=== PATIENT | female | born 1940 | race Caucasian/White ===

== ENCOUNTER → 2016-03-01 | Outpatient (CLI) | payer MEDICARE, BC ==
[2016-03-01 11:31] LABS: CH 29.7; CHCM 32.6; HCT 39.2 % (34.0-46.0); HDW 2.53; HGB 12.6 gm/dL (11.4-16.0); MCH 29.5 pg (25.0-35.0); MCHC 32.2 g/dL (31.0-37.0); MCV 91.7 fL (80.0-100.0); Mean Platelet Volume 9.7; RBC 4.27 m/uL (3.80-5.40); RDW 13.4 % (11.5-15.5); WBC 7.5 k/uL (3.8-10.6)
[2016-03-01 11:53] LABS: ALT 22 U/L (9-52); AST 16 U/L (14-36); Alkaline Phosphatase 85 U/L (38-126); Anion Gap 15 mmol/L; Blood Urea Nitrogen 16 mg/dL (7-17); Calcium 9.3 mg/dL (8.4-10.2); Carbon Dioxide 24 mmol/L (22-30); Chloride 105 mmol/L (98-107); Glucose 92 mg/dL (74-99); Non-African American GFR(MDRD) >60 (>60 ml/min/1.73 sqM); Potassium 4.3 mmol/L (3.5-5.1); Sodium 144 mmol/L (137-145); Total Protein 7.1 g/dL (6.3-8.2)
== END | disposition home or self-care (01) ==
LOC: LABWHC1 10:59
PROVIDERS: ATTEND Psychiatry & Neurology Neurology
DX: M79.606 Pain in leg, unspecified (principal); T42.6X5A Adverse effect of other antiepileptic and sedative-hypnotic drugs, initial encounter
CPT/HCPCS: 36415; 80053; 82784; 82785; 85027

== ENCOUNTER → 2016-09-30 | Outpatient (CLI) | payer MEDICARE, BC ==
--- NOTE | 2016-09-30 11:11 | US ---
EXAMINATION TYPE: US venous doppler duplex LE DATE OF EXAM: 09/30/2016 10:55 AM COMPARISON: NONE CLINICAL HISTORY: Bilateral leg pain and swelling M79.606,R60.0. No h/o dvt SIDE PERFORMED: Bilateral TECHNIQUE: The lower extremity deep venous system is examined utilizing real time linear array sonog neelam with graded compression, doppler sonography and color-flow sonography. VESSELS IMAGED: External Iliac Vein (EIV) Common Femoral Vein Deep Femoral Vein Greater Saphenous Vein * Femoral Vein Popliteal Vein Small Saphenous Vein * Proximal Calf Veins (* superficial vessels) Right Leg: Appears negative for DVT Left Leg: Appears negative for DVT Grayscale, color doppler, spectral doppler imaging performed of the deep veins of the lower extremiti es. There is normal flow, compressibility, vascular waveforms bilaterally. IMPRESSION: No evidence of deep venous thrombosis within either extremity.
== END | disposition home or self-care (01) ==
LOC: RADUSWWP 10:27
PROVIDERS: ATTEND Psychiatry & Neurology Neurology
DX: R60.0 Localized edema (principal); M79.89 Other specified soft tissue disorders; M79.606 Pain in leg, unspecified
CPT/HCPCS: 93970

== ENCOUNTER → 2016-11-16 | Outpatient (CLI) | payer MEDICARE, BC ==
[2016-11-16 09:20] LABS: ALT 21 U/L (9-52); AST 15 U/L (14-36); Alkaline Phosphatase 76 U/L (38-126); Anion Gap 11 mmol/L; Blood Urea Nitrogen 9 mg/dL (7-17); Calcium 9.6 mg/dL (8.4-10.2); Carbon Dioxide 24 mmol/L (22-30); Chloride 107 mmol/L (98-107); Creatine Kinase 43 U/L (30-135); Glucose 95 mg/dL (74-99); Non-African American GFR(MDRD) 58 (>60 ml/min/1.73 sqM); Potassium 4.1 mmol/L (3.5-5.1); Sodium 142 mmol/L (137-145); Total Bilirubin 0.9 mg/dL (0.2-1.3); Total Protein 6.8 g/dL (6.3-8.2)
[2016-11-16 09:22] LABS: Basophils % (A) 1 %; CH 30.3; CHCM 33.4; Eosinophils # (A) 0.1 k/uL (0-0.7); Eosinophils % (A) 1 %; HCT 39.9 % (34.0-46.0); HDW 2.55; Luc # (Auto) 0.11; Luc % (Auto) 2; Lymphocytes # (A) 0.6 k/uL (1.0-4.8); Lymphocytes % (A) 12 %; MCH 29.8 pg (25.0-35.0); MCHC 32.7 g/dL (31.0-37.0); MCV 91.3 fL (80.0-100.0); Mean Platelet Volume 10.1; Monocytes # (A) 0.5 k/uL (0-1.0); Monocytes % (A) 11 %; Neutrophils # (A) 3.5 k/uL (1.3-7.7); Neutrophils % (A) 73 %; RBC 4.38 m/uL (3.80-5.40); RDW 14.6 % (11.5-15.5); WBC 4.8 k/uL (3.8-10.6); WBC (Perox) 5.11
--- NOTE | 2016-11-16 09:30 | CT ---
EXAMINATION TYPE: CT lumbar spine wo con DATE OF EXAM: 11/16/2016 COMPARISON: NONE HISTORY: lower leg pain bilateral CT DLP: 474.40 mGycm CONTRAST: Unenhanced CT of the lumbar spine was performed. Bone and soft tissue window settings are submitted as well as coronal and sagittal reconstructions. L1-L2: Moderate disc space narrowing. Moderate circumferential disc bulge with effacement of the vent ral thecal sac. No evidence for central stenosis or mikki disc herniation. Foramina are patent bilate rally. L2-L3: Severe degenerative disc disease with vacuum disc. Grade 1 anterolisthesis L2 on L3 of 3 mm. H ypertrophic change of the facet joints and hypertrophy of the ligamentum flavum resulting in moderate central stenosis. Mild superior endplate loss of height of L3 likely chronic in nature. L3-L4: Severe degenerative disc disease with vacuum disc. Moderately severe circumferential disc bulg e with effacement of the ventral thecal sac. Hypertrophy of the ligamentum flavum and facet joint art hropathy contribute to [id number] central stenosis. Mild bilateral foraminal encroachment. L4-L5: Severe degenerative disc disease with vacuum disc. Moderately severe circumferential disc bulg e with effacement of the ventral thecal sac. Hypertrophy of the ligamentum flavum and facet joint art hropathy contribute to moderate to severe central stenosis. Mild bilateral foraminal encroachment. L5-S1: Moderate disc space narrowing. Moderate circumferential disc bulge with effacement of the vent ral thecal sac. No evidence for central stenosis or mikki disc herniation. Foramina are patent bilate rally. No paraspinal masses are identified. Lumbar segments are free if fracture. Pulmonary fibrotic change s at the lung bases. IMPRESSION: 1. Multilevel degenerative disc disease. 2. Multilevel central stenosis as outlined above.
[2016-11-16 11:55] LABS: Erythrocyte Sedimentation Rate 3 mm/hr (0-20)
== END | disposition home or self-care (01) ==
LOC: RADCTMAIN 08:23
PROVIDERS: ATTEND Psychiatry & Neurology Neurology
DX: M48.06 Spinal stenosis, lumbar region (principal); M51.36 Other intervertebral disc degeneration, lumbar region
CPT/HCPCS: 36415; 72131; 80053; 82550; 85025; 85652

== ENCOUNTER → 2017-05-11 | Outpatient (CLI) | payer MEDICARE, BC ==
--- NOTE | 2017-05-11 12:56 | P.HPIM ---
History of Present Illness H&P Date: 05/11/17 Chief Complaint: low back and leg pain This is a 76-year-old patient referred by Dr. Varela for chronic pain in low back with radiation to legs with numbness/tingling/burning/[id number]. Patient has been taking medications from primary care physician including tramadol medications with some relief. Patient denies adverse drug effects from medications. Patient also denies new-onset weakness, bowel/bladder incontinence, or any other signs or symptoms of cauda equina syndrome. There are no signs of acute intoxication, and no indications of medication diversion or overuse. Patient notes that pain worsens significantly with standing and walking and improves with rest and medication. Patient has used several types of medications for pain, including NSAIDS, OPIOIDS, TRAMADOL, BENZOS. Patient HAS NOT had surgery. Patient HAS NOT had injections previously. Patient HAS had physical therapy recently without relief. In addition to above, 13-point review of systems is also negative for chest pain , shortness of breath, changes in vision, changes in hearing, new onset weakness , abdominal pain, diarrhea, extreme fatigue, malaise, fever, skin changes, homicidal or suicidal ideation, or bowel or bladder incontinence. PMHx: Parkinsons PSHx: denies Social Hx: neg x 3 FamHx: noncontributory Allergies: NKDA Full list of medications reviewed in EMR (Sinemet, meclizine, Ativan, [place]). Vital Signs: Reviewed in EMR Gen: WDWN, AAOx3, NAD HEENT: NCAT, EOMI, hearing grossly normal Pulm: resp unlabored Abd: soft, NT, ND Neck: supple, trachea midline ROM in flexion lumbar spine: reduced ROM in extension lumbar spine: reduced Lumbar paravertebral tenderness: + Facet loading: + L > R SI joint tenderness: + L > R Bronson's test: neg Straight leg raise: neg Lower extremity: decreased sensation to pinprick Neuro: CN II-XII grossly intact Medications and Allergies Home Medications Medication Instructions Recorded Confirmed Type Carbidopa-Levodopa 25-100 mg 2 each PO QID 05/11/17 05/11/17 History [Sinemet 25-100] LORazepam [Ativan] 0.5 mg PO BID PRN 05/11/17 05/11/17 History Meclizine [Antivert] 12.5 mg PO TID 05/11/17 05/11/17 History traMADol-ACETAMINOP 37.5-325MG 1 - 2 each PO Q8HR 05/11/17 05/11/17 History [Ultracet] Results Comments: MRI lumbar spine dated 11/16/2016 demonstrates severe degenerative disc disease L2-L3, L3-L4, and L4-L5. There are moderately severe disc bulges at L3 L4, L4- L5, and L5-S1 WITH effacement of the ventral thecal sac. There is hypertrophy of ligamentum flavum at L2-L3, L3-L4, and L4-L5 with associated facet joint arthropathy at all levels contributing to central canal stenosis of varying degrees. This spinal canal stenosis is worse at the L4-L5 level. Assessment and Plan (1) Lumbar spinal stenosis Current Visit: Yes Status: Chronic Code(s): M48.061 - SPINAL STENOSIS, LUMBAR REGION WITHOUT NEUROGENIC ELDER SNOMED Code(s): 32326272 (2) Lumbar spondylosis Current Visit: Yes Status: Chronic Code(s): M47.816 - SPONDYLOSIS W/O MYELOPATHY OR RADICULOPATHY, LUMBAR REGION SNOMED Code(s): 393029091 (3) Parkinson disease Current Visit: Yes Status: Chronic Code(s): G20 - PARKINSON'S DISEASE SNOMED Code(s): 85977495 Plan: 1. Explanation: Opioid and psychological risk scores were reviewed. Diagnoses , prognoses, and multiple treatment options including but not limited to physical therapy, interventional therapies, adjuvant medical therapies, narcotic medication therapies, and surgery were discussed with the patient and all questions were answered to the patient's satisfaction. 2. Opioid agreement: no opioids prescribed today 3. Counseling: The patient was counseled extensively on BODY MASS INDEX, EXERCISE. Specifically, the patient was instructed regarding the importance of weight control, and exercise in the context of both chronic pain and overall health. 4. Procedures: LESI series (L4-L5) if possible 5. Consultations: none 6. Investigations: none 7. Medications: none prescribed 8. Disposition: f/u for procedure as scheduled Time with Patient: Greater than 30
== END | disposition home or self-care (01) ==
LOC: PNWHC3 11:23
PROVIDERS: ATTEND Anesthesiology
DX: Z53.9 Procedure and treatment not carried out, unspecified reason (principal)

== ENCOUNTER 2017-07-13 10:41 | Emergency (ER) | payer MEDICARE, BC ==
--- NOTE | 2017-07-13 12:25 | ED ---
Extremity Problem HPI - General Chief complaint: Extremity Problem,Nontraumatic Stated complaint: Leg and arm pain Time Seen by Provider: 07/13/17 11:23 Source: patient, RN notes reviewed, old records reviewed Mode of arrival: wheelchair Limitations: physical limitation - History of Present Illness Initial comments: This patient is a 77-year-old female presents emergency Department chief complaint of bilateral arm and leg pain. She reports that she's been having intermittent swelling. Redness. Patient states that the redness and swelling seems to come and go. She states she had no fever or chills. Unable to eat and drink. No chest pain shortness of breath or any other symptoms. Patient reports she has a history of Parkinson's disease. She states that sometimes she ambulates and she has freezing moments. She states this happened once in a while. - Related Data Home Medications Medication Instructions Recorded Confirmed Carbidopa-Levodopa 25-100 mg 2 tab PO QID 05/11/17 07/13/17 [Sinemet 25-100] LORazepam [Ativan] 0.5 mg PO BID PRN 05/11/17 07/13/17 Meclizine [Antivert] 12.5 mg PO TID 05/11/17 07/13/17 traMADol-ACETAMINOP 37.5-325MG 1 - 2 tab PO Q8HR PRN 05/11/17 07/13/17 [Ultracet] Allergies Allergy/AdvReac Type Severity Reaction Status Date / Time No Known Allergies Allergy Verified 07/13/17 11:55 Review of Systems ROS Statement: Those systems with pertinent positive or pertinent negative responses have been documented in the HPI. ROS Other: All systems not noted in ROS Statement are negative. Past Medical History Additional Past Medical History / Comment(s): parkinsons disease, chronic back pain History of Any Multi-Drug Resistant Organisms: None Reported Past Surgical History: Hysterectomy Past Psychological History: No Psychological Hx Reported Smoking Status: Current every day smoker Past Alcohol Use History: None Reported Past Drug Use History: None Reported General Exam - General Exam Comments Initial Comments: 77-year-old female. Alert. No acute distress. Limitations: physical limitation General appearance: alert, in no apparent distress Head exam: Present: atraumatic, normocephalic, normal inspection Eye exam: Present: normal appearance, PERRL, EOMI. Absent: scleral icterus, conjunctival injection, periorbital swelling ENT exam: Present: normal exam, mucous membranes moist Neck exam: Present: normal inspection. Absent: tenderness, meningismus, lymphadenopathy Respiratory exam: Present: normal lung sounds bilaterally. Absent: respiratory distress, wheezes, rales, rhonchi, stridor Cardiovascular Exam: Present: regular rate, normal rhythm, normal heart sounds. Absent: systolic murmur, diastolic murmur, rubs, gallop, clicks GI/Abdominal exam: Present: soft, normal bowel sounds. Absent: distended, tenderness, guarding, rebound, rigid Extremities exam: Present: normal inspection, full ROM, normal capillary refill , other (Patient has no evidence of any peripheral edema. She has normal pulses throughout all extremities. No redness noted.). Absent: tenderness, pedal edema, joint swelling, calf tenderness Back exam: Present: normal inspection Neurological exam: Present: alert, oriented X3, CN II-XII intact Psychiatric exam: Present: normal affect, normal mood Skin exam: Present: warm, dry, intact, normal color. Absent: rash Course Vital Signs 07/13/17 10:46 Temperature 97.5 F L Pulse Rate 101 H Respiratory 20 Rate Blood Pressure 171/86 O2 Sat by Pulse 96 Oximetry Medical Decision Making - Medical Decision Making Is a 77-year-old male female presents with family with history of redness and swelling to her extremities. At this time there is no redness or swelling noted. She has normal pulses. She is no difficulty with ambulation range of motion. Patient informed of my physical exam findings and I'm not concerned for any redness. She cannot tell me when the redness seems to come and go. She denies any fevers or chills. No chest pain or abdominal pain. I discussed that this with the family. They would like us to compare form an ultrasound to ensure additional blood clot. Ultrasound of lower extremities was completed and there is no evidence of blood clot. Patient's family also relates that she has a slipped disc in her back. She reports no falls. Patient informed that she seems to have neuropathy leg pain. She should follow-up with her PCP or neurologist. Discussed this time and no concerns for any infection or vascular issues with her legs. There is no redness or swelling. Patient will follow- up. She'll be given a Flexeril and one Ativan. This is her home meds. - Radiology Data Radiology results: report reviewed Ultrasound is negative for DVT in bilateral lower extremities. Disposition Clinical Impression: Leg pain, bilateral Disposition: HOME SELF-CARE Condition: Good Instructions: Lumbar Radiculopathy (ED), Leg Pain (ED) Additional Instructions: If the redness reoccurs or persists patient should return to the emergency department. Up with your primary care provider Recommended taking the muscular relaxer or pain medication as prescribed by neurology. Is patient prescribed a controlled substance at d/c from ED?: No If prescribed controlled substance>3 days was MAPS reviewed?: No When asked, does pt state using other controlled substances?: No Referrals: Kwasi De Leon MD [Primary Care Provider] - 1-2 days Time of Disposition: 13:00
--- NOTE | 2017-07-13 12:54 | US ---
EXAMINATION TYPE: US venous doppler duplex LE BI DATE OF EXAM: 07/13/2017 12:41 PM COMPARISON: Bilateral lower extremity venous ultrasound September 30, 2016. CLINICAL HISTORY: Pain. h/o of disc problems in back, Parkinson's SIDE PERFORMED: Bilateral TECHNIQUE: The lower extremity deep venous system is examined utilizing real time linear array sonog neelam with graded compression, doppler sonography and color-flow sonography. VESSELS IMAGED: External Iliac Vein (EIV) Common Femoral Vein Deep Femoral Vein Greater Saphenous Vein * Femoral Vein Popliteal Vein Small Saphenous Vein * Proximal Calf Veins (* superficial vessels) Right Leg: Negative for DVT Left Leg: Negative for DVT Grayscale, color doppler, spectral doppler imaging performed of the deep veins of the bilateral lower extremities. There is normal flow, compressibility, vascular waveforms. IMPRESSION: No ultrasound evidence for acute DVT in either lower extremity. No significant change fro m prior.
[2017-07-13] MEDS ORDERED: CYCLOBENZAPRINE 10MG STARTER 3 TAB BTL PO STA (13:11)
[2017-07-13] MEDS ORDERED: LORazepam 1 MG TAB PO STA (13:12)
[2017-07-13 13:37] VITALS: BP 171/81; PULSE 98; RESP 18; TEMP 97.2
== END 2017-07-13 13:45 | disposition home or self-care (01) ==
LOC: EC 10:41
DX: M79.604 Pain in right leg (principal); M79.605 Pain in left leg; G20 Parkinson's disease; F17.200 Nicotine dependence, unspecified, uncomplicated; Z79.899 Other long term (current) drug therapy
CPT/HCPCS: 93005; 93970; 99284

== ENCOUNTER 2018-04-02 18:45 | Inpatient (IN) | payer MEDICARE, BC ==
[2018-04-02] MEDS ORDERED: SODIUM CHLORIDE 0.9% 1,000 ML IV STA ×2 (19:19)
[2018-04-02] MEDS ORDERED: MORPHINE SULFATE 4 MG/ML SYRINGE IV STA (19:19)
--- NOTE | 2018-04-02 19:20 | ED ---
Extremity Problem HPI - General Chief complaint: Extremity Problem,Nontraumatic Stated complaint: Leg Pain Time Seen by Provider: 04/02/18 18:53 Source: patient, EMS, RN notes reviewed, old records reviewed Mode of arrival: EMS Limitations: physical limitation - History of Present Illness Initial comments: This is a 77-year-old female to the ER for evaluation. She is presenting today for evaluation regards to weakness. History of underlying Parkinson's. Denies fever unable to give get up off the bed for the last 2 days, severely weak and found in her own feces and urine. Patient brought in the ER by family MD Complaint: extremity pain, joint pain -: days(s) (3) Location: bilateral lower extremity -: Yes fever Radiation: none Severity scale (1-10): 3 Quality: aching Consistency: constant Improves with: nothing Worsens with: weight bearing, walking Associated Symptoms: denies other symptoms - Related Data Home Medications Medication Instructions Recorded Confirmed Carbidopa-Levodopa 25-100 mg 1 tab PO Q4H 05/11/17 04/02/18 [Sinemet 25-100] LORazepam [Ativan] 0.5 mg PO BID 05/11/17 04/02/18 traMADol-ACETAMINOP 37.5-325MG 1 - 2 tab PO BID PRN 05/11/17 04/02/18 [Ultracet] Allergies Allergy/AdvReac Type Severity Reaction Status Date / Time No Known Allergies Allergy Verified 04/02/18 19:30 Review of Systems ROS Statement: Those systems with pertinent positive or pertinent negative responses have been documented in the HPI. ROS Other: All systems not noted in ROS Statement are negative. Past Medical History Past Medical History: Coronary Artery Disease (CAD) Additional Past Medical History / Comment(s): parkinsons disease, chronic back pain, spinal stenosis History of Any Multi-Drug Resistant Organisms: None Reported Past Surgical History: Hysterectomy Past Psychological History: No Psychological Hx Reported Smoking Status: Former smoker Past Alcohol Use History: None Reported Past Drug Use History: None Reported - Past Family History Father Family Medical History: Coronary Artery Disease (CAD), Myocardial Infarction ([place] ) Additional Family Medical History / Comment(s): Father was an alcoholic. He at the age of 69yrs. Mother Family Medical History: Coronary Artery Disease (CAD), Myocardial Infarction ([place] ) Additional Family Medical History / Comment(s): Mother lived to be 89yrs old. General Exam Limitations: physical limitation General appearance: alert, in no apparent distress Head exam: Present: atraumatic, normocephalic, normal inspection Eye exam: Present: normal appearance, PERRL, EOMI. Absent: scleral icterus, conjunctival injection, periorbital swelling ENT exam: Present: normal exam, mucous membranes moist Neck exam: Present: normal inspection. Absent: tenderness, meningismus, lymphadenopathy Respiratory exam: Present: normal lung sounds bilaterally. Absent: respiratory distress, wheezes, rales, rhonchi, stridor Cardiovascular Exam: Present: normal rhythm, tachycardia, normal heart sounds. Absent: systolic murmur, diastolic murmur, rubs, gallop, clicks GI/Abdominal exam: Present: soft, normal bowel sounds. Absent: distended, tenderness, guarding, rebound, rigid Extremities exam: Present: normal inspection, full ROM, normal capillary refill. Absent: tenderness, pedal edema, joint swelling, calf tenderness Back exam: Present: normal inspection Neurological exam: Present: alert, oriented X3, CN II-XII intact Psychiatric exam: Present: normal affect, normal mood Skin exam: Present: warm, dry, intact, normal color. Absent: rash Course Vital Signs 04/02/18 04/02/18 04/02/18 18:46 18:51 19:00 Temperature 98.1 F Pulse Rate 108 H Respiratory 16 Rate Blood Pressure 153/86 153/86 153/86 O2 Sat by Pulse 97 97 97 Oximetry 04/02/18 04/02/18 04/02/18 19:30 20:00 20:30 Temperature Pulse Rate Respiratory Rate Blood Pressure 140/65 140/70 140/86 O2 Sat by Pulse 98 97 Oximetry 04/02/18 04/02/18 04/02/18 20:48 21:00 21:30 Temperature Pulse Rate 111 H Respiratory 18 Rate Blood Pressure 132/74 132/74 126/67 O2 Sat by Pulse 97 97 Oximetry 04/02/18 04/03/18 04/03/18 22:00 00:49 01:18 Temperature 99.0 F Pulse Rate 98 100 Respiratory 16 18 18 Rate Blood Pressure 126/67 122/69 126/70 O2 Sat by Pulse 97 95 Oximetry 04/03/18 04/03/18 04/03/18 03:00 03:55 04:00 Temperature Pulse Rate 101 H Respiratory 16 Rate Blood Pressure 139/74 154/89 154/89 O2 Sat by Pulse 98 94 L Oximetry 04/03/18 04/03/18 05:00 06:00 Temperature Pulse Rate Respiratory Rate Blood Pressure 154/89 154/89 O2 Sat by Pulse Oximetry Medical Decision Making - Medical Decision Making Shweta female the ER for evaluation of weakness, positive for significant urinary tract infection, will admit for IV antibiotics - Lab Data Result diagrams: 04/02/18 20:53 04/02/18 20:53 Lab Results 04/02/18 04/02/18 04/02/18 Range/Units 20:53 20:53 20:53 WBC 14.1 H (3.8-10.6) k/uL RBC 4.90 (3.80-5.40) m/uL Hgb 14.0 (11.4-16.0) gm/dL Hct 44.9 (34.0-46.0) % MCV 91.7 (80.0-100.0) fL MCH 28.6 (25.0-35.0) pg MCHC 31.2 (31.0-37.0) g/dL RDW 13.9 (11.5-15.5) % Plt Count 235 (150-450) k/uL Neutrophils % 86 % Lymphocytes % 5 % Monocytes % 7 % Eosinophils % 0 % Basophils % 0 % Neutrophils # 12.1 H (1.3-7.7) k/uL Lymphocytes # 0.7 L (1.0-4.8) k/uL Monocytes # 1.1 H (0-1.0) k/uL Eosinophils # 0.1 (0-0.7) k/uL Basophils # 0.1 (0-0.2) k/uL PT 10.8 (9.0-12.0) sec INR 1.0 (<1.2) APTT 25.2 (22.0-30.0) sec Sodium 142 (137-145) mmol/L Potassium 4.1 (3.5-5.1) mmol/L Chloride 108 H (98-107) mmol/L Carbon Dioxide 22 (22-30) mmol/L Anion Gap 12 mmol/L BUN 24 H (7-17) mg/dL Creatinine 0.77 (0.52-1.04) mg/dL Est GFR (CKD-EPI)AfAm 85 (>60 ml/min/1.73 sqM) Est GFR (CKD-EPI)NonAf 74 (>60 ml/min/1.73 sqM) Glucose 110 H (74-99) mg/dL Plasma Lactic Acid Feliz (0.7-2.0) mmol/L Calcium 9.9 (8.4-10.2) mg/dL Phosphorus 3.5 (2.5-4.5) mg/dL Magnesium 2.2 (1.6-2.3) mg/dL Total Bilirubin 1.6 H (0.2-1.3) mg/dL AST 58 H (14-36) U/L ALT 25 (9-52) U/L Alkaline Phosphatase 80 (38-126) U/L Total Creatine Kinase (30-135) U/L CK-MB (CK-2) (0.0-2.4) ng/mL CK-MB (CK-2) Rel Index Troponin I (0.000-0.034) ng/mL Total Protein 6.9 (6.3-8.2) g/dL Albumin 4.2 (3.5-5.0) g/dL Urine Color Urine Appearance (Clear) Urine pH (5.0-8.0) Ur Specific [place] (1.001-1.035) Urine Protein (Negative) Urine Glucose (UA) (Negative) Urine Ketones (Negative) Urine Blood (Negative) Urine Nitrite (Negative) Urine Bilirubin (Negative) Urine Urobilinogen (<2.0) mg/dL Ur Leukocyte Esterase (Negative) Urine RBC (0-5) /hpf Urine WBC (0-5) /hpf Urine Bacteria (None) /hpf 04/02/18 04/02/18 04/02/18 Range/Units 20:53 20:53 22:03 WBC (3.8-10.6) k/uL RBC (3.80-5.40) m/uL Hgb (11.4-16.0) gm/dL Hct (34.0-46.0) % MCV (80.0-100.0) fL MCH (25.0-35.0) pg MCHC (31.0-37.0) g/dL RDW (11.5-15.5) % Plt Count (150-450) k/uL Neutrophils % % Lymphocytes % % Monocytes % % Eosinophils % % Basophils % % Neutrophils # (1.3-7.7) k/uL Lymphocytes # (1.0-4.8) k/uL Monocytes # (0-1.0) k/uL Eosinophils # (0-0.7) k/uL Basophils # (0-0.2) k/uL PT (9.0-12.0) sec INR (<1.2) APTT (22.0-30.0) sec Sodium (137-145) mmol/L Potassium (3.5-5.1) mmol/L Chloride (98-107) mmol/L Carbon Dioxide (22-30) mmol/L Anion Gap mmol/L BUN (7-17) mg/dL Creatinine (0.52-1.04) mg/dL Est GFR (CKD-EPI)AfAm (>60 ml/min/1.73 sqM) Est GFR (CKD-EPI)NonAf (>60 ml/min/1.73 sqM) Glucose (74-99) mg/dL Plasma Lactic Acid Feliz 1.6 (0.7-2.0) mmol/L Calcium (8.4-10.2) mg/dL Phosphorus (2.5-4.5) mg/dL Magnesium (1.6-2.3) mg/dL Total Bilirubin (0.2-1.3) mg/dL AST (14-36) U/L ALT (9-52) U/L Alkaline Phosphatase (38-126) U/L Total Creatine Kinase 1112 H* (30-135) U/L CK-MB (CK-2) 5.2 H (0.0-2.4) ng/mL CK-MB (CK-2) Rel Index 0.5 Troponin I 0.040 H* (0.000-0.034) ng/mL Total Protein (6.3-8.2) g/dL Albumin (3.5-5.0) g/dL Urine Color Yellow Urine Appearance Clear (Clear) Urine pH 5.5 (5.0-8.0) Ur Specific [place] 1.023 (1.001-1.035) Urine Protein 1+ H (Negative) Urine Glucose (UA) Negative (Negative) Urine Ketones 3+ H (Negative) Urine Blood Small H (Negative) Urine Nitrite Positive H (Negative) Urine Bilirubin Negative (Negative) Urine Urobilinogen 2.0 (<2.0) mg/dL Ur Leukocyte Esterase Moderate H (Negative) Urine RBC 2 (0-5) /hpf Urine WBC 20 H (0-5) /hpf Urine Bacteria Many H (None) /hpf Disposition Clinical Impression: Parkinson disease, UTI (urinary tract infection) Disposition: ADMITTED IP TO THIS HOSP Condition: Fair Is patient prescribed a controlled substance at d/c from ED?: No
[2018-04-02 21:06] LABS: Basophils # (A) 0.1 k/uL (0-0.2); Basophils % (A) 0 %; Eosinophils # (A) 0.1 k/uL (0-0.7); Eosinophils % (A) 0 %; HCT 44.9 % (34.0-46.0); Lymphocytes # (A) 0.7 k/uL (1.0-4.8); Lymphocytes % (A) 5 %; MCH 28.6 pg (25.0-35.0); MCHC 31.2 g/dL (31.0-37.0); MCV 91.7 fL (80.0-100.0); Mean Platelet Volume 8.4; Monocytes # (A) 1.1 k/uL (0-1.0); Monocytes % (A) 7 %; Neutrophils # (A) 12.1 k/uL (1.3-7.7); Neutrophils % (A) 86 %; Platelet Count 235 k/uL (150-450); RDW 13.9 % (11.5-15.5); WBC 14.1 k/uL (3.8-10.6)
[2018-04-02 21:15] LABS: Partial Thromboplastin Time 25.2 sec (22.0-30.0); Prothrombin Time 10.8 sec (9.0-12.0)
[2018-04-02 21:25] LABS: Albumin 4.2 g/dL (3.5-5.0); Calcium 9.9 mg/dL (8.4-10.2); Magnesium 2.2 mg/dL (1.6-2.3); Phosphorus 3.5 mg/dL (2.5-4.5); Potassium 4.1 mmol/L (3.5-5.1); Total Bilirubin 1.6 mg/dL (0.2-1.3); Total Protein 6.9 g/dL (6.3-8.2)
--- NOTE | 2018-04-02 21:39 | XR ---
EXAMINATION TYPE: XR chest 2V DATE OF EXAM: 04/02/2018 COMPARISON: Prior chest x-ray November 28, 2011 HISTORY: Weakness with bilateral leg pain. TECHNIQUE: Frontal and lateral views of the chest are obtained. FINDINGS: There is new elevated right hemidiaphragm. There is chronic parenchymal change bilaterally without suspicious focal air space opacity, pleural effusion, or pneumothorax seen. The cardiac silh ouette size is within normal limits. The osseous structures are demineralized. IMPRESSION: Chronic parenchymal change without suspicious acute pulmonary process. 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 Consider nonemergent fluoroscopic sniff t est follow up.
[2018-04-02 21:45] LABS: Creatine Kinase MB 5.2 ng/mL (0.0-2.4)
[2018-04-02 21:51] LABS: Troponin I 0.04 ng/mL (0.000-0.034)
[2018-04-02 22:17] LABS: Appearance,Urine Clear (Clear); Bacteria,Urine Many /hpf; Bilirubin,Urine Negative (Negative); Blood,Urine Small (Negative); Color,Urine Yellow; Glucose,Urine (UA) Negative (Negative); Ketones,Urine 3+ (Negative); Leukocyte Esterase,Urine Moderate (Negative); Nitrite,Urine Positive (Negative); PH, Urine 5.5 (5.0-8.0); Protein,Urine 1+ (Negative); RBC,Urine 2 /hpf (0-5); Specific Gravity,Urine 1.023 (1.001-1.035); WBC,Urine 20 /hpf (0-5)
[2018-04-02] MEDS ORDERED: cefTRIAXone 2,000 MG in SODIUM CHLORIDE 0.9% 100 ML IVPB STA (22:23)
[2018-04-02] MEDS ORDERED: HYDROmorphone 1 MG/ML 1 ML SYRINGE IVP STA (22:55)
[2018-04-03] MEDS: traMADol-ACETAMINOP 37.5-325MG 1 EACH TAB PO PRN (11:32)
[2018-04-03] MEDS: LORazepam 0.5 MG TAB PO SCH ×2 (11:32→20:07)
[2018-04-03] MEDS: ENOXAPARIN 40 MG/0.4 ML SYRINGE SQ SCH (11:32)
[2018-04-03] MEDS: CARBIDOPA-LEVODOPA 25-100 MG 1 EACH TAB PO SCH ×4 (14:00→23:18)
[2018-04-04] MEDS: CARBIDOPA-LEVODOPA 25-100 MG 1 EACH TAB PO SCH ×5 (04:58→21:06)
--- NOTE | 2018-04-04 08:14 | P.HPIM ---
History of Present Illness H&P Date: 04/03/18 Chief Complaint: UTI with bilateral lower extremity weakness. This is 77-year-old female one of my patient with a previous medical history significant for advanced Parkinson disease, osteophytes, significant spondylosis of the lumbar spine with spinal stenosis, has been under the care of Dr. Varela for her Parkinson as well as bilateral lower extremity neuropathy, patient was getting weaker and weaker over the last few weeks and she ended up coming to the ER at [facility] with her daughter and son-in-law yesterday because of symptoms of increased burning sensation with generalized weakness specially not able template using her walker and cane she was found to have urinary tract infection she was started on IV antibiotics was admitted to the hospital for evaluation as well as physical therapy evaluation due to significant weakness of both lower extremities. Review of Systems Constitutional: Reports weakness, Reports weight loss, Denies anorexia, Denies chronic headaches, Denies fatigue, Denies lethargy Eyes: denies blurred vision Ears: deny: decreased hearing Ears, nose, mouth and throat: Denies dysphagia, Denies neck lump, Denies sore throat Cardiovascular: Denies chest pain, Denies decreased exercise tolerance, Denies dyspnea on exertion, Denies leg edema, Denies rapid heart beat, Denies shortness of breath, Denies syncope Respiratory: Denies congestion, Denies cough with sputum, Denies home oxygen, Denies respiratory infections, Denies sleep apnea, Denies snoring, Denies wheezing Gastrointestinal: Denies abdominal pain, Denies belching, Denies heartburn, Denies melena, Denies nausea, Denies vomiting Genitourinary: Reports dysuria, Reports nocturia, Reports urinary frequency Menstruation: Reports postmenopausal Musculoskeletal: Reports atrophy, Reports gait dysfunction, Reports low back pain, Reports muscle weakness Musculoskeletal: absent: ankle pain, ankle stiffness, ankle swelling, elbow pain , elbow stiffness, elbow swelling, foot pain, foot stiffness, foot swelling, hand pain, hand stiffness, hand swelling, hip pain, hip stiffness, hip swelling , knee pain, knee stiffness, knee swelling, shoulder pain, shoulder stiffness, shoulder swelling, wrist pain, wrist stiffness, wrist swelling Integumentary: Denies pruritus, Denies rash Neurological: Reports balance difficulties, Reports confusion, Reports gait dysfunction, Reports weakness, Denies memory loss Psychiatric: Denies anxiety, Denies depression Endocrine: Denies fatigue, Denies weight change Past Medical History Past Medical History: GERD/Reflux, Neurologic Disorder, Osteoarthritis (OA) Additional Past Medical History / Comment(s): parkinsons disease, chronic back pain, spinal stenosis, numbness and tingling hands and feet, sinus problems, UTIs, urine incontinence. History of Any Multi-Drug Resistant Organisms: None Reported Past Surgical History: Heart Catheterization, Hysterectomy Past Anesthesia/Blood Transfusion Reactions: No Reported Reaction Smoking Status: Former smoker (Patient smoked about a pack every day for many years and quit and now she is back into the habit on and off 3-4 cig every day.) - Past Family History Father Family Medical History: No Reported History (Father at age of 69 from alcoholism.) Additional Family Medical History / Comment(s): Father was an alcoholic. He at the age of 69yrs. Mother Family Medical History: Coronary Artery Disease (CAD), Diabetes Mellitus ( Mother at age of 89 from diabetes and CAD.), Myocardial Infarction (UT) Additional Family Medical History / Comment(s): Mother lived to be 89yrs old. Brother(s) Family Medical History: Coronary Artery Disease (CAD) (Patient had 3 brothers all of them from CAD one of them had his first UT at the age of 60.) Sister(s) Family Medical History: Cancer (Patient had 2 sisters one of them from breast cancer and the other one suddenly from unknown cause.) Daughter(s) Family Medical History: No Reported History (Patient has one daughter major medical problems.) Son(s) Family Medical History: No Reported History (Patient has one son no major medical problems.) Medications and Allergies Home Medications Medication Instructions Recorded Confirmed Type Carbidopa-Levodopa 25-100 mg 1 tab PO Q4H 05/11/17 04/02/18 History [Sinemet 25-100] LORazepam [Ativan] 0.5 mg PO BID 05/11/17 04/02/18 History traMADol-ACETAMINOP 37.5-325MG 1 - 2 tab PO BID PRN 05/11/17 04/02/18 History [Ultracet] Allergies Allergy/AdvReac Type Severity Reaction Status Date / Time No Known Allergies Allergy Verified 04/02/18 19:30 Physical Exam Vitals: Vital Signs Temp Pulse Resp BP Pulse Ox 02/05/19 06:00 154/89 04/03/18 05:00 154/89 04/03/18 04:00 154/89 94 L 04/03/18 03:55 101 H 16 154/89 98 04/03/18 03:00 139/74 04/03/18 01:18 99.0 F 100 18 126/70 95 04/03/18 00:49 98 18 122/69 97 04/02/18 22:00 16 126/67 04/02/18 21:30 126/67 04/02/18 21:00 132/74 97 04/02/18 20:48 111 H 18 132/74 97 04/02/18 20:30 140/86 97 04/02/18 20:00 140/70 98 04/02/18 19:30 140/65 04/02/18 19:00 153/86 97 04/02/18 18:51 153/86 97 04/02/18 18:46 98.1 F 108 H 16 153/86 97 Intake and Output 04/02/18 04/03/18 04/03/18 22:59 06:59 14:59 Other: Weight 68.039 kg - Constitutional General appearance: mild distress, thin - EENT Eyes: anicteric sclerae, EOMI, PERRLA, no ptosis, no scleral icterus, normal appearance ENT: hard of hearing, NA/AT, normal oropharynx, no thrush Ears: bilateral: normal - Neck Neck: no lymphadenopathy, normal ROM, no rigidity, no stridor, no thyromegaly Carotids: bilateral: upstroke normal Thyroid: bilateral: normal size - Respiratory Respiratory: bilateral: diminished, negative: dullness, rales, rhonchi, wheezing , prolonged expiration - Cardiovascular Rhythm: regular Heart sounds: normal: S1, S2 Abnormal Heart Sounds: systolic murmur, no S3 Gallop, no S4 Gallop - Gastrointestinal General gastrointestinal: normal bowel sounds, soft, no splenomegaly, no tenderness, no umbilical hernia, no ventral hernia - Integumentary Integumentary: normal, normal turgor - Neurologic Neurologic: CNII-XII intact - Musculoskeletal Musculoskeletal: generalized weakness, strength equal bilaterally - Psychiatric Psychiatric: A&O x's 3, appropriate affect, intact judgment & insight Results CBC & Chem 7: 04/02/18 20:53 04/02/18 20:53 Labs: Abnormal Lab Results - Last 24 Hours (Table) 04/02/18 04/02/18 04/02/18 Range/Units 20:53 20:53 20:53 WBC 14.1 H (3.8-10.6) k/uL Neutrophils # 12.1 H (1.3-7.7) k/uL Lymphocytes # 0.7 L (1.0-4.8) k/uL Monocytes # 1.1 H (0-1.0) k/uL Chloride 108 H (98-107) mmol/L BUN 24 H (7-17) mg/dL Glucose 110 H (74-99) mg/dL Total Bilirubin 1.6 H (0.2-1.3) mg/dL AST 58 H (14-36) U/L Total Creatine Kinase 1112 H* (30-135) U/L CK-MB (CK-2) 5.2 H (0.0-2.4) ng/mL Troponin I 0.040 H* (0.000-0.034) ng/mL Urine Protein (Negative) Urine Ketones (Negative) Urine Blood (Negative) Urine Nitrite (Negative) Ur Leukocyte Esterase (Negative) Urine WBC (0-5) /hpf Urine Bacteria (None) /hpf 04/02/18 Range/Units 22:03 WBC (3.8-10.6) k/uL Neutrophils # (1.3-7.7) k/uL Lymphocytes # (1.0-4.8) k/uL Monocytes # (0-1.0) k/uL Chloride (98-107) mmol/L BUN (7-17) mg/dL Glucose (74-99) mg/dL Total Bilirubin (0.2-1.3) mg/dL AST (14-36) U/L Total Creatine Kinase (30-135) U/L CK-MB (CK-2) (0.0-2.4) ng/mL Troponin I (0.000-0.034) ng/mL Urine Protein 1+ H (Negative) Urine Ketones 3+ H (Negative) Urine Blood Small H (Negative) Urine Nitrite Positive H (Negative) Ur Leukocyte Esterase Moderate H (Negative) Urine WBC 20 H (0-5) /hpf Urine Bacteria Many H (None) /hpf Microbiology - Last 24 Hours (Table) 04/02/18 22:03 Urine Culture - Preliminary Urine,Catheterized Thrombosis Risk Factor Assmnt - DVT/VTE Prophylaxis DVT/VTE Prophylaxis: Pharmacologic Prophylaxis ordered, Mechanical Prophylaxis ordered - Choose All That Apply Any of the Below Risk Factors Present?: Yes Other Risk Factors: Yes Each Risk Factor Represents 3 Points: Age 75 years or older Other congenital or acquired thrombophilia - If yes, enter type in comment: No Thrombosis Risk Factor Assessment Total Risk Factor Score: 3 Thrombosis Risk Factor Assessment Level: Moderate Risk Assessment and Plan Assessment: Assessment and plan: 1. Urinary tract infection with SIRS. Continue with Rocephin 1 g IV piggyback every 24 hours, urine culture, blood culture, monitor the patient very closely. 2. Bilateral lower extremity weakness due to advanced Parkinson disease. Continue patient on carbidopa levodopa 25/100 mg orally 4 times every day. Physical therapy evaluation. 3. Spondylosis of the lumbar spine and bilateral lower extremity neuropathy. Patient had felt the use of gabapentin and Lyrica both. 4. anxiety. Has been maintained on Ativan 0.5 mg orally twice every day. 5. Osteoarthritis. Stable at this time. 6. DVT prophylaxis. Lovenox 40 mg subcutaneously daily. 7. GI prophylaxis. Continue PPI. 8. Patient is full code. 9. Admit to inpatient. Estimate length of stay 2 midnights.
[2018-04-04] MEDS: ENOXAPARIN 40 MG/0.4 ML SYRINGE SQ SCH (08:42)
[2018-04-04] MEDS: LORazepam 0.5 MG TAB PO SCH ×2 (08:42→21:06)
[2018-04-04] MEDS: SODIUM CHLORIDE 0.9% 1,000 ML IV SCH (14:15)
--- NOTE | 2018-04-04 14:30 | P.PN ---
Subjective Progress Note Date: 04/04/18 This is 77-year-old female one of my patient with a previous medical history significant for advanced Parkinson disease, osteophytes, significant spondylosis of the lumbar spine with spinal stenosis, has been under the care of Dr. Varela for her Parkinson as well as bilateral lower extremity neuropathy, patient was getting weaker and weaker over the last few weeks and she ended up coming to the ER at [facility] with her daughter and son-in-law yesterday because of symptoms of increased burning sensation with generalized weakness specially not able template using her walker and cane she was found to have urinary tract infection she was started on IV antibiotics was admitted to the hospital for evaluation as well as physical therapy evaluation due to significant weakness of both lower extremities. 04/04: Patient states she is feeling a little bit better from yesterday but still is feeling tired and weak. She did walk with physical therapy and subacute rehab has been recommended. Patient is willing to go to subacute rehab for therapies. She has had a bowel movement. Noted CK was elevated plan to repeat tomorrow. Patient will be continued on IV fluids. She has been afebrile, blood pressure 100/66, pulse ox 94-96% on room air. Heart rate running in 70s to 90. Urine culture showing gram-negative bacilli. Patient is continued on Rocephin. Review of Systems Constitutional: Reports weakness, Reports weight loss, Denies anorexia, Denies chronic headaches, reports fatigue, Denies lethargy Eyes: denies blurred vision Ears: deny: decreased hearing Ears, nose, mouth and throat: Denies dysphagia, Denies neck lump, Denies sore throat Cardiovascular: Denies chest pain, Denies decreased exercise tolerance, Denies dyspnea on exertion, Denies leg edema, Denies rapid heart beat, Denies shortness of breath, Denies syncope Respiratory: Denies congestion, Denies cough with sputum, Denies home oxygen, Denies respiratory infections, Denies sleep apnea, Denies snoring, Denies wheezing Gastrointestinal: Denies abdominal pain, Denies belching, Denies heartburn, Denies melena, Denies nausea, Denies vomiting Genitourinary: Reports dysuria, Reports nocturia, Reports urinary frequency Menstruation: Reports postmenopausal Musculoskeletal: Reports atrophy, Reports gait dysfunction, Reports low back pain, Reports muscle weakness Musculoskeletal: absent: ankle pain, ankle stiffness, ankle swelling, elbow pain , elbow stiffness, elbow swelling, foot pain, foot stiffness, foot swelling, hand pain, hand stiffness, hand swelling, hip pain, hip stiffness, hip swelling , knee pain, knee stiffness, knee swelling, shoulder pain, shoulder stiffness, shoulder swelling, wrist pain, wrist stiffness, wrist swelling Integumentary: Denies pruritus, Denies rash Neurological: Reports balance difficulties, Reports confusion, Reports gait dysfunction, Reports weakness, Denies memory loss Psychiatric: Denies anxiety, Denies depression Endocrine: Denies fatigue, Denies weight change Objective - Vital Signs Vital signs: Vital Signs Temp 98.0 F 04/04/18 08:51 Pulse 90 04/04/18 08:51 Resp 16 04/04/18 08:51 BP 125/66 04/04/18 08:51 Pulse Ox 96 04/04/18 08:51 Intake & Output 04/03/18 04/04/18 04/04/18 18:59 06:59 18:59 Intake Total 460 536 200 Balance 460 536 200 Intake: Intake, IV Titration 100 Amount cefTRIAXone 1,000 mg In 100 Sodium Chloride 0.9% 50 ml @ 100 mls/hr IVPB Q24H [facility] Rx#:[id number] Oral 360 536 200 Other: Voiding Method Diaper Diaper Diaper # Voids 3 1 # Bowel Movements 1 - Exam General appearance: No distress, thin, resting in bed. Niece is at the bedside. - EENT Eyes: anicteric sclerae, EOMI, PERRLA, no ptosis, no scleral icterus, normal appearance ENT: hard of hearing, NA/AT, normal oropharynx, no thrush Ears: bilateral: normal - Neck Neck: no lymphadenopathy, normal ROM, no rigidity, no stridor, no thyromegaly Carotids: bilateral: upstroke normal Thyroid: bilateral: normal size - Respiratory Respiratory: bilateral: diminished, negative: dullness, rales, rhonchi, wheezing , prolonged expiration - Cardiovascular Rhythm: regular Heart sounds: normal: S1, S2 Abnormal Heart Sounds: systolic murmur, no S3 Gallop, no S4 Gallop - Gastrointestinal General gastrointestinal: normal bowel sounds, soft, no splenomegaly, no tenderness, no umbilical hernia, no ventral hernia - Integumentary Integumentary: normal, normal turgor - Neurologic Neurologic: CNII-XII intact - Musculoskeletal Musculoskeletal: generalized weakness, strength equal bilaterally - Psychiatric Psychiatric: A&O x's 3, appropriate affect, intact judgment & insight - Labs CBC & Chem 7: 04/02/18 20:53 04/02/18 20:53 Labs: Microbiology - Last 24 Hours (Table) 04/02/18 22:03 Urine Culture - Preliminary Urine,Catheterized Gram Neg Bacilli Assessment and Plan Plan: 1. Urinary tract infection with SIRS. Continue with Rocephin 1 g IV piggyback every 24 hours, urine culture, blood culture, monitor the patient very closely. 2. Rhabdomyolysis, present on admission. Continue IV fluids 0.9 normal saline and repeat CK in the morning. 3. Bilateral lower extremity weakness due to advanced Parkinson disease. Continue patient on carbidopa levodopa 25/100 mg orally 4 times every day. Physical therapy evaluation. 4. Spondylosis of the lumbar spine and bilateral lower extremity neuropathy. Patient had felt the use of gabapentin and Lyrica both. 5. Generalized anxiety disorder. Has been maintained on Ativan 0.5 mg orally twice every day. 5. Osteoarthritis. Stable at this time. 6. DVT prophylaxis. Lovenox 40 mg subcutaneously daily. 7. GI prophylaxis. Continue PPI. 8. Patient is full code. Discharge plan: Subacute rehab tomorrow. Impression and plan of care have been directed as dictated by the signing physician. Ruma Richardson nurse practitioner acting as scribe for signing physician.
[2018-04-04] MEDS: traMADol-ACETAMINOP 37.5-325MG 1 EACH TAB PO PRN (20:05)
--- NOTE | 2018-04-04 20:31 | XR ---
EXAMINATION TYPE: XR elbow complete LT DATE OF EXAM: 04/04/2018 COMPARISON: NONE HISTORY: Elbow pain TECHNIQUE: 3 views FINDINGS: I see no fracture nor dislocation. Joint spaces are normal. There is no sign of elbow joint effusion. IMPRESSION: Negative left elbow exam.
[2018-04-05] MEDS: CARBIDOPA-LEVODOPA 25-100 MG 1 EACH TAB PO SCH ×7 (00:34→23:35)
[2018-04-05] MEDS: SODIUM CHLORIDE 0.9% 1,000 ML IV SCH ×2 (01:35→15:58)
[2018-04-05] MEDS: ENOXAPARIN 40 MG/0.4 ML SYRINGE SQ SCH (08:04)
[2018-04-05] MEDS: LORazepam 0.5 MG TAB PO SCH ×2 (08:04→21:29)
[2018-04-05] MEDS: traMADol-ACETAMINOP 37.5-325MG 1 EACH TAB PO PRN (08:09)
--- NOTE | 2018-04-05 09:22 | P.DS ---
Providers Date of admission: 04/02/18 22:24 Expected date of discharge: 04/09/18 Attending physician: Kwasi De Leon Primary care physician: Siva De Leon [place] [facility] Course: This is 77-year-old female one of my patient with a previous medical history significant for advanced Parkinson disease, osteophytes, significant spondylosis of the lumbar spine with spinal stenosis, has been under the care of Dr. Varela for her Parkinson as well as bilateral lower extremity neuropathy, patient was getting weaker and weaker over the last few weeks and she ended up coming to the ER at [facility] with her daughter and son-in-law yesterday because of symptoms of increased burning sensation with generalized weakness specially not able template using her walker and cane she was found to have urinary tract infection she was started on IV antibiotics was admitted to the hospital for evaluation as well as physical therapy evaluation due to significant weakness of both lower extremities. 04/04: Patient states she is feeling a little bit better from yesterday but still is feeling tired and weak. She did walk with physical therapy and subacute rehab has been recommended. Patient is willing to go to subacute rehab for therapies. She has had a bowel movement. Noted CK was elevated plan to repeat tomorrow. Patient will be continued on IV fluids. She has been afebrile, blood pressure 100/66, pulse ox 94-96% on room air. Heart rate running in 70s to 90. Urine culture showing gram-negative bacilli. Patient is continued on Rocephin. 04/05: Left elbow x-ray was done for pain which was negative. Patient states that tramadol is not helping her pain. Tramadol will be changed to [facility] 5. Urine culture is E coli pansensitive. Patient is on ceftriaxone. Patient is eating very little. Ensure added. Family is planning for [facility] after discharge from [facility]. Anticipate discharge to [facility] tomorrow. 04/06: Patient is found sitting up in a recliner and daughters at the bedside. Patient continues to complain of generalized weakness. She complains of her legs feeling sore. She has done well working with physical therapy utilizing walker but has poor balance and decreased strength. Patient has a shuffling gait we'll plan to continue IV ceftriaxone. Patient will be monitored over the weekend and plan for discharge to [facility] on Monday. 04/07: Patient denies any new complaints today. She continues to have generalized weakness and generalized pain. We will add in gabapentin 100 mg twice daily to help with pain control. She remains afebrile, blood pressure 132 /70, pulse ox 94% on room air, pulse running between 80s and 90s. Potassium is 3.4 will be replaced, chloride 108, creatinine 0.57, blood sugar 128. Repeat CK is 379. Repeat troponin negative. 04/08: Patient continues to complain of pain especially down the left leg for which she is agreeable to try steroids tapering dose which will be started today. She has been afebrile, heart rate running in the 80s and 90s, blood pressure 134/78, pulse ox 94% on room air. IV fluids will be discontinued. Patient's daughters at the bedside and all questions have been answered. Patient will be transitioned to [facility] for the shelter. Anticipate discharge to [facility] on Monday. 04/09: Patient has had an uneventful evening. She has been afebrile, heart rate in the 70s to 90s, blood pressure 136/69. Patient will be discharged to [facility] today once arrangements are completed. Discharge diagnoses: 1. E. coli Urinary tract infection with SIRS. 2. Rhabdomyolysis, present on admission. 3. Bilateral lower extremity weakness due to advanced Parkinson disease. 4. Spondylosis of the lumbar spine with spinal stenosis and left sciatica and bilateral lower extremity neuropathy. 5. Generalized anxiety disorder. 6. Osteoarthritis. Stable at this time. Discharge plan: [facility] on Monday under the care of Dr. De Leon. Impression and plan of care have been directed as dictated by the signing physician. Ruma Richardson nurse practitioner acting as scribe for signing physician. Patient Condition at Discharge: Good Plan - Discharge Summary Discharge Rx Participant: No New Discharge Prescriptions: New Cephalexin [Keflex] 500 mg PO Q8HR #9 cap Gabapentin [Neurontin] 100 mg PO BID #6 cap HYDROcodone/APAP 5-325MG [[facility] 5-325] 1 each PO Q6HR PRN #12 tab PRN Reason: Pain predniSONE 0 mg PO DIRECTED #35 tab Continue Carbidopa-Levodopa 25-100 mg [Sinemet 25-100 mg] 1 tab PO Q4H LORazepam [Ativan] 0.5 mg PO BID #6 tablet Discontinued traMADol-ACETAMINOP 37.5-325MG [Ultracet] 1 - 2 tab PO BID PRN PRN Reason: Pain Discharge Medication List Carbidopa-Levodopa 25-100 mg [Sinemet 25-100 mg] 1 tab PO Q4H 05/11/17 [History] Cephalexin [Keflex] 500 mg PO Q8HR #9 cap 04/08/18 [Rx] Gabapentin [Neurontin] 100 mg PO BID #6 cap 04/08/18 [Rx] HYDROcodone/APAP 5-325MG [[facility] 5-325] 1 each PO Q6HR PRN #12 tab 04/08/18 [Rx] LORazepam [Ativan] 0.5 mg PO BID #6 tablet 04/08/18 [Rx] predniSONE 0 mg PO DIRECTED #35 tab 04/08/18 [Rx] Follow up Appointment(s)/Referral(s): Kwasi De Leon MD [Primary Care Provider] - 1 Week (at [facility] ) Discharge Disposition: TRANSFER TO SNF/ECF
--- NOTE | 2018-04-05 09:54 | P.PN ---
Subjective Progress Note Date: 04/05/18 This is 77-year-old female one of my patient with a previous medical history significant for advanced Parkinson disease, osteophytes, significant spondylosis of the lumbar spine with spinal stenosis, has been under the care of Dr. Varela for her Parkinson as well as bilateral lower extremity neuropathy, patient was getting weaker and weaker over the last few weeks and she ended up coming to the ER at [facility] with her daughter and son-in-law yesterday because of symptoms of increased burning sensation with generalized weakness specially not able template using her walker and cane she was found to have urinary tract infection she was started on IV antibiotics was admitted to the hospital for evaluation as well as physical therapy evaluation due to significant weakness of both lower extremities. 04/04: Patient states she is feeling a little bit better from yesterday but still is feeling tired and weak. She did walk with physical therapy and subacute rehab has been recommended. Patient is willing to go to subacute rehab for therapies. She has had a bowel movement. Noted CK was elevated plan to repeat tomorrow. Patient will be continued on IV fluids. She has been afebrile, blood pressure 100/66, pulse ox 94-96% on room air. Heart rate running in 70s to 90. Urine culture showing gram-negative bacilli. Patient is continued on Rocephin. 04/05: Left elbow x-ray was done for pain which was negative. Patient states that tramadol is not helping her pain. Tramadol will be changed to [place] 5. Urine culture is E coli pansensitive. Patient is on ceftriaxone. Patient is eating very little. Ensure added. Family is planning for [facility] [place] after discharge from [facility]. Anticipate discharge to [facility] tomorrow. Review of Systems Constitutional: Reports weakness, Reports weight loss, reports anorexia, Denies chronic headaches, reports fatigue, Denies lethargy Eyes: denies blurred vision Ears: deny: decreased hearing Ears, nose, mouth and throat: Denies dysphagia, Denies neck lump, Denies sore throat Cardiovascular: Denies chest pain, Denies decreased exercise tolerance, Denies dyspnea on exertion, Denies leg edema, Denies rapid heart beat, Denies shortness of breath, Denies syncope Respiratory: Denies congestion, Denies cough with sputum, Denies home oxygen, Denies respiratory infections, Denies sleep apnea, Denies snoring, Denies wheezing Gastrointestinal: Denies abdominal pain, Denies belching, Denies heartburn, Denies melena, Denies nausea, Denies vomiting Genitourinary: Reports dysuria, Reports nocturia, Reports urinary frequency Menstruation: Reports postmenopausal Musculoskeletal: Reports atrophy, Reports gait dysfunction, Reports low back pain, Reports muscle weakness Musculoskeletal: absent: ankle pain, ankle stiffness, ankle swelling, reports elbow pain, elbow stiffness, elbow swelling, foot pain, foot stiffness, foot swelling, hand pain, hand stiffness, hand swelling, hip pain, hip stiffness, hip swelling, knee pain, knee stiffness, knee swelling, shoulder pain, shoulder stiffness, shoulder swelling, wrist pain, wrist stiffness, wrist swelling Integumentary: Denies pruritus, Denies rash Neurological: Reports balance difficulties, denies confusion, Reports gait dysfunction, Reports weakness, Denies memory loss Psychiatric: Denies anxiety, Denies depression Endocrine: reports fatigue, Denies weight change Objective - Vital Signs Vital signs: Vital Signs Temp 97.8 F 04/05/18 08:12 Pulse 88 04/05/18 08:12 Resp 16 04/05/18 08:12 BP 118/70 04/05/18 08:12 Pulse Ox 96 04/05/18 08:12 Intake & Output 04/04/18 04/05/18 04/05/18 18:59 06:59 18:59 Intake Total 600 1140 Balance 600 1140 Intake: Intake, IV Titration 900 Amount Sodium Chloride 0.9% 1, 900 000 ml @ 75 mls/hr IV . [id number] [facility] Rx#:[id number] Oral 400 240 Other 200 Other: Voiding Method Diaper # Voids 3 2 - Exam General appearance: No distress, thin, resting in bed. Daughter is at the bedside. - EENT Eyes: anicteric sclerae, EOMI, PERRLA, no ptosis, no scleral icterus, normal appearance ENT: hard of hearing, NA/AT, normal oropharynx, no thrush Ears: bilateral: normal - Neck Neck: no lymphadenopathy, normal ROM, no rigidity, no stridor, no thyromegaly Carotids: bilateral: upstroke normal Thyroid: bilateral: normal size - Respiratory Respiratory: bilateral: diminished, negative: dullness, rales, rhonchi, wheezing , prolonged expiration - Cardiovascular Rhythm: regular Heart sounds: normal: S1, S2 Abnormal Heart Sounds: systolic murmur, no S3 Gallop, no S4 Gallop - Gastrointestinal General gastrointestinal: normal bowel sounds, soft, no splenomegaly, no tenderness, no umbilical hernia, no ventral hernia - Integumentary Integumentary: normal, normal turgor - Neurologic Neurologic: CNII-XII intact - Musculoskeletal Musculoskeletal: generalized weakness, strength equal bilaterally - Psychiatric Psychiatric: A&O x's 3, appropriate affect, intact judgment & insight - Labs CBC & Chem 7: 04/02/18 20:53 04/02/18 20:53 Labs: Microbiology - Last 24 Hours (Table) 04/02/18 22:03 Urine Culture - Final Urine,Catheterized Escherichia coli Assessment and Plan Plan: 1. E coli urinary tract infection with SIRS. Continue with Rocephin 1 g IV piggyback every 24 hours, urine culture, blood culture. 2. Rhabdomyolysis, present on admission. Continue IV fluids 0.9 normal saline and repeat CK in the morning. 3. Bilateral lower extremity weakness due to advanced Parkinson disease. Continue patient on carbidopa levodopa 25/100 mg orally 4 times every day. Physical therapy evaluation. 4. Spondylosis of the lumbar spine and bilateral lower extremity neuropathy. Patient had felt the use of gabapentin and Lyrica both. Tramadol changed to [place]. 5. Generalized anxiety disorder. Has been maintained on Ativan 0.5 mg orally twice every day. 5. Osteoarthritis. Stable at this time. 6. DVT prophylaxis. Lovenox 40 mg subcutaneously daily. 7. GI prophylaxis. Continue PPI. 8. Patient is full code. Discharge plan: [facility] tomorrow. Impression and plan of care have been directed as dictated by the signing physician. Ruma Richardson nurse practitioner acting as scribe for signing physician.
[2018-04-05 10:00] LABS: HCT 36.8 % (34.0-46.0); HGB 11.6 gm/dL (11.4-16.0); MCH 28.9 pg (25.0-35.0); MCHC 31.4 g/dL (31.0-37.0); MCV 92.1 fL (80.0-100.0); Mean Platelet Volume 9.5; Platelet Count 166 k/uL (150-450); WBC 7.2 k/uL (3.8-10.6)
[2018-04-05] MEDS: HYDROcodone/APAP 5-325MG 1 EACH TAB PO PRN ×2 (10:02→16:42)
[2018-04-05 10:18] LABS: ALT 16 U/L (9-52); AST 62 U/L (14-36); Alkaline Phosphatase 51 U/L (38-126); Anion Gap 4 mmol/L; Blood Urea Nitrogen 14 mg/dL (7-17); Calcium 8.6 mg/dL (8.4-10.2); Carbon Dioxide 25 mmol/L (22-30); Chloride 112 mmol/L (98-107); Creatine Kinase 849 U/L (30-135); Glucose 106 mg/dL (74-99); Potassium 3.3 mmol/L (3.5-5.1); Sodium 141 mmol/L (137-145); Total Bilirubin 0.8 mg/dL (0.2-1.3); Total Protein 5.5 g/dL (6.3-8.2)
[2018-04-05] MEDS ORDERED: cefTRIAXone 1 GM VIAL ONE (23:35)
[2018-04-06] MEDS: SODIUM CHLORIDE 0.9% 1,000 ML IV SCH ×3 (03:35→23:25)
[2018-04-06] MEDS: CARBIDOPA-LEVODOPA 25-100 MG 1 EACH TAB PO SCH ×6 (04:35→23:24)
[2018-04-06] MEDS: HYDROcodone/APAP 5-325MG 1 EACH TAB PO PRN ×3 (04:38→20:15)
[2018-04-06] MEDS: ENOXAPARIN 40 MG/0.4 ML SYRINGE SQ SCH (08:19)
[2018-04-06] MEDS: LORazepam 0.5 MG TAB PO SCH ×2 (08:19→21:59)
--- NOTE | 2018-04-06 11:47 | CDI ---
Documentation Clarification Form Date: 04/06/2018 11:17:05 AM From: Stacie Collier RN, CCDS Admit Date: 04/02/2018 10:24:00 PM Patient Name: Leighann Peacock Visit Number: [id number] Discharge Date: ATTENTION: The Clinical Documentation Specialists (CDI) and [facility] Coding Staff appreciate your assistance in clarifying documentation. Please respond to the clarification below the line at the bottom and electronically sign. The CDI & [facility] Coding staff will review the response and follow-up if needed. Please note: Queries are made part of the Legal Health Record. If you have any questions, please contact the author of this message via ITS. Dr. Kwasi De Leon H/P and progress notes has E.coli Urinary tract infection with SIRS. History/Risk Factors Coronary Artery Disease, Parkinsons disease, Clinical Indicators: Presenting for evaluation of weakness. She was in bed for 2 days found in her own feces and urine. WBC 14.1, UA Positive for significant urinary tract infection with final culture showing Escherichia coli Lactic acid: 1.6 Vitals signs on admission: 153/86 108 16 98.1 Treatment: Rocephin IV IV Bolus: IV Fluids Monitor CBC In your professional opinion, please clarify if these findings signify one of the following conditions, whether the condition is POA, and cause, if known: Condition Sepsis ruled out SIRS, Due to infectious process with out sepsis UTI with Sepsis Other, please specify Unable to determine SIRS Criteria (2 or more of the following may indicate SIRS): -Temperature < 96.8F (36C) or > 101.0F (38.3C) -Heart Rate > 90 bpm -Respiratory Rate > 20 breaths/min or PaCO2 < 32 mmHg -White Blood Cell Count > 12,000 or < 4,000 cells/mm3 or > 10% bands -Lactate >2.0 mmol/L (>4.0 is equivalent to septic shock) (Last Revision: May 2017) MARIETTAD
[2018-04-06 12:51] VITALS: BMI 24.2
--- NOTE | 2018-04-06 15:16 | P.PN ---
Subjective Progress Note Date: 04/06/18 This is 77-year-old female one of my patient with a previous medical history significant for advanced Parkinson disease, osteophytes, significant spondylosis of the lumbar spine with spinal stenosis, has been under the care of Dr. Varela for her Parkinson as well as bilateral lower extremity neuropathy, patient was getting weaker and weaker over the last few weeks and she ended up coming to the ER at [facility] with her daughter and son-in-law yesterday because of symptoms of increased burning sensation with generalized weakness specially not able template using her walker and cane she was found to have urinary tract infection she was started on IV antibiotics was admitted to the hospital for evaluation as well as physical therapy evaluation due to significant weakness of both lower extremities. 04/04: Patient states she is feeling a little bit better from yesterday but still is feeling tired and weak. She did walk with physical therapy and subacute rehab has been recommended. Patient is willing to go to subacute rehab for therapies. She has had a bowel movement. Noted CK was elevated plan to repeat tomorrow. Patient will be continued on IV fluids. She has been afebrile, blood pressure 100/66, pulse ox 94-96% on room air. Heart rate running in 70s to 90. Urine culture showing gram-negative bacilli. Patient is continued on Rocephin. 04/05: Left elbow x-ray was done for pain which was negative. Patient states that tramadol is not helping her pain. Tramadol will be changed to [place] 5. Urine culture is E coli pansensitive. Patient is on ceftriaxone. Patient is eating very little. Ensure added. Family is planning for [facility] [place] after discharge from [facility]. Anticipate discharge to [facility] tomorrow. 04/06: Patient is found sitting up in a recliner and daughters at the bedside. Patient continues to complain of generalized weakness. She complains of her legs feeling sore. She has done well working with physical therapy utilizing walker but has poor balance and decreased strength. Patient has a shuffling gait we'll plan to continue IV ceftriaxone. Patient will be monitored over the weekend and plan for discharge to [facility] on Monday. Review of Systems Constitutional: Reports weakness, Reports weight loss, reports anorexia, Denies chronic headaches, reports fatigue, Denies lethargy Eyes: denies blurred vision Ears: deny: decreased hearing Ears, nose, mouth and throat: Denies dysphagia, Denies neck lump, Denies sore throat Cardiovascular: Denies chest pain, Denies decreased exercise tolerance, Denies dyspnea on exertion, Denies leg edema, Denies rapid heart beat, Denies shortness of breath, Denies syncope Respiratory: Denies congestion, Denies cough with sputum, Denies home oxygen, Denies respiratory infections, Denies sleep apnea, Denies snoring, Denies wheezing Gastrointestinal: Denies abdominal pain, Denies belching, Denies heartburn, Denies melena, Denies nausea, Denies vomiting Genitourinary: Reports dysuria, Reports nocturia, Reports urinary frequency Menstruation: Reports postmenopausal Musculoskeletal: Reports atrophy, Reports gait dysfunction, Reports low back pain, Reports muscle weakness on the reports lower extremity weakness Musculoskeletal: absent: ankle pain, ankle stiffness, ankle swelling, reports elbow pain, elbow stiffness, elbow swelling, foot pain, foot stiffness, foot swelling, hand pain, hand stiffness, hand swelling, hip pain, hip stiffness, hip swelling, knee pain, knee stiffness, knee swelling, shoulder pain, shoulder stiffness, shoulder swelling, wrist pain, wrist stiffness, wrist swelling Integumentary: Denies pruritus, Denies rash Neurological: Reports balance difficulties, denies confusion, Reports gait dysfunction, Reports weakness, Denies memory loss Psychiatric: Denies anxiety, Denies depression Endocrine: reports fatigue, Denies weight change Objective - Vital Signs Vital signs: Vital Signs Temp 97.5 F L 04/06/18 14:48 Pulse 91 04/06/18 14:48 Resp 17 04/06/18 14:48 BP 95/60 04/06/18 14:48 Pulse Ox 95 04/06/18 14:48 Intake & Output 04/05/18 04/06/18 04/06/18 18:59 06:59 18:59 Intake Total 700 1200 Balance 700 1200 Weight 68.039 kg Intake: Intake, IV Titration 900 Amount Sodium Chloride 0.9% 1, 900 000 ml @ 75 mls/hr IV . [id number] [facility] Rx#:[id number] Oral 600 300 Other 100 Other: Voiding Method Diaper # Voids 4 2 2 - Exam General appearance: No distress, thin, resting in recliner. Daughter is at the bedside. - EENT Eyes: anicteric sclerae, EOMI, PERRLA, no ptosis, no scleral icterus, normal appearance ENT: hard of hearing, NA/AT, normal oropharynx, no thrush Ears: bilateral: normal - Neck Neck: no lymphadenopathy, normal ROM, no rigidity, no stridor, no thyromegaly Carotids: bilateral: upstroke normal Thyroid: bilateral: normal size - Respiratory Respiratory: bilateral: diminished, negative: dullness, rales, rhonchi, wheezing , prolonged expiration - Cardiovascular Rhythm: regular Heart sounds: normal: S1, S2 Abnormal Heart Sounds: systolic murmur, no S3 Gallop, no S4 Gallop - Gastrointestinal General gastrointestinal: normal bowel sounds, soft, no splenomegaly, no tenderness, no umbilical hernia, no ventral hernia - Integumentary Integumentary: normal, normal turgor - Neurologic Neurologic: CNII-XII intact - Musculoskeletal Musculoskeletal: generalized weakness, strength equal bilaterally - Psychiatric Psychiatric: A&O x's 3, appropriate affect, intact judgment & insight - Labs CBC & Chem 7: 04/05/18 09:23 04/05/18 09:23 Labs: Abnormal Lab Results - Last 24 Hours (Table) 04/06/18 Range/Units 11:10 Creatine Kinase 496 H (30-135) U/L Assessment and Plan Plan: 1. Sepsis secondary to E coli urinary tract infection presenting with leukocytosis, tachycardia and mild metabolic encephalopathy. Continue with Rocephin 1 g IV piggyback every 24 hours, urine culture, blood culture. 2. Rhabdomyolysis, present on admission. Continue IV fluids 0.9 normal saline and repeat CK in the morning. 3. Bilateral lower extremity weakness due to advanced Parkinson disease. Continue patient on carbidopa levodopa 25/100 mg orally 4 times every day. Physical therapy evaluation. 4. Spondylosis of the lumbar spine and bilateral lower extremity neuropathy. Patient had felt the use of gabapentin and Lyrica both. Tramadol changed to [place]. 5. Generalized anxiety disorder. Has been maintained on Ativan 0.5 mg orally twice every day. 5. Osteoarthritis. Stable at this time. 6. DVT prophylaxis. Lovenox 40 mg subcutaneously daily. 7. GI prophylaxis. Continue PPI. 8. Patient is full code. Discharge plan: on Monday Impression and plan of care have been directed as dictated by the signing physician. Ruma Richardson nurse practitioner acting as scribe for signing physician.
[2018-04-07] MEDS: CARBIDOPA-LEVODOPA 25-100 MG 1 EACH TAB PO SCH ×5 (03:25→21:42)
[2018-04-07] MEDS: LORazepam 0.5 MG TAB PO SCH ×2 (07:40→21:42)
[2018-04-07] MEDS: HYDROcodone/APAP 5-325MG 1 EACH TAB PO PRN ×2 (07:40→19:18)
[2018-04-07] MEDS: ENOXAPARIN 40 MG/0.4 ML SYRINGE SQ SCH (07:41)
[2018-04-07 09:10] LABS: HCT 38.6 % (34.0-46.0); HGB 12.7 gm/dL (11.4-16.0); MCH 30.1 pg (25.0-35.0); MCHC 32.8 g/dL (31.0-37.0); MCV 91.8 fL (80.0-100.0); Mean Platelet Volume 8.7; Platelet Count 193 k/uL (150-450); RBC 4.21 m/uL (3.80-5.40); RDW 13.7 % (11.5-15.5); WBC 4.1 k/uL (3.8-10.6)
[2018-04-07 09:31] LABS: ALT 21 U/L (9-52); AST 42 U/L (14-36); Albumin 3.1 g/dL (3.5-5.0); Alkaline Phosphatase 60 U/L (38-126); Anion Gap 9 mmol/L; Blood Urea Nitrogen 11 mg/dL (7-17); Calcium 8.8 mg/dL (8.4-10.2); Carbon Dioxide 25 mmol/L (22-30); Chloride 108 mmol/L (98-107); Creatine Kinase 379 U/L (30-135); Glucose 128 mg/dL (74-99); Potassium 3.4 mmol/L (3.5-5.1); Sodium 142 mmol/L (137-145); Total Bilirubin 0.6 mg/dL (0.2-1.3); Total Protein 5.7 g/dL (6.3-8.2)
[2018-04-07] MEDS ORDERED: POTASSIUM CHLORIDE ER 20 MEQ TAB.ER PO STA (09:41)
[2018-04-07] MEDS: GABAPENTIN 100 MG CAP PO SCH ×2 (10:03→21:42)
--- NOTE | 2018-04-07 13:56 | P.PN ---
Subjective Progress Note Date: 04/07/18 This is 77-year-old female one of my patient with a previous medical history significant for advanced Parkinson disease, osteophytes, significant spondylosis of the lumbar spine with spinal stenosis, has been under the care of Dr. Varela for her Parkinson as well as bilateral lower extremity neuropathy, patient was getting weaker and weaker over the last few weeks and she ended up coming to the ER at [facility] with her daughter and son-in-law yesterday because of symptoms of increased burning sensation with generalized weakness specially not able template using her walker and cane she was found to have urinary tract infection she was started on IV antibiotics was admitted to the hospital for evaluation as well as physical therapy evaluation due to significant weakness of both lower extremities. 04/04: Patient states she is feeling a little bit better from yesterday but still is feeling tired and weak. She did walk with physical therapy and subacute rehab has been recommended. Patient is willing to go to subacute rehab for therapies. She has had a bowel movement. Noted CK was elevated plan to repeat tomorrow. Patient will be continued on IV fluids. She has been afebrile, blood pressure 100/66, pulse ox 94-96% on room air. Heart rate running in 70s to 90. Urine culture showing gram-negative bacilli. Patient is continued on Rocephin. 04/05: Left elbow x-ray was done for pain which was negative. Patient states that tramadol is not helping her pain. Tramadol will be changed to [place] 5. Urine culture is E coli pansensitive. Patient is on ceftriaxone. Patient is eating very little. Ensure added. Family is planning for [facility] [place] after discharge from [facility]. Anticipate discharge to [facility] tomorrow. 04/06: Patient is found sitting up in a recliner and daughters at the bedside. Patient continues to complain of generalized weakness. She complains of her legs feeling sore. She has done well working with physical therapy utilizing walker but has poor balance and decreased strength. Patient has a shuffling gait we'll plan to continue IV ceftriaxone. Patient will be monitored over the weekend and plan for discharge to [facility] on Monday. 04/07: Patient denies any new complaints today. She continues to have generalized weakness and generalized pain. We will add in gabapentin 100 mg twice daily to help with pain control. She remains afebrile, blood pressure 132 /70, pulse ox 94% on room air, pulse running between 80s and 90s. Potassium is 3.4 will be replaced, chloride 108, creatinine 0.57, blood sugar 128. Repeat CK is 379. Repeat troponin negative. Review of Systems Constitutional: Reports weakness, Reports weight loss, reports anorexia, Denies chronic headaches, reports fatigue Eyes: denies blurred vision Ears: deny: decreased hearing Ears, nose, mouth and throat: Denies dysphagia, Denies neck lump, Denies sore throat Cardiovascular: Denies chest pain, Denies decreased exercise tolerance, Denies dyspnea on exertion, Denies leg edema, Denies rapid heart beat, Denies shortness of breath, Denies syncope Respiratory: Denies congestion, Denies cough with sputum, Denies home oxygen, Denies respiratory infections, Denies sleep apnea, Denies snoring, Denies wheezing Gastrointestinal: Denies abdominal pain, Denies belching, Denies heartburn, Denies melena, Denies nausea, Denies vomiting Genitourinary: Reports dysuria, Reports nocturia, Reports urinary frequency Menstruation: Reports postmenopausal Musculoskeletal: Reports atrophy, Reports gait dysfunction, Reports low back pain, Reports muscle weakness on the reports lower extremity weakness Musculoskeletal: absent: ankle pain, ankle stiffness, ankle swelling, reports elbow pain, elbow stiffness, elbow swelling, foot pain, foot stiffness, foot swelling, hand pain, hand stiffness, hand swelling, hip pain, hip stiffness, hip swelling, knee pain, knee stiffness, knee swelling, shoulder pain, shoulder stiffness, shoulder swelling, wrist pain, wrist stiffness, wrist swelling Integumentary: Denies pruritus, Denies rash Neurological: Reports balance difficulties, denies confusion, Reports gait dysfunction, Reports weakness, Denies memory loss Psychiatric: Denies anxiety, Denies depression Endocrine: reports fatigue, Denies weight change Objective - Vital Signs Vital signs: Vital Signs Temp 98.5 F 04/07/18 07:46 Pulse 85 04/07/18 07:46 Resp 16 04/07/18 07:46 BP 160/79 04/07/18 07:46 Pulse Ox 95 04/07/18 07:46 Intake & Output 04/06/18 04/07/18 04/07/18 18:59 06:59 18:59 Intake Total 1200 360 Output Total 300 350 Balance -300 850 360 Weight 68.039 kg Intake: Intake, IV Titration 1200 Amount Sodium Chloride 0.9% 1, 1200 000 ml @ 75 mls/hr IV . [id number] [facility] Rx#:[id number] Oral 360 Output: Urine 300 350 Other: Voiding Method Diaper Diaper # Voids 2 1 - Exam General appearance: No distress, thin, resting in bed at rest - EENT Eyes: anicteric sclerae, EOMI, PERRLA, no ptosis, no scleral icterus, normal appearance ENT: hard of hearing, NA/AT, normal oropharynx, no thrush Ears: bilateral: normal - Neck Neck: no lymphadenopathy, normal ROM, no rigidity, no stridor, no thyromegaly Carotids: bilateral: upstroke normal Thyroid: bilateral: normal size - Respiratory Respiratory: bilateral: diminished, negative: dullness, rales, rhonchi, wheezing , prolonged expiration - Cardiovascular Rhythm: regular Heart sounds: normal: S1, S2 Abnormal Heart Sounds: systolic murmur, no S3 Gallop, no S4 Gallop - Gastrointestinal General gastrointestinal: normal bowel sounds, soft, no splenomegaly, no tenderness, no umbilical hernia, no ventral hernia - Integumentary Integumentary: normal, normal turgor - Neurologic Neurologic: CNII-XII intact - Musculoskeletal Musculoskeletal: generalized weakness, strength equal bilaterally - Psychiatric Psychiatric: A&O x's 3, appropriate affect, intact judgment & insight - Labs CBC & Chem 7: 04/07/18 07:55 04/07/18 07:55 Labs: Abnormal Lab Results - Last 24 Hours (Table) 04/06/18 Range/Units 11:10 Creatine Kinase 496 H (30-135) U/L Assessment and Plan Plan: 1. Sepsis secondary to E coli urinary tract infection presenting with leukocytosis, tachycardia and mild metabolic encephalopathy. Continue with Rocephin 1 g IV piggyback every 24 hours, urine culture, blood culture. 2. Rhabdomyolysis, present on admission. Continue IV fluids 0.9 normal saline at 75 mL per hour. 3. Bilateral lower extremity weakness due to advanced Parkinson disease. Continue patient on carbidopa levodopa 25/100 mg orally 4 times every day. Physical therapy evaluation. 4. Spondylosis of the lumbar spine and bilateral lower extremity neuropathy. Patient had felt the use of gabapentin and Lyrica both. Tramadol changed to [place]. 5. Generalized anxiety disorder. Has been maintained on Ativan 0.5 mg orally twice every day. 5. Osteoarthritis. Stable at this time. 6. DVT prophylaxis. Lovenox 40 mg subcutaneously daily. 7. GI prophylaxis. Continue PPI. 8. Patient is full code. Discharge plan: on Monday Impression and plan of care have been directed as dictated by the signing physician. Ruma Richardson nurse practitioner acting as scribe for signing physician.
[2018-04-07] MEDS: SODIUM CHLORIDE 0.9% 1,000 ML IV SCH (15:29)
[2018-04-08] MEDS: CARBIDOPA-LEVODOPA 25-100 MG 1 EACH TAB PO SCH ×7 (00:45→23:54)
[2018-04-08] MEDS: SODIUM CHLORIDE 0.9% 1,000 ML IV SCH (04:55)
[2018-04-08] MEDS: HYDROcodone/APAP 5-325MG 1 EACH TAB PO PRN ×4 (04:57→23:56)
[2018-04-08] MEDS: LORazepam 0.5 MG TAB PO SCH ×2 (07:57→20:07)
[2018-04-08] MEDS: ENOXAPARIN 40 MG/0.4 ML SYRINGE SQ SCH (07:57)
[2018-04-08] MEDS: GABAPENTIN 100 MG CAP PO SCH ×2 (07:57→20:07)
[2018-04-08] MEDS: predniSONE 50 MG TAB PO SCH (11:14)
[2018-04-08] MEDS: FAMOTIDINE 20 MG TAB PO SCH (11:14)
--- NOTE | 2018-04-08 12:36 | P.PN ---
Subjective Progress Note Date: 04/08/18 This is 77-year-old female one of my patient with a previous medical history significant for advanced Parkinson disease, osteophytes, significant spondylosis of the lumbar spine with spinal stenosis, has been under the care of Dr. Varela for her Parkinson as well as bilateral lower extremity neuropathy, patient was getting weaker and weaker over the last few weeks and she ended up coming to the ER at [facility] with her daughter and son-in-law yesterday because of symptoms of increased burning sensation with generalized weakness specially not able template using her walker and cane she was found to have urinary tract infection she was started on IV antibiotics was admitted to the hospital for evaluation as well as physical therapy evaluation due to significant weakness of both lower extremities. 04/04: Patient states she is feeling a little bit better from yesterday but still is feeling tired and weak. She did walk with physical therapy and subacute rehab has been recommended. Patient is willing to go to subacute rehab for therapies. She has had a bowel movement. Noted CK was elevated plan to repeat tomorrow. Patient will be continued on IV fluids. She has been afebrile, blood pressure 100/66, pulse ox 94-96% on room air. Heart rate running in 70s to 90. Urine culture showing gram-negative bacilli. Patient is continued on Rocephin. 04/05: Left elbow x-ray was done for pain which was negative. Patient states that tramadol is not helping her pain. Tramadol will be changed to [place] 5. Urine culture is E coli pansensitive. Patient is on ceftriaxone. Patient is eating very little. Ensure added. Family is planning for [facility] [place] [facility] after discharge from [facility]. Anticipate discharge to [facility] tomorrow. 04/06: Patient is found sitting up in a recliner and daughters at the bedside. Patient continues to complain of generalized weakness. She complains of her legs feeling sore. She has done well working with physical therapy utilizing walker but has poor balance and decreased strength. Patient has a shuffling gait we'll plan to continue IV ceftriaxone. Patient will be monitored over the weekend and plan for discharge to [facility] on Monday. 04/07: Patient denies any new complaints today. She continues to have generalized weakness and generalized pain. We will add in gabapentin 100 mg twice daily to help with pain control. She remains afebrile, blood pressure 132 /70, pulse ox 94% on room air, pulse running between 80s and 90s. Potassium is 3.4 will be replaced, chloride 108, creatinine 0.57, blood sugar 128. Repeat CK is 379. Repeat troponin negative. 04/08: Patient continues to complain of pain especially down the left leg for which she is agreeable to try steroids tapering dose which will be started today. She has been afebrile, heart rate running in the 80s and 90s, blood pressure 134/78, pulse ox 94% on room air. IV fluids will be discontinued. Patient's daughters at the bedside and all questions have been answered. Patient will be transitioned to [facility] for the detention. Anticipate discharge to [place] on Monday. Review of Systems Constitutional: Reports weakness, Reports weight loss, reports anorexia, Denies chronic headaches, reports fatigue Eyes: denies blurred vision Ears: deny: decreased hearing Ears, nose, mouth and throat: Denies dysphagia, Denies neck lump, Denies sore throat Cardiovascular: Denies chest pain, Denies decreased exercise tolerance, Denies dyspnea on exertion, Denies leg edema, Denies rapid heart beat, Denies shortness of breath, Denies syncope Respiratory: Denies congestion, Denies cough with sputum, Denies home oxygen, Denies respiratory infections, Denies sleep apnea, Denies snoring, Denies wheezing Gastrointestinal: Denies abdominal pain, Denies belching, Denies heartburn, Denies melena, Denies nausea, Denies vomiting Genitourinary: Reports dysuria, Reports nocturia, Reports urinary frequency Menstruation: Reports postmenopausal Musculoskeletal: Reports atrophy, Reports gait dysfunction, Reports low back pain, Reports muscle weakness on the reports lower extremity weakness, reports shooting pain on the left leg Musculoskeletal: absent: ankle pain, ankle stiffness, ankle swelling, reports elbow pain, elbow stiffness, elbow swelling, foot pain, foot stiffness, foot swelling, hand pain, hand stiffness, hand swelling, hip pain, hip stiffness, hip swelling, knee pain, knee stiffness, knee swelling, shoulder pain, shoulder stiffness, shoulder swelling, wrist pain, wrist stiffness, wrist swelling Integumentary: Denies pruritus, Denies rash Neurological: Reports balance difficulties, denies confusion, Reports gait dysfunction, Reports weakness, Denies memory loss Psychiatric: Denies anxiety, Denies depression Endocrine: reports fatigue, Denies weight change Objective - Vital Signs Vital signs: Vital Signs Temp 97.8 F 04/08/18 07:00 Pulse 91 04/08/18 07:00 Resp 16 04/08/18 07:00 BP 134/78 04/08/18 07:00 Pulse Ox 94 L 04/08/18 07:00 Intake & Output 04/07/18 04/08/18 04/08/18 18:59 06:59 18:59 Intake Total 1320 1300 Output Total 500 Balance 820 1300 Intake: Intake, IV Titration 1200 Amount Sodium Chloride 0.9% 1, 1200 000 ml @ 75 mls/hr IV . [id number] KIRT Rx#:[id number] Oral 1320 100 Output: Urine 500 Other: Voiding Method Diaper # Voids 1 5 # Bowel Movements 2 - Exam General appearance: No distress, thin, resting in a recliner and appears to be comfortable. Daughter is at the bedside. - EENT Eyes: anicteric sclerae, EOMI, PERRLA, no ptosis, no scleral icterus, normal appearance ENT: hard of hearing, NA/AT, normal oropharynx, no thrush Ears: bilateral: normal - Neck Neck: no lymphadenopathy, normal ROM, no rigidity, no stridor, no thyromegaly Carotids: bilateral: upstroke normal Thyroid: bilateral: normal size - Respiratory Respiratory: bilateral: diminished, negative: dullness, rales, rhonchi, wheezing , prolonged expiration - Cardiovascular Rhythm: regular Heart sounds: normal: S1, S2 Abnormal Heart Sounds: systolic murmur, no S3 Gallop, no S4 Gallop - Gastrointestinal General gastrointestinal: normal bowel sounds, soft, no splenomegaly, no tenderness, no umbilical hernia, no ventral hernia - Integumentary Integumentary: normal, normal turgor - Neurologic Neurologic: CNII-XII intact - Musculoskeletal Musculoskeletal: generalized weakness, strength equal bilaterally - Psychiatric Psychiatric: A&O x's 3, appropriate affect, intact judgment & insight - Labs CBC & Chem 7: 04/07/18 07:55 04/07/18 07:55 Labs: Abnormal Lab Results - Last 24 Hours (Table) 04/07/18 Range/Units 07:55 Potassium 3.4 L (3.5-5.1) mmol/L Chloride 108 H (98-107) mmol/L Glucose 128 H (74-99) mg/dL AST 42 H (14-36) U/L Creatine Kinase 379 H (30-135) U/L Total Protein 5.7 L (6.3-8.2) g/dL Albumin 3.1 L (3.5-5.0) g/dL Assessment and Plan Plan: 1. Sepsis secondary to E coli urinary tract infection presenting with leukocytosis, tachycardia and mild metabolic encephalopathy. Continue with Rocephin 1 g IV piggyback every 24 hours, urine culture, blood culture. 2. Rhabdomyolysis, present on admission. Continue IV fluids will be discontinued 3. Bilateral lower extremity weakness due to advanced Parkinson disease. Continue patient on carbidopa levodopa 25/100 mg orally 4 times every day. Physical therapy evaluation. 4. Spondylosis of the lumbar spine and bilateral lower extremity neuropathy. Patient started on gabapentin and steroids. Tramadol changed to [place]. 5. Generalized anxiety disorder. Has been maintained on Ativan 0.5 mg orally twice every day. 5. Osteoarthritis. Stable at this time. 6. DVT prophylaxis. Lovenox 40 mg subcutaneously daily. 7. GI prophylaxis. Continue PPI. 8. Patient is full code. Discharge plan: on Monday Impression and plan of care have been directed as dictated by the signing physician. Ruma Richardson nurse practitioner acting as scribe for signing physician.
[2018-04-08] MEDS: CEPHALEXIN 500 MG CAP PO SCH (20:07)
[2018-04-09 00:02] VITALS: RESP 16
[2018-04-09] MEDS: CARBIDOPA-LEVODOPA 25-100 MG 1 EACH TAB PO SCH ×3 (05:18→12:30)
[2018-04-09] MEDS: HYDROcodone/APAP 5-325MG 1 EACH TAB PO PRN (05:20)
[2018-04-09] MEDS: FAMOTIDINE 20 MG TAB PO SCH (07:34)
[2018-04-09] MEDS: GABAPENTIN 100 MG CAP PO SCH (07:34)
[2018-04-09] MEDS: CEPHALEXIN 500 MG CAP PO SCH (07:34)
[2018-04-09] MEDS: predniSONE 50 MG TAB PO SCH (07:35)
[2018-04-09] MEDS: ENOXAPARIN 40 MG/0.4 ML SYRINGE SQ SCH (07:35)
[2018-04-09] MEDS: LORazepam 0.5 MG TAB PO SCH (07:35)
[2018-04-09 07:41] VITALS: BP 136/69; PULSE 76; TEMP 98.4
[2018-04-09] MEDS ORDERED: POTASSIUM CHLORIDE ER 10 MEQ TAB.ER.PRT PO SCH (09:45)
[2018-04-09] MEDS ORDERED: guaiFENesin 600 MG TABLET.ER PO SCH (09:45)
[2018-04-09] MEDS ORDERED: FUROSEMIDE 20 MG TAB PO SCH (09:45)
== END 2018-04-09 13:00 | DRG 871 ==
LOC: EC 18:45 → 4MS4W 22:24 → 4SSUR 04-03 14:24
PROVIDERS: ADMIT Internal Medicine; ATTEND Internal Medicine
DX: A41.51 Sepsis due to Escherichia coli [E. coli] (principal); G93.41 Metabolic encephalopathy; N39.0 Urinary tract infection, site not specified; M62.82 Rhabdomyolysis; G20 Parkinson's disease; M47.816 Spondylosis without myelopathy or radiculopathy, lumbar region; M48.061 Spinal stenosis, lumbar region without neurogenic claudication; M54.32 Sciatica, left side; G57.93 Unspecified mononeuropathy of bilateral lower limbs; M19.90 Unspecified osteoarthritis, unspecified site; G89.29 Other chronic pain; R32 Unspecified urinary incontinence; K21.9 Gastro-esophageal reflux disease without esophagitis; F41.1 Generalized anxiety disorder; H91.90 Unspecified hearing loss, unspecified ear; I25.10 Atherosclerotic heart disease of native coronary artery without angina pectoris; Z79.899 Other long term (current) drug therapy; Z87.891 Personal history of nicotine dependence; Z90.710 Acquired absence of both cervix and uterus; Z82.49 Family history of ischemic heart disease and other diseases of the circulatory system; Z81.1 Family history of alcohol abuse and dependence; Z80.3 Family history of malignant neoplasm of breast; Z83.3 Family history of diabetes mellitus
CPT/HCPCS: 36415; 71046; 80053; 81001; 82550; 82553; 83605; 83735; 84100; 84484; 85025; 85027; 85610; 85730; 87077; 87086; 87186; 93005; 94760; 96361; 96365; 96366; 96372; 96375; 99285

== ENCOUNTER 2018-05-28 08:37 | Inpatient (IN) | payer MEDICARE, BC ==
[2018-05-28] MEDS ORDERED: SODIUM CHLORIDE 0.9% 1,000 ML IV STA ×2 (09:10→10:13)
--- NOTE | 2018-05-28 09:12 | ED ---
General Adult HPI - General Chief complaint: Weakness Stated complaint: Weakness Time Seen by Provider: 05/28/18 08:52 Source: patient, EMS, RN notes reviewed Mode of arrival: EMS Limitations: no limitations - History of Present Illness Initial comments: Patient is a pleasant 77-year-old female presenting to the emergency Department with generalized weakness. Onset of symptoms was yesterday. Patient does have burning with urination. Patient fell out of bed last night. Patient was unable to get up and did lie on the floor throughout the night. Patient denies any significant injury. Patient denies any confusion. No head injury or loss of consciousness. Patient does have some chronic weakness associated with Parkinson's however feels this is somewhat worse than normal. No isolated area of weakness. - Related Data Home Medications Medication Instructions Recorded Confirmed Carbidopa-Levodopa 25-100 mg 1 tab PO Q4H 05/11/17 05/28/18 [Sinemet 25-100 mg] HYDROcodone/APAP 5-325MG [[place] 1 tab PO TID 05/28/18 05/28/18 5-325] LORazepam [Ativan] 0.5 mg PO DAILY 05/28/18 05/28/18 guaiFENesin [guaiFENesin Oral 100 mg PO Q4HR PRN 05/28/18 05/28/18 Solution] Previous Rx's Medication Instructions Recorded Gabapentin [Neurontin] 100 mg PO BID #6 cap 04/08/18 Famotidine [Pepcid] 20 mg PO DAILY tab 04/09/18 Potassium Chloride ER [K-Dur 10] 10 meq PO DAILY #2 tab.er.prt 04/09/18 Allergies Allergy/AdvReac Type Severity Reaction Status Date / Time No Known Allergies Allergy Verified 05/28/18 08:47 Review of Systems ROS Statement: Those systems with pertinent positive or pertinent negative responses have been documented in the HPI. ROS Other: All systems not noted in ROS Statement are negative. Constitutional: Denies: fever Eyes: Denies: eye pain ENT: Denies: ear pain Respiratory: Denies: cough Cardiovascular: Denies: chest pain Endocrine: Reports: fatigue Gastrointestinal: Denies: abdominal pain Genitourinary: Reports: dysuria Musculoskeletal: Denies: back pain Skin: Denies: rash Neurological: Reports: as per HPI Past Medical History Past Medical History: Neurologic Disorder, Osteoarthritis (OA) Additional Past Medical History / Comment(s): parkinsons disease, chronic back pain, spinal stenosis, numbness and tingling hands and feet, sinus problems, UTIs, urine incontinence. History of Any Multi-Drug Resistant Organisms: None Reported Past Surgical History: Heart Catheterization, Hysterectomy Past Anesthesia/Blood Transfusion Reactions: No Reported Reaction Past Psychological History: No Psychological Hx Reported Smoking Status: Former smoker - Past Family History Father Family Medical History: No Reported History (Father at age of 69 from alcoholism.) Additional Family Medical History / Comment(s): Father was an alcoholic. He at the age of 69yrs. Mother Family Medical History: Coronary Artery Disease (CAD), Diabetes Mellitus (Mother at age of 89 from diabetes and CAD.), Myocardial Infarction (GA) Additional Family Medical History / Comment(s): Mother lived to be 89yrs old. Brother(s) Family Medical History: Coronary Artery Disease (CAD) (Patient had 3 brothers all of them from CAD one of them had his first GA at the age of 60.) Sister(s) Family Medical History: Cancer (Patient had 2 sisters one of them from breast cancer and the other one suddenly from unknown cause.) Daughter(s) Family Medical History: No Reported History (Patient has one daughter major medical problems.) Son(s) Family Medical History: No Reported History (Patient has one son no major medical problems.) General Exam Limitations: no limitations General appearance: alert, in no apparent distress Head exam: Present: atraumatic Eye exam: Present: normal appearance, PERRL, EOMI. Absent: nystagmus ENT exam: Present: normal oropharynx Neck exam: Present: normal inspection Respiratory exam: Present: normal lung sounds bilaterally Cardiovascular Exam: Present: regular rate, normal rhythm GI/Abdominal exam: Present: soft. Absent: tenderness Extremities exam: Present: normal inspection. Absent: pedal edema, calf tenderness Neurological exam: Present: alert, oriented X3, CN II-XII intact. Absent: motor sensory deficit Psychiatric exam: Present: normal affect, normal mood Skin exam: Present: normal color Course Vital Signs 05/28/18 09:03 Temperature 97.9 F Pulse Rate 109 H Respiratory 20 Rate Blood Pressure 156/84 O2 Sat by Pulse 99 Oximetry EKG Findings - EKG Comments: EKG Findings:: Sinus tachycardia 107. HI 122. QRS 76. QT 336. QTc 448. Left axis. Normal QRS. No acute ST change. Medical Decision Making - Medical Decision Making Patient reevaluated and resting comfortably in bed. Patient is unable to get up and ambulate with assistance of nursing. Patient updated on results and plan. Case was discussed in detail with Dr. De Leon, who will admit his patient and did come down to evaluate. - Lab Data Result diagrams: 05/28/18 09:00 05/28/18 09:00 Lab Results 05/28/18 05/28/18 05/28/18 Range/Units 09:00 09:00 09:00 WBC 12.8 H (3.8-10.6) k/uL RBC 4.61 (3.80-5.40) m/uL Hgb 13.2 (11.4-16.0) gm/dL Hct 41.6 (34.0-46.0) % MCV 90.2 (80.0-100.0) fL MCH 28.6 (25.0-35.0) pg MCHC 31.6 (31.0-37.0) g/dL RDW 14.1 (11.5-15.5) % Plt Count 275 (150-450) k/uL Neutrophils % 85 % Lymphocytes % 6 % Monocytes % 6 % Eosinophils % 1 % Basophils % 0 % Neutrophils # 10.9 H (1.3-7.7) k/uL Lymphocytes # 0.8 L (1.0-4.8) k/uL Monocytes # 0.8 (0-1.0) k/uL Eosinophils # 0.1 (0-0.7) k/uL Basophils # 0.0 (0-0.2) k/uL PT (9.0-12.0) sec INR (<1.2) APTT (22.0-30.0) sec Sodium 143 (137-145) mmol/L Potassium 4.3 (3.5-5.1) mmol/L Chloride 107 (98-107) mmol/L Carbon Dioxide 21 L (22-30) mmol/L Anion Gap 15 mmol/L BUN 20 H (7-17) mg/dL Creatinine 0.63 (0.52-1.04) mg/dL Est GFR (CKD-EPI)AfAm >90 (>60 ml/min/1.73 sqM) Est GFR (CKD-EPI)NonAf 86 (>60 ml/min/1.73 sqM) Glucose 90 (74-99) mg/dL Plasma Lactic Acid Feliz 1.6 (0.7-2.0) mmol/L Calcium 9.8 (8.4-10.2) mg/dL Magnesium 2.1 (1.6-2.3) mg/dL Total Bilirubin 1.2 (0.2-1.3) mg/dL AST 38 H (14-36) U/L ALT 30 (9-52) U/L Alkaline Phosphatase 88 (38-126) U/L Creatine Kinase 611 H (30-135) U/L Troponin I (0.000-0.034) ng/mL Total Protein 7.1 (6.3-8.2) g/dL Albumin 4.2 (3.5-5.0) g/dL Urine Color Urine Appearance (Clear) Urine pH (5.0-8.0) Ur Specific Lane (1.001-1.035) Urine Protein (Negative) Urine Glucose (UA) (Negative) Urine Ketones (Negative) Urine Blood (Negative) Urine Nitrite (Negative) Urine Bilirubin (Negative) Urine Urobilinogen (<2.0) mg/dL Ur Leukocyte Esterase (Negative) 05/28/18 05/28/18 05/28/18 Range/Units 09:00 09:00 09:00 WBC (3.8-10.6) k/uL RBC (3.80-5.40) m/uL Hgb (11.4-16.0) gm/dL Hct (34.0-46.0) % MCV (80.0-100.0) fL MCH (25.0-35.0) pg MCHC (31.0-37.0) g/dL RDW (11.5-15.5) % Plt Count (150-450) k/uL Neutrophils % % Lymphocytes % % Monocytes % % Eosinophils % % Basophils % % Neutrophils # (1.3-7.7) k/uL Lymphocytes # (1.0-4.8) k/uL Monocytes # (0-1.0) k/uL Eosinophils # (0-0.7) k/uL Basophils # (0-0.2) k/uL PT 11.0 (9.0-12.0) sec INR 1.0 (<1.2) APTT 22.1 (22.0-30.0) sec Sodium (137-145) mmol/L Potassium (3.5-5.1) mmol/L Chloride (98-107) mmol/L Carbon Dioxide (22-30) mmol/L Anion Gap mmol/L BUN (7-17) mg/dL Creatinine (0.52-1.04) mg/dL Est GFR (CKD-EPI)AfAm (>60 ml/min/1.73 sqM) Est GFR (CKD-EPI)NonAf (>60 ml/min/1.73 sqM) Glucose (74-99) mg/dL Plasma Lactic Acid Feliz (0.7-2.0) mmol/L Calcium (8.4-10.2) mg/dL Magnesium (1.6-2.3) mg/dL Total Bilirubin (0.2-1.3) mg/dL AST (14-36) U/L ALT (9-52) U/L Alkaline Phosphatase (38-126) U/L Creatine Kinase (30-135) U/L Troponin I <0.012 (0.000-0.034) ng/mL Total Protein (6.3-8.2) g/dL Albumin (3.5-5.0) g/dL Urine Color Yellow Urine Appearance Clear (Clear) Urine pH 5.5 (5.0-8.0) Ur Specific Lane 1.030 (1.001-1.035) Urine Protein Trace H (Negative) Urine Glucose (UA) Negative (Negative) Urine Ketones 3+ H (Negative) Urine Blood Negative (Negative) Urine Nitrite Negative (Negative) Urine Bilirubin Negative (Negative) Urine Urobilinogen 2.0 (<2.0) mg/dL Ur Leukocyte Esterase Negative (Negative) - Radiology Data Radiology results: report reviewed (cT scan the brain reveals no acute intercranial process. Sinusitis.), image reviewed (X-ray shows no acute process) Disposition Clinical Impression: Fall, Rhabdomyolysis Disposition: ADMITTED IP TO THIS HOSP Is patient prescribed a controlled substance at d/c from ED?: No Referrals: Kwasi De Leon MD [Primary Care Provider] - 1-2 days Decision Time: 12:01
--- NOTE | 2018-05-28 09:43 | CT ---
EXAMINATION TYPE: CT brain wo con DATE OF EXAM: 05/28/2018 HISTORY: altered mental status CT DLP: 1060.4 mGycm. Automated Exposure Control for Dose Reduction was Utilized. TECHNIQUE: CT scan of the head is performed without contrast. COMPARISON: CT brain December 26, 2016. FINDINGS: There is no acute intracranial hemorrhage or midline shift identified. There is diffuse v entricular and sulcal prominence consistent with diffuse age-related cerebral atrophy. There is incr eased prominence of CSF over bilateral frontal lobes redemonstrated suggesting increased atrophy at t his level There is low-attenuation in the periventricular white matter consistent with chronic small vessel ischemic change. Air-fluid levels are seen in visualized portion of both maxillary sinuses. Re mainder paranasal sinuses are clear. There is scleral calcification left globe.. IMPRESSION: No acute intracranial hemorrhage or midline shift. There is mild to moderate diffuse ag e-related cerebral atrophy most prominent over bilateral frontal lobes and mild chronic small vessel ischemic change redemonstrated. No significant change from prior CT. New bilateral acute maxillary s inus disease is suspected, correlate clinically.
--- NOTE | 2018-05-28 09:45 | XR ---
EXAMINATION TYPE: XR chest 2V DATE OF EXAM: 05/28/2018 COMPARISON: Chest x-ray April 02, 2018 HISTORY: Weakness. TECHNIQUE: Frontal and lateral views of the chest are obtained. FINDINGS: There is elevated left hemidiaphragm with chronic parenchymal changes bilaterally. There is no suspicious focal air space opacity, pleural effusion, or pneumothorax seen. The cardiac silhouet te size is within normal limits with atherosclerotic change in aortic knob. The osseous structures are intact. IMPRESSION: Chronic changes without acute pulmonary process.
[2018-05-28 09:46] LABS: Basophils % (A) 0 %; Eosinophils # (A) 0.1 k/uL (0-0.7); Eosinophils % (A) 1 %; HCT 41.6 % (34.0-46.0); HGB 13.2 gm/dL (11.4-16.0); Lymphocytes # (A) 0.8 k/uL (1.0-4.8); Lymphocytes % (A) 6 %; MCH 28.6 pg (25.0-35.0); MCHC 31.6 g/dL (31.0-37.0); MCV 90.2 fL (80.0-100.0); Mean Platelet Volume 8.8; Monocytes # (A) 0.8 k/uL (0-1.0); Monocytes % (A) 6 %; Neutrophils # (A) 10.9 k/uL (1.3-7.7); Neutrophils % (A) 85 %; Platelet Count 275 k/uL (150-450); RBC 4.61 m/uL (3.80-5.40); RDW 14.1 % (11.5-15.5); WBC 12.8 k/uL (3.8-10.6)
[2018-05-28 09:47] LABS: Appearance,Urine Clear (Clear); Bilirubin,Urine Negative (Negative); Blood,Urine Negative (Negative); Color,Urine Yellow; Glucose,Urine (UA) Negative (Negative); Ketones,Urine 3+ (Negative); Leukocyte Esterase,Urine Negative (Negative); Nitrite,Urine Negative (Negative); PH, Urine 5.5 (5.0-8.0); Protein,Urine Trace (Negative)
[2018-05-28 09:56] LABS: ALT 30 U/L (9-52); AST 38 U/L (14-36); Albumin 4.2 g/dL (3.5-5.0); Alkaline Phosphatase 88 U/L (38-126); Anion Gap 15 mmol/L; Blood Urea Nitrogen 20 mg/dL (7-17); Calcium 9.8 mg/dL (8.4-10.2); Carbon Dioxide 21 mmol/L (22-30); Chloride 107 mmol/L (98-107); Creatine Kinase 611 U/L (30-135); Glucose 90 mg/dL (74-99); Magnesium 2.1 mg/dL (1.6-2.3); Potassium 4.3 mmol/L (3.5-5.1); Sodium 143 mmol/L (137-145); Total Bilirubin 1.2 mg/dL (0.2-1.3); Total Protein 7.1 g/dL (6.3-8.2)
[2018-05-28 10:02] LABS: Partial Thromboplastin Time 22.1 sec (22.0-30.0)
[2018-05-28] MEDS ORDERED: SODIUM CHLORIDE 0.9% 250 ML IV STA (10:14)
[2018-05-28] MEDS ORDERED: NALOXONE 0.4 MG/ML 1 ML VIAL IV PRN (12:01)
--- NOTE | 2018-05-28 12:28 | P.HPIM ---
History of Present Illness H&P Date: 05/28/18 Chief Complaint: Weakness/rhabdomyolysis This is 68-year-old female in my patient with a previous medical history significant for advanced Parkinson disease with significant spondylosis of the lumbar spine along with significant neuropathy both lower extremities, h istory of recurrent UTI, was recently admitted to the hospital for a fall and significant weakness in both lower x-rays ended up going to [facility] for physical therapy rehabilitation she was just discharged from over there and she currently resides at the [facility], her daughter has been checking on her and regular basis, she came to the office for a follow-up she has been doing fine patient decided to get off her wheelchair and lay on the floor because of her back pain and there was around Monday [id number] and she stayed there all Monday and Monday until her daughter came to check on her today she found her in the floor and the patient has not been getting her medication has not been eating or drinking anything [facility] the brain that showed moderate atrophy with small vessel disease without acute infarct chest x-ray no active disease, urinalysis was negative, she had a mild leukocytosis with the elevated CPK suggestive of early rhabdomyolysis, she was started on IV fluid resuscitation she was admitted to the hospital for evaluation physical therapy occupational therapy and social welfare clerk consultation for possible ECF placement. Review of Systems Constitutional: Reports chronic pain, Reports fatigue, Reports malaise, Reports weakness, Reports weight loss, Denies chronic headaches Eyes: denies blurred vision, denies bulging eye, denies decreased vision, denies diplopia Ears: deny: decreased hearing Ears, nose, mouth and throat: Denies dysphagia, Denies neck lump, Denies swelling in throat, Denies sore throat Cardiovascular: Reports lightheadedness, Denies chest pain, Denies decreased exercise tolerance, Denies dyspnea on exertion, Denies rapid heart beat, Denies shortness of breath, Denies syncope Respiratory: Denies congestion, Denies cough with sputum, Denies hemoptysis, Denies home oxygen, Denies sleep apnea, Denies snoring, Denies wheezing Gastrointestinal: Reports loss of appetite, Denies abdominal pain, Denies bloating, Denies change in bowel habits, Denies heartburn, Denies hematemesis, Denies melena, Denies nausea, Denies vomiting Genitourinary: Denies dysuria, Denies nocturia Menstruation: Reports postmenopausal Musculoskeletal: Reports atrophy, Reports frequent falls, Reports gait dysfunction, Reports low back pain Musculoskeletal: absent: ankle pain, ankle stiffness, ankle swelling, elbow pain, elbow stiffness, elbow swelling, foot pain, foot stiffness, foot swelling, hand pain, hand stiffness, hand swelling, hip pain, hip stiffness, hip swelling, knee pain, knee stiffness, knee swelling, shoulder pain, shoulder stiffness, shoulder swelling, wrist pain, wrist stiffness, wrist swelling Integumentary: Denies pruritus, Denies rash Neurological: Reports gait dysfunction, Reports paresthesias, Reports spasticity, Reports tremors, Reports weakness, Denies numbness Psychiatric: Reports anxiety, Denies depression, Denies paranoia, Denies sadness/tearfulness, Denies sleep disturbances, Denies suicidal ideation Endocrine: Denies fatigue, Denies weight change Past Medical History Past Medical History: Neurologic Disorder, Osteoarthritis (OA) Additional Past Medical History / Comment(s): parkinsons disease, chronic back pain, spinal stenosis, numbness and tingling hands and feet, sinus problems, U TIs, urine incontinence. History of Any Multi-Drug Resistant Organisms: None Reported Past Surgical History: Heart Catheterization, Hysterectomy Past Anesthesia/Blood Transfusion Reactions: No Reported Reaction Past Psychological History: No Psychological Hx Reported Smoking Status: Former smoker - Past Family History Father Family Medical History: No Reported History (Father at age of 69 from alcoholism.) Additional Family Medical History / Comment(s): Father was an alcoholic. He di ed at the age of 69yrs. Mother Family Medical History: Coronary Artery Disease (CAD), Diabetes Mellitus (Mother at age of 89 from diabetes and CAD.), Myocardial Infarction (OK) Additional Family Medical History / Comment(s): Mother lived to be 89yrs old. Brother(s) Family Medical History: Coronary Artery Disease (CAD) (Patient had 3 brothers all of them from CAD one of them had his first OK at the age of 60.) Sister(s) Family Medical History: Cancer (Patient had 2 sisters one of them from breast cancer and the other one suddenly from unknown cause.) Daughter(s) Family Medical History: No Reported History (Patient has one daughter major medical problems.) Son(s) Family Medical History: No Reported History (Patient has one son no major medical problems.) Medications and Allergies Home Medications Medication Instructions Recorded Confirmed Type RX: Carbidopa-Levodopa 25-100 mg 1 tab PO Q4H 05/11/17 05/28/18 History [Sinemet 25-100 mg] RX: Gabapentin [Neurontin] 100 mg PO BID #6 cap 04/08/18 05/28/18 Rx RX: Famotidine [Pepcid] 20 mg PO DAILY tab 04/09/18 05/28/18 Rx RX: Potassium Chloride ER [K-Dur 10 meq PO DAILY #2 tab.er.prt 04/09/18 05/28/18 Rx 10] HYDROcodone/APAP 5-325MG [[place] 1 tab PO TID 05/28/18 05/28/18 History 5-325] LORazepam [Ativan] 0.5 mg PO DAILY 05/28/18 05/28/18 History guaiFENesin [guaiFENesin Oral 100 mg PO Q4HR PRN 05/28/18 05/28/18 History Solution] Allergies Allergy/AdvReac Type Severity Reaction Status Date / Time No Known Allergies Allergy Verified 05/28/18 08:47 Physical Exam Vitals: Vital Signs Temp Pulse Resp BP Pulse Ox 05/28/18 09:03 97.9 F 109 H 20 156/84 99 Intake and Output 05/27/18 05/28/18 05/28/18 22:59 06:59 14:59 Other: Weight 68.946 kg - Constitutional General appearance: mild distress, thin - EENT Eyes: anicteric sclerae, EOMI, PERRLA, no ptosis, no scleral icterus, normal appearance ENT: hard of hearing, NA/AT, normal oropharynx, no thrush Ears: bilateral: normal - Neck Neck: no lymphadenopathy, normal ROM, no rigidity, no stridor, no thyromegaly Carotids: bilateral: upstroke normal Thyroid: bilateral: normal size - Respiratory Respiratory: bilateral: diminished, negative: dullness, rales, rhonchi, wheezing, prolonged expiration - Cardiovascular Rhythm: regular Heart sounds: normal: S1, S2 Abnormal Heart Sounds: systolic murmur, no S3 Gallop, no S4 Gallop - Gastrointestinal General gastrointestinal: soft, no splenomegaly, no tenderness, no umbilical hernia, no ventral hernia - Integumentary Integumentary: decreased turgor, normal - Neurologic Neurologic: CNII-XII intact, focal deficits - Musculoskeletal Musculoskeletal: no gait normal, generalized weakness - Psychiatric Psychiatric: A&O x's 3, appropriate affect, intact judgment & insight Results CBC & Chem 7: 05/28/18 09:00 05/28/18 09:00 Labs: Abnormal Lab Results - Last 24 Hours (Table) 05/28/18 05/28/18 05/28/18 Range/Units 09:00 09:00 09:00 WBC 12.8 H (3.8-10.6) k/uL Neutrophils # 10.9 H (1.3-7.7) k/uL Lymphocytes # 0.8 L (1.0-4.8) k/uL Carbon Dioxide 21 L (22-30) mmol/L BUN 20 H (7-17) mg/dL AST 38 H (14-36) U/L Creatine Kinase 611 H (30-135) U/L Urine Protein Trace H (Negative) Urine Ketones 3+ H (Negative) Thrombosis Risk Factor Assmnt - DVT/VTE Prophylaxis DVT/VTE Prophylaxis: Pharmacologic Prophylaxis ordered, Mechanical Prophylaxis ordered Assessment and Plan Assessment: Assessment and plan: 1. Severe weakness in both lower extremity secondary to advanced Parkinson disease. PT OT evaluation, restart the patient Parkinson medicine as the patient was without medicine for the last 24-48 hours, monitor the patient very closely. 2. Mild rhabdomyolysis. Continue IV fluid resuscitation the form of normal saline at 100 mL an hour repeat the patient's CPK and the next 24 hours. 3. Advanced Parkinson disease. Continue with Sinemet 25/100 mg one tablet orally 4 times every day. 4. Spondylosis of the lumbar spine. Continue patient on [place] twice every day. 5. GERD. Continue Pepcid 20 mg orally once every day. 6. Bilateral lower extremity neuropathy. Discontinue gabapentin. 7. Anxiety. Continue patient on lorazepam 0.5 mg orally at bedtime. 8. DVT prophylaxis. Continue patient on heparin 5000 units subcutaneously every 12 hours. 9. GI prophylaxis. Continue Pepcid. 10. Patient is full code. 11. Admitted to inpatient. Estimated length of stay 2 midnights.
[2018-05-28] MEDS: SODIUM CHLORIDE 0.9% 1,000 ML IV SCH ×2 (16:34→22:13)
[2018-05-28] MEDS: CARBIDOPA-LEVODOPA 25-100 MG 1 EACH TAB PO SCH ×3 (16:36→22:09)
[2018-05-28] MEDS: HYDROcodone/APAP 5-325MG 1 EACH TAB PO SCH (22:10)
[2018-05-29] MEDS: CARBIDOPA-LEVODOPA 25-100 MG 1 EACH TAB PO SCH ×6 (02:02→21:59)
[2018-05-29] MEDS: HYDROcodone/APAP 5-325MG 1 EACH TAB PO SCH ×2 (08:55→21:11)
[2018-05-29] MEDS: FAMOTIDINE 20 MG TAB PO SCH (08:55)
[2018-05-29] MEDS ORDERED: LORazepam 0.5 MG TAB PO SCH (09:00)
[2018-05-29 10:12] VITALS: BMI 24.5
--- NOTE | 2018-05-29 12:01 | P.CONS ---
History of Present Illness - Chief Complaint Medical debility - History of Present Illness I had the opportunity to see patient for inpatient rehab consultation with regard to medical debility. She was admitted to [facility] earlier today from [facility] with a lower extremity weakness, rhabdomyolysis and known Parkinson. PT and OT prescribed. Chest x-ray demonstrates chronic change. Head CT demonstrates mild to moderate diffuse age-related change and atrophy. Previous functional history as elicited patient and niece: 77-year-old right- handed white female who is and has been at the [facility] for the last 3 weeks. Patient retired. She reports he receives physical assistance for dressing but is able to bathe and toilet herself as well as gait with roller walker. Dr. De Leon is regular doctor. Denies tobacco or alcohol. Family history both parents with heart disease. Review of Systems Review of systems: ENT: Denies sneezes or discharge. Eyes: Denies discharge or photophobia. Cardiac: Denies chest pain or palpitation. Pulmonary: Denies cough or shortness of breath. Breast: Denies discharge or lumps. Gastrointestinal: Denies nausea, emesis, constipation, diarrhea. Genitourinary: Denies discharge or frequency. Musculoskeletal: Denies muscle or bone aches. Neurologic: Generalized weakness, especially legs. Endocrine: Denies shakes or sweats. Oncology: Denies cancers. Dermatologic: Denies rash, itching, pruritus. ALLERGY/immunology: Denies sneezes, rashes. Past Medical History Past Medical History: Neurologic Disorder, Osteoarthritis (OA) Additional Past Medical History / Comment(s): Parkinsons disease, chronic back pain, spinal stenosis, numbness and tingling hands and feet, sinus problems, UTIs, urine incontinence. History of Any Multi-Drug Resistant Organisms: None Reported Past Surgical History: Heart Catheterization, Hysterectomy Past Anesthesia/Blood Transfusion Reactions: No Reported Reaction Past Psychological History: No Psychological Hx Reported Additional Psychological History / Comment(s): Patient lives at [facility] independent living. She ambulates with a walker, and has had frequent falls. She does not drive, her daughter or son drive her to appts. Her daughter and son are helpful. Smoking Status: Former smoker Past Alcohol Use History: None Reported Additional Past Alcohol Use History / Comment(s): Pt started smoking in 1956 and quit for a short time by 1991 but states she resumed smoking and quit about 1 month ago. Past Drug Use History: None Reported - Past Family History Father Family Medical History: No Reported History Additional Family Medical History / Comment(s): Father was an alcoholic. He at the age of 69yrs. Mother Family Medical History: Coronary Artery Disease (CAD), Diabetes Mellitus, Myocardial Infarction (NH) Additional Family Medical History / Comment(s): Mother lived to be 89yrs old. Brother(s) Family Medical History: Coronary Artery Disease (CAD) Sister(s) Family Medical History: Cancer Daughter(s) Family Medical History: No Reported History Son(s) Family Medical History: No Reported History Medications and Allergies Home Medications Medication Instructions Recorded Confirmed Type Carbidopa-Levodopa 25-100 mg 1 tab PO Q4H 05/11/17 05/28/18 History [Sinemet 25-100 mg] Gabapentin [Neurontin] 100 mg PO BID #6 cap 04/08/18 05/28/18 Rx Famotidine [Pepcid] 20 mg PO DAILY tab 04/09/18 05/28/18 Rx Potassium Chloride ER [K-Dur 10] 10 meq PO DAILY #2 tab.er.prt 04/09/18 05/28/18 Rx HYDROcodone/APAP 5-325MG [[place] 1 tab PO TID 05/28/18 05/28/18 History 5-325] LORazepam [Ativan] 0.5 mg PO DAILY 05/28/18 05/28/18 History guaiFENesin [guaiFENesin Oral 100 mg PO Q4HR PRN 05/28/18 05/28/18 History Solution] Allergies Allergy/AdvReac Type Severity Reaction Status Date / Time No Known Allergies Allergy Verified 05/28/18 08:47 Physical Exam Vitals: Vital Signs Temp Pulse Pulse Resp BP BP Pulse Ox 05/29/18 05:36 98.9 F 71 16 116/70 99 05/28/18 22:32 97.6 F 90 16 131/78 96 05/28/18 17:06 98.3 F 104 H 20 144/80 94 L 05/28/18 12:18 98.0 F 102 H 18 149/80 97 Intake and Output 05/28/18 05/29/18 05/29/18 22:59 06:59 14:59 Intake Total 1440 Balance 1440 Intake: Intake, IV Titration 1200 Amount Sodium Chloride 0.9% 1, 1200 000 ml @ 100 mls/hr IV . Q10H STA Rx#:[id number] Oral 240 Other: Voiding Method Diaper Incontinent # Voids 1 2 # Bowel Movements 1 Weight 68.946 kg Skin: Atrophic, intact. General: Medium build and comfortable appearance. Advanced elderly. Head: Normocephalic, atraumatic. Eyes: Symmetric. Pupils equal round. Ears: Symmetric. Hearing within normal limits. Mouth: Clear. Neck: Supple. Carotid without bruit. Cardiac: Regular rate and rhythm. Lungs: Clear anteriorly and posteriorly. Abdomen: Soft active nontender. Extremities: Normal tone. Seen in the limbs. Neurological: Mental status: Alert, cooperative, pleasant. Cranial nerves: Symmetric facial tone and trapezius. Motor: Active movement all 4 limbs but poor throughout, especially legs. Sensation: Intact throughout. DTRs: Symmetric and equal throughout. Mobility: Required two-person assist from bed to Tootie chair. Results CBC & Chem 7: 05/28/18 09:00 05/28/18 09:00 Assessment and Plan (1) Rhabdomyolysis Current Visit: Yes Status: Acute Code(s): M62.82 - RHABDOMYOLYSIS SNOMED Code(s): 086111435 Plan: Impression: 1. Medical debility. 2. Rhabdomyolysis with generalized weakness. 3. Parkinson. 4. Lumbar disc disease with spinal stenosis. 5. Osteoarthritis. Comments and plan: PT and OT prescribed. A niece reports the patient is observation. Note that the patient would require a specific medical diagnosis for inpatient rehab, which she does not currently have. I will continue to follow with yourself though.
[2018-05-29] MEDS ORDERED: LORazepam 0.5 MG TAB PO STA (13:44)
--- NOTE | 2018-05-29 14:06 | P.PN ---
Subjective Progress Note Date: 05/29/18 This is 68-year-old female in my patient with a previous medical history significant for advanced Parkinson disease with significant spondylosis of the lumbar spine along with significant neuropathy both lower extremities, history of recurrent UTI, was recently admitted to the hospital for a fall and significant weakness in both lower x-rays ended up going to [facility] for physical therapy rehabilitation she was just discharged from over there and she currently resides at the [facility], her daughter has been checking on her and regular basis, she came to the office for a follow-up she has been doing fine patient decided to get off her wheelchair and lay on the floor because of her b ack pain and there was around Monday [id number] and she stayed there all Monday and Monday until her daughter came to check on her today she found her in the floor and the patient has not been getting her medication has not been eating or drinking anything [facility] the brain that showed moderate atrophy with small vessel disease without acute infarct chest x-ray no active disease, urinalysis was negative, she had a mild leukocytosis with the elevated CPK suggestive of early rhabdomyolysis, she was started on IV fluid resuscitation she was admitted to the hospital for evaluation physical therapy occupational therapy and social welfare administrator consultation for possible ECF placement. 05/29: Patient has been afebrile, heart rate in the 70s in the 80s, blood pressure 116/70, pulse ox 99% on room air. Patient is found sitting in recliner. Patient is verbalizing that she is nervous that she will be able to go home. Consult is in place with Dr. Rodriguez to evaluate for inpatient rehab. Ensure and place. Protein calorie malnutrition. Sinemet dosing changed to 4 times daily versus every 4 hours. Repeat CK is pending. Review of Systems Constitutional: Reports chronic pain, Reports fatigue, Reports malaise, Reports weakness, Reports weight loss, Denies chronic headaches Eyes: denies blurred vision, denies bulging eye, denies decreased vision, denies diplopia Ears: deny: decreased hearing Ears, nose, mouth and throat: Denies dysphagia, Denies neck lump, Denies swelling in throat, Denies sore throat Cardiovascular: Reports lightheadedness, Denies chest pain, Denies decreased exercise tolerance, Denies dyspnea on exertion, Denies rapid heart beat, Denies shortness of breath, Denies syncope Respiratory: Denies congestion, Denies cough with sputum, Denies hemoptysis, Denies home oxygen, Denies sleep apnea, Denies snoring, Denies wheezing Gastrointestinal: Reports loss of appetite, Denies abdominal pain, Denies bl oating, Denies change in bowel habits, Denies heartburn, Denies hematemesis, Denies melena, Denies nausea, Denies vomiting Genitourinary: Denies dysuria, Denies nocturia Menstruation: Reports postmenopausal Musculoskeletal: Reports atrophy, Reports frequent falls, Reports gait dysfunction, Reports low back pain Musculoskeletal: absent: ankle pain, ankle stiffness, ankle swelling, elbow pain, elbow stiffness, elbow swelling, foot pain, foot stiffness, foot swelling, hand pain, hand stiffness, hand swelling, hip pain, hip stiffness, hip swelling, knee pain, knee stiffness, knee swelling, shoulder pain, shoulder stiffness, shoulder swelling, wrist pain, wrist stiffness, wrist swelling Integumentary: Denies pruritus, Denies rash Neurological: Reports gait dysfunction, Reports paresthesias, Reports spasticity, Reports tremors, Reports weakness, Denies numbness Psychiatric: Reports anxiety, Denies depression, Objective - Vital Signs Vital signs: Vital Signs Temp 98.9 F 05/29/18 05:36 Pulse 71 05/29/18 05:36 Resp 16 05/29/18 05:36 BP 116/70 05/29/18 05:36 Pulse Ox 99 05/29/18 05:36 Intake & Output 05/28/18 05/29/18 05/29/18 18:59 06:59 18:59 Intake Total 1440 Balance 1440 Weight 68.946 kg Intake: Intake, IV Titration 1200 Amount Sodium Chloride 0.9% 1, 1200 000 ml @ 100 mls/hr IV . Q10H STA Rx#:[id number] Oral 240 Other: Voiding Method Diaper Incontinent # Voids 2 # Bowel Movements 1 1 - Exam General appearance: mild anxiety noted, thin - EENT Eyes: anicteric sclerae, EOMI, PERRLA, no ptosis, no scleral icterus, normal appearance ENT: hard of hearing, NA/AT, normal oropharynx, no thrush Ears: bilateral: normal - Neck Neck: no lymphadenopathy, normal ROM, no rigidity, no stridor, no thyromegaly Carotids: bilateral: upstroke normal Thyroid: bilateral: normal size - Respiratory Respiratory: bilateral: diminished, negative: dullness, rales, rhonchi, wheezing, prolonged expiration - Cardiovascular Rhythm: regular Heart sounds: normal: S1, S2 Abnormal Heart Sounds: systolic murmur, no S3 Gallop, no S4 Gallop - Gastrointestinal General gastrointestinal: soft, no splenomegaly, no tenderness, no umbilical hernia, no ventral hernia - Integumentary Integumentary: decreased turgor, normal - Neurologic Neurologic: CNII-XII intact, focal deficits - Musculoskeletal Musculoskeletal: no gait normal, generalized weakness - Psychiatric Psychiatric: A&O x's 3, appropriate affect, intact judgment & insight - Labs CBC & Chem 7: 05/28/18 09:00 05/28/18 09:00 Labs: Abnormal Lab Results - Last 24 Hours (Table) 05/28/18 05/28/18 05/28/18 Range/Units 09:00 09:00 09:00 WBC 12.8 H (3.8-10.6) k/uL Neutrophils # 10.9 H (1.3-7.7) k/uL Lymphocytes # 0.8 L (1.0-4.8) k/uL Carbon Dioxide 21 L (22-30) mmol/L BUN 20 H (7-17) mg/dL AST 38 H (14-36) U/L Creatine Kinase 611 H (30-135) U/L Urine Protein Trace H (Negative) Urine Ketones 3+ H (Negative) Assessment and Plan Plan: 1. Severe weakness in both lower extremity secondary to advanced Parkinson disease. PT OT evaluation, restart the patient Parkinson medicine as the patient was without medicine for the last 24-48 hours, monitor the patient very closely. Consult with Dr. Rodriguez 2. Mild rhabdomyolysis. Continue IV fluid resuscitation the form of normal saline at 75 mL an hour repeat the patient's CPK and the next 24 hours. 3. Advanced Parkinson disease. Continue with Sinemet 25/100 mg one tablet orally 4 times every day. 4. Spondylosis of the lumbar spine. Continue patient on [place] twice every day. 5. GERD. Continue Pepcid 20 mg orally once every day. 6. Bilateral lower extremity neuropathy. Discontinue gabapentin. 7. Generalized anxiety disorder. Continue patient on lorazepam 0.5 mg orally at bedtime. 8. DVT prophylaxis. Continue patient on heparin 5000 units subcutaneously every 12 hours. 9. GI prophylaxis. Continue Pepcid. 10. Patient is full code. Discharge plan: To be determined. PT and OT and place. Consult with Dr. Rodriguez. [facility]. Impression and plan of care have been directed as dictated by the signing physician. Ruma Richardson nurse practitioner acting as scribe for signing physician.
[2018-05-29] MEDS: SODIUM CHLORIDE 0.9% 1,000 ML IV SCH (20:24)
[2018-05-29] MEDS: LORazepam 0.5 MG TAB PO SCH (21:57)
[2018-05-29] MEDS: HEPARIN SODIUM,PORCINE 5,000 UNIT/ML 1 ML VIAL SQ SCH (21:57)
[2018-05-30] MEDS: SODIUM CHLORIDE 0.9% 1,000 ML IV SCH (05:19)
[2018-05-30] MEDS: FAMOTIDINE 20 MG TAB PO SCH (09:10)
[2018-05-30] MEDS: HEPARIN SODIUM,PORCINE 5,000 UNIT/ML 1 ML VIAL SQ SCH ×2 (09:10→21:19)
[2018-05-30] MEDS: HYDROcodone/APAP 5-325MG 1 EACH TAB PO SCH ×2 (09:10→21:19)
[2018-05-30] MEDS: CARBIDOPA-LEVODOPA 25-100 MG 1 EACH TAB PO SCH ×4 (09:10→21:19)
[2018-05-30] MEDS ORDERED: ACETAMINOPHEN TAB 325 MG TAB PO PRN (13:40)
--- NOTE | 2018-05-30 15:21 | P.PN ---
Subjective Progress Note Date: 05/30/18 This is 68-year-old female in my patient with a previous medical history significant for advanced Parkinson disease with significant spondylosis of the lumbar spine along with significant neuropathy both lower extremities, history of recurrent UTI, was recently admitted to the hospital for a fall and significant weakness in both lower x-rays ended up going to [facility] for physical therapy rehabilitation she was just discharged from over there and she currently resides at the [facility], her daughter has been checking on her and regular basis, she came to the office for a follow-up she has been doing fine patient decided to get off her wheelchair and lay on the floor because of her b ack pain and there was around Monday [id number] and she stayed there all Monday and Monday until her daughter came to check on her today she found her in the floor and the patient has not been getting her medication has not been eating or drinking anything [facility] of the brain that showed moderate atrophy with small vessel disease without acute infarct chest x-ray no active disease, urinalysis was negative, she had a mild leukocytosis with the elevated CPK suggestive of early rhabdomyolysis, she was started on IV fluid resuscitation she was admitted to the hospital for evaluation physical therapy occupational therapy and social service worker consultation for possible ECF placement. 05/29: Patient has been afebrile, heart rate in the 70s in the 80s, blood pressure 116/70, pulse ox 99% on room air. Patient is found sitting in recliner. Patient is verbalizing that she is nervous that she will be able to go home. Consult is in place with Dr. Rodriguez to evaluate for inpatient rehab. Ensure and place. Protein calorie malnutrition. Sinemet dosing changed to 4 times daily versus every 4 hours. Repeat CK is pending. 3: Patient has been seen by Dr. Rodriguez and patient does not appear to be a candidate for inpatient rehab. She has been afebrile, heart rates in the 70s and 80s, blood pressure 140/87, pulse ox 96% on room air. Patient has a lot of anxiety regarding discharge planning. Currently the plan is to go to [facility] on Monday. She is having some pain and [place] was not covering her through the day, and plain Tylenol to use throughout the day and continue [place] at twice daily. IV fluids will be changed over to saline lock. Review of Systems Constitutional: Reports chronic pain, Reports fatigue, Reports malaise, Reports weakness, Reports weight loss, Denies chronic headaches Eyes: denies blurred vision, denies bulging eye, denies decreased vision, denies diplopia Ears: deny: decreased hearing Ears, nose, mouth and throat: Denies dysphagia, Denies neck lump, Denies swellin g in throat, Denies sore throat Cardiovascular: Reports lightheadedness, Denies chest pain, Denies decreased exercise tolerance, Denies dyspnea on exertion, Denies rapid heart beat, Denies shortness of breath, Denies syncope Respiratory: Denies congestion, Denies cough with sputum, Denies hemoptysis, Denies home oxygen, Denies sleep apnea, Denies snoring, Denies wheezing Gastrointestinal: Reports loss of appetite, Denies abdominal pain, Denies bloating, Denies change in bowel habits, Denies heartburn, Denies hematemesis, Denies melena, Denies nausea, Denies vomiting Genitourinary: Denies dysuria, Denies nocturia Menstruation: Reports postmenopausal Musculoskeletal: Reports atrophy, Reports frequent falls, Reports gait dysfunction, Reports low back pain Musculoskeletal: absent: ankle pain, ankle stiffness, ankle swelling, elbow pain, elbow stiffness, elbow swelling, foot pain, foot stiffness, foot swelling, hand pain, hand stiffness, hand swelling, hip pain, hip stiffness, hip swelling, knee pain, knee stiffness, knee swelling, shoulder pain, shoulder stiffness, shoulder swelling, wrist pain, wrist stiffness, wrist swelling Integumentary: Denies pruritus, Denies rash Neurological: Reports gait dysfunction, Reports paresthesias, Reports spasticity, Reports tremors, Reports weakness, Denies numbness Psychiatric: Reports increased anxiety, Denies depression, Objective - Vital Signs Vital signs: Vital Signs Temp 98 F 05/30/18 05:00 Pulse 79 05/30/18 05:00 Resp 16 05/30/18 05:00 BP 148/87 05/30/18 05:00 Pulse Ox 96 05/30/18 05:00 Intake & Output 05/29/18 05/30/18 05/30/18 18:59 06:59 18:59 Intake Total 1240 1260 Balance 1240 1260 Weight 68.946 kg Intake: Intake, IV Titration 640 900 Amount Sodium Chloride 0.9% 1, 640 900 000 ml @ 75 mls/hr IV . [id number] [facility] Rx#:[id number] Oral 600 360 Other: Voiding Method Diaper Diaper Bedside Commode Incontinent Incontinent Diaper Incontinent # Voids 2 1 1 # Bowel Movements 1 1 - Exam General appearance: mild anxiety noted, thin, resting in bed - EENT Eyes: anicteric sclerae, EOMI, PERRLA, no ptosis, no scleral icterus, normal appearance ENT: hard of hearing, NA/AT, normal oropharynx, no thrush Ears: bilateral: normal - Neck Neck: no lymphadenopathy, normal ROM, no rigidity, no stridor, no thyromegaly Carotids: bilateral: upstroke normal Thyroid: bilateral: normal size - Respiratory Respiratory: bilateral: diminished, negative: dullness, rales, rhonchi, wheezing, prolonged expiration - Cardiovascular Rhythm: regular Heart sounds: normal: S1, S2 Abnormal Heart Sounds: systolic murmur, no S3 Gallop, no S4 Gallop - Gastrointestinal General gastrointestinal: soft, no splenomegaly, no tenderness, no umbilical hernia, no ventral hernia - Integumentary Integumentary: decreased turgor, normal - Neurologic Neurologic: CNII-XII intact, focal deficits - Musculoskeletal Musculoskeletal: no gait normal, generalized weakness - Psychiatric Psychiatric: A&O x's 3, appropriate affect, intact judgment & insight - Labs CBC & Chem 7: 05/28/18 09:00 05/28/18 09:00 Labs: Abnormal Lab Results - Last 24 Hours (Table) 05/29/18 Range/Units 12:42 Creatine Kinase 382 H (30-135) U/L Microbiology - Last 24 Hours (Table) 05/29/18 16:40 Urine Culture - Preliminary Urine,Voided Assessment and Plan Plan: 1. Severe weakness in both lower extremity secondary to advanced Parkinson disease. PT OT evaluation, restart the patient Parkinson medicine as the patient was without medicine for the last 24-48 hours, monitor the patient very closely. Consult with Dr. Rodriguez is appreciated. 2. Mild rhabdomyolysis. Continue IV fluid resuscitation completed. Saline lock. 3. Advanced Parkinson disease. Continue with Sinemet 25/100 mg one tablet orally 4 times every day. 4. Spondylosis of the lumbar spine. Continue patient on [place] twice every day. 5. GERD. Continue Pepcid 20 mg orally once every day. 6. Bilateral lower extremity neuropathy. Discontinue gabapentin. 7. Generalized anxiety disorder. Continue patient on lorazepam 0.5 mg orally at bedtime. 8. DVT prophylaxis. Continue patient on heparin 5000 units subcutaneously every 12 hours. 9. GI prophylaxis. Continue Pepcid. 10. Patient is full code. Discharge plan: on Monday. Impression and plan of care have been directed as dictated by the signing physician. Ruma Richardson nurse practitioner acting as scribe for signing physician.
[2018-05-30] MEDS: LORazepam 0.5 MG TAB PO SCH (22:11)
--- NOTE | 2018-05-31 08:02 | CDI ---
Documentation Clarification Form Date: 05/31/2018 7:53:07 AM From: Haylee ZelayaMyrickEDEN, CCDS Admit Date: 05/29/2018 3:01:00 PM Patient Name: Leighann Peacock Visit Number: [id number] Discharge Date: ATTENTION: The Clinical Documentation Specialists (CDI) and [facility] Coding Staff appreciate your assistance in clarifying documentation. Please respond to the clarification below the line at the bottom and electronically sign. The CDI & [facility] Coding staff will review the response and follow-up if needed. Please note: Queries are made part of the Legal Health Record. If you have any questions, please contact the author of this message via ITS. Dr. Kwasi De Leon: Protein Calorie Malnutrition is documented in the attending progress notes 05/29 & 05/30. History/Risk Factors: Advanced Parkinson's disease, OA, Spinal stenosis lumbar spine with neuropathy. Clinical Indicators: Presented to ER with rhabdomyolysis after falling from bed & lying on the floor throughout the night, burning w/urination w/history of frequent UTIs. Labs: WBC 12.8^, Neut 10.9^, BUN 20^, T Prot (7.1), Albumin (4.2). UA: negative Urine Culture preliminary: Gram neg Bacilli Treatment: IV fluids, IV fluid bolus, IV Narcan, PT/OT, Rehab Phys consult, oral nutrition supplement: ensure. Nutritional Assessment: Intake fair, 75% meals average intake. BMI: 24.5 wnl. In your professional opinion, can you please clarify if these findings signify one of the following conditions? Mild Protein-Calorie Malnutrition Moderate Protein-Calorie Malnutrition Severe Protein-Calorie Malnutrition Malnutrition ruled out Other condition, please specify: Unable to determine (Last Revision: May 2017) MTDD
[2018-05-31 08:29] LABS: HCT 38.6 % (34.0-46.0); MCH 29.7 pg (25.0-35.0); MCHC 33.7 g/dL (31.0-37.0); MCV 88.1 fL (80.0-100.0); Mean Platelet Volume 8.9; Platelet Count 237 k/uL (150-450); RBC 4.38 m/uL (3.80-5.40); RDW 14.3 % (11.5-15.5); WBC 5.7 k/uL (3.8-10.6)
[2018-05-31] MEDS: FAMOTIDINE 20 MG TAB PO SCH (08:35)
[2018-05-31] MEDS: CARBIDOPA-LEVODOPA 25-100 MG 1 EACH TAB PO SCH ×4 (08:35→22:10)
[2018-05-31] MEDS: HEPARIN SODIUM,PORCINE 5,000 UNIT/ML 1 ML VIAL SQ SCH ×2 (08:35→22:10)
[2018-05-31] MEDS: HYDROcodone/APAP 5-325MG 1 EACH TAB PO SCH ×2 (08:36→22:10)
[2018-05-31 08:47] LABS: Anion Gap 7 mmol/L; Blood Urea Nitrogen 9 mg/dL (7-17); Carbon Dioxide 25 mmol/L (22-30); Chloride 108 mmol/L (98-107); Glucose 105 mg/dL (74-99); Sodium 140 mmol/L (137-145)
[2018-05-31 09:13] LABS: ALT 21 U/L (9-52); AST 40 U/L (14-36); Alkaline Phosphatase 58 U/L (38-126); Calcium 9.2 mg/dL (8.4-10.2); Potassium 4.7 mmol/L (3.5-5.1)
[2018-05-31 09:14] LABS: Albumin 3.6 g/dL (3.5-5.0); Creatine Kinase 176 U/L (30-135); Total Protein 6.7 g/dL (6.3-8.2)
--- NOTE | 2018-05-31 12:55 | P.PN ---
Subjective Progress Note Date: 05/31/18 This is 68-year-old female in my patient with a previous medical history significant for advanced Parkinson disease with significant spondylosis of the lumbar spine along with significant neuropathy both lower extremities, history of recurrent UTI, was recently admitted to the hospital for a fall and significant weakness in both lower x-rays ended up going to [facility] for physical therapy rehabilitation she was just discharged from over there and she currently resides at the [facility], her daughter has been checking on her and regular basis, she came to the office for a follow-up she has been doing fine patient decided to get off her wheelchair and lay on the floor because of her b ack pain and there was around Monday [id number] and she stayed there all Monday and Monday until her daughter came to check on her today she found her in the floor and the patient has not been getting her medication has not been eating or drinking anything [facility] the brain that showed moderate atrophy with small vessel disease without acute infarct chest x-ray no active disease, urinalysis was negative, she had a mild leukocytosis with the elevated CPK suggestive of early rhabdomyolysis, she was started on IV fluid resuscitation she was admitted to the hospital for evaluation physical therapy occupational therapy and addiction social worker consultation for possible ECF placement. 05/29: Patient has been afebrile, heart rate in the 70s in the 80s, blood pressure 116/70, pulse ox 99% on room air. Patient is found sitting in recliner. Patient is verbalizing that she is nervous that she will be able to go home. Consult is in place with Dr. Rodriguez to evaluate for inpatient rehab. Ensure and place. Protein calorie malnutrition. Sinemet dosing changed to 4 times daily versus every 4 hours. Repeat CK is pending. 3: Patient has been seen by Dr. Rodriguez and patient does not appear to be a candidate for inpatient rehab. She has been afebrile, heart rates in the 70s and 80s, blood pressure 140/87, pulse ox 96% on room air. Patient has a lot of anxiety regarding discharge planning. Currently the plan is to go to [facility] on Monday. She is having some pain and [place] was not covering her through the day, and plain Tylenol to use throughout the day and continue [place] at twice daily. IV fluids will be changed over to saline lock. 05/31: Patient denies any abdominal pain or nausea or vomiting but she is not eating very much. [place] is on [place]. Patient continues to have anxiety about discharge planning. Patient's daughter is at the bedside. Patient is afebrile, heart rate in the 80s to 90s, blood pressure 104/67, pulse ox 97% on room air. CBC is normal. Sodium 140, potassium 4.7, chloride 108, CO2 25, BUN 9 and creatinine 0.53. AST is 40, ALT 21, alkaline phosphatase 58, CK 176. Patient is working with PT and OT. Plan is for discharge to [facility] tomorrow. Review of Systems Constitutional: Reports chronic pain, Reports fatigue, Reports malaise, Reports weakness, Reports weight loss, Denies chronic headaches Eyes: denies blurred vision, denies bulging eye, denies decreased vision, denies diplopia Ears: deny: decreased hearing Ears, nose, mouth and throat: Denies dysphagia, Denies neck lump, Denies swelling in throat, Denies sore throat Cardiovascular: Reports lightheadedness, Denies chest pain, Denies decreased exercise tolerance, Denies dyspnea on exertion, Denies rapid heart beat, Denies shortness of breath, Denies syncope Respiratory: Denies congestion, Denies cough with sputum, Denies hemoptysis, Denies home oxygen, Denies sleep apnea, Denies snoring, Denies wheezing Gastrointestinal: Reports loss of appetite, Denies abdominal pain, Denies bloating, Denies change in bowel habits, Denies heartburn, Denies hematemesis, Denies melena, Denies nausea, Denies vomiting Genitourinary: Denies dysuria, Denies nocturia Menstruation: Reports postmenopausal Musculoskeletal: Reports atrophy, Reports frequent falls, Reports gait dysfunction, Reports low back pain Musculoskeletal: absent: ankle pain, ankle stiffness, ankle swelling, elbow pain, elbow stiffness, elbow swelling, foot pain, foot stiffness, foot swelling, hand pain, hand stiffness, hand swelling, hip pain, hip stiffness, hip swelling, knee pain, knee stiffness, knee swelling, shoulder pain, shoulder stiffness, shoulder swelling, wrist pain, wrist stiffness, wrist swelling Integumentary: Denies pruritus, Denies rash Neurological: Reports gait dysfunction, Reports paresthesias, Reports spasticity, Reports tremors, Reports weakness, Denies numbness Psychiatric: Reports increased anxiety, Denies depression, Objective - Vital Signs Vital signs: Vital Signs Temp 97.4 F L 05/31/18 05:00 Pulse 92 05/31/18 05:00 Resp 18 05/31/18 05:00 BP 137/86 05/31/18 05:00 Pulse Ox 96 05/31/18 05:00 Intake & Output 05/30/18 05/31/18 05/31/18 18:59 06:59 18:59 Intake Total 1240 200 Balance 1240 200 Intake: Intake, IV Titration 640 Amount Sodium Chloride 0.9% 1, 640 000 ml @ 75 mls/hr IV . [id number] [facility] Rx#:[id number] Oral 600 200 Other: Voiding Method Bedside Commode Bedside Commode Diaper Diaper Incontinent Incontinent # Voids 2 3 # Bowel Movements 1 - Exam General appearance: mild anxiety noted, thin, resting in bed, daughter at bedside - EENT Eyes: anicteric sclerae, EOMI, PERRLA, no ptosis, no scleral icterus, normal appearance ENT: hard of hearing, NA/AT, normal oropharynx, no thrush Ears: bilateral: normal - Neck Neck: no lymphadenopathy, normal ROM, no rigidity, no stridor, no thyromegaly Carotids: bilateral: upstroke normal Thyroid: bilateral: normal size - Respiratory Respiratory: bilateral: diminished, negative: dullness, rales, rhonchi, wheezing, prolonged expiration - Cardiovascular Rhythm: regular Heart sounds: normal: S1, S2 Abnormal Heart Sounds: systolic murmur, no S3 Gallop, no S4 Gallop - Gastrointestinal General gastrointestinal: soft, no splenomegaly, no tenderness, no umbilical hernia, no ventral hernia - Integumentary Integumentary: decreased turgor, normal - Neurologic Neurologic: CNII-XII intact, focal deficits - Musculoskeletal Musculoskeletal: no gait normal, generalized weakness - Psychiatric Psychiatric: A&O x's 3, appropriate affect, intact judgment & insight - Labs CBC & Chem 7: 05/31/18 07:57 05/31/18 07:57 Labs: Abnormal Lab Results - Last 24 Hours (Table) 05/31/18 Range/Units 07:57 Chloride 108 H (98-107) mmol/L Glucose 105 H (74-99) mg/dL AST 40 H (14-36) U/L Creatine Kinase 176 H (30-135) U/L Microbiology - Last 24 Hours (Table) 05/29/18 16:40 Urine Culture - Preliminary Urine,Voided Gram Neg Bacilli Assessment and Plan Plan: 1. Severe weakness in both lower extremity secondary to advanced Parkinson disease. PT OT evaluation, restart the patient Parkinson medicine as the patient was without medicine for the last 24-48 hours, monitor the patient very closely. Consult with Dr. Rodriguez is appreciated. 2. Mild rhabdomyolysis. Continue IV fluid resuscitation completed. Saline lock. 3. Advanced Parkinson disease. Continue with Sinemet 25/100 mg one tablet o rally 4 times every day. 4. Spondylosis of the lumbar spine. Continue patient on [place] twice every day. 5. GERD. Continue Pepcid 20 mg orally once every day. 6. Bilateral lower extremity neuropathy. Discontinue gabapentin. 7. Generalized anxiety disorder. Continue patient on lorazepam 0.5 mg orally at bedtime. 8. DVT prophylaxis. Continue patient on heparin 5000 units subcutaneously every 12 hours. 9. GI prophylaxis. Continue Pepcid. 10. Mild protein calorie malnutrition. 11. No UTI. Patient is full code. Discharge plan: on Monday. Impression and plan of care have been directed as dictated by the signing physician. Ruma Richardson nurse practitioner acting as scribe for signing physician.
[2018-05-31 19:32] LABS: Appearance,Urine Cloudy (Clear); Bacteria,Urine Occasional /hpf; Bilirubin,Urine Negative (Negative); Blood,Urine Negative (Negative); Color,Urine Light Yellow; Glucose,Urine (UA) Negative (Negative); Ketones,Urine Negative (Negative); Leukocyte Esterase,Urine Large (Negative); Mucus,Urine Rare /hpf; Nitrite,Urine Negative (Negative); PH, Urine 7.5 (5.0-8.0); Protein,Urine Negative (Negative); RBC,Urine 4 /hpf (0-5); Specific Gravity,Urine 1.009 (1.001-1.035); Squamous Epithelial Cell,Urine 1 /hpf (0-4); Urobilinogen,Urine <2.0 mg/dL (<2.0); WBC,Urine 50 /hpf (0-5)
[2018-05-31] MEDS: LORazepam 0.5 MG TAB PO SCH (22:10)
[2018-06-01] MEDS: FAMOTIDINE 20 MG TAB PO SCH (08:43)
[2018-06-01] MEDS: HYDROcodone/APAP 5-325MG 1 EACH TAB PO SCH (08:43)
[2018-06-01] MEDS: HEPARIN SODIUM,PORCINE 5,000 UNIT/ML 1 ML VIAL SQ SCH (08:44)
[2018-06-01] MEDS: CARBIDOPA-LEVODOPA 25-100 MG 1 EACH TAB PO SCH ×2 (08:44→13:20)
[2018-06-01] MEDS ORDERED: CIPROFLOXACIN HCL 500 MG TAB PO STA (11:36)
--- NOTE | 2018-06-01 11:51 | P.DS ---
Providers Date of admission: 05/29/18 15:01 Expected date of discharge: 06/01/18 Attending physician: Kwasi De Leon Consults: 05/29/18 10:36 Consult Physician Urgent Consulting Provider: Francis Rodriguez Consult Reason/Comments: rehab Do you want consulting provider notified?: Yes Primary care physician: Kwasi De Leon [facility] Course: This is 68-year-old female in my patient with a previous medical history significant for advanced Parkinson disease with significant spondylosis of the lumbar spine along with significant neuropathy both lower extremities, history of recurrent UTI, was recently admitted to the hospital for a fall and significant weakness in both lower x-rays ended up going to [facility] for physical therapy rehabilitation she was just discharged from over there and she currently resides at the [facility], her daughter has been checking on her and regular basis, she came to the office for a follow-up she has been doing fine patient decided to get off her wheelchair and lay on the floor because of her back pain and there was around Monday [id number] and she stayed there all Monday and Monday until her daughter came to check on her today she found her in the floor and the patient has not been getting her medication has not been eating or drinking anything [facility] brain that showed moderate atrophy with small vessel disease without acute infarct chest x-ray no active disease, urinalysis was negative, she had a mild leukocytosis with the elevated CPK s uggestive of early rhabdomyolysis, she was started on IV fluid resuscitation she was admitted to the hospital for evaluation physical therapy occupational therapy and oncology social work consultation for possible ECF placement. 42: Patient has been afebrile, heart rate in the 70s in the 80s, blood pressure 116/70, pulse ox 99% on room air. Patient is found sitting in recliner. Patient is verbalizing that she is nervous that she will be able to go home. Consult is in place with Dr. Rodriguez to evaluate for inpatient rehab. Ensure and place. Protein calorie malnutrition. Sinemet dosing changed to 4 times daily versus every 4 hours. Repeat CK is pending. 3: Patient has been seen by Dr. Rodriguez and patient does not appear to be a candidate for inpatient rehab. She has been afebrile, heart rates in the 70s and 80s, blood pressure 140/87, pulse ox 96% on room air. Patient has a lot of anxiety regarding discharge planning. Currently the plan is to go to [facility] on Monday. She is having some pain and [place] was not covering her through the day, and plain Tylenol to use throughout the day and continue [place] at twice daily. IV fluids will be changed over to saline lock. 05/31: Patient denies any abdominal pain or nausea or vomiting but she is not eating very much. She is on in [place]. Patient continues to have anxiety about discharge planning. Patient's daughter is at the bedside. Patient is afebrile, heart rate in the 80s to 90s, blood pressure 104/67, pulse ox 97% on room air. CBC is normal. Sodium 140, potassium 4.7, chloride 108, CO2 25, BUN 9 and creatinine 0.53. AST is 40, ALT 21, alkaline phosphatase 58, CK 176. Patient is working with PT and OT. Plan is for discharge to [facility] tomorrow. 06/01: Patient has been afebrile, heart rate in the 80s, blood pressure 139/68, pulse ox 96% on room air. History of urinary and, patient was complaining of urinary symptoms with dysuria and repeat urine was sent which was positive for UTI. Patient will be started on ciprofloxacin. Patient did eat this morning and has worked with physical therapy. She denies any new complaints. Multiple family members are at the bedside and patient will be discharged to [facility] in stable condition. Discharge diagnoses: 1. Severe weakness in both lower extremity secondary to advanced Parkinson disease. 2. Mild rhabdomyolysis. 3. Advanced Parkinson disease. 4. Spondylosis of the lumbar spine. 5. GERD. 6. Bilateral lower extremity neuropathy. 7. Generalized anxiety disorder. 8. Mild protein calorie malnutrition. 9. UTI. Discharge plan: [facility] under the care of Dr. De Leon Impression and plan of care have been directed as dictated by the signing physician. Ruma Richardson nurse practitioner acting as scribe for signing ph ysician. Plan - Discharge Summary Discharge Rx Participant: No New Discharge Prescriptions: New Ciprofloxacin HCl [Cipro] 500 mg PO Q12HR #20 tablet Carbidopa-Levodopa 25-100 mg [Sinemet 25-100 mg] 1 each PO QID tab Acetaminophen Tab [Tylenol] 650 mg PO Q6HR PRN tab PRN Reason: Fever And/ Or Pain Continue Famotidine [Pepcid] 20 mg PO DAILY tab HYDROcodone/APAP 5-325MG [[place] 5-325] 1 tab PO TID #9 tab Changed LORazepam [Ativan] 0.5 mg PO HS #3 tablet Discontinued Carbidopa-Levodopa 25-100 mg [Sinemet 25-100 mg] 1 tab PO Q4H Gabapentin [Neurontin] 100 mg PO BID #6 cap Potassium Chloride ER [K-Dur 10] 10 meq PO DAILY #2 tab.er.prt guaiFENesin [guaiFENesin Oral Solution] 100 mg PO Q4HR PRN PRN Reason: Cough Discharge Medication List Famotidine [Pepcid] 20 mg PO DAILY tab 04/09/18 [Rx] Acetaminophen Tab [Tylenol] 650 mg PO Q6HR PRN tab 06/01/18 [Rx] Carbidopa-Levodopa 25-100 mg [Sinemet 25-100 mg] 1 each PO QID tab 06/01/18 [Rx] Ciprofloxacin HCl [Cipro] 500 mg PO Q12HR #20 tablet 06/01/18 [Rx] HYDROcodone/APAP 5-325MG [[place] 5-325] 1 tab PO TID #9 tab 06/01/18 [Rx] LORazepam [Ativan] 0.5 mg PO HS #3 tablet 06/01/18 [Rx] Follow up Appointment(s)/Referral(s): Kwasi De Leon MD [Primary Care Provider] - 1 Week (at [facility] ) Discharge Disposition: TRANSFER TO SNF/ECF
[2018-06-01 12:20] VITALS: BP 117/56; RESP 17; TEMP 97.6
[2018-06-01 14:25] VITALS: PULSE 92
== END 2018-06-01 15:35 | DRG 558 ==
LOC: EC 08:37 → 4SSUR 12:01 → 3NMEDONC 16:27 → OBSVTOIN 05-29 15:01 → 3NMEDONC 05-31 11:17
PROVIDERS: ADMIT Internal Medicine; ATTEND Internal Medicine
DX: M62.82 Rhabdomyolysis (principal); E44.1 Mild protein-calorie malnutrition; N39.0 Urinary tract infection, site not specified; G20 Parkinson's disease; M47.816 Spondylosis without myelopathy or radiculopathy, lumbar region; K21.9 Gastro-esophageal reflux disease without esophagitis; G57.93 Unspecified mononeuropathy of bilateral lower limbs; M19.90 Unspecified osteoarthritis, unspecified site; M48.00 Spinal stenosis, site unspecified; G89.29 Other chronic pain; M51.9 Unspecified thoracic, thoracolumbar and lumbosacral intervertebral disc disorder; M54.9 Dorsalgia, unspecified; F41.1 Generalized anxiety disorder; R29.6 Repeated falls; R32 Unspecified urinary incontinence; Z79.899 Other long term (current) drug therapy; Z90.710 Acquired absence of both cervix and uterus; Z87.891 Personal history of nicotine dependence; Z87.440 Personal history of urinary (tract) infections; Z81.1 Family history of alcohol abuse and dependence; W06.XXXA Fall from bed, initial encounter; Z83.3 Family history of diabetes mellitus; Z82.49 Family history of ischemic heart disease and other diseases of the circulatory system; Z80.3 Family history of malignant neoplasm of breast
CPT/HCPCS: 36415; 70450; 71046; 80053; 81001; 81003; 82550; 83605; 83735; 84484; 85025; 85027; 85610; 85730; 87077; 87086; 87186; 93005; 96360; 96361; 99285

== ENCOUNTER 2018-10-29 18:41 | Inpatient (IN) | payer MEDICARE, OTHER ==
[2018-10-29] MEDS ORDERED: SODIUM CHLORIDE 0.9% 1,000 ML IV STA (18:45)
--- NOTE | 2018-10-29 18:52 | ED ---
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 No reports of any fall fevers chills nausea vomiting sweats per paramedics she does seem to have some intermittent weakness of left upper lower extremity as well as some left facial asymmetry. No known history of stroke. Unknown exactly when the last known well time was later information obtained from the patient daughter who was with her until about 2 PM she stefani eared to be awake alert in her usual mental status up until about 2 PM she does normally use a walker to walk when she was actually able to walk without a walker this afternoon. MD Complaint: altered mental status, confusion - Related Data Home Medications Medication Instructions Recorded Confirmed Carbidopa-Levodopa 25-100 mg 1 tab PO QID 10/29/18 10/29/18 [Sinemet 25-100 mg] Cholecalciferol [Vitamin D3 (25 1,000 unit PO AC-SUPPER 10/29/18 10/29/18 Mcg = 1000 Iu)] Midodrine [ProAmatine] 5 mg PO BID 10/29/18 10/29/18 Zinc Oxide [Desitin] 1 applic TOPICAL BID 10/29/18 10/29/18 Previous Rx's Medication Instructions Recorded Famotidine [Pepcid] 20 mg PO DAILY tab 04/09/18 Acetaminophen Tab [Tylenol] 650 mg PO Q6HR PRN tab 06/01/18 HYDROcodone/APAP 5-325MG [[place] 1 tab PO TID #9 tab 06/01/18 5-325] LORazepam [Ativan] 0.5 mg PO HS #3 tablet 06/01/18 Allergies Allergy/AdvReac Type Severity Reaction Status Date / Time No Known Allergies Allergy Verified 10/29/18 18:53 Review of Systems ROS Statement: Those systems with pertinent positive or pertinent negative responses have been documented in the HPI. ROS Other: All systems not noted in ROS Statement are negative. Limitations: ROS unobtainable due to patients medical condition Past Medical History Past Medical History: Neurologic Disorder, Osteoarthritis (OA) Additional Past Medical History / Comment(s): Parkinsons disease, chronic back pain, spinal stenosis, numbness and tingling hands and feet, sinus problems, UT Is, urine incontinence. History of Any Multi-Drug Resistant Organisms: ESBL Date of last positivie culture/infection: 05/29/18 MDRO Source:: ESBL URINE Past Surgical History: Heart Catheterization, Hysterectomy Past Anesthesia/Blood Transfusion Reactions: No Reported Reaction Past Psychological History: No Psychological Hx Reported Additional Psychological History / Comment(s): Patient lives at [facility]. She ambulates with a walker, and has had frequent falls. She does not drive, her daughter or son drive her to appts. Her daughter and son are helpful. Smoking Status: Former smoker Past Alcohol Use History: None Reported Additional Past Alcohol Use History / Comment(s): Pt started smoking in 1956 and quit for a short time by 1991 but states she resumed smoking and quit about 1 month ago. Past Drug Use History: None Reported - Past Family History Father Family Medical History: No Reported History Additional Family Medical History / Comment(s): Father was an alcoholic. He at the age of 69yrs. Mother Family Medical History: Coronary Artery Disease (CAD), Diabetes Mellitus, Myocardial Infarction (OK) Additional Family Medical History / Comment(s): Mother lived to be 89yrs old. Brother(s) Family Medical History: Coronary Artery Disease (CAD) Sister(s) Family Medical History: Cancer Daughter(s) Family Medical History: No Reported History Son(s) Family Medical History: No Reported History General Exam - General Exam Comments Initial Comments: This is a well-developed asthenic appearing female who is awake alert no somewhat confused General appearance: alert Head exam: Present: atraumatic, normocephalic, normal inspection Eye exam: Present: PERRL (Dilated pupils bilaterally they are reactive) ENT exam: Present: mucous membranes dry, other (Evidence of flattening of the left nasolabial fold) Neck exam: Present: normal inspection, full ROM, other (No stridor JVD or bruits) Respiratory exam: Present: normal lung sounds bilaterally. Absent: respiratory distress, wheezes, rales, rhonchi, stridor Cardiovascular Exam: Present: regular rate, normal rhythm, normal heart sounds. Absent: systolic murmur, diastolic murmur, rubs, gallop, clicks GI/Abdominal exam: Present: soft, normal bowel sounds. Absent: distended, tenderness, guarding, rebound, rigid Extremities exam: Present: normal inspection, normal capillary refill. Absent: full ROM (Chest clear to have some contracture of the left foot a there is not o r will not attempt to use the left lower extremity examination upper extremity she does have good push pull strength as well as senior facilities manager strength to the left and right equally.), tenderness, pedal edema, joint swelling, calf tenderness Back exam: Present: normal inspection Neurological exam: Present: alert, oriented X3, motor sensory deficit. Absent: CN II-XII intact Psychiatric exam: Present: agitated, anxious Skin exam: Present: warm, dry, intact, normal color. Absent: rash Course Vital Signs 10/29/18 10/29/18 10/29/18 18:43 19:05 19:20 Temperature 98.0 F 98.1 F Pulse Rate 100 103 H Respiratory 24 17 18 Rate Blood Pressure 174/97 179/88 174/93 O2 Sat by Pulse 98 97 97 Oximetry 10/29/18 10/29/18 10/29/18 19:35 19:50 20:05 Temperature 98.0 F 98.0 F 98.0 F Pulse Rate 101 H 100 101 H Respiratory 18 18 17 Rate Blood Pressure 175/89 161/88 172/87 O2 Sat by Pulse 98 96 97 Oximetry 10/29/18 20:30 Temperature 98.1 F Pulse Rate 94 Respiratory 18 Rate Blood Pressure 175/89 O2 Sat by Pulse 97 Oximetry Medical Decision Making - Medical Decision Making I did discuss the findings with patient family members patient is having improvement after IV fluids. The patient is demonstrated evidence a left lower lobe pneumonia she will be admitted IV antibiotics IV fluids. Neurological consultation case is discussed with Dr. Juarez - Lab Data Result diagrams: 10/29/18 19:12 10/29/18 19:12 Lab Results 10/29/18 10/29/18 10/29/18 Range/Units 18:56 19:10 19:12 WBC (3.8-10.6) k/uL RBC (3.80-5.40) m/uL Hgb (11.4-16.0) gm/dL Hct (34.0-46.0) % MCV (80.0-100.0) fL MCH (25.0-35.0) pg MCHC (31.0-37.0) g/dL RDW (11.5-15.5) % Plt Count (150-450) k/uL Neutrophils % % Lymphocytes % % Monocytes % % Eosinophils % % Basophils % % Neutrophils # (1.3-7.7) k/uL Lymphocytes # (1.0-4.8) k/uL Monocytes # (0-1.0) k/uL Eosinophils # (0-0.7) k/uL Basophils # (0-0.2) k/uL PT (9.0-12.0) sec INR (<1.2) APTT (22.0-30.0) sec Sodium 140 (137-145) mmol/L Potassium 3.8 (3.5-5.1) mmol/L Chloride 107 (98-107) mmol/L Carbon Dioxide 23 (22-30) mmol/L Anion Gap 10 mmol/L BUN 14 (7-17) mg/dL Creatinine 0.66 (0.52-1.04) mg/dL Est GFR (CKD-EPI)AfAm >90 (>60 ml/min/1.73 sqM) Est GFR (CKD-EPI)NonAf 84 (>60 ml/min/1.73 sqM) Glucose 104 H (74-99) mg/dL POC Glucose (mg/dL) 115 H 107 H (75-99) mg/dL POC Glu Ladle Builder ID Chandrika Kimble Alisha Calcium 9.2 (8.4-10.2) mg/dL Total Bilirubin 0.7 (0.2-1.3) mg/dL AST 17 (14-36) U/L ALT <6 L (9-52) U/L Alkaline Phosphatase 69 (38-126) U/L Creatine Kinase 97 (30-135) U/L Troponin I (0.000-0.034) ng/mL Total Protein 6.5 (6.3-8.2) g/dL Albumin 3.8 (3.5-5.0) g/dL Urine Color Urine Appearance (Clear) Urine pH (5.0-8.0) Ur Specific [place] (1.001-1.035) Urine Protein (Negative) Urine Glucose (UA) (Negative) Urine Ketones (Negative) Urine Blood (Negative) Urine Nitrite (Negative) Urine Bilirubin (Negative) Urine Urobilinogen (<2.0) mg/dL Ur Leukocyte Esterase (Negative) Urine Opiates Screen (NotDetected) Ur Oxycodone Screen (NotDetected) Urine Methadone Screen (NotDetected) Ur Propoxyphene Screen (NotDetected) Ur Barbiturates Screen (NotDetected) U Tricyclic Antidepress (NotDetected) Ur Phencyclidine Scrn (NotDetected) Ur Amphetamines Screen (NotDetected) U Methamphetamines Scrn (NotDetected) U Benzodiazepines Scrn (NotDetected) Urine Cocaine Screen (NotDetected) U Marijuana (THC) Screen (NotDetected) 10/29/18 10/29/18 10/29/18 Range/Units 19:12 19:12 19:12 WBC 6.4 (3.8-10.6) k/uL RBC 3.89 (3.80-5.40) m/uL Hgb 11.7 (11.4-16.0) gm/dL Hct 35.2 (34.0-46.0) % MCV 90.6 (80.0-100.0) fL MCH 30.1 (25.0-35.0) pg MCHC 33.2 (31.0-37.0) g/dL RDW 14.8 (11.5-15.5) % Plt Count 174 (150-450) k/uL Neutrophils % 73 % Lymphocytes % 15 % Monocytes % 7 % Eosinophils % 2 % Basophils % 1 % Neutrophils # 4.7 (1.3-7.7) k/uL Lymphocytes # 1.0 (1.0-4.8) k/uL Monocytes # 0.4 (0-1.0) k/uL Eosinophils # 0.1 (0-0.7) k/uL Basophils # 0.0 (0-0.2) k/uL PT 10.9 (9.0-12.0) sec INR 1.0 (<1.2) APTT 26.4 (22.0-30.0) sec Sodium (137-145) mmol/L Potassium (3.5-5.1) mmol/L Chloride (98-107) mmol/L Carbon Dioxide (22-30) mmol/L Anion Gap mmol/L BUN (7-17) mg/dL Creatinine (0.52-1.04) mg/dL Est GFR (CKD-EPI)AfAm (>60 ml/min/1.73 sqM) Est GFR (CKD-EPI)NonAf (>60 ml/min/1.73 sqM) Glucose (74-99) mg/dL POC Glucose (mg/dL) (75-99) mg/dL POC Glu Ladle Builder ID Calcium (8.4-10.2) mg/dL Total Bilirubin (0.2-1.3) mg/dL AST (14-36) U/L ALT (9-52) U/L Alkaline Phosphatase (38-126) U/L Creatine Kinase (30-135) U/L Troponin I (0.000-0.034) ng/mL Total Protein (6.3-8.2) g/dL Albumin (3.5-5.0) g/dL Urine Color Light Yellow Urine Appearance Clear (Clear) Urine pH 7.0 (5.0-8.0) Ur Specific [place] 1.006 (1.001-1.035) Urine Protein Negative (Negative) Urine Glucose (UA) Negative (Negative) Urine Ketones Negative (Negative) Urine Blood Negative (Negative) Urine Nitrite Negative (Negative) Urine Bilirubin Negative (Negative) Urine Urobilinogen <2.0 (<2.0) mg/dL Ur Leukocyte Esterase Negative (Negative) Urine Opiates Screen (NotDetected) Ur Oxycodone Screen (NotDetected) Urine Methadone Screen (NotDetected) Ur Propoxyphene Screen (NotDetected) Ur Barbiturates Screen (NotDetected) U Tricyclic Antidepress (NotDetected) Ur Phencyclidine Scrn (NotDetected) Ur Amphetamines Screen (NotDetected) U Methamphetamines Scrn (NotDetected) U Benzodiazepines Scrn (NotDetected) Urine Cocaine Screen (NotDetected) U Marijuana (THC) Screen (NotDetected) 09/02/19 09/02/19 Range/Units 19:12 19:12 WBC (3.8-10.6) k/uL RBC (3.80-5.40) m/uL Hgb (11.4-16.0) gm/dL Hct (34.0-46.0) % MCV (80.0-100.0) fL MCH (25.0-35.0) pg MCHC (31.0-37.0) g/dL RDW (11.5-15.5) % Plt Count (150-450) k/uL Neutrophils % % Lymphocytes % % Monocytes % % Eosinophils % % Basophils % % Neutrophils # (1.3-7.7) k/uL Lymphocytes # (1.0-4.8) k/uL Monocytes # (0-1.0) k/uL Eosinophils # (0-0.7) k/uL Basophils # (0-0.2) k/uL PT (9.0-12.0) sec INR (<1.2) APTT (22.0-30.0) sec Sodium (137-145) mmol/L Potassium (3.5-5.1) mmol/L Chloride (98-107) mmol/L Carbon Dioxide (22-30) mmol/L Anion Gap mmol/L BUN (7-17) mg/dL Creatinine (0.52-1.04) mg/dL Est GFR (CKD-EPI)AfAm (>60 ml/min/1.73 sqM) Est GFR (CKD-EPI)NonAf (>60 ml/min/1.73 sqM) Glucose (74-99) mg/dL POC Glucose (mg/dL) (75-99) mg/dL POC Glu Ladle Builder ID Calcium (8.4-10.2) mg/dL Total Bilirubin (0.2-1.3) mg/dL AST (14-36) U/L ALT (9-52) U/L Alkaline Phosphatase (38-126) U/L Creatine Kinase (30-135) U/L Troponin I <0.012 (0.000-0.034) ng/mL Total Protein (6.3-8.2) g/dL Albumin (3.5-5.0) g/dL Urine Color Urine Appearance (Clear) Urine pH (5.0-8.0) Ur Specific [place] (1.001-1.035) Urine Protein (Negative) Urine Glucose (UA) (Negative) Urine Ketones (Negative) Urine Blood (Negative) Urine Nitrite (Negative) Urine Bilirubin (Negative) Urine Urobilinogen (<2.0) mg/dL Ur Leukocyte Esterase (Negative) Urine Opiates Screen Detected H (NotDetected) Ur Oxycodone Screen Not Detected (NotDetected) Urine Methadone Screen Not Detected (NotDetected) Ur Propoxyphene Screen Not Detected (NotDetected) Ur Barbiturates Screen Not Detected (NotDetected) U Tricyclic Antidepress Not Detected (NotDetected) Ur Phencyclidine Scrn Not Detected (NotDetected) Ur Amphetamines Screen Not Detected (NotDetected) U Methamphetamines Scrn Not Detected (NotDetected) U Benzodiazepines Scrn Detected H (NotDetected) Urine Cocaine Screen Not Detected (NotDetected) U Marijuana (THC) Screen Not Detected (NotDetected) - EKG Data -: EKG Interpreted by Nm EKG shows normal: sinus rhythm (Sinus tachycardia rate 12. Interval 140 QRS duration 70 QT since QTC 3:30/[address] configuration artifact present) - Radiology Data Radiology results: report reviewed (Did review the imaging and report no acute findings a CAT scan negative for evidence of a infiltrate.), image reviewed Disposition Clinical Impression: Delirium due to general medical condition, Left lower lobe pneumonia, Dehy dration Disposition: ADMITTED IP TO THIS [facility] Condition: Fair Referrals: Kwasi De Leon MD [Primary Care Provider] - 1-2 days
[2018-10-29 19:06] LABS: Glucose,Whole Blood 115 mg/dL (75-99)
--- NOTE | 2018-10-29 19:16 | CT ---
EXAMINATION TYPE: CT brain wo con for TPA DATE OF EXAM: 10/29/2018 COMPARISON: 05/28/2018 HISTORY: Altered mental status. Neuro deficits. CT DLP: 1104 mGycm Automated exposure control for dose reduction was used. FINDINGS: There is diffuse cerebral cortical atrophy. There is no mass effect nor midline shift. There is no si gn of intracranial hemorrhage. The calvarium is intact. There is small mucus retention cyst left maxi llary sinus IMPRESSION: MODERATE DIFFUSE ATROPHY. NO ACUTE INTRACRANIAL ABNORMALITY. NO CHANGE.
[2018-10-29 19:21] LABS: Glucose,Whole Blood 107 mg/dL (75-99)
[2018-10-29 19:26] LABS: Basophils % (A) 1 %; Eosinophils # (A) 0.1 k/uL (0-0.7); Eosinophils % (A) 2 %; HCT 35.2 % (34.0-46.0); HGB 11.7 gm/dL (11.4-16.0); Lymphocytes % (A) 15 %; MCH 30.1 pg (25.0-35.0); MCHC 33.2 g/dL (31.0-37.0); MCV 90.6 fL (80.0-100.0); Mean Platelet Volume 8.9; Monocytes # (A) 0.4 k/uL (0-1.0); Monocytes % (A) 7 %; Neutrophils # (A) 4.7 k/uL (1.3-7.7); Neutrophils % (A) 73 %; Platelet Count 174 k/uL (150-450); RBC 3.89 m/uL (3.80-5.40); RDW 14.8 % (11.5-15.5); WBC 6.4 k/uL (3.8-10.6)
[2018-10-29 19:35] LABS: Partial Thromboplastin Time 26.4 sec (22.0-30.0); Prothrombin Time 10.9 sec (9.0-12.0)
[2018-10-29 19:36] LABS: Appearance,Urine Clear (Clear); Bilirubin,Urine Negative (Negative); Blood,Urine Negative (Negative); Color,Urine Light Yellow; Glucose,Urine (UA) Negative (Negative); Ketones,Urine Negative (Negative); Leukocyte Esterase,Urine Negative (Negative); Nitrite,Urine Negative (Negative); Protein,Urine Negative (Negative); Specific Gravity,Urine 1.006 (1.001-1.035); Urobilinogen,Urine <2.0 mg/dL (<2.0)
[2018-10-29 19:37] LABS: ALT <6 U/L (9-52); AST 17 U/L (14-36); African American GFR (CKD) >90 (>60 ml/min/1.73 sqM); Albumin 3.8 g/dL (3.5-5.0); Alkaline Phosphatase 69 U/L (38-126); Anion Gap 10 mmol/L; Blood Urea Nitrogen 14 mg/dL (7-17); Calcium 9.2 mg/dL (8.4-10.2); Carbon Dioxide 23 mmol/L (22-30); Chloride 107 mmol/L (98-107); Creatine Kinase 97 U/L (30-135); Glucose 104 mg/dL (74-99); Potassium 3.8 mmol/L (3.5-5.1); Sodium 140 mmol/L (137-145); Total Bilirubin 0.7 mg/dL (0.2-1.3); Total Protein 6.5 g/dL (6.3-8.2)
--- NOTE | 2018-10-29 19:38 | XR ---
EXAMINATION TYPE: XR chest 2V DATE OF EXAM: 10/29/2018 COMPARISON: 05/28/2018 HISTORY: Altered mental status. Weakness. TECHNIQUE: Frontal and lateral views of the chest are obtained. FINDINGS: There is mild infiltrate and atelectasis left lung base. There is no heart failure. Heart size is normal. Thoracic aorta is atheromatous. There are chest leads. IMPRESSION: New minimal atelectasis and infiltrate left lung base compared to last exam.
[2018-10-29 20:16] LABS: Amphetamine Screen,Urine Not Detected (NotDetected); Barbiturate Screen,Urine Not Detected (NotDetected); Benzodiazepines Screen,Urine Detected (NotDetected); Cocaine Screen,Urine Not Detected (NotDetected); Methadone Screen, Urine Not Detected (NotDetected); Opiate Screen,Urine Detected (NotDetected); Oxycodone Screen, Urine Not Detected (NotDetected); Phencyclidine Screen,Urine Not Detected (NotDetected); Tricyclic Antidepressant,Urine Not Detected (NotDetected); Urn Cannabinoid Scrn Not Detected (NotDetected)
--- NOTE | 2018-10-29 20:19 | CT ---
EXAMINATION TYPE: CT angio head neck DATE OF EXAM: 10/29/2018 HISTORY: Altered mental status. Neuro deficits. COMPARISON: None CT DLP: 319.2 mGycm. Automated Exposure Control for Dose Reduction was Utilized. TECHNIQUE: CTA scan of the neck is performed with IV Contrast, patient injected with 50 mL of Isovue 370, axial images are obtained, coronal and sagittal reformatted images are reviewed. Three-D recons tructed images are created on an independent workstation and reviewed. FINDINGS: There is normal branching pattern of the great vessels on the aortic arch. There is bilateral arteria l flow in the subclavian arteries. There is asymmetric enlargement of the right thyroid lobe with stefani arent large cyst that measures 4.5 cm. There is arterial flow in the common internal and external carotid arteries bilaterally. There is wid e patency of the carotid artery bifurcations. There is bilateral arterial flow in the vertebral arter ies. There is arterial flow in the vertebrobasilar artery system. There is arterial flow in the anterior middle and posterior cerebral arteries. There is no mass effec t. There is no sign of hemodynamic stenosis. There is normal contrast opacification of the venous sin uses. There is no evidence of carotid or vertebral artery aneurysm or dissection. IMPRESSION: Negative CT angiogram of the neck. Negative CT angiogram of the brain.
[2018-10-29] MEDS ORDERED: cefTRIAXone IN SWFI 1,000 MG/10 ML SYRINGE IVP STA (20:40)
[2018-10-29] MEDS ORDERED: PNEUMONIA PROTOCOL UTILIZED 1 EACH MISC PO PRN (22:50)
[2018-10-29] MEDS ORDERED: cefTRIAXone IN SWFI 1,000 MG/10 ML SYRINGE IVP ONE (23:00)
[2018-10-29] MEDS ORDERED: AZITHROMYCIN 500 MG in SODIUM CHLORIDE 0.9% 250 ML IVPB ONE (23:00)
[2018-10-29] MEDS: SODIUM CHLORIDE 0.9% 1,000 ML IV SCH (23:27)
[2018-10-29] MEDS ORDERED: SODIUM CHLORIDE 0.9% 500 ML 500 ML IV ONE (23:27)
[2018-10-30] MEDS ORDERED: SODIUM CHLORIDE 0.9% 500 ML 500 ML IV ONE (00:23)
[2018-10-30] MEDS: ACETAMINOPHEN TAB 325 MG TAB PO PRN (02:00)
[2018-10-30] MEDS: HYDROcodone/APAP 5-325MG 1 EACH TAB PO SCH ×3 (07:37→22:41)
[2018-10-30] MEDS: FAMOTIDINE 20 MG TAB PO SCH (07:37)
[2018-10-30] MEDS: ZINC OXIDE 20% OINT 28.4 GM TUBE TOPICAL SCH (07:38)
[2018-10-30] MEDS: CARBIDOPA-LEVODOPA 25-100 MG 1 EACH TAB PO SCH ×4 (07:38→22:41)
[2018-10-30] MEDS: MIDODRINE 5 MG TAB PO SCH ×2 (07:39→16:56)
--- NOTE | 2018-10-30 08:14 | XR ---
EXAMINATION TYPE: XR chest 2V DATE OF EXAM: 10/30/2018 COMPARISON: 10/29/2018 HISTORY: Follow-up for pneumonia. TECHNIQUE: Frontal and lateral views of the chest are obtained. FINDINGS: There is improved aeration of the left lung base in comparison to the prior with minimal s trand-like left basilar opacity remaining. There is unfolding of the thoracic aorta as seen on the pr ior. No new focal consolidation, pleural effusion or pneumothorax. Diffuse osseous demineralization. Dextroscoliosis of the and thoracolumbar junction. IMPRESSION: Improved aeration of the left lung base with only minimal strand-like left basilar opaci ty remaining.
[2018-10-30] MEDS: SODIUM CHLORIDE 0.9% 1,000 ML IV SCH ×2 (08:57→22:40)
--- NOTE | 2018-10-30 13:16 | P.HPIM ---
History of Present Illness H&P Date: 10/30/18 Chief Complaint: Mental status changes This is an 78-year-old female patient of Dr De Leon with a previous medical history significant for advanced Parkinson disease with significant spondylosis of the lumbar spine along with significant neuropathy both lower extremities, history of recurrent UTI. Patient is currently residing at [facility] and has been at [facility] for subacute rehab in the past. Staff at [facility] note the patient was confused and combative. No falls were documented. No fever, chills, nausea vomiting. Patient was having some i ntermittent weakness of the left upper extremity as well as left facial asymmetry. No history of stroke. Patient normally uses a walker to ambulate. Patient was brought into [facility] emergency center for evaluation. She was afebrile, heart rate 100, initial blood pressure 174/97, pulse ox 98% on room air. WBC 6.4, hemoglobin 11.7, platelet count 174, electrolytes and renal function within normal limits, blood sugar 104. Urinalysis was clear. Troponin negative. Urine drug screen positive for opiates and benzodiazepines. EKG was a sinus tachycardia. CAT scan of the brain showed moderate diffuse atrophy. No acute intracranial abnormality. No change. CT angiogram of the neck and CT angiogram of the brain were negative. Chest x-ray shows new minimal atelectasis and infiltrate left lung base area and repeat chest x-ray this morning reveals improved aeration of the left lung base with only minimal strand-like left basilar opacities remaining. On examination, patient is noted to have some left facial droop, she is not able to follow commands, she is quite confused. Pro-calcitonin has been ordered. Neurology consult requested. PT and OT added. Patient is on azithromycin and Rocephin. Review of Systems ROS unobtainable: due to mental status Past Medical History Past Medical History: Neurologic Disorder, Osteoarthritis (OA) Additional Past Medical History / Comment(s): Parkinsons disease, chronic back pain, spinal stenosis, numbness and tingling hands and feet, sinus problems, UTIs, urine incontinence. History of Any Multi-Drug Resistant Organisms: ESBL Date of last positivie culture/infection: 05/29/18 MDRO Source:: ESBL URINE Past Surgical History: Heart Catheterization, Hysterectomy Past Anesthesia/Blood Transfusion Reactions: No Reported Reaction Past Psychological History: No Psychological Hx Reported Additional Psychological History / Comment(s): Patient lives at [facility]. She ambulates with a walker, and has had frequent falls. She does not drive, her daughter or son drive her to appts. Her daughter and son are helpful. Smoking Status: Former smoker Past Alcohol Use History: None Reported Additional Past Alcohol Use History / Comment(s): Pt started smoking in 1956 and quit for a short time by 1991 but states she resumed smoking and quit about 1 month ago. Past Drug Use History: None Reported - Past Family History Father Family Medical History: No Reported History Additional Family Medical History / Comment(s): Father was an alcoholic. He at the age of 69yrs. Mother Family Medical History: Coronary Artery Disease (CAD), Diabetes Mellitus, Myocardial Infarction ([place]) Additional Family Medical History / Comment(s): Mother at age 89 from diabetes and coronary artery disease. Brother(s) Family Medical History: Coronary Artery Disease (CAD) Additional Family Medical History / Comment(s): Patient had 3 brothers all from coronary artery disease and 100s first [place] at age 60. Sister(s) Family Medical History: Cancer Additional Family Medical History / Comment(s): Patient had 2 sisters and one from breast cancer and the other from unknown cause suddenly. Daughter(s) Family Medical History: No Reported History Additional Family Medical History / Comment(s): Patient has one daughter with no major medical problems. Son(s) Family Medical History: No Reported History Additional Family Medical History / Comment(s): Patient has one son with no major medical problems. Medications and Allergies Home Medications Medication Instructions Recorded Confirmed Type Famotidine [Pepcid] 20 mg PO DAILY tab 04/09/18 10/29/18 Rx Acetaminophen Tab [Tylenol] 650 mg PO Q6HR PRN tab 06/01/18 10/29/18 Rx HYDROcodone/APAP 5-325MG [[place] 1 tab PO TID #9 tab 06/01/18 10/29/18 Rx 5-325] LORazepam [Ativan] 0.5 mg PO HS #3 tablet 06/01/18 10/29/18 Rx Carbidopa-Levodopa 25-100 mg 1 tab PO QID 10/29/18 10/29/18 History [Sinemet 25-100 mg] Cholecalciferol [Vitamin D3 (25 1,000 unit PO AC-SUPPER 10/29/18 10/29/18 History Mcg = 1000 Iu)] Midodrine [ProAmatine] 5 mg PO BID 10/29/18 10/29/18 History Zinc Oxide [Desitin] 1 applic TOPICAL BID 10/29/18 10/29/18 History Allergies Allergy/AdvReac Type Severity Reaction Status Date / Time No Known Allergies Allergy Verified 10/29/18 18:53 Physical Exam Vitals: Vital Signs Temp Pulse Pulse Resp BP BP Pulse Ox 10/30/18 07:09 98.5 F 94 15 146/83 96 10/30/18 01:15 98.2 F 91 16 156/83 97 10/30/18 00:21 98.3 F 91 18 170/86 98 10/29/18 23:30 98.2 F 91 18 156/78 97 10/29/18 22:30 98.0 F 94 18 178/98 97 10/29/18 21:30 98.0 F 90 18 173/85 96 10/29/18 21:00 98.0 F 96 18 170/88 96 10/29/18 20:30 98.1 F 94 18 175/89 97 10/29/18 20:05 98.0 F 101 H 17 172/87 97 10/29/18 19:50 98.0 F 100 18 161/88 96 10/29/18 19:35 98.0 F 101 H 18 175/89 98 10/29/18 19:20 98.1 F 103 H 18 174/93 97 10/29/18 19:05 100 17 179/88 97 10/29/18 18:43 98.0 F 24 174/97 98 Intake and Output 10/29/18 10/30/18 10/30/18 22:59 06:59 14:59 Other: Voiding Method Diaper Diaper Incontinent Incontinent # Voids 2 Weight 65.771 kg - Constitutional General appearance: mild distress, thin - EENT Eyes: anicteric sclerae, EOMI, PERRLA, no ptosis, no scleral icterus, normal appearance ENT: hard of hearing, NA/AT, normal oropharynx, no thrush Ears: bilateral: normal - Neck Neck: no lymphadenopathy, normal ROM, no rigidity, no stridor, no thyromegaly Carotids: bilateral: upstroke normal Thyroid: bilateral: normal size - Respiratory Respiratory: bilateral: diminished, negative: dullness, rales, rhonchi, whee zing, prolonged expiration - Cardiovascular Rhythm: regular Heart sounds: normal: S1, S2 Abnormal Heart Sounds: systolic murmur, no S3 Gallop, no S4 Gallop - Gastrointestinal General gastrointestinal: soft, no splenomegaly, no tenderness, no umbilical hernia, no ventral hernia - Integumentary Integumentary: decreased turgor, normal - Neurologic Neurologic: CNII-XII intact, left facial droop - Musculoskeletal Musculoskeletal: no gait normal, generalized weakness - Psychiatric Psychiatric: Alert, O x's 1, no appropriate affect, no intact judgment & insight, unable to follow commands Results CBC & Chem 7: 10/29/18 19:12 10/29/18 19:12 Labs: Abnormal Lab Results - Last 24 Hours (Table) 10/29/18 10/29/18 10/29/18 Range/Units 18:56 19:10 19:12 Glucose 104 H (74-99) mg/dL POC Glucose (mg/dL) 115 H 107 H (75-99) mg/dL ALT <6 L (9-52) U/L Urine Opiates Screen (NotDetected) U Benzodiazepines Scrn (NotDetected) 10/29/18 Range/Units 19:12 Glucose (74-99) mg/dL POC Glucose (mg/dL) (75-99) mg/dL ALT (9-52) U/L Urine Opiates Screen Detected H (NotDetected) U Benzodiazepines Scrn Detected H (NotDetected) Thrombosis Risk Factor Assmnt - DVT/VTE Prophylaxis DVT/VTE Prophylaxis: Pharmacologic Prophylaxis ordered - Choose All That Apply Any of the Below Risk Factors Present?: No Other Risk Factors: Yes Each Risk Factor Represents 3 Points: Age 75 years or older Other congenital or acquired thrombophilia - If yes, enter type in comment: No Thrombosis Risk Factor Assessment Total Risk Factor Score: 3 Thrombosis Risk Factor Assessment Level: Moderate Risk Assessment and Plan Plan: 1. Metabolic encephalopathy possibly related to pneumonia versus CVA. Patient is noted to have a left-sided facial droop. Generalized weakness. Consult with neurology. 2. Left lower lobe pneumonia. Continue azithromycin and ceftriaxone. Pro- calcitonin ordered. 3. Advanced Parkinson disease. Continue with Sinemet 25/100 mg one tablet orally 4 times every day. 4. Spondylosis of the lumbar spine. Continue patient on [place]. 5. GERD. Continue Pepcid 20 mg orally once every day. 6. Bilateral lower extremity neuropathy. Patient has been off gabapentin. 7. Generalized anxiety disorder. Continue patient on lorazepam 0.5 mg orally at bedtime. 8. DVT prophylaxis. Continue patient on heparin 5000 units subcutaneously every 12 hours. 9. GI prophylaxis. Continue Pepcid. 10. Hypotension. Continue midodrine 5 mg twice daily. Patient is full code. Patient admitted to the hospital for a minimum of 2 nights stay. Discharge plan: To be determined. PT, OT, web content & social media manager consult. Impression and plan of care have been directed as dictated by the signing physician. Ruma Richardson nurse practitioner acting as scribe for signing physician.
--- NOTE | 2018-10-30 14:26 | P.CNNES ---
History of Present Illness Consult date: 10/30/18 Reason for Consult: Altered mental status Chief complaint: Altered mental status History of Present Illness: REFERRING PHYSICIAN: Dr. William Elias HISTORY OF PRESENT ILLNESS: Thank you for allowing me to evaluate Ms. Leighann Bradshaw. Ms. Bradshaw is an 78-year-old woman with past medical history of posture arthritis, Parkinson's disease, chronic back pain, spinal stenosis, peripheral neuropathy, urinary incontinence, presenting to [facility] with acute mental status change, consulting Neurology for AMS. Patient is somewhat hostile and uncooperative. Patient only wants to talk to the nurse. Per RN, who spoke to daughter this morning, patient was at her usual state of health when yesterday around 2 PM, patient was found confused and altered and combative. Patient lives in assisted living home. No obvious falls, fevers, chills, nausea, vomiting. Patient may have some left upper extremity weakness as well as some left facial asymmetry that is intermittent. PAST MEDICAL HISTORY: Posture arthritis, Parkinson's disease, chronic back pain, spinal stenosis, peripheral neuropathy, urine incontinence PAST SURGICAL HISTORY: Heart catheterization, hysterectomy HOME MEDICATIONS: The morphine, Ativan 0.5 mg by mouth daily at bedtime, [place], Minitran 5 minutes twice a day, vitamin D, zinc oxide topical, Sinemet 75373 mg 1 tab by mouth 4 times a day ALLERGIES: No known ALLERGIES SOCIAL HISTORY: Former smoker. Patient lives at [facility] independent living. Patient ambulates with a walker and has had frequent falls. Patient does not drive. Children are helpful. FAMILY HISTORY: Father was an alcoholic. Mother had coronary artery disease, diabetes, [place]. Brother with coronary artery disease. Sister had cancer REVIEW OF SYSTEMS: Unable to obtain PHYSICAL EXAMINATION: VITAL SIGNS: Temperature 98.5 pulse rate 94 respiratory rate 16 blood pressure 146/83 O2 saturation 96% on room air GEN.: NAD, combative HEENT: NCAT, sclera without icterus SKIN AND EXTREMITIES: Warm to touch, no edema NEURO: MENTAL STATUS: Patient alert and oriented to self only. Speech fluent, willing to name and repeat, following some commands. No obvious neglect CRANIAL NERVES II THROUGH XII: II: Pupils are equal and reactive to light symmetrically. Patient tracks appropriately.. III, IV, : No ptosis. Extraocular movements full. V: Facial sensation intact from V1-3. VII. No clear facial asymmetry. MOTOR: Normal bulk/tone. Readily moves her bilateral upper extremity. Bilateral extremity movement limited by pain from arthritis. Patient with foot drop in both ankles. SENSORY: Grossly intact to light touch in all 4 extremities. REFLEXES: 2+ throughout. Toes are downgoing. No clonus. Dawn's is absent COORDINATION/GAIT: Deferred due to patient's altered mental status DIAGNOSTIC TESTING: LABORATORY: WBC 6.4 hemoglobin 11.7 platelet 174 PT 10.9 INR 1.0 sodium 140 potassium 3.8 chloride 107 bicarb 23 BUN 14 per nasal 0.66 glucose 104 AST 17 ALT <6 alk phos 69 troponin <0.012 urinalysis negative urine toxicology opiates/benzo detected IMAGING: Chest x-ray 10/30/2018: Improved aeration of the left lung base with only minimal strength right left basilar opacity remaining. CT head without contrast 10/29/2018: Moderate diffuse atrophy. No acute intra-abdominal pathology. CT angiography of the head with contrast 10/29/2018: Negative CT angiogram neck and brain. ASSESSMENT/RECOMMENDATIONS: Ms. Bradshaw is an 78-year-old woman with past medical history of posture arthritis, Parkinson's disease, chronic back pain, spinal stenosis, peripheral neuropathy, urinary incontinence, presenting to [facility] with acute mental status change, consulting Neurology for AMS. Patient with obvious focal deficit. Patient found with pneumonia, started on ceftriaxone. Patient's altered mental status occurred most likely in the setting of acute illness considering patient's age. Recommend good sleep hygiene for delirium precaution while treating patient for pneumonia. Neurology will sign off at this time. Please feel free to contact Neurology again if with additional questions or concerns. Past Medical History Past Medical History: Neurologic Disorder, Osteoarthritis (OA) Additional Past Medical History / Comment(s): Parkinsons disease, chronic back pain, spinal stenosis, numbness and tingling hands and feet, sinus problems, UTIs, urine incontinence. History of Any Multi-Drug Resistant Organisms: ESBL Date of last positivie culture/infection: 05/29/18 MDRO Source:: ESBL URINE Past Surgical History: Heart Catheterization, Hysterectomy Past Anesthesia/Blood Transfusion Reactions: No Reported Reaction Past Psychological History: No Psychological Hx Reported Additional Psychological History / Comment(s): Patient lives at [facility] living. She ambulates with a walker, and has had frequent falls. She does not drive, her daughter or son drive her to appts. Her daughter and son are helpful. Smoking Status: Former smoker Past Alcohol Use History: None Reported Additional Past Alcohol Use History / Comment(s): Pt started smoking in 1956 and quit for a short time by 1991 but states she resumed smoking and quit about 1 month ago. Past Drug Use History: None Reported - Past Family History Father Family Medical History: No Reported History Additional Family Medical History / Comment(s): Father was an alcoholic. He at the age of 69yrs. Mother Family Medical History: Coronary Artery Disease (CAD), Diabetes Mellitus, Myocardial Infarction ([place]) Additional Family Medical History / Comment(s): Mother lived to be 89yrs old. Brother(s) Family Medical History: Coronary Artery Disease (CAD) Sister(s) Family Medical History: Cancer Daughter(s) Family Medical History: No Reported History Son(s) Family Medical History: No Reported History Medications and Allergies Home Medications Medication Instructions Recorded Confirmed Type Famotidine [Pepcid] 20 mg PO DAILY tab 04/09/18 10/29/18 Rx Acetaminophen Tab [Tylenol] 650 mg PO Q6HR PRN tab 06/01/18 10/29/18 Rx HYDROcodone/APAP 5-325MG [[place] 1 tab PO TID #9 tab 06/01/18 10/29/18 Rx 5-325] LORazepam [Ativan] 0.5 mg PO HS #3 tablet 06/01/18 10/29/18 Rx Carbidopa-Levodopa 25-100 mg 1 tab PO QID 10/29/18 10/29/18 History [Sinemet 25-100 mg] Cholecalciferol [Vitamin D3 (25 1,000 unit PO AC-SUPPER 10/29/18 10/29/18 History Mcg = 1000 Iu)] Midodrine [ProAmatine] 5 mg PO BID 10/29/18 10/29/18 History Zinc Oxide [Desitin] 1 applic TOPICAL BID 10/29/18 10/29/18 History Allergies Allergy/AdvReac Type Severity Reaction Status Date / Time No Known Allergies Allergy Verified 10/29/18 18:53 Physical Examination - Vital Signs Vital Signs: Vital Signs Temp Pulse Pulse Resp BP BP Pulse Ox 10/30/18 07:09 98.5 F 94 15 146/83 96 10/30/18 01:15 98.2 F 91 16 156/83 97 10/30/18 00:21 98.3 F 91 18 170/86 98 10/29/18 23:30 98.2 F 91 18 156/78 97 10/29/18 22:30 98.0 F 94 18 178/98 97 10/29/18 21:30 98.0 F 90 18 173/85 96 10/29/18 21:00 98.0 F 96 18 170/88 96 10/29/18 20:30 98.1 F 94 18 175/89 97 10/29/18 20:05 98.0 F 101 H 17 172/87 97 10/29/18 19:50 98.0 F 100 18 161/88 96 10/29/18 19:35 98.0 F 101 H 18 175/89 98 10/29/18 19:20 98.1 F 103 H 18 174/93 97 10/29/18 19:05 100 17 179/88 97 10/29/18 18:43 98.0 F 24 174/97 98 Intake and Output 10/29/18 10/30/18 10/30/18 22:59 06:59 14:59 Other: Voiding Method Diaper Diaper Incontinent Incontinent # Voids 2 Weight 65.771 kg Results - Laboratory Findings CBC and BMP: 10/29/18 19:12 10/29/18 19:12 Abnormal Lab Findings: Abnormal Labs 10/29/18 10/29/18 10/29/18 18:56 19:10 19:12 Glucose 104 H POC Glucose (mg/dL) 115 H 107 H ALT <6 L Urine Opiates Screen U Benzodiazepines Scrn 10/29/18 19:12 Glucose POC Glucose (mg/dL) ALT Urine Opiates Screen Detected H U Benzodiazepines Scrn Detected H
[2018-10-30] MEDS: CHOLECALCIFEROL 1,000 UNIT TAB PO SCH (17:47)
[2018-10-30] MEDS ORDERED: AZITHROMYCIN 500 MG TAB PO SCH (18:00)
[2018-10-30] MEDS ORDERED: LORazepam 0.5 MG TAB PO SCH (21:00)
[2018-10-30] MEDS: HEPARIN SODIUM,PORCINE 5,000 UNIT/ML 1 ML VIAL SQ SCH (22:41)
[2018-10-31] MEDS: ZINC OXIDE 20% OINT 28.4 GM TUBE TOPICAL SCH ×2 (00:19→07:46)
--- NOTE | 2018-10-31 04:46 | XR ---
EXAM: XR Pelvis, 1 or 2 Views CLINICAL HISTORY: ITS.REASON XR Reason: fall TECHNIQUE: Frontal view of the pelvis. COMPARISON: No relevant prior studies available. FINDINGS: Acute fracture of the right femoral neck with varus deformity. No other acute or healing fracture or malalignment. 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 Degenerative changes of spine. Background of diffuse osteopenia. Multiple phleboliths in the pelvis. IMPRESSION: Acute fracture of the right femoral neck with varus deformity
[2018-10-31] MEDS: MORPHINE SULFATE 2 MG/ML SYRINGE IVP PRN ×3 (05:20→17:35)
[2018-10-31] MEDS: SODIUM CHLORIDE 0.9% 1,000 ML IV SCH ×2 (07:27→16:03)
[2018-10-31] MEDS: MIDODRINE 5 MG TAB PO SCH ×2 (07:35→17:12)
[2018-10-31] MEDS: HYDROcodone/APAP 5-325MG 1 EACH TAB PO SCH (07:45)
[2018-10-31] MEDS: HEPARIN SODIUM,PORCINE 5,000 UNIT/ML 1 ML VIAL SQ SCH ×2 (07:46→21:21)
[2018-10-31] MEDS: CARBIDOPA-LEVODOPA 25-100 MG 1 EACH TAB PO SCH ×4 (07:46→21:21)
[2018-10-31] MEDS: FAMOTIDINE 20 MG TAB PO SCH (07:46)
[2018-10-31 13:58] LABS: HCT 38.2 % (34.0-46.0); HGB 12.6 gm/dL (11.4-16.0); MCH 29.9 pg (25.0-35.0); MCV 90.6 fL (80.0-100.0); Mean Platelet Volume 8.5; Platelet Count 211 k/uL (150-450); RBC 4.21 m/uL (3.80-5.40); RDW 14.9 % (11.5-15.5); WBC 11.9 k/uL (3.8-10.6)
[2018-10-31] MEDS ORDERED: KETOROLAC 30 MG/ML 1 ML VIAL IVP SCH (14:00)
[2018-10-31 14:23] LABS: ALT 12 U/L (9-52); AST 25 U/L (14-36); African American GFR (CKD) >90 (>60 ml/min/1.73 sqM); Albumin 4.1 g/dL (3.5-5.0); Alkaline Phosphatase 54 U/L (38-126); Anion Gap 12 mmol/L; Blood Urea Nitrogen 8 mg/dL (7-17); Calcium 9.4 mg/dL (8.4-10.2); Carbon Dioxide 22 mmol/L (22-30); Chloride 106 mmol/L (98-107); Glucose 127 mg/dL (74-99); Potassium 3.4 mmol/L (3.5-5.1); Sodium 140 mmol/L (137-145); Total Bilirubin 1.4 mg/dL (0.2-1.3)
[2018-10-31] MEDS: AZITHROMYCIN 500 MG in SODIUM CHLORIDE 0.9% 250 ML IVPB SCH (14:37)
--- NOTE | 2018-10-31 14:53 | P.CNOR ---
History of Present Illness - [facility] Consult date: 10/31/18 Consult reason: fracture History of present illness: Patient is a pleasant 78-year-old female seen at bedside this morning in consultation for right hip fracture. Her family is at bedside and provides the history. Patient is unable to participate in interview due to altered mental status. She was admitted on 10/29/2018 protocol mental status. This is currently continue to be worked up where there is suspicion of possible pneumonia, urinary tract infection versus CVA. She got up in the middle of night somehow early 10/31/2018 and fell to her right side. X-ray showed she suffered a right femoral neck fracture. Further review of systems unobtainable. Review of Systems ROS unobtainable: due to mental status Past Medical History Past Medical History: Neurologic Disorder, Osteoarthritis (OA) Additional Past Medical History / Comment(s): Parkinsons disease, chronic back pain, spinal stenosis, numbness and tingling hands and feet, sinus problems, UTIs, urine incontinence. History of Any Multi-Drug Resistant Organisms: ESBL Year Discovered:: 05/29/18 MDRO Source:: ESBL URINE Past Surgical History: Heart Catheterization, Hysterectomy Past Anesthesia/Blood Transfusion Reactions: No Reported Reaction Past Psychological History: No Psychological Hx Reported Additional Psychological History / Comment(s): Patient lives at [facility] living. She ambulates with a walker, and has had frequent falls. She does not drive, her daughter or son drive her to appts. Her daughter and son are helpful. Smoking Status: Former smoker Past Alcohol Use History: None Reported Additional Past Alcohol Use History / Comment(s): Pt started smoking in 1957 and quit for a short time by 1991 but states she resumed smoking and quit about 1 month ago. Past Drug Use History: None Reported - Past Family History Father Family Medical History: No Reported History Additional Family Medical History / Comment(s): Father was an alcoholic. He at the age of 69yrs. Mother Family Medical History: Coronary Artery Disease (CAD), Diabetes Mellitus, Myocardial Infarction ([place]) Additional Family Medical History / Comment(s): Mother at age 89 from diabetes and coronary artery disease. Brother(s) Family Medical History: Coronary Artery Disease (CAD) Additional Family Medical History / Comment(s): Patient had 3 brothers all from coronary artery disease and 100s first [place] at age 60. Sister(s) Family Medical History: Cancer Additional Family Medical History / Comment(s): Patient had 2 sisters and one from breast cancer and the other from unknown cause suddenly. Daughter(s) Family Medical History: No Reported History Additional Family Medical History / Comment(s): Patient has one daughter with no major medical problems. Son(s) Family Medical History: No Reported History Additional Family Medical History / Comment(s): Patient has one son with no major medical problems. Medications and Allergies Home Medications Medication Instructions Recorded Confirmed Type Famotidine [Pepcid] 20 mg PO DAILY tab 04/09/18 10/29/18 Rx Acetaminophen Tab [Tylenol] 650 mg PO Q6HR PRN tab 06/01/18 10/29/18 Rx HYDROcodone/APAP 5-325MG [[place] 1 tab PO TID #9 tab 06/01/18 10/29/18 Rx 5-325] LORazepam [Ativan] 0.5 mg PO HS #3 tablet 06/01/18 10/29/18 Rx Carbidopa-Levodopa 25-100 mg 1 tab PO QID 10/29/18 10/29/18 History [Sinemet 25-100 mg] Cholecalciferol [Vitamin D3 (25 1,000 unit PO AC-SUPPER 10/29/18 10/29/18 History Mcg = 1000 Iu)] Midodrine [ProAmatine] 5 mg PO BID 10/29/18 10/29/18 History Zinc Oxide [Desitin] 1 applic TOPICAL BID 10/29/18 10/29/18 History Allergies Allergy/AdvReac Type Severity Reaction Status Date / Time No Known Allergies Allergy Verified 10/29/18 18:53 Physical Examination Inspection of the right lower extremity shows a shortened externally rotated right leg. There are no open wounds or lacerations. There is no erythema. Calf appears been soft and nontender. Range of motion of the right hips tested due to the fracture. There is 2+ dorsalis pedis pulse present. Motor and sensation appears grossly intact. Results - Labs Labs: Abnormal Lab Results - Last 24 Hours (Table) 10/29/18 10/31/18 10/31/18 Range/Units 19:12 13:37 13:37 WBC 11.9 H (3.8-10.6) k/uL Potassium 3.4 L (3.5-5.1) mmol/L Glucose 127 H (74-99) mg/dL Total Bilirubin 1.4 H (0.2-1.3) mg/dL Procalcitonin 0.14 H (0.02-0.09) ng/mL Microbiology - Last 24 Hours (Table) 10/29/18 22:48 Blood Culture - Preliminary Blood No Growth after 24 hours H & H 10/29/18 10/31/18 Range/Units 19:12 13:37 Hgb 11.7 12.6 (11.4-16.0) gm/dL Hct 35.2 38.2 (34.0-46.0) % Coagulation 10/29/18 Range/Units 19:12 INR 1.0 (<1.2) Result Diagrams: 10/31/18 13:37 10/31/18 13:37 - Diagnostic results Hip x-ray: report reviewed, image reviewed Assessment and Plan (1) Closed right hip fracture Narrative/Plan: Patient has been seen by Dr. Lopez. Plan is to proceed with surgical intervention including a right hip hemiarthroplasty pending clearance by intern brand al medicine, infectious disease and cardiology on 11/02/2018. She is placed nothing by mouth after midnight night. The procedure has been scheduled and boarded. She'll need placement postoperatively. Current Visit: Yes Status: Acute Priority: Medium Code(s): S72.001A - FRAC TURE OF UNSP PART OF NECK OF RIGHT FEMUR, INIT SNOMED Code(s): 772818222 Time with Patient: Less than 30
[2018-10-31] MEDS ORDERED: POTASSIUM CHLORIDE 20 MEQ in WATER FOR INJECTION 1 100ML.BAG IVPB STA (15:30)
--- NOTE | 2018-10-31 15:30 | P.PN ---
Subjective Progress Note Date: 10/31/18 This is an 78-year-old female patient of Dr De Leon with a previous medical history significant for advanced Parkinson disease with significant spondylosis of the lumbar spine along with significant neuropathy both lower extremities, history of recurrent UTI. Patient is currently residing at [facility] and has been at [facility] for subacute rehab in the past. Staff at [facility] note the patient was confused and combative. No falls were documented. No fever, chills, nausea vomiting. Patient was having some intermittent weakness of the left upper extremity as well as left facial asymmetry. No history of stroke. Patient normally uses a walker to ambulate. Patient was brought into [facility] emergency center for evaluation. She was afebrile, heart rate 100, initial blood pressure 174/97, pulse ox 98% on room air. WBC 6.4, hemoglobin 11.7, platelet count 174, electrolytes and renal function within normal limits, blood sugar 104. Urinalysis was clear. Troponin negative. Urine drug screen positive for opiates and benzodiazepines. EKG was a sinus tachycardia. CAT scan of the brain showed moderate diffuse atrophy. No acute intracranial abnormality. No change. CT angiogram of the neck and CT angiogram of the brain were negative. Chest x-ray shows new minimal atelectasis and infiltrate left lung base area and repeat chest x-ray this morning reveals improved aeration of the left lung base with only minimal strand-like left basilar opacities remaining. On examination, patient is noted to have some left facial droop, she is not able to follow commands, she is quite confused. Pro-calcitonin has been ordered. Neurology consult requested. PT and OT added. Patient is on azithromycin and Rocephin. 10/31: During the night, patient had a fall and subsequently complained of right hip pain. X-rays were done that showed of fracture of the right femoral neck and consult was added for Dr. Lopez. The patient has been seen by neurology f or altered mental status likely in the setting of acute illness. Recommend good sleep hygiene for delirium precaution while treating patient for pneumonia. Neurology has signed off. Pro-calcitonin 0.14. Patient will be continued on IV antibiotics. Patient is not taking her oral medications. IV fluids will be continued at 100 mL per hour. Patient has a sitter at the bedside. Fry catheter has been placed this patient is bedbound. Orthopedics is pending for surgical intervention on Monday. Morphine removed and [place] removed from patient's medications. Toradol started for pain control. Daughter is at the bedside and states that on Monday when she was with her mother from 10-2 she was doing well. She was walking with and without a walker and doing fine. Her mental status was normal. Somewhere between 2 and 5 in the afternoon there was a mental status change. Patient does not have any history of myocardial infarction. She is cleared for surgical intervention on Monday. Objective - Vital Signs Vital signs: Vital Signs Temp 98.0 F 10/31/18 07:00 Pulse 105 H 10/31/18 07:00 Resp 15 10/31/18 07:00 BP 148/84 10/31/18 07:00 Pulse Ox 93 L 10/31/18 07:00 Intake & Output 10/30/18 10/31/18 10/31/18 18:59 06:59 18:59 Intake Total 800 Balance 800 Intake: Intake, IV Titration 600 Amount Sodium Chloride 0.9% 1, 600 000 ml @ 100 mls/hr IV . Q10H [facility] Rx#:[id number] Oral 200 Other: Voiding Method Diaper Diaper Incontinent Incontinent # Voids 3 2 - Exam Review of Systems ROS unobtainable: due to mental status - Constitutional General appearance: mild distress, thin - EENT Eyes: anicteric sclerae, EOMI, PERRLA, no ptosis, no scleral icterus, normal appearance ENT: hard of hearing, NA/AT, normal oropharynx, no thrush Ears: bilateral: normal - Neck Neck: no lymphadenopathy, normal ROM, no rigidity, no stridor, no thyromegaly Carotids: bilateral: upstroke normal Thyroid: bilateral: normal size - Respiratory Respiratory: bilateral: diminished, negative: dullness, rales, rhonchi, wheezing, prolonged expiration - Cardiovascular Rhythm: regular Heart sounds: normal: S1, S2 Abnormal Heart Sounds: systolic murmur, no S3 Gallop, no S4 Gallop - Gastrointestinal General gastrointestinal: soft, no splenomegaly, no tenderness, no umbilical hernia, no ventral hernia - Integumentary Integumentary: decreased turgor, normal - Neurologic Neurologic: CNII-XII intact, left facial droop - Musculoskeletal Musculoskeletal: no gait normal, generalized weakness - Psychiatric Psychiatric: Alert, O x's 1, no appropriate affect, no intact judgment & insight, unable to follow commands - Labs CBC & Chem 7: 10/31/18 13:37 10/31/18 13:37 Labs: Abnormal Lab Results - Last 24 Hours (Table) 10/29/18 Range/Units 19:12 Procalcitonin 0.14 H (0.02-0.09) ng/mL Microbiology - Last 24 Hours (Table) 10/29/18 22:48 Blood Culture - Preliminary Blood No Growth after 24 hours Assessment and Plan Plan: 1. Metabolic encephalopathy possibly related to pneumonia and underlying dementia versus CVA. Patient is noted to have a left-sided facial droop. Generalized weakness. Consult with neurology appreciated. Neurology has signed off. 2. Left lower lobe pneumonia. Continue azithromycin and ceftriaxone. Pro- calcitonin as above. 3. Right femoral neck fracture. Consult with Dr. Lopez. Patient is cleared medically for surgical intervention scheduled for Monday. 4. Advanced Parkinson disease. Continue with Sinemet 25/100 mg one tablet orally 4 times every day. 6. Spondylosis of the lumbar spine. Continue patient on [place]. 7. GERD. Continue Pepcid 20 mg orally once every day. 8. Bilateral lower extremity neuropathy. Patient has been off gabapentin. 9. Generalized anxiety disorder. Continue patient on lorazepam 0.5 mg orally at bedtime. 9. DVT prophylaxis. Continue patient on heparin 5000 units subcutaneously e very 12 hours. 10. GI prophylaxis. Continue Pepcid. 11. Hypotension. Continue midodrine 5 mg twice daily. Patient is full code. Discharge plan: Most likely subacute rehab secondary to femur fracture. PT, OT, director of social services consult. Impression and plan of care have been directed as dictated by the signing physician. Ruma Richardson nurse practitioner acting as scribe for signing physician.
[2018-10-31] MEDS: CHOLECALCIFEROL 1,000 UNIT TAB PO SCH (17:12)
[2018-11-01] MEDS: ZINC OXIDE 20% OINT 28.4 GM TUBE TOPICAL SCH ×3 (00:24→21:11)
[2018-11-01] MEDS: MORPHINE SULFATE 2 MG/ML SYRINGE IVP PRN ×4 (02:07→23:20)
[2018-11-01] MEDS: SODIUM CHLORIDE 0.9% 1,000 ML IV SCH ×3 (02:14→21:11)
[2018-11-01 07:18] LABS: HCT 36.3 % (34.0-46.0); HGB 12.1 gm/dL (11.4-16.0); MCH 29.9 pg (25.0-35.0); MCHC 33.3 g/dL (31.0-37.0); MCV 89.9 fL (80.0-100.0); Mean Platelet Volume 8.9; Platelet Count 170 k/uL (150-450); RBC 4.03 m/uL (3.80-5.40); RDW 14.6 % (11.5-15.5); WBC 7.6 k/uL (3.8-10.6)
[2018-11-01 07:37] LABS: African American GFR (CKD) >90 (>60 ml/min/1.73 sqM); Anion Gap 11 mmol/L; Blood Urea Nitrogen 8 mg/dL (7-17); Calcium 8.9 mg/dL (8.4-10.2); Carbon Dioxide 20 mmol/L (22-30); Chloride 108 mmol/L (98-107); Glucose 94 mg/dL (74-99); Potassium 3.2 mmol/L (3.5-5.1); Sodium 139 mmol/L (137-145)
[2018-11-01] MEDS: POTASSIUM CHLORIDE 20 MEQ in WATER FOR INJECTION 1 100ML.BAG IVPB SCH ×2 (09:03→11:34)
[2018-11-01] MEDS: CARBIDOPA-LEVODOPA 25-100 MG 1 EACH TAB PO SCH ×5 (09:04→21:11)
[2018-11-01] MEDS: HEPARIN SODIUM,PORCINE 5,000 UNIT/ML 1 ML VIAL SQ SCH ×2 (09:04→21:11)
[2018-11-01] MEDS: AZITHROMYCIN 500 MG in SODIUM CHLORIDE 0.9% 250 ML IVPB SCH (09:04)
[2018-11-01] MEDS: FAMOTIDINE 20 MG TAB PO SCH (09:04)
[2018-11-01] MEDS: MIDODRINE 5 MG TAB PO SCH ×2 (09:05→17:36)
--- NOTE | 2018-11-01 12:44 | P.PN ---
Subjective Progress Note Date: 11/01/18 Principal diagnosis: Right hip fracture Patient is 78-year-old female seen at bedside today where we are following her for right femoral neck fracture which she suffered after a fall while inpatient. She continues to have altered mental status. She appears to be in no apparent distress. Further history and review of systems unobtainable. Objective - Vital Signs Vital signs: Vital Signs Temp 97.7 F 11/01/18 07:00 Pulse 97 11/01/18 07:00 Resp 16 11/01/18 07:00 BP 161/90 11/01/18 07:00 Pulse Ox 93 L 11/01/18 07:00 Intake & Output 10/31/18 11/01/18 11/01/18 18:59 06:59 18:59 Intake Total 200 850 Output Total 540 Balance 200 310 Intake: Intake, IV Titration 850 Amount Sodium Chloride 0.9% 1, 800 000 ml @ 100 mls/hr IV . Q10H [facility] Rx#:[id number] cefTRIAXone 1 gm In 50 Sodium Chloride 0.9% 50 ml @ 100 mls/hr IVPB Q24H [facility] Rx#:[id number] Oral 200 Output: Urine 540 Other: Voiding Method Indwelling Catheter Indwelling Catheter # Voids 3 - Exam Exam of the right hip and lower show change. She has a shortened externally rotated right leg. Range of motion right hip is not tested due to the fracture. The calf is soft and nontender. 2+ dorsalis pedis pulse and less than 2 second capillary refill is present. - Constitutional General appearance: Present: no acute distress - Labs CBC & Chem 7: 11/01/18 06:28 11/01/18 06:28 Labs: Abnormal Lab Results - Last 24 Hours (Table) 10/31/18 10/31/18 11/01/18 Range/Units 13:37 13:37 06:28 WBC 11.9 H (3.8-10.6) k/uL Potassium 3.4 L 3.2 L (3.5-5.1) mmol/L Chloride 108 H (98-107) mmol/L Carbon Dioxide 20 L (22-30) mmol/L Glucose 127 H (74-99) mg/dL Total Bilirubin 1.4 H (0.2-1.3) mg/dL Microbiology - Last 24 Hours (Table) 10/29/18 22:48 Blood Culture - Preliminary Blood No Growth after 48 hours Assessment and Plan (1) Closed right hip fracture Narrative/Plan: Patient has been seen by Dr. Lopez. Plan is to proceed with surgical intervention including a right hip hemiarthroplasty on 11/02/2018. She has been tentatively cleared. She is placed nothing by mouth after midnight tonight. The procedure has been scheduled and boarded. She'll need placement postoperatively. Current Visit: Yes Status: Acute Priority: Medium Code(s): S72.001A - FRACTURE OF UNSP PART OF NECK OF RIGHT FEMUR, INIT SNOMED Code(s): 216666007 Time with Patient: Less than 30
--- NOTE | 2018-11-01 15:31 | P.PN ---
Subjective Progress Note Date: 11/01/18 This is an 78-year-old female patient of Dr De Leon with a previous medical history significant for advanced Parkinson disease with significant spondylosis of the lumbar spine along with significant neuropathy both lower extremities, history of recurrent UTI. Patient is currently residing at [facility] and has been at [facility] for subacute rehab in the past. Staff at [facility] note the patient was confused and combative. No falls were documented. No fever, chills, nausea vomiting. Patient was having some intermittent weakness of the left upper extremity as well as left facial asymmetry. No history of stroke. Patient normally uses a walker to ambulate. Patient was brought into [facility] emergency center for evaluation. She was afebrile, heart rate 100, initial blood pressure 174/97, pulse ox 98% on room air. WBC 6.4, hemoglobin 11.7, platelet count 174, electrolytes and renal function within normal limits, blood sugar 104. Urinalysis was clear. Troponin negative. Urine drug screen positive for opiates and benzodiazepines. EKG was a sinus tachycardia. CAT scan of the brain showed moderate diffuse atrophy. No acute intracranial abnormality. No change. CT angiogram of the neck and CT angiogram of the brain were negative. Chest x-ray shows new minimal atelectasis and infiltrate left lung base area and repeat chest x-ray this morning reveals improved aeration of the left lung base with only minimal strand-like left basilar opacities remaining. On examination, patient is noted to have some left facial droop, she is not able to follow commands, she is quite confused. Pro-calcitonin has been ordered. Neurology consult requested. PT and OT added. Patient is on azithromycin and Rocephin. 10/31: During the night, patient had a fall and subsequently complained of right hip pain. X-rays were done that showed of fracture of the right femoral neck and consult was added for Dr. Lopez. The patient has been seen by neurology f or altered mental status likely in the setting of acute illness. Recommend good sleep hygiene for delirium precaution while treating patient for pneumonia. Neurology has signed off. Pro-calcitonin 0.14. Patient will be continued on IV antibiotics. Patient is not taking her oral medications. IV fluids will be continued at 100 mL per hour. Patient has a sitter at the bedside. Fry catheter has been placed this patient is bedbound. Orthopedics is pending for surgical intervention on Monday. Morphine removed and [place] removed from patient's medications. Toradol started for pain control. Daughter is at the bedside and states that on Monday when she was with her mother from 10-2 she was doing well. She was walking with and without a walker and doing fine. Her mental status was normal. Somewhere between 2 and 5 in the afternoon there was a mental status change. Patient does not have any history of myocardial infarction. She is cleared for surgical intervention on Monday. 11/01: Patient has been afebrile, heart rate 97, blood pressure 161/90, pulse ox 93% on room air. CBC unremarkable. Sodium 139, potassium 3.2 and replaced with 40 mEq of potassium, chloride 108, CO2 20, BUN 18 creatinine 0.59. Blood sugar 94. Patient is continued on azithromycin and ceftriaxone for pneumonia. She is scheduled for right hip hemiarthroplasty tomorrow with Dr. Lopez. EEG pending. Patient continues to have a sitter at the bedside. She is awake complaining that she is tired but otherwise she remains very confused. She did eat a banana and applesauce for breakfast. Objective - Vital Signs Vital signs: Vital Signs Temp 97.7 F 11/01/18 07:00 Pulse 97 11/01/18 07:00 Resp 16 11/01/18 07:00 BP 161/90 11/01/18 07:00 Pulse Ox 93 L 11/01/18 07:00 Intake & Output 10/31/18 11/01/18 11/01/18 18:59 06:59 18:59 Intake Total 200 850 Output Total 540 Balance 200 310 Intake: Intake, IV Titration 850 Amount Sodium Chloride 0.9% 1, 800 000 ml @ 100 mls/hr IV . Q10H [facility] Rx#:[id number] cefTRIAXone 1 gm In 50 Sodium Chloride 0.9% 50 ml @ 100 mls/hr IVPB Q24H [facility] Rx#:[id number] Oral 200 Output: Urine 540 Other: Voiding Method Indwelling Catheter Indwelling Catheter # Voids 3 - Exam Review of Systems ROS unobtainable: due to mental status - Constitutional General appearance: mild distress, thin - EENT Eyes: anicteric sclerae, EOMI, PERRLA, no ptosis, no scleral icterus, normal appearance ENT: hard of hearing, NA/AT, normal oropharynx, no thrush Ears: bilateral: normal - Neck Neck: no lymphadenopathy, normal ROM, no rigidity, no stridor, no thyromegaly Carotids: bilateral: upstroke normal Thyroid: bilateral: normal size - Respiratory Respiratory: bilateral: diminished, negative: dullness, rales, rhonchi, wheezing, prolonged expiration - Cardiovascular Rhythm: regular Heart sounds: normal: S1, S2 Abnormal Heart Sounds: systolic murmur, no S3 Gallop, no S4 Gallop - Gastrointestinal General gastrointestinal: soft, no splenomegaly, no tenderness, no umbilical hernia, no ventral hernia - Integumentary Integumentary: decreased turgor, normal - Neurologic Neurologic: CNII-XII intact, left facial droop - Musculoskeletal Musculoskeletal: no gait normal, generalized weakness Shortening right leg with external rotation - Psychiatric Psychiatric: Alert, O x's 1, no appropriate affect, no intact judgment & insight, unable to follow commands - Labs CBC & Chem 7: 11/01/18 06:28 11/01/18 06:28 Labs: Abnormal Lab Results - Last 24 Hours (Table) 10/31/18 10/31/18 11/01/18 Range/Units 13:37 13:37 06:28 WBC 11.9 H (3.8-10.6) k/uL Potassium 3.4 L 3.2 L (3.5-5.1) mmol/L Chloride 108 H (98-107) mmol/L Carbon Dioxide 20 L (22-30) mmol/L Glucose 127 H (74-99) mg/dL Total Bilirubin 1.4 H (0.2-1.3) mg/dL Microbiology - Last 24 Hours (Table) 10/29/18 22:48 Blood Culture - Preliminary Blood No Growth after 48 hours Assessment and Plan Plan: 1. Metabolic encephalopathy possibly related to pneumonia and underlying dementia versus CVA. Patient is noted to have a left-sided facial droop. Generalized weakness. Consult with neurology appreciated. Neurology has signed off. EEG pending. 2. Left lower lobe pneumonia. Continue azithromycin and ceftriaxone. Pro- calcitonin as above. 3. Right femoral neck fracture. Consult with Dr. Lopez. Patient is cleared medically for surgical intervention scheduled for Monday. 4. Advanced Parkinson disease. Continue with Sinemet 25/100 mg one tablet orally 4 times every day. 6. Spondylosis of the lumbar spine. Continue patient on morphine. 7. GERD. Continue Pepcid 20 mg orally once every day. 8. Bilateral lower extremity neuropathy. Patient has been off gabapentin. 9. Generalized anxiety disorder. Continue patient on lorazepam 0.5 mg orally at bedtime. 9. DVT prophylaxis. Continue patient on heparin 5000 units subcutaneously every 12 hours. 10. GI prophylaxis. Continue Pepcid. 11. Hypotension. Continue midodrine 5 mg twice daily. Patient is full code. Discharge plan: [place]. Impression and plan of care have been directed as dictated by the signing physician. Ruma Richardson nurse practitioner acting as scribe for signing physician.
[2018-11-01] MEDS: CHOLECALCIFEROL 1,000 UNIT TAB PO SCH ×2 (17:36→17:43)
[2018-11-02] MEDS: HEPARIN SODIUM,PORCINE 5,000 UNIT/ML 1 ML VIAL SQ SCH ×2 (08:38→22:34)
[2018-11-02] MEDS: FAMOTIDINE 20 MG TAB PO SCH (08:38)
[2018-11-02] MEDS: MIDODRINE 5 MG TAB PO SCH ×2 (08:38→17:58)
[2018-11-02] MEDS: CARBIDOPA-LEVODOPA 25-100 MG 1 EACH TAB PO SCH ×4 (08:38→22:29)
[2018-11-02] MEDS: AZITHROMYCIN 500 MG in SODIUM CHLORIDE 0.9% 250 ML IVPB SCH (08:42)
[2018-11-02] MEDS: SODIUM CHLORIDE 0.9% 1,000 ML IV SCH ×2 (08:42→18:12)
[2018-11-02] MEDS: ZINC OXIDE 20% OINT 28.4 GM TUBE TOPICAL SCH ×2 (09:12→22:50)
[2018-11-02] MEDS ORDERED: IV FLUID CONTINUATION 300 ML IV ONE (09:41)
[2018-11-02] MEDS ORDERED: KETAMINE 10 MG/ML 20 ML VIAL ONE (10:36)
[2018-11-02] MEDS ORDERED: ePHEDrine SULFATE/0.9% NACL/PF 50 MG/5 ML SYRINGE IV ONE (10:36)
[2018-11-02] MEDS ORDERED: MIDAZOLAM 2 MG/2 ML VIAL ONE (10:36)
[2018-11-02] MEDS ORDERED: PHENYLEPHRINE-0.9% NACL SYG 1 MG/10 ML SYRINGE ONE (10:36)
[2018-11-02] MEDS ORDERED: ceFAZolin 3,000 MG in SODIUM CHLORIDE 0.9% IRRIGATIO 3,000 ML IRRIGATION ONE (10:41)
[2018-11-02] MEDS ORDERED: SODIUM CHLORIDE 0.9% 1,000 ML IV ONE (11:14)
[2018-11-02] MEDS ORDERED: NALOXONE 0.4 MG/ML 1 ML VIAL IV PRN (12:15)
[2018-11-02] MEDS ORDERED: HYDROmorphone 0.5 MG/0.5 ML SYRINGE IVP PRN ×2 (12:15)
[2018-11-02] MEDS ORDERED: MAGNESIUM HYDROXIDE 2,400 MG/10 ML CUP PO PRN (12:15)
--- NOTE | 2018-11-02 12:48 | P.PN ---
Subjective Progress Note Date: 11/02/18 This is an 78-year-old female patient of Dr De Leon with a previous medical history significant for advanced Parkinson disease with significant spondylosis of the lumbar spine along with significant neuropathy both lower extremities, history of recurrent UTI. Patient is currently residing at [facility] and has been at [facility] for subacute rehab in the past. Staff at [facility] note the patient was confused and combative. No falls were documented. No fever, chills, nausea vomiting. Patient was having some intermittent weakness of the left upper extremity as well as left facial asymmetry. No history of stroke. Patient normally uses a walker to ambulate. Patient was brought into [facility] emergency center for evaluation. She was afebrile, heart rate 100, initial blood pressure 174/97, pulse ox 98% on room air. WBC 6.4, hemoglobin 11.7, platelet count 174, electrolytes and renal function within normal limits, blood sugar 104. Urinalysis was clear. Troponin negative. Urine drug screen positive for opiates and benzodiazepines. EKG was a sinus tachycardia. CAT scan of the brain showed moderate diffuse atrophy. No acute intracranial abnormality. No change. CT angiogram of the neck and CT angiogram of the brain were negative. Chest x-ray shows new minimal atelectasis and infiltrate left lung base area and repeat chest x-ray this morning reveals improved aeration of the left lung base with only minimal strand-like left basilar opacities remaining. On examination, patient is noted to have some left facial droop, she is not able to follow commands, she is quite confused. Pro-calcitonin has been ordered. Neurology consult requested. PT and OT added. Patient is on azithromycin and Rocephin. 10/31: During the night, patient had a fall and subsequently complained of right hip pain. X-rays were done that showed of fracture of the right femoral neck and consult was added for Dr. Lopez. The patient has been seen by neurology f or altered mental status likely in the setting of acute illness. Recommend good sleep hygiene for delirium precaution while treating patient for pneumonia. Neurology has signed off. Pro-calcitonin 0.14. Patient will be continued on IV antibiotics. Patient is not taking her oral medications. IV fluids will be continued at 100 mL per hour. Patient has a sitter at the bedside. Fry catheter has been placed this patient is bedbound. Orthopedics is pending for surgical intervention on Monday. Morphine removed and [place] removed from patient's medications. Toradol started for pain control. Daughter is at the bedside and states that on Monday when she was with her mother from 10-2 she was doing well. She was walking with and without a walker and doing fine. Her mental status was normal. Somewhere between 2 and 5 in the afternoon there was a mental status change. Patient does not have any history of myocardial infarction. She is cleared for surgical intervention on Monday. 11/01: Patient has been afebrile, heart rate 97, blood pressure 161/90, pulse ox 93% on room air. CBC unremarkable. Sodium 139, potassium 3.2 and replaced with 40 mEq of potassium, chloride 108, CO2 20, BUN 18 creatinine 0.59. Blood sugar 94. Patient is continued on azithromycin and ceftriaxone for pneumonia. She is scheduled for right hip hemiarthroplasty tomorrow with Dr. Lopez. EEG pending. Patient continues to have a sitter at the bedside. She is awake complaining that she is tired but otherwise she remains very confused. She did eat a banana and applesauce for breakfast. 11/02: Patient probably had some confusion during the night. This morning she is improved. Patient is scheduled for surgery on this morning. Patient has been afebrile, heart rate 90, blood pressure 161/74, pulse ox 97% on room air. Potassium is 3.2 no be replaced. Repeat lab work ordered for tomorrow. EEG has been completed and report is pending. Discharge plan is for [facility] for subacute rehab most likely on Monday. Objective - Vital Signs Vital signs: Vital Signs Temp 98.9 F 11/02/18 06:50 Pulse 89 11/02/18 06:50 Resp 15 11/02/18 06:50 BP 164/88 11/02/18 06:50 Pulse Ox 94 L 11/02/18 06:50 Intake & Output 11/01/18 11/02/18 11/02/18 18:59 06:59 18:59 Intake Total 900 Output Total 600 1200 Balance -600 -300 Intake: Intake, IV Titration 900 Amount Sodium Chloride 0.9% 1, 900 000 ml @ 100 mls/hr IV . Q10H [facility] Rx#:[id number] Output: Urine 600 1200 Uretheral (Fry) 1200 Other: Voiding Method Indwelling Catheter Indwelling Catheter Indwelling Catheter - Exam Review of Systems ROS unobtainable: due to mental status - Constitutional General appearance: no distress, thin - EENT Eyes: anicteric sclerae, EOMI, PERRLA, no ptosis, no scleral icterus, normal appearance ENT: hard of hearing, NA/AT, normal oropharynx, no thrush Ears: bilateral: normal - Neck Neck: no lymphadenopathy, normal ROM, no rigidity, no stridor, no thyromegaly Carotids: bilateral: upstroke normal Thyroid: bilateral: normal size - Respiratory Respiratory: bilateral: diminished, negative: dullness, rales, rhonchi, wheezing, prolonged expiration - Cardiovascular Rhythm: regular Heart sounds: normal: S1, S2 Abnormal Heart Sounds: systolic murmur, no S3 Gallop, no S4 Gallop - Gastrointestinal General gastrointestinal: soft, no splenomegaly, no tenderness, no umbilical hernia, no ventral hernia - Integumentary Integumentary: decreased turgor, normal - Neurologic Neurologic: CNII-XII intact, left facial droop - Musculoskeletal Musculoskeletal: no gait normal, generalized weakness Shortening right leg with external rotation - Psychiatric Psychiatric: Alert, O x's 1, no appropriate affect, no intact judgment & insight, unable to follow commands - Labs CBC & Chem 7: 11/01/18 06:28 11/02/18 08:57 Labs: Microbiology - Last 24 Hours (Table) 10/29/18 22:48 Blood Culture - Preliminary Blood No Growth after 72 hours Assessment and Plan Plan: 1. Metabolic encephalopathy possibly related to pneumonia and underlying dementia versus CVA. Patient is noted to have a left-sided facial droop. Generalized weakness. Consult with neurology appreciated. Neurology has signed off. EEG has been completed and report is pending. 2. Left lower lobe pneumonia. Continue azithromycin and ceftriaxone. Pro-c alcitonin as above. 3. Right femoral neck fracture. Consult with Dr. Lopez. Patient is cleared medically for surgical intervention scheduled for Monday. 4. Advanced Parkinson disease. Continue with Sinemet 25/100 mg one tablet orally 4 times every day. 6. Spondylosis of the lumbar spine. Continue patient on morphine. 7. GERD. Continue Pepcid 20 mg orally once every day. 8. Bilateral lower extremity neuropathy. Patient has been off gabapentin. 9. Generalized anxiety disorder. Continue patient on lorazepam 0.5 mg orally at bedtime. 9. DVT prophylaxis. Continue patient on heparin 5000 units subcutaneously every 12 hours. 10. GI prophylaxis. Continue Pepcid. 11. Hypotension. Continue midodrine 5 mg twice daily. 12. Hypokalemia. Replacement and repeat lab work tomorrow. Patient is full code. Discharge plan: on Monday. Impression and plan of care have been directed as dictated by the signing physician. Ruma Richardson nurse practitioner acting as scribe for signing physician.
--- NOTE | 2018-11-02 12:54 | XR ---
EXAMINATION TYPE: XR Hip Limited RT DATE OF EXAM: 11/02/2018 CLINICAL HISTORY: Right hip pain and osteoarthritis. TECHNIQUE: Single AP portable view of right hip is obtained immediately postoperatively. COMPARISON: None. FINDINGS: Metallic hardware from right hip arthroplasty is seen and appears satisfactory in alignment and position. There is evidence of recent surgery with subcutaneous gas noted laterally. IMPRESSION: Metallic hardware from right hip arthroplasty is satisfactory in position.
[2018-11-02] MEDS: POTASSIUM CHLORIDE 20 MEQ in WATER FOR INJECTION 1 100ML.BAG IVPB SCH ×3 (13:20→17:58)
--- NOTE | 2018-11-02 14:22 | EEG ---
ELECTROENCEPHALOGRAM REPORT PROCEDURE DATE: 11/01/2018. ELECTROENCEPHALOGRAM (EEG) REPORT: TECHNIQUE: A routine 18 channel EEG was performed with video using the 10/20 international placement system. HISTORY: Current pneumonia, altered mental status. Patient also has a broken hip. Patient was noted to be agitated. OTHER MEDICAL HISTORY: Includes arthritis, Parkinson's disease, chronic back pain, neuropathy. CURRENT MEDICATIONS: Potassium chloride, Zinc, morphine, ProAmatine, heparin, Pepcid. STUDY DURATION: 23 minutes. FINDINGS: BACKGROUND: Please note the portions of this recording were limited interpretation by the presence of muscle artifact . The background activity consists of unsustained 6-7 hertz rhythmic waveforms with some intermixed theta range slowing. ACTIVATION: HYPERVENTILATION: Not performed. PHOTIC STIMULATION: Not performed. SLEEP: Drowsy. ABNORMALITIES: Intermittent diffuse 4-6 hertz polymorphic theta range slowing was seen. IMPRESSION: 1. Limited study, abnormal EEG. 2. The intermittent diffuse theta range slowing mentioned above is not epileptiform in nature. In combination with the slow background, these findings indicate moderate diffuse cerebral dysfunction as may be seen in a toxometabolic encephalopathy. No seizures were recorded. No epileptiform activity was present. MMODL / IJN: [id number] /
[2018-11-02] MEDS: MORPHINE SULFATE 2 MG/ML SYRINGE IVP PRN ×2 (15:31→22:38)
[2018-11-02] MEDS: CHOLECALCIFEROL 1,000 UNIT TAB PO SCH (17:58)
[2018-11-02] MEDS ORDERED: MORPHINE SULFATE 2 MG/ML SYRINGE IV PRN (22:21)
[2018-11-02] MEDS ORDERED: LIDOCAINE 1% 20 ML VIAL (10MG/ML) FOR IV START INTRADERMA PRN (22:21)
[2018-11-02] MEDS ORDERED: ONDANSETRON 4 MG/2 ML VIAL IVP PRN (22:21)
[2018-11-02] MEDS: SENNOSIDES-DOCUSATE SODIUM 1 EACH TAB PO SCH (22:29)
[2018-11-02] MEDS: MIRTAZAPINE 15 MG TAB PO SCH (22:30)
[2018-11-02] MEDS: LACTATED RINGERS 1,000 ML IV SCH (22:41)
--- NOTE | 2018-11-02 23:25 | P.PN ---
Progress Note - Text Progress Note Date: 11/02/18 Subjective: No acute overnight events. Called by RN requesting Neurology to speak to family about EEG result as patient continues to be confused. Went to bedside where daughter was present. She states that patient has had multiple episodes of confusion/AMS with UTI and other infections. Spoke to daughter about EEG results, who showed udnerstanding. PHYSICAL EXAM: VITALS: T 98.2 HR 112 RR 18 BP 142/87 O2 SAT 94% on RA GEN.: NAD, less combative than before but doesn't want to be touched. Patient prefers to lie on her L side. HEENT: NCAT, sclera without icterus SKIN AND EXTREMITIES: Warm to touch, no edema NEURO: MENTAL STATUS: Patient alert and oriented to self only. Unable to name daugther. Speech fluent, willing to name and repeat, following commands to close eyes, protrude tongue, show fingers and wave. No obvious neglect CRANIAL NERVES II THROUGH XII: II: Pupils are equal and reactive to light symmetrically. Patient tracks appropriately. III, IV, : No ptosis. Extraocular movements full. V: Facial sensation intact from V1-3. VII. No clear facial asymmetry. MOTOR: Normal bulk/tone. Readily moves her bilateral upper extremity. Bilateral extremity movement limited by pain from arthritis. Patient with foot drop in both ankles. SENSORY: Grossly intact to light touch in all 4 extremities. REFLEXES: 2+ throughout. Toes are downgoing. No clonus. Dawn's is absent COORDINATION/GAIT: Deferred due to patient's altered mental status DIAGNOSTIC TESTING: LABORATORY: WBC 6.4 hemoglobin 11.7 platelet 174 PT 10.9 INR 1.0 sodium 140 potassium 3.8 chloride 107 bicarb 23 BUN 14 per nasal 0.66 glucose 104 AST 17 ALT <6 alk phos 69 troponin <0.012 urinalysis negative urine toxicology opiates/benzo detected IMAGING: Chest x-ray 10/30/2018: Improved aeration of the left lung base with only minimal strength right left basilar opacity remaining. CT head without contrast 10/29/2018: Moderate diffuse atrophy. No acute intra-abdominal pathology. CT angiography of the head with contrast 10/29/2018: Negative CT angiogram neck and brain. EEG 11/01/2018: Limited study. Intermittent diffuse theta range slowing mentioned not epi leptiform in nature. In combination with the slow background, these findings indicate moderate diffuse cerebral dysfunction as may be seen in a toxometabolic encephalopathy. No seizures were recorded. ASSESSMENT/RECOMMENDATIONS: Ms. Bradshaw is an 78-year-old woman with past medical history of posture arthritis, Parkinson's disease, chronic back pain, spinal stenosis, peripheral neuropathy, urinary incontinence, presenting to [facility] with acute mental status change, consulting Neurology for AMS. Patient with obvious focal deficit. Patient found with pneumonia, started on ceftriaxone. Patient's altered mental status occurred most likely in the setting of acute illness considering patient's age. Recommend good sleep hygiene for delirium precaution while treat ing patient for pneumonia. EEG with no seizures, showing metabolic encephalopahy. Neurology will sign off at this time. Please feel free to contact Neurology again if with additional questions or concerns.
[2018-11-03] MEDS: MORPHINE SULFATE 2 MG/ML SYRINGE IVP PRN ×2 (02:49→07:06)
[2018-11-03] MEDS: SODIUM CHLORIDE 0.9% 1,000 ML IV SCH ×3 (02:52→20:41)
--- NOTE | 2018-11-03 02:52 | OP ---
OPERATIVE REPORT DATE OF PROCEDURE: 11/02/2018. PREOPERATIVE DIAGNOSIS: Right displaced femoral neck fracture. POSTOPERATIVE DIAGNOSIS: Right displaced femoral neck fracture. OPERATION PERFORMED: Right hip hemiarthroplasty. SURGEON: Stephen Lopez M.D. PURCHASING ENGINEER: Lazaro ROQUE. ANESTHESIA: Spinal with sedation. ESTIMATED BLOOD LOSS: 100 mL. TOURNIQUET: None. DRAINS: None. COMPLICATIONS: None apparent. DISPOSITION: Postanesthesia care unit. INDICATIONS: Leighann is a very pleasant 78-year-old female who was admitted to the hospital with pneumonia and altered mental status. Unfortunately, in the middle of the night on early 10/31/2018, she fell onto her right side. Workup including x-rays revealed a displaced right femoral neck fracture. We were consulted for management. She does have very significant medical comorbidities, which include advanced Parkinson disease, recurrent urinary tract infections and currently she is being treated for pneumonia. Much of the history was derived from the family. Recommendation was for right hip hemiarthroplasty. The risks of procedure were discussed with her and her family in detail. These risks include, but are not limited to risk of infection, nerve damage, bleeding, pain, and a small risk of deep vein thrombosis which could lead to fatal pulmonary embolism. Further risks include instability in the hip, periprosthetic fracture, and deep infection. All of the risks were explained to the family. All of their questions were answered to their satisfaction. Appropriate informed consent was obtained. DESCRIPTION OF THE PROCEDURE: The patient identified in preop holding area. The surgical site was marked by myself. She was then transferred to the operative suite. She was placed supine on the operative table. Spinal anesthetic was then administered and dosed per the anesthesia without apparent complication. She was then placed in the left lateral decubitus position well-padded in preparation for surgery. Great care was taken to ensure that her legs were appropriately padded. A well-padded axillary roll was placed as well. The patient's right lower extremity was then prepped and draped in usual sterile fashion. Standard surgical pause undertaken to ensure that we were operating the correct site and that appropriate preoperative antibiotics were given. All staff in room in agreement we proceeded. The outlines of the greater trochanter were then marked with a surgical pen. A planned 10 to 12 cm incision centered over the tip of the greater trochanter and extending in line with the shaft of the femur was then marked, was then marked surgical pen. Incision was then made with a 10 blade scalpel. Dissection carried down sharply to the tensor fascia. The tensor fascia was then incised in line with the incision. A Charnley retractor was then placed. The raphae between the anterior 3rd and posterior 2/3 of the gluteus medius muscle was identified. I then proceeded with a Hardinge type anterolateral approach to the hip. The gluteus medius, gluteus minimus and the anterior capsule were taken off in a sleeve anteriorly. This gave excellent exposure. I then utilized the cutting guide and the reciprocating saw to make a fresh femoral neck cut with the wrist. The [place] femoral head was then removed with the corkscrew device. The acetabulum was then thoroughly inspected. The cartilage of the acetabulum was in excellent condition. There were no loose bodies noted within the acetabulum. I then measured the [place] femoral head. It measured 45 mm. A 45 mm trial was then placed on the lollipop. It had excellent suction fit within the acetabulum. This was then removed. The hip was then flexed and externally rotated to deliver the proximal femur out of the of the wound. The hot box checker was used to gain access to the femoral canal. I then started with the starting reamer. The femoral canal was then reamed starting with a 7 mm reamer and increasing incrementally up to an 11 mm reamer where the good chatter was attained. I then proceeded with broaching. I started with a 7 broach and this was placed in approximately 10-15 degrees of anteversion. We then sequentially broached in the similar fashion up to a size 11 broach. This had excellent fit in the proximal femur. Bone quality was fairly good. I then proceeded with trialing. I started with a -3 neck and a 45 head. This was then placed onto the broach and the hip was reduced. The hip was taken through full range of motion. It was very stable. There was minimal Shuck with -3 neck. I decided to go forward with a -3 neck and size 11 stem. The broach was removed. The wound was thoroughly irrigated with sterile saline solution with antibiotic added via pulse lavage. I then had the sales representative electric service open a Biomet Bimetric size 11 collared stem, -3 neck and a 45 monopolar head. The -3 neck and 45 monopolar head were assembled on the back table. The real stem was then impacted into the proximal femur in approximately 10-15 degrees of anteversion. Again it had excellent fit and was very secure. I then dried the trunnion in the -3 neck and head was then impacted onto the Beckham taper and tapped for secure fit. The hip was then reduced. Again was taken through full range of motion. Very stable. There was very minimal Shuck. I then proceeded with closure. The wound again was thoroughly irrigated with sterile saline solution with antibiotic added. The gluteus medius, minimus and anterior capsule were repaired back to the greater trochanter with #5 Ethibond trans osteo sutures. The raphae between the anterior 3rd and posterior 3rd, 2/3 of the gluteus medius was repaired with #1 Vicryl interrupted suture. Again the wound was thoroughly irrigated with sterile saline solution with antibiotic added. The tensor fascia was then closed with #1 Vicryl interrupted suture. It was then securely closed with #2 running Quill suture. Again the wound was thoroughly irrigated. The subcutaneous tissue was closed with 2-0 Vicryl suture and the skin was closed with 3-0 running Quill suture. Sterile compressive dressing was then applied. Her lower extremities were placed in a hip abduction pillow. All sponge and needle counts were deemed correct prior to closure. The patient tolerated the procedure without apparent complication. She was transferred to recovery room in stable condition. MAGALIS / MAUN: [id number] /
[2018-11-03 08:11] LABS: Basophils # (A) 0.1 k/uL (0-0.2); Basophils % (A) 1 %; Eosinophils # (A) 0.1 k/uL (0-0.7); Eosinophils % (A) 1 %; HCT 31.2 % (34.0-46.0); HGB 10.5 gm/dL (11.4-16.0); Lymphocytes # (A) 0.8 k/uL (1.0-4.8); Lymphocytes % (A) 9 %; MCH 30.1 pg (25.0-35.0); MCHC 33.6 g/dL (31.0-37.0); MCV 89.6 fL (80.0-100.0); Mean Platelet Volume 9.1; Monocytes # (A) 0.8 k/uL (0-1.0); Monocytes % (A) 9 %; Neutrophils # (A) 6.5 k/uL (1.3-7.7); Neutrophils % (A) 77 %; Platelet Count 164 k/uL (150-450); RBC 3.48 m/uL (3.80-5.40); RDW 14.8 % (11.5-15.5); WBC 8.4 k/uL (3.8-10.6)
[2018-11-03 08:17] LABS: African American GFR (CKD) >90 (>60 ml/min/1.73 sqM); Anion Gap 9 mmol/L; Blood Urea Nitrogen 8 mg/dL (7-17); Calcium 8.7 mg/dL (8.4-10.2); Carbon Dioxide 21 mmol/L (22-30); Chloride 108 mmol/L (98-107); Glucose 126 mg/dL (74-99); Potassium 3.6 mmol/L (3.5-5.1); Sodium 138 mmol/L (137-145)
[2018-11-03] MEDS: AZITHROMYCIN 500 MG in SODIUM CHLORIDE 0.9% 250 ML IVPB SCH (08:43)
[2018-11-03] MEDS: MIDODRINE 5 MG TAB PO SCH ×2 (08:43→16:51)
[2018-11-03] MEDS: HEPARIN SODIUM,PORCINE 5,000 UNIT/ML 1 ML VIAL SQ SCH ×2 (08:43→20:27)
[2018-11-03] MEDS: CARBIDOPA-LEVODOPA 25-100 MG 1 EACH TAB PO SCH ×4 (08:43→20:27)
[2018-11-03] MEDS: FAMOTIDINE 20 MG TAB PO SCH (08:43)
--- NOTE | 2018-11-03 09:25 | P.PN ---
Subjective Progress Note Date: 11/03/18 Principal diagnosis: Status post right hip hemiarthroplasty This is a 78 year-old female post right hip hemiarthroplasty. This is post-op day 1. The patient was evaluated at the bedside today. The patient denies nausea, vomiting, abdominal pain, shortness of breath, and chest pain this morning. She states her pain is controlled at this time. The patient has not been up with physical therapy. There is a product safety administrator at the bedside due to her confusion and yelling out last night. Objective - Vital Signs Vital signs: Vital Signs Temp 99.2 F 11/03/18 07:00 Pulse 101 H 11/03/18 07:00 Resp 16 11/03/18 07:00 BP 135/73 11/03/18 07:00 Pulse Ox 94 L 11/03/18 07:00 Intake & Output 11/02/18 11/03/18 11/03/18 18:59 06:59 18:59 Intake Total 1301 522 222 Output Total 900 300 Balance 401 222 222 Intake: IV 1201 Intake, IV Titration 100 50 Amount Potassium Chloride 20 meq 100 In Water For Injection 1 100ml.bag @ 50 mls/hr IVPB Q2H [facility] Rx#: [id number] cefTRIAXone 1 gm In 50 Sodium Chloride 0.9% 50 ml @ 100 mls/hr IVPB Q24H [facility] Rx#:[id number] Oral 472 222 Output: Urine 800 300 Estimated Blood Loss 100 Other: Voiding Method Indwelling Catheter Indwelling Catheter Indwelling Catheter - Exam The patient does not appear in acute distress. Alert and orientated x3. Dressing is clean dry and intact. Incision appears fine with no erythema or active drainage. Calf is soft and nontender. Good foot and ankle motion without difficulty. Sensation and circulatory status is intact. - Labs CBC & Chem 7: 11/03/18 07:02 11/03/18 07:02 Labs: Abnormal Lab Results - Last 24 Hours (Table) 11/02/18 11/03/18 11/03/18 Range/Units 08:57 07:02 07:02 RBC 3.48 L (3.80-5.40) m/uL Hgb 10.5 L (11.4-16.0) gm/dL Hct 31.2 L (34.0-46.0) % Lymphocytes # 0.8 L (1.0-4.8) k/uL Potassium 3.2 L (3.5-5.1) mmol/L Chloride 108 H (98-107) mmol/L Carbon Dioxide 21 L (22-30) mmol/L Glucose 126 H (74-99) mg/dL Microbiology - Last 24 Hours (Table) 10/29/18 22:48 Blood Culture - Preliminary Blood No Growth after 96 hours Assessment and Plan (1) Status post hip hemiarthroplasty Current Visit: Yes Status: Acute Code(s): Z96.649 - PRESENCE OF UNSPECIFIED ARTIFICIAL HIP JOINT SNOMED Code(s): 675897779 (2) Closed right hip fracture Current Visit: Yes Status: Acute Priority: Medium Code(s): S72.001A - FRACTURE OF UNSP PART OF NECK OF RIGHT FEMUR, INIT SNOMED Code(s): 299602308 (3) Left lower lobe pneumonia Current Visit: Yes Status: Acute Code(s): J18.1 - LOBAR PNEUMONIA, UNSPECIFIED ORGANISM SNOMED Code(s): 662876708 (4) Fall Current Visit: No Status: Acute Code(s): W19.XXXA - UNSPECIFIED FALL, INITIAL ENCOUNTER SNOMED Code(s): 6079930 Plan: 1. Continue pain control, Ultram added today. 2. Anticoagulation with Heparin per internal medicine. 3. Start physical therapy and ambulation today 4. [facility]tic[facility]ate [facility], likely early next week.
[2018-11-03] MEDS: ZINC OXIDE 20% OINT 28.4 GM TUBE TOPICAL SCH ×2 (10:19→20:33)
--- NOTE | 2018-11-03 12:08 | P.PN ---
Subjective Progress Note Date: 11/03/18 This is an 78-year-old female patient of Dr De Leon with a previous medical history significant for advanced Parkinson disease with significant spondylosis of the lumbar spine along with significant neuropathy both lower extremities, history of recurrent UTI. Patient is currently residing at [facility] and has been at [facility] for subacute rehab in the past. Staff at [facility] note the patient was confused and combative. No falls were documented. No fever, chills, nausea vomiting. Patient was having some intermittent weakness of the left upper extremity as well as left facial asymmetry. No history of stroke. Patient normally uses a walker to ambulate. Patient was brought into [facility] emergency center for evaluation. She was afebrile, heart rate 100, initial blood pressure 174/97, pulse ox 98% on room air. WBC 6.4, hemoglobin 11.7, platelet count 174, electrolytes and renal function within normal limits, blood sugar 104. Urinalysis was clear. Troponin negative. Urine drug screen positive for opiates and benzodiazepines. EKG was a sinus tachycardia. CAT scan of the brain showed moderate diffuse atrophy. No acute intracranial abnormality. No change. CT angiogram of the neck and CT angiogram of the brain were negative. Chest x-ray shows new minimal atelectasis and infiltrate left lung base area and repeat chest x-ray this morning reveals improved aeration of the left lung base with only minimal strand-like left basilar opacities remaining. On examination, patient is noted to have some left facial droop, she is not able to follow commands, she is quite confused. Pro-calcitonin has been ordered. Neurology consult requested. PT and OT added. Patient is on azithromycin and Rocephin. 10/31: During the night, patient had a fall and subsequently complained of right hip pain. X-rays were done that showed of fracture of the right femoral neck and consult was added for Dr. Lopez. The patient has been seen by neurology f or altered mental status likely in the setting of acute illness. Recommend good sleep hygiene for delirium precaution while treating patient for pneumonia. Neurology has signed off. Pro-calcitonin 0.14. Patient will be continued on IV antibiotics. Patient is not taking her oral medications. IV fluids will be continued at 100 mL per hour. Patient has a sitter at the bedside. Fry catheter has been placed this patient is bedbound. Orthopedics is pending for surgical intervention on Monday. Morphine removed and Frederic removed from patient's medications. Toradol started for pain control. Daughter is at the bedside and states that on Monday when she was with her mother from 10-2 she was doing well. She was walking with and without a walker and doing fine. Her mental status was normal. Somewhere between 2 and 5 in the afternoon there was a mental status change. Patient does not have any history of myocardial infarction. She is cleared for surgical intervention on Monday. 11/01: Patient has been afebrile, heart rate 97, blood pressure 161/90, pulse ox 93% on room air. CBC unremarkable. Sodium 139, potassium 3.2 and replaced with 40 mEq of potassium, chloride 108, CO2 20, BUN 18 creatinine 0.59. Blood sugar 94. Patient is continued on azithromycin and ceftriaxone for pneumonia. She is scheduled for right hip hemiarthroplasty tomorrow with Dr. Lopez. EEG pending. Patient continues to have a sitter at the bedside. She is awake complaining that she is tired but otherwise she remains very confused. She did eat a banana and applesauce for breakfast. 11/02: Patient probably had some confusion during the night. This morning she is improved. Patient is scheduled for surgery on this morning. Patient has been afebrile, heart rate 90, blood pressure 161/74, pulse ox 97% on room air. Potassium is 3.2 no be replaced. Repeat lab work ordered for tomorrow. EEG has been completed and report is pending. Discharge plan is for [facility] for subacute rehab most likely on Monday. 11/03: Patient is status post right hip hemiarthroplasty yesterday with Dr. Lopez. Patient has been afebrile, heart rate 101, blood pressure 135/73, pulse ox 94% on room air. Repeat lab work reveals a white count of 8.4, hemoglobin 10.5, platelet count 164. Potassium is 3.6, CO2 21, BUN 18 creatinine 0.59. Blood sugar 126. EEG was abnormal indicative of toxometabolic encephalopathy. Patient has been seen by Dr. Posadas and subsequently signed off. Patient continues to have mental status changes, she is eating very little. We will discontinue IV pain medications and orthopedics is started tramadol. Discussed in detail patient's condition and prognosis with the patient's daughter at the bedside. Tentatively, plan is for discharge Monday to . Objective - Vital Signs Vital signs: Vital Signs Temp 99.2 F 11/03/18 07:00 Pulse 101 H 11/03/18 07:00 Resp 16 11/03/18 07:00 BP 135/73 11/03/18 07:00 Pulse Ox 94 L 11/03/18 07:00 Intake & Output 11/02/18 11/03/18 11/03/18 18:59 06:59 18:59 Intake Total 1301 522 222 Output Total 900 300 Balance 401 222 222 Intake: IV 1201 Intake, IV Titration 100 50 Amount Potassium Chloride 20 meq 100 In Water For Injection 1 100ml.bag @ 50 mls/hr IVPB Q2H [facility] Rx#: [id number] cefTRIAXone 1 gm In 50 Sodium Chloride 0.9% 50 ml @ 100 mls/hr IVPB Q24H [facility] Rx#:[id number] Oral 472 222 Output: Urine 800 300 Estimated Blood Loss 100 Other: Voiding Method Indwelling Catheter Indwelling Catheter - Exam Review of Systems ROS unobtainable: due to mental status - Constitutional General appearance: no distress, thin - EENT Eyes: anicteric sclerae, EOMI, PERRLA, no ptosis, no scleral icterus, normal appearance ENT: hard of hearing, NA/AT, normal oropharynx, no thrush Ears: bilateral: normal - Neck Neck: no lymphadenopathy, normal ROM, no rigidity, no stridor, no thyromegaly Carotids: bilateral: upstroke normal Thyroid: bilateral: normal size - Respiratory Respiratory: bilateral: diminished, negative: dullness, rales, rhonchi, wheezing, prolonged expiration - Cardiovascular Rhythm: regular Heart sounds: normal: S1, S2 Abnormal Heart Sounds: systolic murmur, no S3 Gallop, no S4 Gallop - Gastrointestinal General gastrointestinal: soft, no splenomegaly, no tenderness, no umbilical hernia, no ventral hernia - Integumentary Integumentary: decreased turgor, normal Dressing to right hip clean and dry. - Neurologic Neurologic: CNII-XII intact, left facial droop - Musculoskeletal Musculoskeletal: no gait normal, generalized weakness - Psychiatric Psychiatric: Alert, O x's 1, no appropriate affect, no intact judgment & insight, unable to follow commands - Labs CBC & Chem 7: 11/03/18 07:02 11/03/18 07:02 Labs: Abnormal Lab Results - Last 24 Hours (Table) 11/02/18 11/03/18 11/03/18 Range/Units 08:57 07:02 07:02 RBC 3.48 L (3.80-5.40) m/uL Hgb 10.5 L (11.4-16.0) gm/dL Hct 31.2 L (34.0-46.0) % Lymphocytes # 0.8 L (1.0-4.8) k/uL Potassium 3.2 L (3.5-5.1) mmol/L Chloride 108 H (98-107) mmol/L Carbon Dioxide 21 L (22-30) mmol/L Glucose 126 H (74-99) mg/dL Microbiology - Last 24 Hours (Table) 10/29/18 22:48 Blood Culture - Preliminary Blood No Growth after 96 hours Assessment and Plan Plan: 1. Metabolic encephalopathy possibly related to pneumonia and underlying dementia versus CVA. Patient is noted to have a left-sided facial droop. Generalized weakness. Consult with neurology appreciated. Neurology has signed off. EEG reported toxo metabolic encephalopathy. IV pain medications discontinued. Tramadol for pain.. 2. Left lower lobe pneumonia. Continue azithromycin and ceftriaxone. Pro- calcitonin as above. 3. Right femoral neck fracture. Consult with Dr. Lopez. Patient is cleared medically for surgical intervention scheduled for Monday. 4. Advanced Parkinson disease. Continue with Sinemet 25/100 mg one tablet orally 4 times every day. 6. Spondylosis of the lumbar spine. Continue patient on morphine. 7. GERD. Continue Pepcid 20 mg orally once every day. 8. Bilateral lower extremity neuropathy. Patient has been off gabapentin. 9. Generalized anxiety disorder. Continue patient on lorazepam 0.5 mg orally at bedtime. 9. DVT prophylaxis. Continue patient on heparin 5000 units subcutaneously every 12 hours. 10. GI prophylaxis. Continue Pepcid. 11. Hypotension. Continue midodrine 5 mg twice daily. 12. Hypokalemia. Replacement and repeat lab work tomorrow. Patient is full code. Discharge plan: on Monday. Impression and plan of care have been directed as dictated by the signing physician. Ruma Richardson nurse practitioner acting as scribe for signing physician.
[2018-11-03] MEDS: traMADol 50 MG TAB PO PRN ×2 (12:20→18:02)
[2018-11-03] MEDS: MULTIVITAMINS, THERA 1 EACH TAB PO SCH (12:20)
[2018-11-03] MEDS: ACETAMINOPHEN TAB 325 MG TAB PO PRN (16:40)
[2018-11-03] MEDS: CHOLECALCIFEROL 1,000 UNIT TAB PO SCH (18:02)
[2018-11-03] MEDS: MIRTAZAPINE 15 MG TAB PO SCH (20:26)
[2018-11-03] MEDS: SENNOSIDES-DOCUSATE SODIUM 1 EACH TAB PO SCH (20:27)
[2018-11-03] MEDS: LACTATED RINGERS 1,000 ML IV SCH (20:33)
[2018-11-04] MEDS: traMADol 50 MG TAB PO PRN ×4 (01:29→19:34)
[2018-11-04 08:08] LABS: HCT 29.3 % (34.0-46.0); MCH 30.7 pg (25.0-35.0); MCHC 34.2 g/dL (31.0-37.0); MCV 89.7 fL (80.0-100.0); Mean Platelet Volume 9.5; Platelet Count 161 k/uL (150-450); RBC 3.27 m/uL (3.80-5.40); RDW 14.9 % (11.5-15.5)
[2018-11-04 08:30] LABS: African American GFR (CKD) >90 (>60 ml/min/1.73 sqM); Anion Gap 8 mmol/L; Blood Urea Nitrogen 5 mg/dL (7-17); Calcium 8.1 mg/dL (8.4-10.2); Carbon Dioxide 23 mmol/L (22-30); Chloride 107 mmol/L (98-107); Glucose 99 mg/dL (74-99); Sodium 138 mmol/L (137-145)
[2018-11-04] MEDS: AZITHROMYCIN 500 MG TAB PO SCH (08:47)
[2018-11-04] MEDS: FAMOTIDINE 20 MG TAB PO SCH (08:47)
[2018-11-04] MEDS: HEPARIN SODIUM,PORCINE 5,000 UNIT/ML 1 ML VIAL SQ SCH ×2 (08:47→21:32)
[2018-11-04] MEDS: ACETAMINOPHEN TAB 325 MG TAB PO PRN ×2 (08:47→16:06)
[2018-11-04] MEDS: CARBIDOPA-LEVODOPA 25-100 MG 1 EACH TAB PO SCH ×4 (08:47→21:26)
--- NOTE | 2018-11-04 09:29 | P.PN ---
Subjective Progress Note Date: 11/04/18 Principal diagnosis: Status post right hip hemiarthroplasty This is a 78 year-old female post right hip hemiarthroplasty. This is post-op day 2. The patient was evaluated at the bedside today. The patient denies nausea, vomiting, abdominal pain, shortness of breath, and chest pain this morning. She states her pain is controlled at this time. The patient edged on the side of the bed yesterday. There is a water safety teacher at the bedside due to her confusion and yelling out last night. Objective - Vital Signs Vital signs: Vital Signs Temp 98.5 F 11/04/18 07:00 Pulse 98 11/04/18 07:00 Resp 16 11/04/18 07:00 BP 154/83 11/04/18 07:00 Pulse Ox 94 L 11/04/18 07:00 Intake & Output 11/03/18 11/04/18 11/04/18 18:59 06:59 18:59 Intake Total 1022 1200 Output Total 500 75 Balance 522 1200 -75 Intake: IV 800 1200 Sodium Chloride 0.9% 1, 800 1200 000 ml @ 100 mls/hr IV . Q10H [facility] Rx#:[id number] Oral 222 Output: Urine 500 75 Uretheral (Fry) 75 Other: Voiding Method Indwelling Catheter Indwelling Catheter Indwelling Catheter - Exam The patient does not appear in acute distress. Alert and orientated x3. Dressing is clean dry and intact. Incision appears fine with no erythema or active drainage. Calf is soft and nontender. Good foot and ankle motion without difficulty. Sensation and circulatory status is intact. - Labs CBC & Chem 7: 11/04/18 07:04 11/04/18 07:04 Labs: Abnormal Lab Results - Last 24 Hours (Table) 11/04/18 11/04/18 Range/Units 07:04 07:04 RBC 3.27 L (3.80-5.40) m/uL Hgb 10.0 L (11.4-16.0) gm/dL Hct 29.3 L (34.0-46.0) % Potassium 3.0 L (3.5-5.1) mmol/L BUN 5 L (7-17) mg/dL Calcium 8.1 L (8.4-10.2) mg/dL Microbiology - Last 24 Hours (Table) 10/29/18 22:48 Blood Culture - Preliminary Blood No Growth after 120 hours Assessment and Plan (1) Status post hip hemiarthroplasty Current Visit: Yes Status: Acute Code(s): Z96.649 - PRESENCE OF UNSPECIFIED ARTIFICIAL HIP JOINT SNOMED Code(s): 521388312 (2) Closed right hip fracture Current Visit: Yes Status: Acute Priority: Medium Code(s): S72.001A - FRACTURE OF UNSP PART OF NECK OF RIGHT FEMUR, INIT SNOMED Code(s): 316941550 (3) Left lower lobe pneumonia Current Visit: Yes Status: Acute Code(s): J18.1 - LOBAR PNEUMONIA, UNSPECIFIED ORGANISM SNOMED Code(s): 202820594 (4) Fall Current Visit: No Status: Acute Code(s): W19.XXXA - UNSPECIFIED FALL, INITIAL ENCOUNTER SNOMED Code(s): 3670301 Plan: 1. Continue pain control. 2. Anticoagulation with Heparin per internal medicine. 3. Continue physical therapy 4. [facility], likely early next week.
[2018-11-04] MEDS: MIDODRINE 5 MG TAB PO SCH ×2 (09:32→16:07)
[2018-11-04] MEDS: ZINC OXIDE 20% OINT 28.4 GM TUBE TOPICAL SCH ×2 (09:32→21:20)
[2018-11-04] MEDS: POTASSIUM CHLORIDE ER 20 MEQ TAB.ER PO SCH ×2 (10:29→11:49)
--- NOTE | 2018-11-04 11:28 | P.PN ---
Subjective Progress Note Date: 11/04/18 This is an 78-year-old female patient of Dr De Leon with a previous medical history significant for advanced Parkinson disease with significant spondylosis of the lumbar spine along with significant neuropathy both lower extremities, history of recurrent UTI. Patient is currently residing at [facility] and has been at [facility] for subacute rehab in the past. Staff at [facility] note the patient was confused and combative. No falls were documented. No fever, chills, nausea vomiting. Patient was having some intermittent weakness of the left upper extremity as well as left facial asymmetry. No history of stroke. Patient normally uses a walker to ambulate. Patient was brought into [facility] emergency center for evaluation. She was afebrile, heart rate 100, initial blood pressure 174/97, pulse ox 98% on room air. WBC 6.4, hemoglobin 11.7, platelet count 174, electrolytes and renal function within normal limits, blood sugar 104. Urinalysis was clear. Troponin negative. Urine drug screen positive for opiates and benzodiazepines. EKG was a sinus tachycardia. CAT scan of the brain showed moderate diffuse atrophy. No acute intracranial abnormality. No change. CT angiogram of the neck and CT angiogram of the brain were negative. Chest x-ray shows new minimal atelectasis and infiltrate left lung base area and repeat chest x-ray this morning reveals improved aeration of the left lung base with only minimal strand-like left basilar opacities remaining. On examination, patient is noted to have some left facial droop, she is not able to follow commands, she is quite confused. Pro-calcitonin has been ordered. Neurology consult requested. PT and OT added. Patient is on azithromycin and Rocephin. 10/31: During the night, patient had a fall and subsequently complained of right hip pain. X-rays were done that showed of fracture of the right femoral neck and consult was added for Dr. Lopez. The patient has been seen by neurology f or altered mental status likely in the setting of acute illness. Recommend good sleep hygiene for delirium precaution while treating patient for pneumonia. Neurology has signed off. Pro-calcitonin 0.14. Patient will be continued on IV antibiotics. Patient is not taking her oral medications. IV fluids will be continued at 100 mL per hour. Patient has a sitter at the bedside. Fry catheter has been placed this patient is bedbound. Orthopedics is pending for surgical intervention on Monday. Morphine removed and [place] removed from patient's medications. Toradol started for pain control. Daughter is at the bedside and states that on Monday when she was with her mother from 10-2 she was doing well. She was walking with and without a walker and doing fine. Her mental status was normal. Somewhere between 2 and 5 in the afternoon there was a mental status change. Patient does not have any history of myocardial infarction. She is cleared for surgical intervention on Monday. 11/01: Patient has been afebrile, heart rate 97, blood pressure 161/90, pulse ox 93% on room air. CBC unremarkable. Sodium 139, potassium 3.2 and replaced with 40 mEq of potassium, chloride 108, CO2 20, BUN 18 creatinine 0.59. Blood sugar 94. Patient is continued on azithromycin and ceftriaxone for pneumonia. She is scheduled for right hip hemiarthroplasty tomorrow with Dr. Lopez. EEG pending. Patient continues to have a sitter at the bedside. She is awake complaining that she is tired but otherwise she remains very confused. She did eat a banana and applesauce for breakfast. 11/02: Patient probably had some confusion during the night. This morning she is improved. Patient is scheduled for surgery on this morning. Patient has been afebrile, heart rate 90, blood pressure 161/74, pulse ox 97% on room air. Potassium is 3.2 no be replaced. Repeat lab work ordered for tomorrow. EEG has been completed and report is pending. Discharge plan is for [facility] for subacute rehab most likely on Monday. 11/03: Patient is status post right hip hemiarthroplasty yesterday with Dr. Lopez. Patient has been afebrile, heart rate 101, blood pressure 135/73, pulse ox 94% on room air. Repeat lab work reveals a white count of 8.4, hemoglobin 10.5, platelet count 164. Potassium is 3.6, CO2 21, BUN 18 creatinine 0.59. Blood sugar 126. EEG was abnormal indicative of toxometabolic encephalopathy. Patient has been seen by Dr. Posadas and subsequently signed off. Patient continues to have mental status changes, she is eating very little. We will discontinue IV pain medications and orthopedics is started tramadol. Discussed in detail patient's condition and prognosis with the patient's daughter at the bedside. Tentatively, plan is for discharge Monday to . 11/04: Patient is afebrile, blood pressure 154/83, pulse ox 93% on room air, heart rate 98. Hemoglobin is 10.0, potassium 3.0 will be replaced, BUN 5 and creatinine 0.52. Patient has used incentive spirometry to 500 mL. Patient's mental status is improved this morning. She is able to recognize that she has been confused over the past couple days. Patient had 25% of her breakfast this morning and was total assist. Orthopedics will switch her to Toradol for pain control. Fry to be removed today. Anticipate discharge to [facility] tomorrow. Objective - Vital Signs Vital signs: Vital Signs Temp 98.5 F 11/04/18 07:00 Pulse 98 11/04/18 07:00 Resp 16 11/04/18 07:00 BP 154/83 11/04/18 07:00 Pulse Ox 94 L 11/04/18 07:00 Intake & Output 11/03/18 11/04/18 11/04/18 18:59 06:59 18:59 Intake Total 1022 1200 Output Total 500 75 Balance 522 1200 -75 Intake: IV 800 1200 Sodium Chloride 0.9% 1, 800 1200 000 ml @ 100 mls/hr IV . Q10H [facility] Rx#:[id number] Oral 222 Output: Urine 500 75 Uretheral (Fry) 75 Other: Voiding Method Indwelling Catheter Indwelling Catheter Indwelling Catheter - Exam Review of Systems ROS unobtainable: due to mental status - Constitutional General appearance: no distress, thin - EENT Eyes: anicteric sclerae, EOMI, PERRLA, no ptosis, no scleral icterus, normal appearance ENT: hard of hearing, NA/AT, normal oropharynx, no thrush Ears: bilateral: normal - Neck Neck: no lymphadenopathy, normal ROM, no rigidity, no stridor, no thyromegaly Carotids: bilateral: upstroke normal Thyroid: bilateral: normal size - Respiratory Respiratory: bilateral: diminished, negative: dullness, rales, rhonchi, wheezing, prolonged expiration - Cardiovascular Rhythm: regular Heart sounds: normal: S1, S2 Abnormal Heart Sounds: systolic murmur, no S3 Gallop, no S4 Gallop - Gastrointestinal General gastrointestinal: soft, no splenomegaly, no tenderness, no umbilical hernia, no ventral hernia - Integumentary Integumentary: decreased turgor, normal Dressing to right hip clean and dry. - Neurologic Neurologic: CNII-XII intact, left facial droop - Musculoskeletal Musculoskeletal: no gait normal, generalized weakness - Psychiatric Psychiatric: Alert, O x's 2, no appropriate affect, no intact judgment & insight, unable to follow commands - Labs CBC & Chem 7: 11/04/18 07:04 11/04/18 07:04 Labs: Abnormal Lab Results - Last 24 Hours (Table) 11/04/18 11/04/18 Range/Units 07:04 07:04 RBC 3.27 L (3.80-5.40) m/uL Hgb 10.0 L (11.4-16.0) gm/dL Hct 29.3 L (34.0-46.0) % Potassium 3.0 L (3.5-5.1) mmol/L BUN 5 L (7-17) mg/dL Calcium 8.1 L (8.4-10.2) mg/dL Microbiology - Last 24 Hours (Table) 10/29/18 22:48 Blood Culture - Preliminary Blood No Growth after 120 hours Assessment and Plan Plan: 1. Metabolic encephalopathy possibly related to pneumonia and underlying dementia. Patient is noted to have a left-sided facial droop. Generalized weakness. Consult with neurology appreciated. Neurology has signed off. EEG reported toxo metabolic encephalopathy. IV pain medications discontinued. Tramadol for pain Toradol added for pain. Fry to be removed. 2. Left lower lobe pneumonia. Continue azithromycin and ceftriaxone. Pro- calcitonin as above. 3. Right femoral neck fracture. Consult with Dr. Lopez. Patient is cleared medically for surgical intervention scheduled for Monday. 4. Advanced Parkinson disease. Continue with Sinemet 25/100 mg one tablet orally 4 times every day. 6. Spondylosis of the lumbar spine. Continue patient on morphine. 7. GERD. Continue Pepcid 20 mg orally once every day. 8. Bilateral lower extremity neuropathy. Patient has been off gabapentin. 9. Generalized anxiety disorder. Continue patient on lorazepam 0.5 mg orally at bedtime. 9. DVT prophylaxis. Continue patient on heparin 5000 units subcutaneously every 12 hours. 10. GI prophylaxis. Continue Pepcid. 11. Hypotension. Continue midodrine 5 mg twice daily. 12. Hypokalemia. Replacement and repeat lab work tomorrow. Patient is full code. Discharge plan: on Monday. Impression and plan of care have been directed as dictated by the signing physician. Ruma Richardson nurse practitioner acting as scribe for signing physician.
[2018-11-04] MEDS: KETOROLAC 30 MG/ML 1 ML VIAL IVP PRN ×2 (11:44→23:54)
[2018-11-04] MEDS: MULTIVITAMINS, THERA 1 EACH TAB PO SCH (13:28)
[2018-11-04] MEDS: SODIUM CHLORIDE 0.9% 1,000 ML IV SCH ×2 (15:48→21:35)
[2018-11-04] MEDS: CHOLECALCIFEROL 1,000 UNIT TAB PO SCH (16:06)
[2018-11-04] MEDS: LACTATED RINGERS 1,000 ML IV SCH (21:21)
[2018-11-04] MEDS: MIRTAZAPINE 15 MG TAB PO SCH (21:26)
[2018-11-04] MEDS: SENNOSIDES-DOCUSATE SODIUM 1 EACH TAB PO SCH (21:26)
[2018-11-05] MEDS: ACETAMINOPHEN TAB 325 MG TAB PO PRN (01:07)
[2018-11-05] MEDS: SODIUM CHLORIDE 0.9% 1,000 ML IV SCH ×2 (03:29→17:58)
[2018-11-05] MEDS: traMADol 50 MG TAB PO PRN (03:41)
[2018-11-05] MEDS: KETOROLAC 30 MG/ML 1 ML VIAL IVP PRN (06:26)
[2018-11-05 07:09] LABS: Basophils % (A) 1 %; Eosinophils # (A) 0.1 k/uL (0-0.7); Eosinophils % (A) 2 %; HCT 31.8 % (34.0-46.0); HGB 10.4 gm/dL (11.4-16.0); Lymphocytes # (A) 0.7 k/uL (1.0-4.8); Lymphocytes % (A) 12 %; MCH 29.4 pg (25.0-35.0); MCHC 32.7 g/dL (31.0-37.0); Monocytes # (A) 0.6 k/uL (0-1.0); Monocytes % (A) 9 %; Neutrophils # (A) 4.6 k/uL (1.3-7.7); Neutrophils % (A) 74 %; Platelet Count 191 k/uL (150-450); RBC 3.54 m/uL (3.80-5.40); WBC 6.2 k/uL (3.8-10.6)
--- NOTE | 2018-11-05 09:08 | P.DS ---
Providers Date of admission: 10/29/18 22:51 Expected date of discharge: 11/07/18 Attending physician: Suma Juarez MD Consults: 10/29/18 22:50 Consult Physician Routine Consulting Provider: Karissa Posadas Consult Reason/Comments: Confusional state Do you want consulting provider notified?: Yes, Notify in am 10/30/18 10:51 Consult Physician Routine Consulting Provider: Karissa Posadas Consult Reason/Comments: left weakness Do you want consulting provider notified?: Yes 10/31/18 06:44 Consult Physician Routine Consulting Provider: Stephen Lopez Consult Reason/Comments: femur fracture Do you want consulting provider notified?: Yes 10/31/18 10:22 Consult Physician Routine Consulting Provider: Suma Juarez Consult Reason/Comments: Pre Op clearance for right hip hemiarthroplasty, Thursday 11/02 Do you want consulting provider notified?: Yes Primary care physician: Kwasi De Leon [facility] Course: This is an 78-year-old female patient of Dr De Leon with a previous [facility] history significant for advanced Parkinson disease with significant spondylosis of the lumbar spine along with significant neuropathy both lower extremities, history of recurrent UTI. Patient is currently residing at [facility] and has been at [facility] for subacute rehab in the past. Staff at [facility] note the patient was confused and combative. No falls were documented. No fever, chills, nausea vomiting. Patient was having some intermittent weakness of the left upper extremity as well as left facial asymmetry. No history of stroke. Patient normally uses a walker to ambulate. Patient was brought into [facility] emergency center for evaluation. She was afebrile, heart rate 100, initial blood pressure 174/97, pulse ox 98% on room air. WBC 6.4, hemoglobin 11.7, platelet count 174, electrolytes and renal function within normal limits, blood sugar 104. Urinalysis was clear. Troponin negative. Urine drug screen positive for opiates and benzodiazepines. EKG was a sinus tachycardia. CAT scan of the brain showed moderate diffuse atrophy. No acute intracranial abnormality. No change. CT angiogram of the neck and CT angiogram of the brain were negative. Chest x-ray shows new minimal atelectasis and infiltrate left lung base area and repeat chest x-ray this morning reveals improved aeration of the left lung base with only minimal strand-like left basilar opacities remaining. On examination, patient is noted to have some left facial droop, she is not able to follow commands, she is quite confused. Pro-calcitonin has been ordered. Neurology consult requested. PT and OT added. Patient is on azithromycin and Rocephin. 10/31: During the night, patient had a fall and subsequently complained of right hip pain. X-rays were done that showed of fracture of the right femoral neck and consult was added for Dr. Lopez. The patient has been seen by neurology for altered mental status likely in the setting of acute illness. Recommend good sleep hygiene for delirium precaution while treating patient for pneumonia. Neurology has signed off. Pro-calcitonin 0.14. Patient will be continued on IV antibiotics. Patient is not taking her oral medications. IV fluids will be continued at 100 mL per hour. Patient has a sitter at the bedside. Fry catheter has been placed this patient is bedbound. Orthopedics is pending for surgical intervention on Monday. Morphine removed and [place] removed from patient's medications. Toradol started for pain control. Daughter is at the bedside and states that on Monday when she was with her mother from [employer] she was doing well. She was walking with and without a walker and doing fine. Her mental status was normal. Somewhere between 2 and 5 in the afternoon there was a mental status change. Patient does not have any history of myocardial infarction. She is cleared for surgical intervention on Monday. 11/01: Patient has been afebrile, heart rate 97, blood pressure 161/90, pulse ox 93% on room air. CBC unremarkable. Sodium 139, potassium 3.2 and replaced with 40 mEq of potassium, chloride 108, CO2 20, BUN 18 creatinine 0.59. Blood sugar 94. Patient is continued on azithromycin and ceftriaxone for pneumonia. She is scheduled for right hip hemiarthroplasty tomorrow with Dr. Lopez. EEG pending. Patient continues to have a sitter at the bedside. She is awake complaining that she is tired but otherwise she remains very confused. She did eat a banana and applesauce for breakfast. 11/02: Patient probably had some confusion during the night. This morning she is improved. Patient is scheduled for surgery on this morning. Patient has been afebrile, heart rate 90, blood pressure 161/74, pulse ox 97% on room air. Potassium is 3.2 no be replaced. Repeat lab work ordered for tomorrow. EEG has been completed and report is pending. Discharge plan is for [facility] for subacute rehab most likely on Monday. 11/03: Patient is status post right hip hemiarthroplasty yesterday with Dr. Lopez. Patient has been afebrile, heart rate 101, blood pressure 135/73, pulse ox 94% on room air. Repeat lab work reveals a white count of 8.4, hemoglobin 10.5, platelet count 164. Potassium is 3.6, CO2 21, BUN 18 creatinine 0.59. Blood sugar 126. EEG was abnormal indicative of toxometabolic encephalopathy. Patient has been seen by Dr. Posadas and subsequently signed off. Patient continues to have mental status changes, she is eating very little. We will discontinue IV pain medications and orthopedics is started tramadol. Discussed in detail patient's condition and prognosis with the patient's daughter at the bedside. Tentatively, plan is for discharge Monday to [facility]. 11/04: Patient is afebrile, blood pressure 154/83, pulse ox 93% on room air, heart rate 98. Hemoglobin is 10.0, potassium 3.0 will be replaced, BUN 5 and creatinine 0.52. Patient has used incentive spirometry to 500 mL. Patient's mental status is improved this morning. She is able to recognize that she has been confused over the past couple days. Patient had 25% of her breakfast this morning and was total assist. Orthopedics will switch her to Toradol for pain control. Fry to be removed today. Anticipate discharge to [facility] tomorrow. 11/05: Patient has been afebrile, heart rate 98, blood pressure 130/76, pulse ox 97% on room air. monitor car operator is a sinus rhythm. monitor car operator will be discontinued. The patient does have a sitter at the bedside. She continues to have confusion. She ate half of her oatmeal and applesauce this morning. We are discontinuing Toradol and continue tramadol for pain. We will plan to monitor patient 1 more day and discharge to [facility] tomorrow hoping that her mental status will be improved. Patient did have her Fry catheter removed yesterday. Repeat lab work revealed potassium of 3.3 and will be replaced. Hemoglobin is stable at 10.4. 11/06: Patient continued to have confusion during the night. This morning she is found sleeping and apparently she has not been sleeping well during her stay here. Mental status is not improving going back to baseline. We will plan to do repeat CAT scan of the brain and reconsult neurology for any further input. Discussed in detail patient's current condition and prognosis. Family, daughter and son are at bedside, have decided to make patient DO NOT RESUSCITATE. CAT scan of the brain reveals acute/subacute infarct left parietal region. 11/07: This morning, patient's mental status is significantly improved. She can recall that she had confusion over the last week. She recalls her fall. She knows where she is. She has no significant neuro deficit. She is able to eat without difficulty. Pain to the hip is controlled. She worked well with physical therapy but was a 2 person assist. She is afebrile, blood pressure 135/82, heart rate 89, pulse ox 97% on room air. Repeat lab work reveals hemoglobin 10, white count 9.5. TSH 1.490. Triglycerides 96, cholesterol 90, LDL 50, HDL 21. Patient's daughter and son are at the bedside and have been updated and all questions have been answered. We will plan to cancel MRI due to recent surgery and patient will be discharged to [facility] today in stable condition. Discharge diagnoses: 1. Metabolic encephalopathy possibly related to pneumonia and underlying dementia, presenting with acute/subacute ischemic infarct left parietal region (stroke present on admission). 2. Left lower lobe pneumonia. 3. Right femoral neck fracture status post hemiarthroplasty. 4. Advanced Parkinson 5. Spondylosis of the lumbar spine. 6. GERD. 7. Bilateral lower extremity neuropathy. 8. Generalized anxiety disorder. 9. Hypotension. 10. Hypokalemia. Discharge plan: [facility] under the care of Dr. De Leon. Impression and plan of care have been directed as dictated by the signing physician. Ruma Richardson nurse practitioner acting as scribe for signing physician. Patient Condition at Discharge: Good Plan - Discharge Summary Discharge Rx Participant: Yes New Discharge Prescriptions: New Aspirin 81 mg PO DAILY chew Atorvastatin [Lipitor] 40 mg PO HS #0 tab Multivitamins, Thera [Multivitamin (formulary)] 1 each PO DAILY@1200 tab Mirtazapine [Remeron] 7.5 mg PO HS #0 tab Sennosides-Docusate Sodium [Senokot-S] 2 each PO HS tab traMADol HCl [Ultram] 50 mg PO Q4HR PRN #18 tab PRN Reason: Pain Scale 1 To 5 Azithromycin [Zithromax] 500 mg PO DAILY #3 tab Continue Famotidine [Pepcid] 20 mg PO DAILY tab Acetaminophen Tab [Tylenol] 650 mg PO Q6HR PRN tab PRN Reason: Fever And/ Or Pain Midodrine [ProAmatine] 5 mg PO BID Cholecalciferol [Vitamin D3 (25 Mcg = 1000 Iu)] 1,000 unit PO AC-SUPPER Zinc Oxide [Desitin] 1 applic TOPICAL BID Carbidopa-Levodopa 25-100 mg [Sinemet 25-100 mg] 1 tab PO QID Discontinued LORazepam [Ativan] 0.5 mg PO HS #3 tablet HYDROcodone/APAP 5-325MG [[place] 5-325] 1 tab PO TID #9 tab Discharge Medication List Famotidine [Pepcid] 20 mg PO DAILY tab 04/09/18 [Rx] Acetaminophen Tab [Tylenol] 650 mg PO Q6HR PRN tab 06/01/18 [Rx] Carbidopa-Levodopa 25-100 mg [Sinemet 25-100 mg] 1 tab PO QID 10/29/18 [History] Cholecalciferol [Vitamin D3 (25 Mcg = 1000 Iu)] 1,000 unit PO AC-SUPPER 10/29/18 [History] Midodrine [ProAmatine] 5 mg PO BID 10/29/18 [History] Zinc Oxide [Desitin] 1 applic TOPICAL BID 10/29/18 [History] Aspirin 81 mg PO DAILY chew 11/07/18 [Rx] Atorvastatin [Lipitor] 40 mg PO HS #0 tab 11/07/18 [Rx] Azithromycin [Zithromax] 500 mg PO DAILY #3 tab 11/07/18 [Rx] Mirtazapine [Remeron] 7.5 mg PO HS #0 tab 11/07/18 [Rx] Multivitamins, Thera [Multivitamin (formulary)] 1 each PO DAILY@1200 tab 11/07/18 [Rx] Sennosides-Docusate Sodium [Senokot-S] 2 each PO HS tab 11/07/18 [Rx] traMADol HCl [Ultram] 50 mg PO Q4HR PRN #18 tab 11/07/18 [Rx] Follow up Appointment(s)/Referral(s): Kwasi De Leon MD [Primary Care Provider] - 1-2 days (at [facility]) Stephen Lopez MD [STAFF PHYSICIAN] - 11/12/18 2:45 pm Activity/Diet/Wound Care/Special Instructions: WBAT with assist Take meds as directed F/U with Dr. Lopez in office Keep wound clean and dry May shower if no bleeding Discharge Disposition: TRANSFER TO SNF/ECF
[2018-11-05 09:23] LABS: African American GFR (CKD) >90 (>60 ml/min/1.73 sqM); Anion Gap 9 mmol/L; Blood Urea Nitrogen 5 mg/dL (7-17); Calcium 8.6 mg/dL (8.4-10.2); Carbon Dioxide 24 mmol/L (22-30); Chloride 109 mmol/L (98-107); Glucose 100 mg/dL (74-99); Potassium 3.3 mmol/L (3.5-5.1); Sodium 142 mmol/L (137-145)
[2018-11-05] MEDS: CARBIDOPA-LEVODOPA 25-100 MG 1 EACH TAB PO SCH ×4 (09:41→21:09)
[2018-11-05] MEDS: MIDODRINE 5 MG TAB PO SCH ×2 (09:41→17:58)
[2018-11-05] MEDS: AZITHROMYCIN 500 MG TAB PO SCH (09:41)
[2018-11-05] MEDS: HEPARIN SODIUM,PORCINE 5,000 UNIT/ML 1 ML VIAL SQ SCH ×2 (09:41→21:08)
[2018-11-05] MEDS: FAMOTIDINE 20 MG TAB PO SCH (09:41)
[2018-11-05] MEDS: ZINC OXIDE 20% OINT 28.4 GM TUBE TOPICAL SCH ×2 (09:42→21:10)
--- NOTE | 2018-11-05 10:08 | P.PN ---
Subjective Progress Note Date: 11/05/18 Principal diagnosis: Right hip fracture Patient is 78-year-old female seen at bedside today. She is POD#3 from right hip aj arthroplasty for hip fracture. She continues to have altered mental status. She appears to be in no apparent distress. Further history and review of systems unobtainable. Objective - Vital Signs Vital signs: Vital Signs Temp 97.7 F 11/05/18 08:44 Pulse 98 11/05/18 08:44 Resp 17 11/05/18 08:44 BP 130/76 11/05/18 08:44 Pulse Ox 97 11/05/18 08:44 Intake & Output 11/04/18 11/05/18 11/05/18 18:59 06:59 18:59 Intake Total 0 600 50 Output Total 75 Balance -75 600 50 Intake: IV 600 Sodium Chloride 0.9% 1, 600 000 ml @ 100 mls/hr IV . Q10H K[facility] Rx#:[id number] Oral 0 50 Output: Urine 75 Uretheral (Fry) 75 Other: Voiding Method Indwelling Catheter Diaper Incontinent # Voids 3 2 - Exam Exam of the right hip shows a benign surgical wound. No active bleeding or drainage. Neurovascular status is grossly intact with motor and sensation. The calf is soft and nontender. 2+ dorsalis pedis pulse and less than 2 second capillary refill is present. - Constitutional General appearance: Present: no acute distress - Labs CBC & Chem 7: 11/05/18 06:20 11/05/18 06:20 Labs: Abnormal Lab Results - Last 24 Hours (Table) 11/05/18 11/05/18 Range/Units 06:20 06:20 RBC 3.54 L (3.80-5.40) m/uL Hgb 10.4 L (11.4-16.0) gm/dL Hct 31.8 L (34.0-46.0) % Lymphocytes # 0.7 L (1.0-4.8) k/uL Potassium 3.3 L (3.5-5.1) mmol/L Chloride 109 H (98-107) mmol/L BUN 5 L (7-17) mg/dL Creatinine 0.51 L (0.52-1.04) mg/dL Glucose 100 H (74-99) mg/dL Microbiology - Last 24 Hours (Table) 10/29/18 22:48 Blood Culture - Final Blood No Growth after 144 hours Assessment and Plan (1) Closed right hip fracture Narrative/Plan: Continue pain management, PT, wound care, DVT prophylaxis and medical manage ment. She may transfer to ECF when ok with IM. Current Visit: Yes Status: Acute Priority: Medium Code(s): S72.001A - FRACTURE OF UNSP PART OF NECK OF RIGHT FEMUR, INIT SNOMED Code(s): 733842921 Time with Patient: Less than 30
[2018-11-05] MEDS: MULTIVITAMINS, THERA 1 EACH TAB PO SCH (12:45)
[2018-11-05 15:36] VITALS: BMI 24.9
[2018-11-05] MEDS ORDERED: POTASSIUM CHLORIDE ER 20 MEQ TAB.ER PO STA (15:46)
--- NOTE | 2018-11-05 15:48 | P.PN ---
Subjective Progress Note Date: 11/05/18 This is an 78-year-old female patient of Dr De Leon with a previous medical history significant for advanced Parkinson disease with significant spondylosis of the lumbar spine along with significant neuropathy both lower extremities, history of recurrent UTI. Patient is currently residing at [facility] and has been at [facility] for subacute rehab in the past. Staff at [facility] note the patient was confused and combative. No falls were documented. No fever, chills, nausea vomiting. Patient was having some intermittent weakness of the left upper extremity as well as left facial asymmetry. No history of stroke. Patient normally uses a walker to ambulate. Patient was brought into [facility] emergency center for evaluation. She was afebrile, heart rate 100, initial blood pressure 174/97, pulse ox 98% on room air. WBC 6.4, hemoglobin 11.7, platelet count 174, electrolytes and renal function within normal limits, blood sugar 104. Urinalysis was clear. Troponin negative. Urine drug screen positive for opiates and benzodiazepines. EKG was a sinus tachycardia. CAT scan of the brain showed moderate diffuse atrophy. No acute intracranial abnormality. No change. CT angiogram of the neck and CT angiogram of the brain were negative. Chest x-ray shows new minimal atelectasis and infiltrate left lung base area and repeat chest x-ray this morning reveals improved aeration of the left lung base with only minimal strand-like left basilar opacities remaining. On examination, patient is noted to have some left facial droop, she is not able to follow commands, she is quite confused. Pro-calcitonin has been ordered. Neurology consult requested. PT and OT added. Patient is on azithromycin and Rocephin. 10/31: During the night, patient had a fall and subsequently complained of right hip pain. X-rays were done that showed of fracture of the right femoral neck and consult was added for Dr. Lopez. The patient has been seen by neurology f or altered mental status likely in the setting of acute illness. Recommend good sleep hygiene for delirium precaution while treating patient for pneumonia. Neurology has signed off. Pro-calcitonin 0.14. Patient will be continued on IV antibiotics. Patient is not taking her oral medications. IV fluids will be continued at 100 mL per hour. Patient has a sitter at the bedside. Fry catheter has been placed this patient is bedbound. Orthopedics is pending for surgical intervention on Monday. Morphine removed and [place] removed from patient's medications. Toradol started for pain control. Daughter is at the bedside and states that on Monday when she was with her mother from 10-2 she was doing well. She was walking with and without a walker and doing fine. Her mental status was normal. Somewhere between 2 and 5 in the afternoon there was a mental status change. Patient does not have any history of myocardial infarction. She is cleared for surgical intervention on Monday. 11/01: Patient has been afebrile, heart rate 97, blood pressure 161/90, pulse ox 93% on room air. CBC unremarkable. Sodium 139, potassium 3.2 and replaced with 40 mEq of potassium, chloride 108, CO2 20, BUN 18 creatinine 0.59. Blood sugar 94. Patient is continued on azithromycin and ceftriaxone for pneumonia. She is scheduled for right hip hemiarthroplasty tomorrow with Dr. Lopez. EEG pending. Patient continues to have a sitter at the bedside. She is awake complaining that she is tired but otherwise she remains very confused. She did eat a banana and applesauce for breakfast. 11/02: Patient probably had some confusion during the night. This morning she is improved. Patient is scheduled for surgery on this morning. Patient has been afebrile, heart rate 90, blood pressure 161/74, pulse ox 97% on room air. Potassium is 3.2 no be replaced. Repeat lab work ordered for tomorrow. EEG has been completed and report is pending. Discharge plan is for [facility] for subacute rehab most likely on Monday. 11/03: Patient is status post right hip hemiarthroplasty yesterday with Dr. Lopez. Patient has been afebrile, heart rate 101, blood pressure 135/73, pulse ox 94% on room air. Repeat lab work reveals a white count of 8.4, hemoglobin 10.5, platelet count 164. Potassium is 3.6, CO2 21, BUN 18 creatinine 0.59. Blood sugar 126. EEG was abnormal indicative of toxometabolic encephalopathy. Patient has been seen by Dr. Posadas and subsequently signed off. Patient continues to have mental status changes, she is eating very little. We will discontinue IV pain medications and orthopedics is started tramadol. Discussed in detail patient's condition and prognosis with the patient's daughter at the bedside. Tentatively, plan is for discharge Monday to [facility]. 11/04: Patient is afebrile, blood pressure 154/83, pulse ox 93% on room air, heart rate 98. Hemoglobin is 10.0, potassium 3.0 will be replaced, BUN 5 and creatinine 0.52. Patient has used incentive spirometry to 500 mL. Patient's mental status is improved this morning. She is able to recognize that she has been confused over the past couple days. Patient had 25% of her breakfast this morning and was total assist. Orthopedics will switch her to Toradol for pain control. Fry to be removed today. Anticipate discharge to [facility] tomorrow. 11/05: Patient has been afebrile, heart rate 98, blood pressure 130/76, pulse ox 97% on room air. monitoring coordinator is a sinus rhythm. monitoring coordinator will be discontinued. The patient does have a sitter at the bedside. She continues to have confusion. She ate half of her oatmeal and applesauce this morning. We are discontinuing Toradol and continue tramadol for pain. We will plan to monitor patient 1 more day and discharge to [facility] tomorrow hoping that her men ella status will be improved. Patient did have her Fry catheter removed yesterday. Repeat lab work revealed potassium of 3.3 and will be replaced. Hemoglobin is stable at 10.4. Objective - Vital Signs Vital signs: Vital Signs Temp 97.7 F 11/05/18 08:44 Pulse 98 11/05/18 08:44 Resp 17 11/05/18 08:44 BP 130/76 11/05/18 08:44 Pulse Ox 97 11/05/18 08:44 Intake & Output 11/04/18 11/05/18 11/05/18 18:59 06:59 18:59 Intake Total 0 600 50 Output Total 75 Balance -75 600 50 Weight 65.771 kg Intake: IV 600 Sodium Chloride 0.9% 1, 600 000 ml @ 100 mls/hr IV . Q10H [facility] Rx#:[id number] Oral 0 50 Output: Urine 75 Uretheral (Fry) 75 Other: Voiding Method Indwelling Catheter Diaper Diaper Incontinent Incontinent # Voids 3 2 - Exam Review of Systems ROS unobtainable: due to mental status - Constitutional General appearance: no distress, thin, sitting up in a chair - EENT Eyes: anicteric sclerae, EOMI, PERRLA, no ptosis, no scleral icterus, normal appearance ENT: hard of hearing, NA/AT, normal oropharynx, no thrush Ears: bilateral: normal - Neck Neck: no lymphadenopathy, normal ROM, no rigidity, no stridor, no thyromegaly Carotids: bilateral: upstroke normal Thyroid: bilateral: normal size - Respiratory Respiratory: bilateral: diminished, negative: dullness, rales, rhonchi, wheezing, prolonged expiration - Cardiovascular Rhythm: regular Heart sounds: normal: S1, S2 Abnormal Heart Sounds: systolic murmur, no S3 Gallop, no S4 Gallop - Gastrointestinal General gastrointestinal: soft, no splenomegaly, no tenderness, no umbilical hernia, no ventral hernia - Integumentary Integumentary: decreased turgor, normal Dressing to right hip clean and dry. - Neurologic Neurologic: CNII-XII intact, left facial droop - Musculoskeletal Musculoskeletal: no gait normal, generalized weakness - Psychiatric Psychiatric: Alert, O x's 1, no appropriate affect, no intact judgment & insight, unable to follow commands - Labs CBC & Chem 7: 11/05/18 06:20 11/05/18 06:20 Labs: Abnormal Lab Results - Last 24 Hours (Table) 11/05/18 11/05/18 Range/Units 06:20 06:20 RBC 3.54 L (3.80-5.40) m/uL Hgb 10.4 L (11.4-16.0) gm/dL Hct 31.8 L (34.0-46.0) % Lymphocytes # 0.7 L (1.0-4.8) k/uL Potassium 3.3 L (3.5-5.1) mmol/L Chloride 109 H (98-107) mmol/L BUN 5 L (7-17) mg/dL Creatinine 0.51 L (0.52-1.04) mg/dL Glucose 100 H (74-99) mg/dL Microbiology - Last 24 Hours (Table) 10/29/18 22:48 Blood Culture - Final Blood No Growth after 144 hours Assessment and Plan Plan: 1. Metabolic encephalopathy possibly related to pneumonia and underlying dementia. Patient is noted to have a left-sided facial droop. Generalized weakness. Consult with neurology appreciated. Neurology has signed off. EEG reported toxo metabolic encephalopathy. IV pain medications discontinued. Tramadol for pain Toradol discontinued. Fry has been removed. 2. Left lower lobe pneumonia. Continue azithromycin and ceftriaxone. Pro- calcitonin as above. 3. Right femoral neck fracture. Consult with Dr. Lopez. 4. Advanced Parkinson disease. Continue with Sinemet 25/100 mg one tablet orally 4 times every day. 6. Spondylosis of the lumbar spine. Continue patient on morphine. 7. GERD. Continue Pepcid 20 mg orally once every day. 8. Bilateral lower extremity neuropathy. Patient has been off gabapentin. 9. Generalized anxiety disorder. 9. DVT prophylaxis. Continue patient on heparin 5000 units subcutaneously every 12 hours. 10. GI prophylaxis. Continue Pepcid. 11. Hypotension. Continue midodrine 5 mg twice daily. 12. Hypokalemia. Replacement and repeat lab work tomorrow. Patient is full code. Discharge plan: on Monday under the care of Dr. De Leon. Impression and plan of care have been directed as dictated by the signing physician. Ruma iRchardson nurse practitioner acting as scribe for signing physician.
[2018-11-05] MEDS: CHOLECALCIFEROL 1,000 UNIT TAB PO SCH (17:57)
[2018-11-05] MEDS: MIRTAZAPINE 15 MG TAB PO SCH (21:09)
[2018-11-05] MEDS: SENNOSIDES-DOCUSATE SODIUM 1 EACH TAB PO SCH (21:09)
[2018-11-05] MEDS: LACTATED RINGERS 1,000 ML IV SCH (22:11)
[2018-11-06] MEDS: SODIUM CHLORIDE 0.9% 1,000 ML IV SCH ×3 (02:33→21:02)
[2018-11-06] MEDS: KETOROLAC 30 MG/ML 1 ML VIAL IVP PRN ×2 (05:25→18:06)
[2018-11-06 07:31] LABS: African American GFR (CKD) >90 (>60 ml/min/1.73 sqM); Anion Gap 9 mmol/L; Blood Urea Nitrogen 6 mg/dL (7-17); Calcium 8.9 mg/dL (8.4-10.2); Carbon Dioxide 25 mmol/L (22-30); Chloride 107 mmol/L (98-107); Glucose 97 mg/dL (74-99); Potassium 3.8 mmol/L (3.5-5.1); Sodium 141 mmol/L (137-145)
[2018-11-06] MEDS: HEPARIN SODIUM,PORCINE 5,000 UNIT/ML 1 ML VIAL SQ SCH ×2 (09:45→21:01)
[2018-11-06] MEDS: FAMOTIDINE 20 MG TAB PO SCH ×2 (09:45→12:35)
[2018-11-06] MEDS: CARBIDOPA-LEVODOPA 25-100 MG 1 EACH TAB PO SCH ×5 (09:45→21:02)
[2018-11-06] MEDS: MIDODRINE 5 MG TAB PO SCH ×3 (09:45→18:06)
[2018-11-06] MEDS: AZITHROMYCIN 500 MG TAB PO SCH ×2 (09:45→12:34)
[2018-11-06] MEDS: ZINC OXIDE 20% OINT 28.4 GM TUBE TOPICAL SCH ×2 (09:46→21:02)
--- NOTE | 2018-11-06 10:46 | P.PN ---
Subjective Progress Note Date: 11/06/18 Principal diagnosis: Right hip fracture Patient is 78-year-old female seen at bedside today. She is POD#4 from right hip aj arthroplasty for hip fracture. She continues to have altered mental status. She appears to be in no apparent distress. Further history and review of systems unobtainable. Objective - Vital Signs Vital signs: Vital Signs Temp 97.8 F 11/06/18 02:13 Pulse 91 11/06/18 02:13 Resp 16 11/06/18 08:00 BP 157/89 11/06/18 02:13 Pulse Ox 96 11/06/18 02:13 Intake & Output 11/05/18 11/06/18 11/06/18 18:59 06:59 18:59 Intake Total 50 1450 Balance 50 1450 Weight 65.771 kg Intake: IV 1150 Sodium Chloride 0.9% 1, 1150 000 ml @ 100 mls/hr IV . Q10H [facility] Rx#:[id number] Oral 50 300 Other: Voiding Method Diaper Diaper Diaper Incontinent Incontinent Incontinent # Voids 2 1 - Exam Exam of the right hip shows a benign surgical wound. No active bleeding or drainage. Neurovascular status is grossly intact with motor and sensation. The calf is soft and nontender. 2+ dorsalis pedis pulse and less than 2 second capillary refill is present. - Constitutional General appearance: Present: no acute distress - Labs CBC & Chem 7: 11/05/18 06:20 11/06/18 05:58 Labs: Abnormal Lab Results - Last 24 Hours (Table) 11/06/18 Range/Units 05:58 BUN 6 L (7-17) mg/dL Assessment and Plan (1) Closed right hip fracture Narrative/Plan: Continue pain management, PT, wound care, DVT prophylaxis and medical management. She may transfer to ECF when ok with IM. Current Visit: Yes Status: Acute Priority: Medium Code(s): S72.001A - FRACTURE OF UNSP PART OF NECK OF RIGHT FEMUR, INIT SNOMED Code(s): 848181772 Time with Patient: Less than 30
[2018-11-06] MEDS: MULTIVITAMINS, THERA 1 EACH TAB PO SCH (12:35)
--- NOTE | 2018-11-06 13:38 | CT ---
"EXAMINATION TYPE: CT brain wo con DATE OF EXAM: 11/06/2018 HISTORY: Pneumonia, altered mental status CT DLP: 1090.4 mGycm. Automated Exposure Control for Dose Reduction was Utilized. TECHNIQUE: CT scan of the head is performed without contrast. COMPARISON: CT brain 8 days ago. FINDINGS: There is no acute intracranial hemorrhage or midline shift identified. There is diffuse v entricular and sulcal prominence consistent with mild to moderate diffuse age-related cerebral atroph y. More prominent atrophy over bilateral frontal lobes redemonstrated. Bilateral basal ganglia calcif ications again seen. There is low-attenuation in the periventricular white matter consistent with mil d chronic small vessel ischemic change. Vague area of low attenuation left parietal deep white matter coronal image 48. The globes are intact and the visualized sinuses are clear. IMPRESSION: 1. Involving acute/subacute infarct left parietal region. A Yellow level critical message alert has been initiated for Suma Juarez MD via the [employer] 36 0 | Critical Results System on 11/06/2018 1:35 PM. This message alert has been sent to Suma Juarez MD via the preferences provided by the clinician for the receipt of Radiology Critical Findings. [facility] ID [id number]."
--- NOTE | 2018-11-06 14:13 | P.PN ---
Subjective Progress Note Date: 11/06/18 This is an 78-year-old female patient of Dr De Leon with a previous medical history significant for advanced Parkinson disease with significant spondylosis of the lumbar spine along with significant neuropathy both lower extremities, history of recurrent UTI. Patient is currently residing at [facility] and has been at [facility] for subacute rehab in the past. Staff at [facility] note the patient was confused and combative. No falls were documented. No fever, chills, nausea vomiting. Patient was having some intermittent weakness of the left upper extremity as well as left facial asymmetry. No history of stroke. Patient normally uses a walker to ambulate. Patient was brought into [facility] emergency center for evaluation. She was afebrile, heart rate 100, initial blood pressure 174/97, pulse ox 98% on room air. WBC 6.4, hemoglobin 11.7, platelet count 174, electrolytes and renal function within normal limits, blood sugar 104. Urinalysis was clear. Troponin negative. Urine drug screen positive for opiates and benzodiazepines. EKG was a sinus tachycardia. CAT scan of the brain showed moderate diffuse atrophy. No acute intracranial abnormality. No change. CT angiogram of the neck and CT angiogram of the brain were negative. Chest x-ray shows new minimal atelectasis and infiltrate left lung base area and repeat chest x-ray this morning reveals improved aeration of the left lung base with only minimal strand-like left basilar opacities remaining. On examination, patient is noted to have some left facial droop, she is not able to follow commands, she is quite confused. Pro-calcitonin has been ordered. Neurology consult requested. PT and OT added. Patient is on azithromycin and Rocephin. 10/31: During the night, patient had a fall and subsequently complained of right hip pain. X-rays were done that showed of fracture of the right femoral neck and consult was added for Dr. Lopez. The patient has been seen by neurology f or altered mental status likely in the setting of acute illness. Recommend good sleep hygiene for delirium precaution while treating patient for pneumonia. Neurology has signed off. Pro-calcitonin 0.14. Patient will be continued on IV antibiotics. Patient is not taking her oral medications. IV fluids will be continued at 100 mL per hour. Patient has a sitter at the bedside. Fry catheter has been placed this patient is bedbound. Orthopedics is pending for surgical intervention on Monday. Morphine removed and [place] removed from patient's medications. Toradol started for pain control. Daughter is at the bedside and states that on Monday when she was with her mother from 10-2 she was doing well. She was walking with and without a walker and doing fine. Her mental status was normal. Somewhere between 2 and 5 in the afternoon there was a mental status change. Patient does not have any history of myocardial infarction. She is cleared for surgical intervention on Monday. 11/01: Patient has been afebrile, heart rate 97, blood pressure 161/90, pulse ox 93% on room air. CBC unremarkable. Sodium 139, potassium 3.2 and replaced with 40 mEq of potassium, chloride 108, CO2 20, BUN 18 creatinine 0.59. Blood sugar 94. Patient is continued on azithromycin and ceftriaxone for pneumonia. She is scheduled for right hip hemiarthroplasty tomorrow with Dr. Lopez. EEG pending. Patient continues to have a sitter at the bedside. She is awake complaining that she is tired but otherwise she remains very confused. She did eat a banana and applesauce for breakfast. 11/02: Patient probably had some confusion during the night. This morning she is improved. Patient is scheduled for surgery on this morning. Patient has been afebrile, heart rate 90, blood pressure 161/74, pulse ox 97% on room air. Potassium is 3.2 no be replaced. Repeat lab work ordered for tomorrow. EEG has been completed and report is pending. Discharge plan is for [facility] for subacute rehab most likely on Monday. 11/03: Patient is status post right hip hemiarthroplasty yesterday with Dr. Lopez. Patient has been afebrile, heart rate 101, blood pressure 135/73, pulse ox 94% on room air. Repeat lab work reveals a white count of 8.4, hemoglobin 10.5, platelet count 164. Potassium is 3.6, CO2 21, BUN 18 creatinine 0.59. Blood sugar 126. EEG was abnormal indicative of toxometabolic encephalopathy. Patient has been seen by Dr. Posadas and subsequently signed off. Patient continues to have mental status changes, she is eating very little. We will discontinue IV pain medications and orthopedics is started tramadol. Discussed in detail patient's condition and prognosis with the patient's daughter at the bedside. Tentatively, plan is for discharge Monday to [facility]. 11/04: Patient is afebrile, blood pressure 154/83, pulse ox 93% on room air, heart rate 98. Hemoglobin is 10.0, potassium 3.0 will be replaced, BUN 5 and creatinine 0.52. Patient has used incentive spirometry to 500 mL. Patient's mental status is improved this morning. She is able to recognize that she has been confused over the past couple days. Patient had 25% of her breakfast this morning and was total assist. Orthopedics will switch her to Toradol for pain control. Fry to be removed today. Anticipate discharge to [facility] tomorrow. 11/05: Patient has been afebrile, heart rate 98, blood pressure 130/76, pulse ox 97% on room air. bus driver/monitor is a sinus rhythm. bus driver/monitor will be discontinued. The patient does have a sitter at the bedside. She continues to have confusion. She ate half of her oatmeal and applesauce this morning. We are discontinuing Toradol and continue tramadol for pain. We will plan to monitor patient 1 more day and discharge to [facility] tomorrow hoping that her men ella status will be improved. Patient did have her Fry catheter removed yesterday. Repeat lab work revealed potassium of 3.3 and will be replaced. Hemoglobin is stable at 10.4. 11/06: Patient continued to have confusion during the night. This morning she is found sleeping and apparently she has not been sleeping well during her stay here. Mental status is not improving going back to baseline. We will plan to do repeat CAT scan of the brain and reconsult neurology for any further input. Discussed in detail patient's current condition and prognosis. Family, daughter and son are at bedside, have decided to make patient DO NOT RESUSCITATE. CAT scan of the brain reveals acute/subacute infarct left parietal region. Objective - Vital Signs Vital signs: Vital Signs Temp 97.8 F 11/06/18 02:13 Pulse 91 11/06/18 02:13 Resp 16 11/06/18 08:00 BP 157/89 11/06/18 02:13 Pulse Ox 96 11/06/18 02:13 Intake & Output 11/05/18 11/06/18 11/06/18 18:59 06:59 18:59 Intake Total 50 1450 Balance 50 1450 Weight 65.771 kg Intake: IV 1150 Sodium Chloride 0.9% 1, 1150 000 ml @ 100 mls/hr IV . Q10H [facility] Rx#:[id number] Oral 50 300 Other: Voiding Method Diaper Diaper Diaper Incontinent Incontinent Incontinent # Voids 2 1 - Exam Review of Systems ROS unobtainable: due to mental status - Constitutional General appearance: no distress, thin, sitting up in a chair - EENT Eyes: anicteric sclerae, EOMI, PERRLA, no ptosis, no scleral icterus, normal appearance ENT: hard of hearing, NA/AT, normal oropharynx, no thrush Ears: bilateral: normal - Neck Neck: no lymphadenopathy, normal ROM, no rigidity, no stridor, no thyromegaly Carotids: bilateral: upstroke normal Thyroid: bilateral: normal size - Respiratory Respiratory: bilateral: diminished, negative: dullness, rales, rhonchi, wheezing, prolonged expiration - Cardiovascular Rhythm: regular Heart sounds: normal: S1, S2 Abnormal Heart Sounds: systolic murmur, no S3 Gallop, no S4 Gallop - Gastrointestinal General gastrointestinal: soft, no splenomegaly, no tenderness, no umbilical hernia, no ventral hernia - Integumentary Integumentary: decreased turgor, normal Dressing to right hip clean and dry. - Neurologic Neurologic: CNII-XII intact, left facial droop - Musculoskeletal Musculoskeletal: no gait normal, generalized weakness - Psychiatric Psychiatric: Alert, O x's 0, no appropriate affect, no intact judgment & insight, unable to follow commands patient is sleeping - Labs CBC & Chem 7: 11/05/18 06:20 11/06/18 05:58 Labs: Abnormal Lab Results - Last 24 Hours (Table) 11/06/18 Range/Units 05:58 BUN 6 L (7-17) mg/dL Assessment and Plan Plan: 1. Metabolic encephalopathy possibly related to pneumonia and underlying dementia, presenting with acute/subacute ischemic infarct left parietal region (stroke present on admission). A repeat consult with neurology requested. EEG reported toxo metabolic encephalopathy. IV pain medications discontinued. Tramadol for pain. Aspirin 325 mg and Lipitor 40 mg at bedtime. Speech therapy added to current physical and occupational therapies. 2. Left lower lobe pneumonia. Continue azithromycin and ceftriaxone. Pro- calcitonin as above. 3. Right femoral neck fracture. Consult with Dr. Lopez. 4. Advanced Parkinson disease. Continue with Sinemet 25/100 mg one tablet orally 4 times every day. 6. Spondylosis of the lumbar spine. Continue patient on morphine. 7. GERD. Continue Pepcid 20 mg orally once every day. 8. Bilateral lower extremity neuropathy. Patient has been off gabapentin. 9. Generalized anxiety disorder. 9. DVT prophylaxis. Continue patient on heparin 5000 units subcutaneously every 12 hours. 10. GI prophylaxis. Continue Pepcid. 11. Hypotension. Continue midodrine 5 mg twice daily. 12. Hypokalemia. Replacement. CODE STATUS: DO NOT RESUSCITATE. Discharge plan: [place] under the care of Dr. De Leon. Impression and plan of care have been directed as dictated by the signing physician. Ruma Richardson nurse practitioner acting as scribe for signing physician.
[2018-11-06] MEDS ORDERED: ASPIRIN 325 MG TAB PO SCH (14:15)
[2018-11-06] MEDS: CHOLECALCIFEROL 1,000 UNIT TAB PO SCH (18:06)
--- NOTE | 2018-11-06 18:45 | P.PN ---
Progress Note - Text Progress Note Date: 11/06/18 SUBJECTIVE/INTERVAL EVENTS: Since last visit, patient underwent a right hip surgery on 11/02/18 for hip fracture (patient admitted on 10/29/2018). Neurology consulted again for continued altered mental status. Patient was last seen by me on 11/02/2018. Compared to my initial exam, patient had calmed down and following some commands but unable to recognize daughter. Tried to turn her head to the right to examine her gaze better, but patient started yelling due to pain. During initial exam, patient was able to track. Today, patient again following commands to open mouth, stick tongue out and close eyes. Takes her a long time to open her eyes afterwards. Today, patient recognizing her daughter and able to say daughter's name. PHYSICAL EXAMINATION: VITAL SIGNS: T 97.8 HR 91 RR 18 blood pressure 157/89 O2 saturation 96% on room air CRANIAL NERVES II THROUGH XII: II: Pupils are equal and reactive to light symmetrically. Head is turned to the left, and patient unwilling to move her head due to pain. R-gaze preference although patient's position doesn't help correctly assess. III, IV, : No ptosis. Extraocular movements full. V: Facial sensation intact from V1-3. VII. No clear facial asymmetry. XII: tongue midline MOTOR: Normal bulk/tone. Readily moves her bilateral upper extremity. Bilateral extremity movement limited by pain from arthritis. Patient with foot drop in both ankles. SENSORY: Patient does not grimace to pain upon noxious stimuli in b/l feet but she does withdraw her toes away from the stimuli. REFLEXES: 2+ b/l UE. Toes are downgoing. No clonus. COORDINATION/GAIT: Deferred due to patient's altered mental status and recent hip surgery DIAGNOSTIC TESTING: LABORATORY: WBC 6.4 hemoglobin 11.7 platelet 174 PT 10.9 INR 1.0 sodium 140 potassium 3.8 chloride 107 bicarb 23 BUN 14 per nasal 0.66 glucose 104 AST 17 ALT <6 alk phos 69 troponin <0.012 urinalysis negative urine toxicology opiates/benzo detected IMAGING: CT Head without contrast 11/06/18: acute/subacute L parieto-occipital infarct. Chest x-ray 10/30/2018: Improved aeration of the left lung base with only minimal strength right left basilar opacity remaining. CT head without contrast 10/29/2018: Moderate diffuse atrophy. No acute intra-abdominal pathology. CT angiography of the head with contrast 10/29/2018: Negative CT angiogram neck and brain. EEG 11/01/2018: Limited study. Intermittent diffuse theta range slowing mentioned not epileptiform in nature. In combination with the slow background, these findings indicate moderate diffuse cerebral dysfunction as may be seen in a toxometabolic encephalopathy. No seizures were recorded. ASSESSMENT: Ms. Bradshaw is an 78-year-old woman with past medical history of posture arthritis, Parkinson's disease, chronic back pain, spinal stenosis, peripheral neuropathy, urinary incontinence, presenting to [facility] with acute mental status change, consulting Neurology for AMS. Patient with no obvious fo manjula deficit. Patient found with pneumonia, started on ceftriaxone. Patient's altered mental status occurred most likely in the setting of acute illness considering patient's age. Recommend good sleep hygiene for delirium precaution while treating patient for pneumonia. EEG with no seizures, showing metabolic encephalopathy and possibly hospital delirium (daughter states that patient was worse yesterday in terms of her mental status and appears better today). CT head today showing acute/subacute L parieto-occipital infarct that was not present upon her initial CT Head obtained on 10/29/2018. Patient underwent a recent R hip surgery from a recent fall. Difficult to find record of vital signs obtained throughout the surgery. Will look through patient's chart to have better understanding of patient's vitals during operation as low BP during operation could be one etiology of stroke found on CT. However, patient is also elderly Will also send work-up for stroke. RECOMMENDATIONS: 1. TTE 2. Labs: A1C, TSH, FLP 3. Cardiac monitoring 4. Patient was started on ASA 81mg. Will start patient on Atorvastation 80mg qhs 5. Neurology will continue to follow.
[2018-11-06] MEDS ORDERED: ATORVASTATIN 40 MG TAB PO SCH (21:00)
[2018-11-06] MEDS: SENNOSIDES-DOCUSATE SODIUM 1 EACH TAB PO SCH (21:02)
[2018-11-06] MEDS: MIRTAZAPINE 15 MG TAB PO SCH (21:02)
[2018-11-07] MEDS: LACTATED RINGERS 1,000 ML IV SCH (00:22)
[2018-11-07] MEDS: KETOROLAC 30 MG/ML 1 ML VIAL IVP PRN ×2 (03:04→08:42)
[2018-11-07 07:09] LABS: Basophils % (A) 1 %; Eosinophils # (A) 0.2 k/uL (0-0.7); Eosinophils % (A) 4 %; HCT 31.4 % (34.0-46.0); Lymphocytes # (A) 0.6 k/uL (1.0-4.8); Lymphocytes % (A) 10 %; MCH 29.3 pg (25.0-35.0); MCHC 31.8 g/dL (31.0-37.0); MCV 92.2 fL (80.0-100.0); Mean Platelet Volume 8.4; Monocytes # (A) 0.4 k/uL (0-1.0); Monocytes % (A) 7 %; Neutrophils # (A) 4.1 k/uL (1.3-7.7); Neutrophils % (A) 76 %; Platelet Count 302 k/uL (150-450); RDW 14.7 % (11.5-15.5); WBC 5.5 k/uL (3.8-10.6)
[2018-11-07] MEDS: AZITHROMYCIN 500 MG TAB PO SCH ×2 (08:40→08:41)
[2018-11-07] MEDS: CARBIDOPA-LEVODOPA 25-100 MG 1 EACH TAB PO SCH ×2 (08:40→13:18)
[2018-11-07] MEDS: MIDODRINE 5 MG TAB PO SCH (08:40)
[2018-11-07] MEDS: FAMOTIDINE 20 MG TAB PO SCH (08:40)
[2018-11-07] MEDS: SODIUM CHLORIDE 0.9% 1,000 ML IV SCH (08:41)
[2018-11-07] MEDS: MULTIVITAMINS, THERA 1 EACH TAB PO SCH (08:41)
[2018-11-07] MEDS: HEPARIN SODIUM,PORCINE 5,000 UNIT/ML 1 ML VIAL SQ SCH (08:41)
[2018-11-07] MEDS ORDERED: ASPIRIN 81 MG PO SCH (09:00)
[2018-11-07 09:06] VITALS: BP 135/82; PULSE 89; RESP 15; TEMP 97.8
[2018-11-07] MEDS: ZINC OXIDE 20% OINT 28.4 GM TUBE TOPICAL SCH (09:13)
--- NOTE | 2018-11-07 09:49 | P.PN ---
Subjective Progress Note Date: 11/07/18 Principal diagnosis: Right hip fracture Patient is 78-year-old female seen at bedside today. She is POD#5 from right hip aj arthroplasty for hip fracture. She continues to have altered mental status. She appears to be in no apparent distress. Further history and review of systems unobtainable. Objective - Vital Signs Vital signs: Vital Signs Temp 97.8 F 11/07/18 07:00 Pulse 89 11/07/18 07:00 Resp 15 11/07/18 07:00 BP 135/82 11/07/18 07:00 Pulse Ox 97 11/07/18 07:00 Intake & Output 11/06/18 11/07/18 11/07/18 18:59 06:59 18:59 Other: Voiding Method Diaper Diaper Incontinent Incontinent # Voids 1 1 # Bowel Movements 1 - Exam Exam of the right hip shows a benign surgical wound. No active bleeding or drainage. Neurovascular status is grossly intact with motor and sensation. The calf is soft and nontender. 2+ dorsalis pedis pulse and less than 2 second capillary refill is present. - Constitutional General appearance: Present: no acute distress - Labs CBC & Chem 7: 11/07/18 06:37 11/06/18 05:58 Labs: Abnormal Lab Results - Last 24 Hours (Table) 11/07/18 11/07/18 Range/Units 06:37 06:37 RBC 3.40 L (3.80-5.40) m/uL Hgb 10.0 L (11.4-16.0) gm/dL Hct 31.4 L (34.0-46.0) % Lymphocytes # 0.6 L (1.0-4.8) k/uL HDL Cholesterol 21 L (40-60) mg/dL Assessment and Plan (1) Closed right hip fracture Narrative/Plan: Continue pain management, PT, wound care, DVT prophylaxis and medical management. She may transfer to ECF when ok with IM. She is stable from orthopedic standpoint. She may follow up as an outpatient. We will sign off for now. Current Visit: Yes Status: Acute Priority: Medium Code(s): S72.001A - FRACTURE OF UNSP PART OF NECK OF RIGHT FEMUR, INIT SNOMED Code(s): 704071094 Time with Patient: Less than 30
[2018-11-07] MEDS ORDERED: LORazepam 0.5 MG TAB PO ONE (11:00)
[2018-11-07] MEDS: ACETAMINOPHEN TAB 325 MG TAB PO PRN (13:18)
[2018-11-07 14:08] LABS: Hemoglobin A1C 4.6 % (4.0-6.0)
--- NOTE | 2018-11-07 16:34 | ECHOF ---
Referral Reason:stroke MEASUREMENTS -------- HEIGHT: 162.6 cm WEIGHT: 65.8 kg BP: 133/77 RVIDd: 2.3 cm (< 3.3) IVSd: 1.3 cm (0.6 - 1.1) LVIDd: 4.2 cm (3.9 - 5.3) LVPWd: 1.3 cm (0.6 - 1.1) IVSs: 1.5 cm LVIDs: 3.4 cm LVPWs: 1.7 cm LAESV Index (A-L): 22.40 ml/m Ao Diam: 2.4 cm (2.0 - 3.7) AV Cusp: 1.6 cm (1.5 - 2.6) LA Diam: 1.8 cm (2.7 - 3.8) EPSS: 1.3 cm MV E Carlos: 0.59 m/s MV DecT: 179 ms MV A Carlos: 0.93 m/s MV E/A Ratio: 0.64 AV maxP.95 mmHg AV meanP.61 mmHg AR PHT: 424 ms RAP: 5.00 mmHg RVSP: 33.01 mmHg MV EF SLOPE: 60.25 mm/s (70 - 150) MV EXCURSION: 1.41 cm (> 18.000) FINDINGS -------- Sinus rhythm. The left ventricular size is normal. There is mild concentric left ventricular hypertrophy. Overa ll left ventricular systolic function is mildly impaired with, an EF between 45 - 50 %. Basal infer oseptal LV wall motion is hypokinetic. The right ventricle is normal in size. Left atrium is normal size by volume. The right atrial size is normal. Contrast study was performed with 2 iv injections of 8 ccs of agitated normal saline, at rest, and po st-Valsalva. Patent foramen ovale present with right to left shunt. There is moderate aortic valve sclerosis without stenosis. There is mild aortic regurgitation. Mild mitral annular calcification present. Mild mitral regurgitation is present. Mild tricuspid regurgitation present. There is mild pulmonary hypertension. The right ventricular systolic pressure, as measured by Doppler, is 33.01mmHg. Trace/mild (physiologic) pulmonic regurgitation. The aortic root size is normal. IVC not well visualized There is no pericardial effusion. CONCLUSIONS -------- 1. Sinus rhythm. 2. The left ventricular size is normal. 3. There is mild concentric left ventricular hypertrophy. 4. Overall left ventricular systolic function is mildly impaired with, an EF between 45 - 50 %. 5. Basal inferoseptal LV wall motion is hypokinetic. 6. The right ventricle is normal in size. 7. Left atrium is normal size by volume. 8. The right atrial size is normal. 9. Contrast study was performed with 2 iv injections of 8 ccs of agitated normal saline, at rest, and post-Valsalva. 10. Patent foramen ovale present with right to left shunt. 11. There is moderate aortic valve sclerosis without stenosis. 12. There is mild aortic regurgitation. 13. Mild mitral annular calcification present. 14. Mild mitral regurgitation is present. 15. Mild tricuspid regurgitation present. 16. There is mild pulmonary hypertension. 17. The right ventricular systolic pressure, as measured by Doppler, is 33.01mmHg. 18. Trace/mild (physiologic) pulmonic regurgitation. 19. The aortic root size is normal. 20. IVC not well visualized 21. There is no pericardial effusion. BOLT LABELER: Pavithra Somers RDCS
== END 2018-11-07 14:37 | DRG 981 ==
LOC: EC 18:41 → 4SSUR 22:51
PROVIDERS: ADMIT Internal Medicine; ATTEND Internal Medicine
PROC: 0SRR01A Replacement of Right Hip Joint, Femoral Surface with Metal Synthetic Substitute, Uncemented, Open Approach (ICD-10-PCS; principal; 2018-11-02 10:00)
DX: J18.1 Lobar pneumonia, unspecified organism (principal); G93.41 Metabolic encephalopathy; S72.001A Fracture of unspecified part of neck of right femur, initial encounter for closed fracture; I63.9 Cerebral infarction, unspecified; Z66 Do not resuscitate; I95.9 Hypotension, unspecified; G20 Parkinson's disease; E86.0 Dehydration; R29.810 Facial weakness; R29.708 NIHSS score 8; R40.2362 Coma scale, best motor response, obeys commands, at arrival to emergency department; R40.2142 Coma scale, eyes open, spontaneous, at arrival to emergency department; R40.2242 Coma scale, best verbal response, confused conversation, at arrival to emergency department; R40.2354 Coma scale, best motor response, localizes pain, 24 hours or more after hospital admission; R40.2144 Coma scale, eyes open, spontaneous, 24 hours or more after hospital admission; R40.2244 Coma scale, best verbal response, confused conversation, 24 hours or more after hospital admission; E87.6 Hypokalemia; F41.1 Generalized anxiety disorder; M47.816 Spondylosis without myelopathy or radiculopathy, lumbar region; K21.9 Gastro-esophageal reflux disease without esophagitis; G57.93 Unspecified mononeuropathy of bilateral lower limbs; M19.90 Unspecified osteoarthritis, unspecified site; M48.00 Spinal stenosis, site unspecified; G89.29 Other chronic pain; R29.6 Repeated falls; R32 Unspecified urinary incontinence; Z79.891 Long term (current) use of opiate analgesic; Z79.899 Other long term (current) drug therapy; Z86.19 Personal history of other infectious and parasitic diseases; Z90.710 Acquired absence of both cervix and uterus; Z91.81 History of falling; Z87.440 Personal history of urinary (tract) infections; Z87.891 Personal history of nicotine dependence; Z81.1 Family history of alcohol abuse and dependence; Z82.49 Family history of ischemic heart disease and other diseases of the circulatory system; Z83.3 Family history of diabetes mellitus; Z80.3 Family history of malignant neoplasm of breast; W19.XXXA Unspecified fall, initial encounter; Y92.230 Patient room in hospital as the place of occurrence of the external cause; Z74.01 Bed confinement status
CPT/HCPCS: 36415; 70450; 70496; 70498; 71046; 73501; 73502; 80048; 80053; 80061; 80306; 81003; 82550; 83036; 83735; 84132; 84145; 84443; 84484; 85025; 85027; 85610; 85730; 86850; 86900; 86901; 87040; 88305; 88311; 93005; 93306; 95816; 96361; 96365; 96375; 99285

== ENCOUNTER 2019-01-05 09:22 | Emergency (ER) | payer MEDICARE ==
[2019-01-05 09:31] VITALS: TEMP 97.7
--- NOTE | 2019-01-05 09:50 | ED ---
General Adult HPI - General Chief complaint: Fall Stated complaint: FALL Time Seen by Provider: 01/05/19 09:26 Source: patient, EMS, RN notes reviewed, old records reviewed Mode of arrival: EMS Limitations: altered mental status - History of Present Illness Initial comments: 78-year-old female presents status post fall. Patient found by [facility] after ground-level fall. Uncertain if there was loss consciousness however patient does deny loss of consciousness. She is somewhat confused but able to give history. She denies any pain complaints. Denies headache. She states she had some neck pain however this has resolved. She was placed in a c-collar by EMS prior to arrival. EMS denies any external signs of trauma. Med review does reveal patient is on aspirin uncertain if there is any other anticoagulation for antiplatelet agents. Patient has history of Parkinson's and mild dementia. Denies any preceding symptoms, denies chest pain, denies abdominal pain. - Related Data Home Medications Medication Instructions Recorded Confirmed Carbidopa-Levodopa 25-100 mg 1 tab PO QID 10/29/18 01/05/19 [Sinemet 25-100 mg] Cholecalciferol [Vitamin D3 (25 1,000 unit PO DAILY 10/29/18 01/05/19 Mcg = 1000 Iu)] Midodrine [ProAmatine] 5 mg PO BID 10/29/18 01/05/19 Hydrocodone/Acetaminophen [[place] 1 tab PO BID PRN 01/05/19 01/05/19 5-325] Multivitamins, Thera [Multivitamin 1 tab PO DAILY 01/05/19 01/05/19 (formulary)] Nystatin 100,000Unit/gm Cream 1 applic TOPICAL BID PRN 01/05/19 01/05/19 [Mycostatin Cream] traMADol HCl [Ultram] 50 mg PO TID PRN 01/05/19 01/05/19 Previous Rx's Medication Instructions Recorded Famotidine [Pepcid] 20 mg PO DAILY tab 04/09/18 Aspirin 81 mg PO DAILY chew 11/07/18 Atorvastatin [Lipitor] 40 mg PO HS #0 tab 11/07/18 Mirtazapine [Remeron] 7.5 mg PO HS #0 tab 11/07/18 Allergies Allergy/AdvReac Type Severity Reaction Status Date / Time No Known Allergies Allergy Verified 11/09/19 10:27 Review of Systems ROS Statement: Those systems with pertinent positive or pertinent negative responses have been documented in the HPI. ROS Other: All systems not noted in ROS Statement are negative. Past Medical History Past Medical History: Neurologic Disorder, Osteoarthritis (OA) Additional Past Medical History / Comment(s): Parkinsons disease, chronic back pain, spinal stenosis, numbness and tingling hands and feet, sinus problems, UTIs, urine incontinence. History of Any Multi-Drug Resistant Organisms: ESBL Date of last positivie culture/infection: 05/29/18 MDRO Source:: ESBL URINE Past Surgical History: Heart Catheterization, Hysterectomy Past Anesthesia/Blood Transfusion Reactions: No Reported Reaction Past Psychological History: No Psychological Hx Reported Smoking Status: Former smoker Past Alcohol Use History: None Reported Past Drug Use History: None Reported - Past Family History Father Family Medical History: No Reported History Additional Family Medical History / Comment(s): Father was an alcoholic. He at the age of 69yrs. Mother Family Medical History: Coronary Artery Disease (CAD), Diabetes Mellitus, Myocardial Infarction ([place]) Additional Family Medical History / Comment(s): Mother at age 89 from diabetes and coronary artery disease. Brother(s) Family Medical History: Coronary Artery Disease (CAD) Additional Family Medical History / Comment(s): Patient had 3 brothers all from coronary artery disease and 100s first [place] at age 60. Sister(s) Family Medical History: Cancer Additional Family Medical History / Comment(s): Patient had 2 sisters and one from breast cancer and the other from unknown cause suddenly. Daughter(s) Family Medical History: No Reported History Additional Family Medical History / Comment(s): Patient has one daughter with no major medical problems. Son(s) Family Medical History: No Reported History Additional Family Medical History / Comment(s): Patient has one son with no major medical problems. General Exam Limitations: altered mental status General appearance: alert, in no apparent distress Head exam: Present: atraumatic, normocephalic Eye exam: Present: normal appearance, PERRL, EOMI ENT exam: Present: mucous membranes dry Neck exam: Present: normal inspection, other (C-collar placed by EMS) Respiratory exam: Present: normal lung sounds bilaterally. Absent: respiratory distress, wheezes Cardiovascular Exam: Present: regular rate, normal rhythm GI/Abdominal exam: Present: soft. Absent: distended, tenderness, guarding Extremities exam: Present: normal inspection, full ROM, normal capillary refill. Absent: tenderness, pedal edema, joint swelling, calf tenderness Neurological exam: Present: alert. Absent: oriented X3, motor sensory deficit Skin exam: Present: warm, dry, intact Course Vital Signs 01/05/19 09:24 Temperature 97.7 F Pulse Rate 90 Respiratory 16 Rate Blood Pressure 177/92 O2 Sat by Pulse 100 Oximetry EKG Findings - EKG Comments: EKG Findings:: EKG: Normal sinus rhythm, baseline artifact, no ST segment elevation, rate of 99, [place] interval 162, QRS duration 88, QTC 454 Medical Decision Making - Medical Decision Making 78-year-old female presented with ground level fall, concern for head injury. 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 Cervical spine negative for fracture or subluxation. I did obtain a chest x-ray and pelvis x-ray which are both negative for any acute bony abnormalities. Patient's son who is at bedside was concerned patient may have UTI, urinalysis was obtained and this is negative. Patient will return to assisted living facility, she will follow-up with primary care physician in the next one week. Return with worsening or changing symptoms. - Lab Data Lab Results 01/05/19 Range/Units 11:35 Urine Color Yellow Urine Appearance Clear (Clear) Urine pH 6.5 (5.0-8.0) Ur Specific [place] 1.018 (1.001-1.035) Urine Protein Trace H (Negative) Urine Glucose (UA) Negative (Negative) Urine Ketones Negative (Negative) Urine Blood Negative (Negative) Urine Nitrite Negative (Negative) Urine Bilirubin Negative (Negative) Urine Urobilinogen <2.0 (<2.0) mg/dL Ur Leukocyte Esterase Negative (Negative) Disposition Clinical Impression: Fall, Concussion Disposition: HOME SELF-CARE Condition: Fair Instructions (If sedation given, give patient instructions): Fall Prevention for Older Adults (ED), Concussion (ED) Is patient prescribed a controlled substance at d/c from ED?: No Referrals: Kwasi De Leon MD [Primary Care Provider] - 1-2 days Time of Disposition: 12:03
--- NOTE | 2019-01-05 10:53 | CT ---
EXAMINATION TYPE: CT brain marianela wo con DATE OF EXAM: 01/05/2019 COMPARISON: Previous CT scan of the brain dated 11/06/2018 HISTORY: Fall CT DLP: 1264 mGycm Automated exposure control for dose reduction was used. TECHNIQUE: CT scan of the head and cervical spine are performed without contrast. FINDINGS: BRAIN: There are generalized changes of sulcal prominence and ventriculomegaly. Atrophic changes are most prominent over the frontal lobes bilaterally. There is evidence of a previous left parietal infarction. There is physiologic calcification of the b lucia ganglia. There is no mass effect, midline shift or intracranial blood. Visualized portions of the paranasal sinuses and mastoids are clear. The bony calvarium is intact. IMPRESSION: 1. NO ACUTE INTRACRANIAL ABNORMALITY. 2. EVIDENCE OF THE LEFT PARIETAL INFARCT. 3. ATROPHIC AND CHRONIC WHITE MATTER ISCHEMIC CHANGE. CERVICAL SPINE: There is been a previous left-sided thyroidectomy. There is hypertrophy of the right lobe of the thyroid. The head is tilted towards the left within the scanner. There is a hemangioma involving the T2 verteb ral body. Vertebral body height and alignment are maintained. There is degenerative disc disease and a vacuum p henomena at C6-7 and to a lesser extent at C5-6. There is uncovertebral joint disease at C5-6. The fa cets are unremarkable. No protrusions are seen. No fractures are evident. IMPRESSION: 1. NO ACUTE OSSEOUS LESION. 2. DEGENERATIVE CHANGE.
--- NOTE | 2019-01-05 11:40 | XR ---
EXAMINATION TYPE: XR pelvis AP view , ONE VIEW DATE OF EXAM ORDERED: 01/05/2019 HISTORY: fall. COMPARISON: Previous study dated 11/02/2018. FINDINGS: A right hip arthroplasty is in place. Intact prosthetic is not visualized. There is a dextroscoliosis. Osseous structures about the pelvis are unremarkable. There are degenerat rachelle changes within the lumbar spine. There are phleboliths within the pelvis. IMPRESSION: 1. NO ACUTE OSSEOUS LESION. 2. STATUS POST RIGHT HIP HEMIARTHROPLASTY.
--- NOTE | 2019-01-05 11:41 | XR ---
EXAMINATION TYPE: XR chest 1V portable DATE OF EXAM: 01/05/2019 HISTORY: fall. REFERENCE: Previous study dated 10/30/2018. FINDINGS: The lungs are clear. Pleural space are clear. The heart is not enlarged. There is apparent elevation right hemidiaphragm. IMPRESSION: NO ACUTE INTRATHORACIC ABNORMALITY.
[2019-01-05 11:54] LABS: Appearance,Urine Clear (Clear); Bilirubin,Urine Negative (Negative); Blood,Urine Negative (Negative); Color,Urine Yellow; Glucose,Urine (UA) Negative (Negative); Ketones,Urine Negative (Negative); Leukocyte Esterase,Urine Negative (Negative); Nitrite,Urine Negative (Negative); PH, Urine 6.5 (5.0-8.0); Protein,Urine Trace (Negative); Specific Gravity,Urine 1.018 (1.001-1.035); Urobilinogen,Urine <2.0 mg/dL (<2.0)
[2019-01-05 12:18] VITALS: BP 136/80; PULSE 93; RESP 20
== END 2019-01-05 12:30 | disposition home or self-care (01) ==
LOC: EC 09:22
DX: S06.0X0A Concussion without loss of consciousness, initial encounter (principal); G20 Parkinson's disease; F02.80 Dementia in other diseases classified elsewhere, unspecified severity, without behavioral disturbance, psychotic disturbance, mood disturbance, and anxiety; M19.90 Unspecified osteoarthritis, unspecified site; Z87.891 Personal history of nicotine dependence; Z79.82 Long term (current) use of aspirin; Z79.899 Other long term (current) drug therapy; Z86.73 Personal history of transient ischemic attack (TIA), and cerebral infarction without residual deficits; W18.39XA Other fall on same level, initial encounter; Y92.129 Unspecified place in nursing home as the place of occurrence of the external cause
CPT/HCPCS: 70450; 71045; 72125; 72170; 81003; 93005; 99285

== ENCOUNTER 2019-02-11 09:10 | Inpatient (IN) | payer MEDICARE ==
[2019-02-11] MEDS ORDERED: SODIUM CHLORIDE 0.9% 500 ML 500 ML IV STA (09:15)
--- NOTE | 2019-02-11 09:19 | ED ---
General Adult HPI - General Stated complaint: poss stroke Time Seen by Provider: 02/11/19 09:10 Source: EMS, RN notes reviewed, old records reviewed - History of Present Illness Initial comments: This is a 78-year-old female who presents to the emergency department via EMS for altered level of consciousness and left-sided paralysis. According to EMS the caregiver states half an hour ago the patient was at her baseline neurolo gically. Patient is unable to give any history. We have no further history at this time. We were told the patient is not on any blood thinners - Related Data Home Medications Medication Instructions Recorded Confirmed Carbidopa-Levodopa 25-100 mg 1 tab PO QID 10/29/18 02/11/19 [Sinemet 25-100 mg] Cholecalciferol [Vitamin D3 (25 1,000 unit PO HS 10/29/18 02/11/19 Mcg = 1000 Iu)] Midodrine [ProAmatine] 5 mg PO BID 10/29/18 02/11/19 Hydrocodone/Acetaminophen [[place] 1 tab PO BID PRN 01/05/19 02/11/19 5-325] Multivitamins, Thera [Multivitamin 1 tab PO DAILY 01/05/19 02/11/19 (formulary)] traMADol HCl [Ultram] 50 mg PO TID PRN 01/05/19 02/11/19 Acetaminophen Tab [Tylenol Tab] 650 mg PO Q6H PRN 02/11/19 02/11/19 Aspirin 81 mg PO HS 02/11/19 02/11/19 Mirtazapine 7.5 mg PO HS 02/11/19 02/11/19 Sennosides-Docusate Sodium 2 tab PO HS 02/11/19 02/11/19 [Senokot-S] Previous Rx's Medication Instructions Recorded Famotidine [Pepcid] 20 mg PO DAILY tab 04/09/18 Atorvastatin [Lipitor] 40 mg PO HS #0 tab 11/07/18 Allergies Allergy/AdvReac Type Severity Reaction Status Date / Time No Known Allergies Allergy Verified 02/11/19 09:34 Review of Systems ROS Statement: Those systems with pertinent positive or pertinent negative responses have been documented in the HPI. ROS Other: All systems not noted in ROS Statement are negative. Past Medical History Past Medical History: Neurologic Disorder, Osteoarthritis (OA) Additional Past Medical History / Comment(s): Parkinsons disease, chronic back pain, spinal stenosis, numbness and tingling hands and feet, sinus problems, UTIs, urine incontinence. History of Any Multi-Drug Resistant Organisms: ESBL Date of last positivie culture/infection: 05/29/18 MDRO Source:: ESBL URINE Past Surgical History: Heart Catheterization, Hysterectomy Past Anesthesia/Blood Transfusion Reactions: No Reported Reaction Past Psychological History: No Psychological Hx Reported Smoking Status: Former smoker Past Alcohol Use History: None Reported Past Drug Use History: None Reported - Past Family History Father Family Medical History: No Reported History Additional Family Medical History / Comment(s): Father was an alcoholic. He at the age of 69yrs. Mother Family Medical History: Coronary Artery Disease (CAD), Diabetes Mellitus, Myocardial Infarction ([place]) Additional Family Medical History / Comment(s): Mother at age 89 from diabetes and coronary artery disease. Brother(s) Family Medical History: Coronary Artery Disease (CAD) Additional Family Medical History / Comment(s): Patient had 3 brothers all from coronary artery disease and 100s first [place] at age 60. Sister(s) Family Medical History: Cancer Additional Family Medical History / Comment(s): Patient had 2 sisters and one from breast cancer and the other from unknown cause suddenly. Daughter(s) Family Medical History: No Reported History Additional Family Medical History / Comment(s): Patient has one daughter with no major medical problems. Son(s) Family Medical History: No Reported History Additional Family Medical History / Comment(s): Patient has one son with no major medical problems. General Exam - General Exam Comments Initial Comments: GENERAL: Patient is well-developed and well-nourished. Patient is nontoxic and well-hydr ated and is in no acute distress. ENT: Neck is soft and supple. Oropharynx is clear. Moist mucous membranes. Neck has full range of motion without eliciting any pain. EYES: The sclera were anicteric and conjunctiva were pink and moist. Unable to assess extraocular motion because the patient will not follow commands PULMONARY: Unlabored respirations. Good breath sounds bilaterally. No audible rales rhonchi or wheezing was noted. CARDIOVASCULAR: There is a regular rate and rhythm without any murmurs gallops or rubs. ABDOMEN: Soft and nontender with normal bowel sounds. SKIN: Skin is clear with no lesions or rashes and otherwise unremarkable. NEUROLOGIC: Patient is alert and oriented 0. She will not follow any commands and was difficult to assess her cranial nerves and the rest of the NH. Patient does seem to be over move the right side occasionally but is unable to move the left side at all. MUSCULOSKELETAL: Normal extremities with adequate strength and full range of motion. No lower extremity swelling or edema. No calf tenderness. PSYCHIATRIC: Normal psychiatric evaluation. Course Vital Signs 02/11/19 02/11/19 09:12 10:08 Temperature 97.9 F Pulse Rate 86 81 Respiratory 18 18 Rate Blood Pressure 120/98 149/74 O2 Sat by Pulse 97 100 Oximetry Medical Decision Making - Medical Decision Making This a priority 1 code stroke Patient's EKG shows normal sinus rhythm at 85 bpm NC interval is 172 QRS is 90 QT interval 390 QTC is 464 per patient's EKG shows no ST segment elevation or depression. Computed tomography scan showed no acute abnormality. I spoke with Dr. Multani and and he looked at the CTA and found a occluded TPA on the right. He wanted TPA any confirmed with the family and family was in agreement with getting tPA so the patient got TPA. I spoke with Dr. Juarez agreed to admit the patient admitted the patient wrote admitting orders I consult the neurology - Lab Data Result diagrams: 02/11/19 09:15 02/11/19 09:15 Lab Results 02/11/19 02/11/19 02/11/19 Range/Units 09:15 09:15 09:15 WBC 7.3 (3.8-10.6) k/uL RBC 4.45 (3.80-5.40) m/uL Hgb 13.1 (11.4-16.0) gm/dL Hct 40.6 (34.0-46.0) % MCV 91.3 (80.0-100.0) fL MCH 29.5 (25.0-35.0) pg MCHC 32.3 (31.0-37.0) g/dL RDW 14.1 (11.5-15.5) % Plt Count 217 (150-450) k/uL Neutrophils % 71 % Lymphocytes % 20 % Monocytes % 6 % Eosinophils % 1 % Basophils % 1 % Neutrophils # 5.2 (1.3-7.7) k/uL Lymphocytes # 1.5 (1.0-4.8) k/uL Monocytes # 0.4 (0-1.0) k/uL Eosinophils # 0.0 (0-0.7) k/uL Basophils # 0.0 (0-0.2) k/uL PT (9.0-12.0) sec INR (<1.2) APTT (22.0-30.0) sec Sodium 144 (137-145) mmol/L Potassium 3.6 (3.5-5.1) mmol/L Chloride 105 (98-107) mmol/L Carbon Dioxide 28 (22-30) mmol/L Anion Gap 11 mmol/L BUN 17 (7-17) mg/dL Creatinine 0.81 (0.52-1.04) mg/dL Est GFR (CKD-EPI)AfAm 80 (>60 ml/min/1.73 sqM) Est GFR (CKD-EPI)NonAf 69 (>60 ml/min/1.73 sqM) Glucose 116 H (74-99) mg/dL POC Glucose (mg/dL) (75-99) mg/dL POC Glu [employer] Repairer ID Calcium 10.1 (8.4-10.2) mg/dL Total Bilirubin 1.0 (0.2-1.3) mg/dL AST 18 (14-36) U/L ALT 9 (4-34) U/L Alkaline Phosphatase 76 (38-126) U/L Total Creatine Kinase 38 (30-135) U/L CK-MB (CK-2) 0.7 (0.0-2.4) ng/mL CK-MB (CK-2) Rel Index 1.8 Troponin I <0.012 (0.000-0.034) ng/mL Total Protein 7.3 (6.3-8.2) g/dL Albumin 4.5 (3.5-5.0) g/dL 02/11/19 02/11/19 Range/Units 09:15 09:17 WBC (3.8-10.6) k/uL RBC (3.80-5.40) m/uL Hgb (11.4-16.0) gm/dL Hct (34.0-46.0) % MCV (80.0-100.0) fL MCH (25.0-35.0) pg MCHC (31.0-37.0) g/dL RDW (11.5-15.5) % Plt Count (150-450) k/uL Neutrophils % % Lymphocytes % % Monocytes % % Eosinophils % % Basophils % % Neutrophils # (1.3-7.7) k/uL Lymphocytes # (1.0-4.8) k/uL Monocytes # (0-1.0) k/uL Eosinophils # (0-0.7) k/uL Basophils # (0-0.2) k/uL PT 10.9 (9.0-12.0) sec INR 1.0 (<1.2) APTT 24.8 (22.0-30.0) sec Sodium (137-145) mmol/L Potassium (3.5-5.1) mmol/L Chloride (98-107) mmol/L Carbon Dioxide (22-30) mmol/L Anion Gap mmol/L BUN (7-17) mg/dL Creatinine (0.52-1.04) mg/dL Est GFR (CKD-EPI)AfAm (>60 ml/min/1.73 sqM) Est GFR (CKD-EPI)NonAf (>60 ml/min/1.73 sqM) Glucose (74-99) mg/dL POC Glucose (mg/dL) 112 H (75-99) mg/dL POC Glu [employer] Repairer Delfina Johnson Calcium (8.4-10.2) mg/dL Total Bilirubin (0.2-1.3) mg/dL AST (14-36) U/L ALT (4-34) U/L Alkaline Phosphatase (38-126) U/L Total Creatine Kinase (30-135) U/L CK-MB (CK-2) (0.0-2.4) ng/mL CK-MB (CK-2) Rel Index Troponin I (0.000-0.034) ng/mL Total Protein (6.3-8.2) g/dL Albumin (3.5-5.0) g/dL Critical Care Time Critical Care Time: Yes Total Critical Care Time: 35 Disposition Clinical Impression: Cerebrovascular accident (CVA) Disposition: ADMITTED IP TO THIS HOSP Referrals: Kwasi De Leon MD [Primary Care Provider] - 1-2 days Time of Disposition: 10:21
[2019-02-11 09:29] LABS: Glucose,Whole Blood 112 mg/dL (75-99)
[2019-02-11 09:31] LABS: Basophils % (A) 1 %; Eosinophils % (A) 1 %; HCT 40.6 % (34.0-46.0); HGB 13.1 gm/dL (11.4-16.0); Lymphocytes # (A) 1.5 k/uL (1.0-4.8); Lymphocytes % (A) 20 %; MCH 29.5 pg (25.0-35.0); MCHC 32.3 g/dL (31.0-37.0); MCV 91.3 fL (80.0-100.0); Mean Platelet Volume 9.1; Monocytes # (A) 0.4 k/uL (0-1.0); Monocytes % (A) 6 %; Neutrophils # (A) 5.2 k/uL (1.3-7.7); Neutrophils % (A) 71 %; Platelet Count 217 k/uL (150-450); RBC 4.45 m/uL (3.80-5.40); RDW 14.1 % (11.5-15.5); WBC 7.3 k/uL (3.8-10.6)
[2019-02-11] MEDS ORDERED: Alteplase PER PHARMACY Stroke 1 EACH MISC MISCELLANE PRN (09:37)
[2019-02-11] MEDS ORDERED: ALTEPLASE 46 MG in EMPTY BAG 1 BAG IV STA ×2 (09:39→09:40)
[2019-02-11] MEDS ORDERED: ALTEPLASE BOLUS 5 MG in EMPTY SYRINGE 1 SYR IV STA (09:39)
[2019-02-11 09:40] LABS: Albumin 4.5 g/dL (3.5-5.0); Calcium 10.1 mg/dL (8.4-10.2); Potassium 3.6 mmol/L (3.5-5.1); Total Protein 7.3 g/dL (6.3-8.2)
[2019-02-11 09:41] LABS: Partial Thromboplastin Time 24.8 sec (22.0-30.0); Prothrombin Time 10.9 sec (9.0-12.0)
[2019-02-11 09:49] LABS: Creatine Kinase 38 U/L (30-135)
--- NOTE | 2019-02-11 09:59 | CT ---
EXAMINATION TYPE: CT brain wo con for TPA DATE OF EXAM: 02/11/2019 COMPARISON: 01/05/2019 HISTORY: CODE STROKE CT DLP: 1341.[address] of the brain was performed. The ventricles, basal cisterns and sulci overlying the cerebral convexities demonstrate moderate enla rgement. There is no evidence for intracranial hemorrhage or sulcal effacement. There is decreased attenuation about the periventricular white matter and deep white matter of both c erebral hemispheres, compatible with chronic small vessel ischemia. Differential diagnosis does inclu de demyelination. No mass effects are seen.No midline shift. Osseous calvarium is intact. If symptoms persist consider MRI. IMPRESSION: 1. Age related atrophic and chronic small vessel ischemic change without acute intracranial process s een at this time.
[2019-02-11 10:03] LABS: Creatine Kinase MB 0.7 ng/mL (0.0-2.4); Troponin I <0.012 ng/mL (0.000-0.034)
--- NOTE | 2019-02-11 10:28 | CT ---
EXAMINATION TYPE: CT angio head neck DATE OF EXAM: 02/11/2019 COMPARISON: HISTORY: CODE STROKE CT DLP: 1341.7 mGycm CONTRAST: Performed without and with IV Contrast, patient injected with 65 ML mL of Isovue 370. Combination Contrast CTA cervical carotids and [place] CTA cervical carotids with 3-D recons truction Contrast CTA of the cervical carotids was performed 3-D reconstruction imaging obtained at a separate workstation. Right carotid system: Mild plaque is seen of the right common carotid artery. There is mild plaque a lso noted at the carotid bulb and proximal ICA. No significant diameter reduction. ECA is patent. Right vertebral artery appears unremarkable. Left carotid system: Mild plaque is seen of the left common carotid artery. There is mild plaque als o noted at the carotid bulb and proximal ICA. No significant diameter reduction. ECA is patent. Lef t vertebral artery appears unremarkable. IMPRESSION: 1. No significant diameter reduction to account for the patient's symptoms. CTA [place] with 3-D reconstruction Contrast CTA of the [place] was performed 3-D reconstruction imaging obtained at a separate workstation. There is abrupt termination distal right MCA segment 1 with poor visualization of the distal MCA bran ches. Vertebral basilar system is patent. I do not see evidence for sizable aneurysm or vascular malf ormation. Please note MRI provides greater sensitivity and specificity. Visualized brain appears gr ossly unremarkable. IMPRESSION: 1. There is abrupt termination distal right MCA segment 1 with poor visualization of the distal MCA b ranches.
[2019-02-11] MEDS ORDERED: SODIUM CHLORIDE 0.9% 50 ML MINI-BAG IV ONE (10:38)
--- NOTE | 2019-02-11 10:53 | XR ---
EXAMINATION TYPE: XR chest 1V portable DATE OF EXAM: 02/11/2019 COMPARISON: 01/05/2019 HISTORY: Strokelike symptoms and altered mental status. TECHNIQUE: Single frontal view of the chest is obtained. FINDINGS: There is chronic right hemidiaphragm elevation and right hemithorax volume loss. There is no focal air space opacity, pleural effusion, or pneumothorax seen. The cardiac silhouette size is w ithin normal limits. The osseous structures are intact. Diffuse osseous demineralization is seen. IMPRESSION: Chronic findings with no acute cardiopulmonary process.
[2019-02-11 12:03] LABS: Glucose,Whole Blood 118 mg/dL (75-99)
[2019-02-11] MEDS ORDERED: HYDROcodone/APAP 5-325MG 1 EACH TAB PO PRN (14:14)
--- NOTE | 2019-02-11 14:22 | P.HPIM ---
History of Present Illness H&P Date: 02/11/19 This is an 78-year-old female patient of Dr De Leon with a previous medical history significant for advanced Parkinson disease with significant spondylosis of the lumbar spine along with significant neuropathy both lower extremities, history of recurrent UTI, Generalized anxiety disorder. She had a recent hospitalization in October at which time she presented with acute mental status changes thought initially to be related to pneumonia but on subsequent CAT scan patient was found to have an acute/subacute ischemic infarct in the left parietal region.during the hospitalization, patient also had a fall and sustained a right femoral neck fracture for which she underwent a right hip hemiarthroplasty with Dr. Lopez. Patient was stabilized and discharged to [facility] where she completed subacute rehab. Patient resides at [facility]. patient's son Hollis and daughter Jayna are at the bedside. They give history the patient has had Parkinson's for 17 years but is noticed that lately she has had increased hallucinations and memory trouble. Patient needs assistance to a wheelchair. She occasionally uses a walker but unable to go very far. No tremors of been noted. When asked patient states that she is here to get a test done. Patient was noted by staff to have altered mental status and was sided paralysis. EMS was called the patient was brought into [facility] emergency center for evaluation. CAT scan found a right distal MCA CVA. Patient underwent TPA is now to be admitted to the ICU. Chest x-ray shows chronic findings. Consult in place with neurology and gliding pilot instructor. Review of Systems ROS unobtainable: due to mental status Past Medical History Past Medical History: Neurologic Disorder, Osteoarthritis (OA) Additional Past Medical History / Comment(s): Parkinsons disease, chronic back pain, spinal stenosis, numbness and tingling hands and feet, sinus problems, UTIs, urine incontinence. History of Any Multi-Drug Resistant Organisms: ESBL Date of last positivie culture/infection: 05/29/18 MDRO Source:: ESBL URINE Past Surgical History: Heart Catheterization, Hysterectomy Past Anesthesia/Blood Transfusion Reactions: No Reported Reaction Past Psychological History: No Psychological Hx Reported Smoking Status: Former smoker Past Alcohol Use History: None Reported Additional Past Alcohol Use History / Comment(s): Pt started smoking in 1957 and quit for a short time by 1991 but states she resumed smoking and quit September 2018. Past Drug Use History: None Reported - Past Family History Father Family Medical History: No Reported History Additional Family Medical History / Comment(s): Father was an alcoholic. He at the age of 69yrs. Mother Family Medical History: Coronary Artery Disease (CAD), Diabetes Mellitus, Myocardial Infarction (AR) Additional Family Medical History / Comment(s): Mother at age 89 from diabetes and coronary artery disease. Brother(s) Family Medical History: Coronary Artery Disease (CAD) Additional Family Medical History / Comment(s): Patient had 3 brothers all from coronary artery disease and 100s first AR at age 60. Sister(s) Family Medical History: Cancer Additional Family Medical History / Comment(s): Patient had 2 sisters and one from breast cancer and the other from unknown cause suddenly. Daughter(s) Family Medical History: No Reported History Additional Family Medical History / Comment(s): Patient has one daughter with no major medical problems. Son(s) Family Medical History: No Reported History Additional Family Medical History / Comment(s): Patient has one son with no major medical problems. Medications and Allergies Home Medications Medication Instructions Recorded Confirmed Type Famotidine [Pepcid] 20 mg PO DAILY tab 04/09/18 02/11/19 Rx Carbidopa-Levodopa 25-100 mg 1 tab PO QID 10/29/18 02/11/19 History [Sinemet 25-100 mg] Cholecalciferol [Vitamin D3 (25 1,000 unit PO HS 10/29/18 02/11/19 History Mcg = 1000 Iu)] Midodrine [ProAmatine] 5 mg PO BID 10/29/18 02/11/19 History Atorvastatin [Lipitor] 40 mg PO HS #0 tab 11/07/18 02/11/19 Rx Hydrocodone/Acetaminophen [[place]ut[place] 1 tab PO BID PRN 01/05/19 02/11/19 History 5-325] Multivitamins, Thera [Multivitamin 1 tab PO DAILY 01/05/19 02/11/19 History (formulary)] traMADol HCl [Ultram] 50 mg PO TID PRN 01/05/19 02/11/19 History Acetaminophen Tab [Tylenol Tab] 650 mg PO Q6H PRN 02/11/19 02/11/19 History Aspirin 81 mg PO HS 02/11/19 02/11/19 History Mirtazapine 7.5 mg PO HS 02/11/19 02/11/19 History Sennosides-Docusate Sodium 2 tab PO HS 02/11/19 02/11/19 History [Senokot-S] Allergies Allergy/AdvReac Type Severity Reaction Status Date / Time No Known Allergies Allergy Verified 02/11/19 09:34 Physical Exam Vitals: Vital Signs Temp Pulse Resp BP Pulse Ox 02/11/19 11:08 98.1 F 92 18 144/82 100 02/11/19 10:53 98.0 F 88 16 151/87 100 02/11/19 10:45 97.9 F 85 17 155/81 100 02/11/19 10:39 97.9 F 85 17 147/54 100 02/11/19 10:38 97.9 F 81 18 158/82 98 02/11/19 10:23 73 15 155/79 100 02/11/19 10:08 97.9 F 81 18 149/74 100 02/11/19 09:12 86 18 120/98 97 Intake and Output 02/10/19 02/11/19 02/11/19 22:59 06:59 14:59 Other: Weight 57.153 kg - Constitutional General appearance: mild distress, thin - EENT Eyes: anicteric sclerae, EOMI, PERRLA, no ptosis, no scleral icterus, normal appearance ENT: hard of hearing, NA/AT, normal oropharynx, no thrush Ears: bilateral: normal - Neck Neck: no lymphadenopathy, normal ROM, no rigidity, no stridor, no thyromegaly Carotids: bilateral: upstroke normal Thyroid: bilateral: normal size - Respiratory Respiratory: bilateral: diminished, negative: dullness, rales, rhonchi, wheezing, prolonged expiration - Cardiovascular Rhythm: regular Heart sounds: normal: S1, S2 Abnormal Heart Sounds: systolic murmur, no S3 Gallop, no S4 Gallop - Gastrointestinal General gastrointestinal: soft, no splenomegaly, no tenderness, no umbilical hernia, no ventral hernia - Integumentary Integumentary: decreased turgor, normal - Neurologic Neurologic: left facial droop - Musculoskeletal Musculoskeletal: no gait normal, generalized weakness - Psychiatric Psychiatric: Alert, O x's 1, no appropriate affect, no intact judgment & insight, unable to follow commands, patient unable to do finger to nose test.left-sided neglect, no eye contact, slight droop on the left face, dysarthria. Patient is unable to recall her year. She answers its January 2001. She knows the president. Results CBC & Chem 7: 02/11/19 09:15 02/11/19 09:15 Labs: Abnormal Lab Results - Last 24 Hours (Table) 02/11/19 02/11/19 Range/Units 09:15 09:17 Glucose 116 H (74-99) mg/dL POC Glucose (mg/dL) 112 H (75-99) mg/dL Thrombosis Risk Factor Assmnt - DVT/VTE Prophylaxis DVT/VTE Prophylaxis: Pharmacologic Prophylaxis ordered, Mechanical Prophylaxis ordered Assessment and Plan Plan: 1. 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 Patient admitted to the intensive care unit. Consult with neurology. PT, OT, speech therapy. 2. History of ischemic infarct left parietal region in October 2018. 3. Hypotension history. Midodrine will be placed on hold for now as patient is hypertensive. 4. Spondylosis of the lumbar spine. Continue patient on Akutan. 5. GERD. Continue Pepcid 20 mg orally once every day. 6. Advanced Parkinson disease. Continue with Sinemet 25/100 mg one tablet orally 4 times every day. 7. DVT prophylaxis. SCDs and OTTO hose. 8. GI prophylaxis. Continue Pepcid. CODE STATUS: No code. Patient admitted to the hospital for a minimum of 2 nights stay. Discharge plan: To be determined. PT, OT, social studies teacher consult. patient currently resides at [facility]. She has been at [facility] for subacute rehab in the past. Impression and plan of care have been directed as dictated by the signing physician. Ruma Richardson nurse practitioner acting as scribe for signing physician.
[2019-02-11] MEDS: ACETAMINOPHEN TAB 325 MG TAB PO PRN (14:34)
[2019-02-11] MEDS: CARBIDOPA-LEVODOPA 25-100 MG 1 EACH TAB PO SCH ×3 (14:35→21:12)
--- NOTE | 2019-02-11 16:29 | P.CNPUL ---
History of Present Illness Consult date: 02/11/19 Requesting physician: Akira Tavarez Reason for consult: other Chief complaint: acute mental status changes, left-sided weakness History of present illness: this is a 78-year-old patient of Dr. De Leon, with past medical history of advanced Parkinson's disease, recent hospitalization in October for pneumonia, and patient had mental status changes and was worked up for CVA, with CT angios of the brain showing acute/subacute ischemic infarct in the left parietal region. During the same hospitalization patient suffered a fall, and sustained a right femoral neck fracture with subsequent right hip hemiarthroplasty by Dr. Lopez. After discharge patient tomorrow and for rehabilitation and was subsequently discharged to assisted living at [facility]. patient has been having trouble ambulating, she usually gets around in the wheelchair and requires extensive assistance with ADLs. Her baseline mentation according to the son has been waxing and waning, and so has been her speech sometimes it is more slurred than others. She has been having increased hallucinations and memory impairments. This morning on 02/11/2019 patient was noted to have increased lethargy, and left-sided paralysis patient could not speak, and according to the son the onset from the time of symptoms began was on a half until arrival to the emergency department per EMS. CT angios of the brain found a right distal MCA occlusion, and patient underwent thrombolytic therapy with TPA and with permission of her son. Patient's neurological status has been improving some since the administration of the TPA, patient is now mumbling some words, and she is moving all 4 extremities although left-sided admitting representative is still weaker than the right side she is still lethargic, but she resists examination, does not appear to be in any acute distress, moving upper and lower extremities. Her pupils are equal and reactive. She passed bedside swallow evaluation. admission lab work has been reviewed, CBC was unremarkable, electrolytes and renal profile was normal, LFTs, troponins were negative. Patient is resting comfortably in the intensive care unit, she is having neurologic checks every 2 hours, neurological evaluation is pending, and the possibility of MRI of the brain tomorrow. Review of Systems All systems: negative Constitutional: Denies chills, Denies fever Eyes: denies blurred vision, denies pain Ears, nose, mouth and throat: Denies headache, Denies sore throat Cardiovascular: Denies chest pain, Denies shortness of breath Respiratory: Reports dyspnea, Denies cough Gastrointestinal: Denies abdominal pain, Denies diarrhea, Denies nausea, Denies vomiting Genitourinary: Denies dysuria, Denies hematuria Musculoskeletal: Denies myalgias Integumentary: Denies pruritus, Denies rash Neurological: Denies numbness, Denies weakness Psychiatric: Denies anxiety, Denies depression Endocrine: Denies fatigue, Denies weight change Past Medical History Past Medical History: Neurologic Disorder, Osteoarthritis (OA) Additional Past Medical History / Comment(s): Parkinsons disease, chronic back pain, spinal stenosis, numbness and tingling hands and feet, sinus problems, UTIs, urine incontinence. History of Any Multi-Drug Resistant Organisms: ESBL Date of last positivie culture/infection: 05/29/18 MDRO Source:: ESBL URINE Past Surgical History: Heart Catheterization, Hysterectomy Additional Past Surgical History / Comment(s): R hip hemiarthroplasty Past Anesthesia/Blood Transfusion Reactions: No Reported Reaction Past Psychological History: No Psychological Hx Reported Smoking Status: Former smoker Past Alcohol Use History: None Reported Additional Past Alcohol Use History / Comment(s): Pt started smoking in 5 and quit for a short time by 1991 but states she resumed smoking and quit September 2018. Past Drug Use History: None Reported - Past Family History Father Family Medical History: No Reported History Additional Family Medical History / Comment(s): Father was an alcoholic. He at the age of 69yrs. Mother Family Medical History: Coronary Artery Disease (CAD), Diabetes Mellitus, Myocardial Infarction (NE) Additional Family Medical History / Comment(s): Mother at age 89 from diabetes and coronary artery disease. Brother(s) Family Medical History: Coronary Artery Disease (CAD) Additional Family Medical History / Comment(s): Patient had 3 brothers all from coronary artery disease and 100s first NE at age 60. Sister(s) Family Medical History: Cancer Additional Family Medical History / Comment(s): Patient had 2 sisters and one from breast cancer and the other from unknown cause suddenly. Daughter(s) Family Medical History: No Reported History Additional Family Medical History / Comment(s): Patient has one daughter with no major medical problems. Son(s) Family Medical History: No Reported History Additional Family Medical History / Comment(s): Patient has one son with no major medical problems. Medications and Allergies Home Medications Medication Instructions Recorded Confirmed Type Famotidine [Pepcid] 20 mg PO DAILY tab 04/09/18 02/11/19 Rx Carbidopa-Levodopa 25-100 mg 1 tab PO QID 10/29/18 02/11/19 History [Sinemet 25-100 mg] Cholecalciferol [Vitamin D3 (25 1,000 unit PO HS 10/29/18 02/11/19 History Mcg = 1000 Iu)] Midodrine [ProAmatine] 5 mg PO BID 10/29/18 02/11/19 History Atorvastatin [Lipitor] 40 mg PO HS #0 tab 11/07/18 02/11/19 Rx Hydrocodone/Acetaminophen [[place]ec[place] 1 tab PO BID PRN 01/05/19 02/11/19 History 5-325] Multivitamins, Thera [Multivitamin 1 tab PO DAILY 01/05/19 02/11/19 History (formulary)] traMADol HCl [Ultram] 50 mg PO TID PRN 01/05/19 02/11/19 History Acetaminophen Tab [Tylenol Tab] 650 mg PO Q6H PRN 02/11/19 02/11/19 History Aspirin 81 mg PO HS 02/11/19 02/11/19 History Mirtazapine 7.5 mg PO HS 02/11/19 02/11/19 History Sennosides-Docusate Sodium 2 tab PO HS 02/11/19 02/11/19 History [Senokot-S] Allergies Allergy/AdvReac Type Severity Reaction Status Date / Time No Known Allergies Allergy Verified 02/11/19 09:34 Physical Exam Vitals: Vital Signs Temp Pulse Resp BP Pulse Ox 02/11/19 14:59 96 02/11/19 14:30 90 18 158/90 95 02/11/19 14:00 88 16 172/84 95 02/11/19 13:53 89 18 157/94 97 02/11/19 13:30 91 14 157/94 97 02/11/19 13:23 97.8 F 89 18 178/86 97 02/11/19 13:00 90 15 167/87 96 02/11/19 12:53 94 16 02/11/19 12:30 91 15 159/85 96 02/11/19 12:23 93 16 167/87 97 02/11/19 12:00 97.8 F 89 13 159/89 97 02/11/19 11:55 93 13 137/97 97 02/11/19 11:53 98.1 F 88 18 160/80 99 02/11/19 11:30 98.0 F 90 17 175/70 100 02/11/19 11:23 98.1 F 89 18 169/81 100 02/11/19 11:15 98.0 F 89 18 144/82 100 02/11/19 11:08 98.1 F 92 18 144/82 100 02/11/19 11:00 97.9 F 94 17 152/98 100 02/11/19 10:58 98.1 F 88 18 155/81 100 02/11/19 10:53 98.0 F 88 16 151/87 100 02/11/19 10:45 97.9 F 85 17 155/81 100 02/11/19 10:39 97.9 F 85 17 147/54 100 02/11/19 10:38 97.9 F 81 18 158/82 98 02/11/19 10:23 73 15 155/79 100 02/11/19 10:08 97.9 F 81 18 149/74 100 02/11/19 09:53 98.0 F 88 18 135/78 99 02/11/19 09:38 98.0 F 88 18 123/65 99 02/11/19 09:35 97.9 F 87 18 135/77 98 02/11/19 09:30 98.0 F 87 17 123/65 98 02/11/19 09:25 97.9 F 88 17 121/73 98 02/11/19 09:19 98.0 F 88 18 126/77 98 02/11/19 09:15 97.9 F 80 18 120/98 98 02/11/19 09:12 86 18 120/98 97 Intake and Output 02/11/19 02/11/19 02/11/19 06:59 14:59 22:59 Intake Total 20 Balance 20 Intake: Oral 20 Other: Voiding Method Bedside Commode Diaper Incontinent Weight 56.5 kg GENERAL EXAM: lethargic, 78-year-old frail looking white female, comfortably in bed, does not appear to be in any acute distress, follows simple commands, able to squeeze hands on command, moves all 4 extremities, resists opening her eyes to examination, comfortable in no apparent distress. HEAD: Normocephalic/atraumatic. EYES: Normal reaction of pupils, equal size. Conjunctiva pink, sclera white. NOSE: Clear with pink turbinates. THROAT: No erythema or exudates. NECK: No masses, no JVD, no thyroid enlargement, no adenopathy. CHEST: No chest wall deformity. Symmetrical expansion. LUNGS: Equal air entry with no crackles, wheeze, rhonchi or dullness. CVS: Regular rate and rhythm, normal S1 and S2, no gallops, no murmurs, no rubs ABDOMEN: Soft, nontender. No hepatosplenomegaly, normal bowel sounds, no guarding or rigidity. EXTREMITIES: No clubbing, no edema, no cyanosis, 2+ pulses and upper and lower extremities. MUSCULOSKELETAL: Muscle strength and tone normal. SPINE: No scoliosis or deformity SKIN: No rashes CENTRAL NERVOUS SYSTEM: lethargic but arousable. left-sided weakness of hand admitting representative process, but patient is able to move all 4 extremities. Results - Laboratory Findings CBC and BMP: 02/11/19 09:15 02/11/19 09:15 PT/INR, D-dimer PT 10.9 sec (9.0-12.0) 02/11/19 09:15 INR 1.0 (<1.2) 02/11/19 09:15 Abnormal lab findings: Abnormal Labs 02/11/19 02/11/19 02/11/19 09:15 09:17 12:01 Glucose 116 H POC Glucose (mg/dL) 112 H 118 H - Diagnostic Findings Chest x-ray: report reviewed, image reviewed Additional studies: Brain CT angiography, brain CT results reviewed Assessment and Plan Plan: Assessment: #1. Acute right distal MCA ischemic CVA status post TPA infusion. Patient had presented to the emergency department per EMS within an hour and a half of symptom onset. initial symptoms included left-sided weakness, aphasia and lethargy subsequently after the initiation of TPA patient's neurologic symptoms had improved, she is moving all 4 extremities although the left-sided admitting representative weakness persist #2. recent history of ischemic infarct involving the left parietal region in October 2018 #3. advanced history of Parkinson's disease #4. recent history of fall with a femoral neck fracture, is post right hip hemiarthroplasty #5. History of recurrent UTIs with ESBL producing organisms #6. former smoker, currently in remission #7. osteoarthritis #8. Chronic back pain, spinal stenosis, peripheral neuropathy #9. gait dysfunction #10. Poor baseline functional status, resides at [place] assisted living facility[place] extensive assistance with all ADLs, most recently since her previous episode of pneumonia, stroke and right hip fracture patient has been experiencing declining functional status even further Plan: continue IV fluids at 50 ML per hour, continue medical treatment, close hemodynamic monitoring, neuro checks every 2 hours, neurologic consultation is pending, possibility of MRI of the brain tomorrow, will await further input from neurology, neurological symptoms have improved since TPA infusion, and is moving all 4 extremities, and she is able to mumble a few words. Vital signs are stable, maintain aspiration precautions, and she has been evaluated by speech therapy. Discussed CODE STATUS with patient's son and [id number], and the remainder clear the patient is to be a DO NOT RESUSCITATE CODE STATUS. Continue supportive treatment at this time, overall prognosis is guarded I performed a history & physical examination of the patient and discussed their management with my nurse practitioner, Nurys Sands. I reviewed the nurse practitioner's note and agree with the documented findings and plan of care. Lung sounds are positive for diminished breath sounds. The findings and the impression was discussed with the patient. I attest to the documentation by the nurse practitioner. Time with Patient: Greater than 30
[2019-02-11] MEDS ORDERED: ASPIRIN 81 MG PO SCH (21:00)
[2019-02-11] MEDS ORDERED: ATORVASTATIN 40 MG TAB PO SCH (21:00)
[2019-02-11] MEDS: SENNOSIDES-DOCUSATE SODIUM 1 EACH TAB PO SCH (21:12)
[2019-02-11] MEDS: traMADol 50 MG TAB PO SCH (21:12)
--- NOTE | 2019-02-11 21:14 | P.CNNES ---
History of Present Illness Consult date: 02/11/19 Reason for Consult: Stroke Chief complaint: AMS and L-sided paralysis History of Present Illness: HISTORY OF PRESENT ILLNESS: Thank you for allowing me to evaluate Ms. Leighann Bradshaw. Ms. Bradshaw is an 78 year-old woman with PMhx of osteoarthritis, Parkinson's disease, chronic back pain, spinal stenosis, peripheral neuropathy, sinus problems, urinary incontinence, who presented to [facility] for AMS and L-sided paralysis. Son is at bedside for additional information. States patient woke up this morning, had breakfast, and her home health person was taking care of her when she started not making sense and stooped over to the left. Patient was immediately brought to the hospital where CT Head showed a dense R MCA sign and CTA also showed occlusion of R MCA, was given tPA but considered not a candidate for thrombectomy as patient at baseline requires much assistance. Patient's symptoms improved significant with tPA. Son states that patient was not able to move her L side at all before tPA but she's now moving it. Denies any recent sickness, much complaint other than her back pain. PAST MEDICAL HISTORY: osteoarthritis, Parkinson's disease, chronic back pain, spinal stenosis, peripheral neuropathy, sinus problems, urinary incontinence PAST SURGICAL HISTORY: heart catheterization, hysterectomy HOME MEDICATIONS: Sinemet, vitamin D, midodrine, multivitamin, tramadol, aspirin, mirtazapine, Senokot ALLERGIES: NKDA SOCIAL HISTORY: former smoker. FAMILY HISTORY: father was an alcoholic. mother with coronary artery disease, diabetes, [place]. B therese all from coronary artery disease and [place]. Sister with breast cancer REVIEW OF SYSTEMS: The 14 systems are reviewed and no additional points are identified compared to the review of systems documented history and physical PHYSICAL EXAMINATION: VITAL SIGNS: T 97.8 HR 89 RR 13 BP 159/89 O2 sat 97% on RA GEN.: NAD, pleasant and cooperative HEENT: NCAT, sclera without icterus NECK: Supple SKIN AND EXTREMITIES: Warm to touch, no edema NEURO: MENTAL STATUS: Patient alert and oriented to self, place, time. Unable to name the current president. Speech fluent, able to name and repeat, following most simple commands. No right and left disorientation, possibly some L-sided neglect. CRANIAL NERVES II THROUGH XII: II: Pupils are equal and reactive to light symmetrically. No afferent pupillary defect. Visual conti are intact. III, IV, : No ptosis. Extraocular movements full. No nystagmus. V: Facial sensation intact from V1-3. VII. No clear facial asymmetry. VIII: Hearing intact to finger rub bilaterally. IX, X: Symmetric palate elevation. XI: Shoulder shrug intact. XII: Tongue midline without fasciculation or atrophy. MOTOR: Normal bulk, slightly increased tone. No pronator drift or tremor. Strength is at least antigravity in both UE. Difficulty with moving b/l LE against gravity but patient at baseline is wheelchair-bound and difficulty with leg movements. SENSORY: Intact to light touch in all 4 extremities. REFLEXES: 2+ throughout. Toes are downgoing. COORDINATION/GAIT: Deferred DIAGNOSTIC TESTING: LABORATORY: WBC 7.3 hemoglobin 13.1 platelet 217 sodium 144 potassium 3.6 chloride 105 bicarb 28 BUN 17 creatinine 0.81 glucose 116 AST 18 ALT 9 alk phos 76 troponin <0.012 IMAGING: CT head without contrast 02/11/2019: age-related chronic ischemic changes. no abnormality at this time. Per my read, there is hyperdensity in the right MCA, concerning for occlusion CTA head and neck with contrast 02/11/2019: no significant diameter reduction to account for the patient's symptoms in the neck. therapist's abrupt termination distal right MCA segment with poor visualization of the distal MCA branches ASSESSMENT: 78 year-old woman with PMhx of osteoarthritis, Parkinson's disease, chronic back pain, spinal stenosis, peripheral neuropathy, sinus problems, urinary incontinence, who presented to [facility] for AMS and L-sided paralysis, found with occlusion of R MCA, given tPA, which significant improved patient's deficits. RECOMMENDATIONS: 1. MRI brain without contrast 24 hours after tPA 2. Transthoracic echocardiogram 3. Cardiac monitoring 4. BP management per post-tPA protocol 5. hold ASA 81mg qday for now 6. Atorvastatin 80mg qhs 7. Labs: A1C, TSH, FLP 8. PT/OT/ST per protocol 9. Neurology will continue to follow 10. Patient needs to follow up with neurologist as outpatient with her 1-2 weeks of discharge 11. Discussed ED precautions with family: return to ED if having severe headache, nausea, vomiting, vision deficits, speech difficulty, facial asymmetry, weakness, numbness or tingling. Past Medical History Past Medical History: Neurologic Disorder, Osteoarthritis (OA) Additional Past Medical History / Comment(s): Parkinsons disease, chronic back pain, spinal stenosis, numbness and tingling hands and feet, sinus problems, UTIs, urine incontinence. History of Any Multi-Drug Resistant Organisms: ESBL Date of last positivie culture/infection: 05/29/18 MDRO Source:: ESBL URINE Past Surgical History: Heart Catheterization, Hysterectomy Past Anesthesia/Blood Transfusion Reactions: No Reported Reaction Past Psychological History: No Psychological Hx Reported Smoking Status: Former smoker Past Alcohol Use History: None Reported Past Drug Use History: None Reported - Past Family History Father Family Medical History: No Reported History Additional Family Medical History / Comment(s): Father was an alcoholic. He at the age of 69yrs. Mother Family Medical History: Coronary Artery Disease (CAD), Diabetes Mellitus, Myocardial Infarction ([place]) Additional Family Medical History / Comment(s): Mother at age 89 from diabetes and coronary artery disease. Brother(s) Family Medical History: Coronary Artery Disease (CAD) Additional Family Medical History / Comment(s): Patient had 3 brothers all from coronary artery disease and 100s first [place] at age 60. Sister(s) Family Medical History: Cancer Additional Family Medical History / Comment(s): Patient had 2 sisters and one from breast cancer and the other from unknown cause suddenly. Daughter(s) Family Medical History: No Reported History Additional Family Medical History / Comment(s): Patient has one daughter with no major medical problems. Son(s) Family Medical History: No Reported History Additional Family Medical History / Comment(s): Patient has one son with no major medical problems. Medications and Allergies Home Medications Medication Instructions Recorded Confirmed Type Famotidine [Pepcid] 20 mg PO DAILY tab 04/09/18 02/11/19 Rx Carbidopa-Levodopa 25-100 mg 1 tab PO QID 10/29/18 02/11/19 History [Sinemet 25-100 mg] Cholecalciferol [Vitamin D3 (25 1,000 unit PO HS 10/29/18 02/11/19 History Mcg = 1000 Iu)] Midodrine [ProAmatine] 5 mg PO BID 10/29/18 02/11/19 History Atorvastatin [Lipitor] 40 mg PO HS #0 tab 11/07/18 02/11/19 Rx Hydrocodone/Acetaminophen [Timber 1 tab PO BID PRN 01/05/19 02/11/19 History 5-325] Multivitamins, Thera [Multivitamin 1 tab PO DAILY 01/05/19 02/11/19 History (formulary)] traMADol HCl [Ultram] 50 mg PO TID PRN 01/05/19 02/11/19 History Acetaminophen Tab [Tylenol Tab] 650 mg PO Q6H PRN 02/11/19 02/11/19 History Aspirin 81 mg PO HS 02/11/19 02/11/19 History Mirtazapine 7.5 mg PO HS 02/11/19 02/11/19 History Sennosides-Docusate Sodium 2 tab PO HS 02/11/19 02/11/19 History [Senokot-S] Allergies Allergy/AdvReac Type Severity Reaction Status Date / Time No Known Allergies Allergy Verified 02/11/19 09:34 Physical Examination - Vital Signs Vital Signs: Vital Signs Temp Pulse Resp BP Pulse Ox 02/11/19 12:00 97.8 F 89 13 159/89 97 02/11/19 11:55 93 13 137/97 97 02/11/19 11:53 98.1 F 88 18 160/80 99 02/11/19 11:30 98.0 F 90 17 175/70 100 02/11/19 11:23 98.1 F 89 18 169/81 100 02/11/19 11:15 98.0 F 89 18 144/82 100 02/11/19 11:08 98.1 F 92 18 144/82 100 02/11/19 11:00 97.9 F 94 17 152/98 100 02/11/19 10:58 98.1 F 88 18 155/81 100 02/11/19 10:53 98.0 F 88 16 151/87 100 02/11/19 10:45 97.9 F 85 17 155/81 100 02/11/19 10:39 97.9 F 85 17 147/54 100 02/11/19 10:38 97.9 F 81 18 158/82 98 02/11/19 10:23 73 15 155/79 100 02/11/19 10:08 97.9 F 81 18 149/74 100 02/11/19 09:53 98.0 F 88 18 135/78 99 02/11/19 09:38 98.0 F 88 18 123/65 99 02/11/19 09:35 97.9 F 87 18 135/77 98 02/11/19 09:30 98.0 F 87 17 123/65 98 02/11/19 09:25 97.9 F 88 17 121/73 98 02/11/19 09:19 98.0 F 88 18 126/77 98 02/11/19 09:15 97.9 F 80 18 120/98 98 02/11/19 09:12 86 18 120/98 97 Intake and Output 02/10/19 02/11/19 02/11/19 22:59 06:59 14:59 Other: Weight 56.5 kg Results - Laboratory Findings CBC and BMP: 02/11/19 09:15 02/11/19 09:15 Abnormal Lab Findings: Abnormal Labs 02/11/19 02/11/19 02/11/19 09:15 09:17 12:01 Glucose 116 H POC Glucose (mg/dL) 112 H 118 H
[2019-02-12 05:24] LABS: Basophils % (A) 1 %; Eosinophils # (A) 0.1 k/uL (0-0.7); Eosinophils % (A) 1 %; HCT 36.9 % (34.0-46.0); HGB 12.2 gm/dL (11.4-16.0); Lymphocytes # (A) 1.3 k/uL (1.0-4.8); Lymphocytes % (A) 23 %; MCH 30.5 pg (25.0-35.0); MCV 92.2 fL (80.0-100.0); Mean Platelet Volume 9.8; Monocytes # (A) 0.4 k/uL (0-1.0); Monocytes % (A) 7 %; Neutrophils # (A) 3.7 k/uL (1.3-7.7); Neutrophils % (A) 66 %; Platelet Count 183 k/uL (150-450); WBC 5.6 k/uL (3.8-10.6)
[2019-02-12 05:47] LABS: African American GFR (CKD) >90 (>60 ml/min/1.73 sqM); Anion Gap 7 mmol/L; Blood Urea Nitrogen 15 mg/dL (7-17); Calcium 9.7 mg/dL (8.4-10.2); Carbon Dioxide 26 mmol/L (22-30); Chloride 108 mmol/L (98-107); Cholesterol 90 mg/dL (<200); Glucose 84 mg/dL (74-99); HDL Cholesterol 40 mg/dL (40-60); LDL Cholesterol,Calculated 33 mg/dL (0-99); Non-African American GFR(CKD) 83 (>60 ml/min/1.73 sqM); Potassium 3.3 mmol/L (3.5-5.1); Sodium 141 mmol/L (137-145); Triglycerides 83 mg/dL (<150)
[2019-02-12] MEDS ORDERED: POTASSIUM BICARBONATE/CIT AC 20 MEQ TABLET.EFF PO ONE (06:14)
--- NOTE | 2019-02-12 08:22 | P.PN ---
Subjective Progress Note Date: 02/12/19 Principal diagnosis: Acute right MCA CVA, left-sided weakness, aphasia this is a 78-year-old patient of Dr. De Leon, with past medical history of advanced Parkinson's disease, recent hospitalization in October for pneumonia, and patient had mental status changes and was worked up for CVA, with CT angios of the brain showing acute/subacute ischemic infarct in the left parietal region. During the same hospitalization patient suffered a fall, and sustained a right femoral neck fracture with subsequent right hip hemiarthroplasty by Dr. Lopez. After discharge patient tomorrow and for rehabilitation and was subsequently discharged to assisted living at [facility]. patient has been having trouble ambulating, she usually gets around in the wheelchair and requires extensive assistance with ADLs. Her baseline mentation according to the son has been waxing and waning, and so has been her speech sometimes it is more slurred than others. She has been having increased hallucinations and memory impairments. This morning on 02/11/2019 patient was noted to have incre ased lethargy, and left-sided paralysis patient could not speak, and according to the son the onset from the time of symptoms began was on a half until arrival to the emergency department per EMS. CT angios of the brain found a right distal MCA occlusion, and patient underwent thrombolytic therapy with TPA and with permission of her son. Patient's neurological status has been improving some since the administration of the TPA, patient is now mumbling some words, and she is moving all 4 extremities although left-sided shop blacksmith is still weaker than the right side she is still lethargic, but she resists examination, does not appear to be in any acute distress, moving upper and lower extremities. Her pupils are equal and reactive. She passed bedside swallow evaluation. admission lab work has been reviewed, CBC was unremarkable, electrolytes and renal profile was normal, LFTs, troponins were negative. Patient is resting comfortably in the intensive care unit, she is having neurologic checks every 2 hours, neurological evaluation is pending, and the possibility of MRI of the brain tomorrow. On 02/12/2019 patient seen in follow-up in intensive care unit, she is somnolent, but opens eyes to voice, follows commands, she is oriented to place and the month, but not the year. Denies any acute distress, no acute issues overnight, patient is moving all 4 extremities, very slight left-sided shop blacksmith weakness, speech is more clear today. Vital signs are stable, sinus rhythm on the monitor with a rate of 87, blood pressure is 124/66, patient is on room air, pulse ox is 96%, denies any shortness of breath, no signs of any distress. No acute issues overnight, patient has been evaluated by speech therapy, she passed the bedside swallow evaluation, and will likely need assistance and supervision with meals in view of her generalized weakness and lethargy. MRI of the brain is pending for today. Today's labs have been reviewed, and CBC is unremarkable, electrolytes are within normal limits with the exception of potassium which is at 3.3 and this was replaced per protocol. Objective - Vital Signs Vital signs: Vital Signs Temp 97.4 F L 02/12/19 04:00 Pulse 76 02/12/19 06:00 Resp 16 02/12/19 06:00 BP 138/71 02/12/19 06:00 Pulse Ox 97 02/12/19 06:00 Intake & Output 02/11/19 02/12/19 02/12/19 18:59 06:59 18:59 Intake Total 70 Output Total 0 Balance 70 0 Weight 56.5 kg 58.4 kg Intake: Oral 70 Output: Urine 0 Other: Voiding Method Bedside Commode Incontinent Diaper Incontinent # Voids 2 1 - Exam GENERAL EXAM: lethargic, 78-year-old frail looking white female, comfortably in bed, does not appear to be in any acute distress, follows simple commands, able to squeeze hands on command, moves all 4 extremities, opens eyes to examination, comfortable in no apparent distress. HEAD: Normocephalic/atraumatic. EYES: Normal reaction of pupils, equal size, 4 mm in diameter. Conjunctiva pink, sclera white. NOSE: Clear with pink turbinates. THROAT: No erythema or exudates. NECK: No masses, no JVD, no thyroid enlargement, no adenopathy. CHEST: No chest wall deformity. Symmetrical expansion. LUNGS: Equal air entry with no crackles, wheeze, rhonchi or dullness. CVS: Regular rate and rhythm, normal S1 and S2, no gallops, no murmurs, no rubs ABDOMEN: Soft, nontender. No hepatosplenomegaly, normal bowel sounds, no guarding or rigidity. EXTREMITIES: No clubbing, no edema, no cyanosis, 2+ pulses and upper and lower extremities. MUSCULOSKELETAL: Muscle strength and tone normal. SPINE: No scoliosis or deformity SKIN: No rashes CENTRAL NERVOUS SYSTEM: lethargic but arousable. left-sided weakness of hand shop blacksmith, but patient is able to move all 4 extremities. - Labs CBC & Chem 7: 02/12/19 04:36 02/12/19 04:36 Labs: Abnormal Lab Results - Last 24 Hours (Table) 02/11/19 02/11/19 02/11/19 Range/Units 09:15 09:17 12:01 Potassium (3.5-5.1) mmol/L Chloride (98-107) mmol/L Glucose 116 H (74-99) mg/dL POC Glucose (mg/dL) 112 H 118 H (75-99) mg/dL 02/12/19 Range/Units 04:36 Potassium 3.3 L (3.5-5.1) mmol/L Chloride 108 H (98-107) mmol/L Glucose (74-99) mg/dL POC Glucose (mg/dL) (75-99) mg/dL Assessment and Plan Plan: Assessment: #1. Acute right distal MCA ischemic CVA status post TPA infusion. Patient had presented to the emergency department per EMS within an hour and a half of symptom onset. initial symptoms included left-sided weakness, aphasia and lethargy subsequently after the initiation of TPA patient's neurologic symptoms had improved, she is moving all 4 extremities although the left-sided shop blacksmith weakness persist #2. recent history of ischemic infarct involving the left parietal region in S 2018 #3. advanced history of Parkinson's disease #4. recent history of fall with a femoral neck fracture, is post right hip hemiarthroplasty #5. History of recurrent UTIs with ESBL producing organisms #6. former smoker, currently in remission #7. osteoarthritis #8. Chronic back pain, spinal stenosis, peripheral neuropathy #9. gait dysfunction #10. Poor baseline functional status, resides at an assisted living facility, needs extensive assistance with all ADLs, most recently since her previous episode of pneumonia, stroke and right hip fracture patient has been experiencing declining functional status even further Plan: Continue neuro checks every 2 hours, MRI of the brain is pending for today, vital signs are stable, neurologically patient seems to be slightly improved, she is speaking better, she is oriented to place and the month. Vital signs are stable, No acute issues overnight, echocardiogram is pending, neurology is following, we'll continue to follow I performed a history & physical examination of the patient and discussed their management with my nurse practitioner, Nurys Sands. I reviewed the nurse practitioner's note and agree with the documented findings and plan of care. Lung sounds are positive for diminished breath sounds. The findings and the impression was discussed with the patient. I attest to the documentation by the nurse practitioner. Time with Patient: Less than 30
[2019-02-12] MEDS: traMADol 50 MG TAB PO SCH ×2 (09:01→21:37)
[2019-02-12] MEDS: MULTIVITAMINS, THERA 1 EACH TAB PO SCH (09:01)
[2019-02-12] MEDS: FAMOTIDINE 20 MG TAB PO SCH (09:02)
[2019-02-12] MEDS: CARBIDOPA-LEVODOPA 25-100 MG 1 EACH TAB PO SCH ×4 (09:02→21:36)
[2019-02-12] MEDS: ACETAMINOPHEN TAB 325 MG TAB PO PRN (10:49)
--- NOTE | 2019-02-12 12:17 | P.PN ---
Subjective Progress Note Date: 02/12/19 This is an 78-year-old female patient of Dr De Leon with a previous medical history significant for advanced Parkinson disease with significant spondylosis of the lumbar spine along with significant neuropathy both lower extremities, history of recurrent UTI, Generalized anxiety disorder. She had a recent hospitalization in October at which time she presented with acute mental status changes thought initially to be related to pneumonia but on subsequent CAT scan patient was found to have an acute/subacute ischemic infarct in the left parietal region.during the hospitalization, patient also had a fall and sustained a right femoral neck fracture for which she underwent a right hip hemiarthroplasty with Dr. Lopez. Patient was stabilized and discharged to [facility] where she completed subacute rehab. Patient resides at [facility]. patient's son Hollis and daughter Jayna are at the bedside. They give history the patient has had Parkinson's for 17 years but is noticed that lately she has had increased hallucinations and memory trouble. Patient needs assistance to a wheelchair. She occasionally uses a walker but unable to go very far. No tremors of been noted. When asked patient states that she is here to get a test done. Patient was noted by staff to have altered mental status and was sided paralysis. EMS was called the patient was brought into [facility] emergency center for evaluation. CAT scan found a right distal MCA CVA. Patient underwent TPA is now to be admitted to the ICU. Chest x-ray shows chronic findings. Consult in place with neurology and refrigeration manager. 02/12: Patient is seen today in the intensive care unit. Patient is awake and alert. She is able to follow all commands. Sales And Catering Coordinator on her left arm is much stronger and able to lift her left leg. Her speech is clear although full comprehension is not noted. She does know that she is in the hospital but this is January,. She was able to recall her date including the year. She knows that Pres. Vaughn is in office. She is noted to have less neglect on the left side today. She does verbalize that she did not like being at [facility] when therapy was discussed. the patient wasn't [place] following her last admission.she has been evaluated by speech therapy and passed bedside swallow and her home medications were resumed yesterday. PT and OT will be evaluating her today. Dr. Posadas has evaluated the patient with recommendations for repeat CAT scan or MRI of the brain today. Dr. Posadas has recommended holding aspirin for now, continue atorvastatin. potassium is 3.3 and has been replaced. triglycerides 83, cholesterol 90, LDL 33, HDL 40, TSH 1.540. patient has been afebrile, heart rate 70, blood pressure 103/53, pulse ox 95% on room air. test carrier has been a sinus rhythm. Review of Systems ROS unobtainable: due to mental status Review Of Systems: Constitutional: No fever, no chills, no night sweats. reports weakness, fatigue or lethargy. EENT: No headache. no loss of vision. No loss of Hearing, no dizziness. No nasal drainage or congestion. No epistaxis. No sore throat. Lungs: No shortness of breath, cough, no sputum production. No wheezing. Cardiovascular: reports chest tenderness, no lower extremity edema. No palpitations. No paroxysmal nocturnal dyspnea. No orthopnea. No lightheadedne ss or dizziness. No syncopal episodes. Abdominal: No abdominal pain. No nausea, vomiting. No diarrhea. No constipation. No bloody or tarry stools.. No loss of appetite. Genitourinary: No urinary retention. Musculoskeletal: No myalgias. reports muscle weakness, reports gait dysfunction. Integumentary: No wounds, no lesions. No rash or pruritus. No unusual bruising. Neurologic: No aphasia. reports facial droop. reports change in mentatio- improving. No head injury. No headache. Psychiatric: No depression. No anxiety. Endocrine: No abnormal blood sugars. No weight change. No excessive sweating or thirst. No cold intolerance. Objective - Vital Signs Vital signs: Vital Signs Temp 97.8 F 02/12/19 08:00 Pulse 80 02/12/19 09:00 Resp 17 02/12/19 09:00 BP 146/71 02/12/19 09:00 Pulse Ox 95 02/12/19 09:00 Intake & Output 02/11/19 02/12/19 02/12/19 18:59 06:59 18:59 Intake Total 70 100 Output Total 0 0 Balance 70 0 100 Weight 56.5 kg 58.4 kg Intake: Oral 70 100 Output: Urine 0 0 Other: Voiding Method Bedside Commode Incontinent Incontinent Diaper Incontinent # Voids 2 1 - Exam - Constitutional General appearance: no distress, thin - EENT Eyes: anicteric sclerae, EOMI, PERRLA, no ptosis, no scleral icterus, normal appearance ENT: hard of hearing, NA/AT, normal oropharynx, no thrush Ears: bilateral: normal - Neck Neck: no lymphadenopathy, normal ROM, no rigidity, no stridor, no thyromegaly Carotids: bilateral: upstroke normal Thyroid: bilateral: normal size - Respiratory Respiratory: bilateral: diminished, negative: dullness, rales, rhonchi, wheezing, prolonged expiration - Cardiovascular Rhythm: regular Heart sounds: normal: S1, S2 Abnormal Heart Sounds: systolic murmur, no S3 Gallop, no S4 Gallop - Gastrointestinal General gastrointestinal: soft, no splenomegaly, no tenderness, no umbilical h ernia, no ventral hernia - Integumentary Integumentary: decreased turgor, normal - Neurologic Neurologic: left facial droop - Musculoskeletal Musculoskeletal: no gait normal, generalized weakness - Psychiatric Psychiatric: Alert, O x's to person and place, able to follow commands, left- sided neglect improved from yesterday, slight droop on the left face. - Labs CBC & Chem 7: 02/12/19 04:36 02/12/19 04:36 Labs: Abnormal Lab Results - Last 24 Hours (Table) 02/11/19 02/12/19 Range/Units 12:01 04:36 Potassium 3.3 L (3.5-5.1) mmol/L Chloride 108 H (98-107) mmol/L POC Glucose (mg/dL) 118 H (75-99) mg/dL Assessment and Plan Plan: 1. 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 Patient admitted to the intensive care unit. Consult with neurology. PT, OT, speech therapy. Repeat CAT scan or MRI of the brain today. 2. History of ischemic infarct left parietal region in October 2018. 3. Hypotension history. Midodrine will be placed on hold for now as patient is hypertensive. 4. Spondylosis of the lumbar spine. Continue patient on [place]. 5. GERD. Continue Pepcid 20 mg orally once every day. 6. Advanced Parkinson disease. Continue with Sinemet 25/100 mg one tablet orally 4 times every day. 7. DVT prophylaxis. SCDs and OTTO hose. 8. GI prophylaxis. Continue Pepcid. CODE STATUS: No code. Discharge plan: To be determined. PT, OT, dialysis social worker consult. Patient xena howell resides at [facility]. She has been at [facility] for subacute rehab in the past. Impression and plan of care have been directed as dictated by the signing physician. Ruma Richardson nurse practitioner acting as scribe for signing physician.
[2019-02-12 13:15] LABS: Hemoglobin A1C 4.9 % (4.0-6.0)
--- NOTE | 2019-02-12 13:37 | CT ---
EXAMINATION TYPE: CT brain wo con DATE OF EXAM: 02/12/2019 HISTORY: S/P TPA CT DLP: 1099.4 mGycm. Automated Exposure Control for Dose Reduction was Utilized. TECHNIQUE: CT scan of the head is performed without contrast. COMPARISON: CT brain from 1 day earlier and older CTs. FINDINGS: There is no acute intracranial hemorrhage or midline shift identified. There is diffuse v entricular and sulcal prominence consistent with diffuse cerebral atrophy most prominent over the caroline ateral frontal and temporal lobes. There is vague area of low attenuation left frontoparietal juncti on near axial image 34 redemonstrated consistent with area of old encephalomalacia not significantly changed from prior studies. The globes are intact and the visualized sinuses are clear. IMPRESSION: No acute intracranial hemorrhage or midline shift. There is moderate diffuse cerebral a trophy most prominent over bilateral frontal and temporal lobes and old left-sided infarct are all re demonstrated.
--- NOTE | 2019-02-12 15:32 | P.CRDCN ---
History of Present Illness Consult date: 02/12/19 Requesting physician: Suma Juarez Reason for Consult (text): CVA History of present illness: This is an 78-year-old female with history of advanced Parkinson's with significant spondylolysis of the lumbar spine along with significant neuropathy to both lower extremities, history of recurrent UTIs, anxiety disorder. She had a recent hospitalization in October at which time she presented with an acute change in mental status which was initially felt to be related to pneumonia but on subsequent CAT scan the patient was found to have an acute/subacute ischemic infarct in the left parietal region. During that hospitalization patient also experienced a fall and sustained a right from oral neck fracture for which she underwent a right hip hemiarthroplasty by Dr. Lopez. Patient was stabilized and discharged to [facility] where she completed her subacute rehab. She resides at [facility]. The patient was apparently noted by the staff there to have altered mental status changes, increased hallucination and also noted that her speech was more slurred than at other times. Apparently the patient became quite lethargic, had left-sided paralysis, could not speak, and patient was brought to the hospital. CT angios of the brain found a right distal MCA occlusion and patient underwent thrombo lytic therapy with tPA under permission of her son. The patient's neurological status has been improving since the administration of the TPA, today she was seen and examined in the intensive care unit sitting up in the chair at bedside. Answering most questions very appropriately. She does appear quite anxious, she also expressed that she does not want to have an ultrasound of the heart which was attempted to be obtained this morning. She continues to be weak on the left side with her surgical sales representative, according to staff much more awake than earlier when she was still quite lethargic. She does not appear to be in any acute distress she is moving her upper and lower extremities. Pupils are equal and reactive. She also passed the bedside swallow evaluation. Her EKG showed a normal sinus rhythm with no acute changes. On review of the rhythm strips it does not appear that the patient has had any episodes of atrial fibrillation. Blood pressure today 152/78 with a heart rate in the 90s, 96% on room air. White blood cell count 5.6, hemoglobin 12.2, platelet count 183. Sodium 141, potassium 3.3, BUN 15 and creatinine 0.6. Troponin 0.012. TSH level I.5. Past Medical History Past Medical History: Neurologic Disorder, Osteoarthritis (OA) Additional Past Medical History / Comment(s): Parkinsons disease, chronic back pain, spinal stenosis, numbness and tingling hands and feet, sinus problems, UTIs, urine incontinence. History of Any Multi-Drug Resistant Organisms: ESBL Date of last positivie culture/infection: 05/29/18 MDRO Source:: ESBL URINE Past Surgical History: Heart Catheterization, Hysterectomy Additional Past Surgical History / Comment(s): R hip hemiarthroplasty Past Anesthesia/Blood Transfusion Reactions: No Reported Reaction Past Psychological History: No Psychological Hx Reported Smoking Status: Former smoker Past Alcohol Use History: None Reported Past Drug Use History: None Reported - Past Family History Father Family Medical History: No Reported History Additional Family Medical History / Comment(s): Father was an alcoholic. He at the age of 69yrs. Mother Family Medical History: Coronary Artery Disease (CAD), Diabetes Mellitus, Myocardial Infarction ([place]) Additional Family Medical History / Comment(s): Mother at age 89 from diabetes and coronary artery disease. Brother(s) Family Medical History: Coronary Artery Disease (CAD) Additional Family Medical History / Comment(s): Patient had 3 brothers all from coronary artery disease and 100s first [place] at age 60. Sister(s) Family Medical History: Cancer Additional Family Medical History / Comment(s): Patient had 2 sisters and one from breast cancer and the other from unknown cause suddenly. Daughter(s) Family Medical History: No Reported History Additional Family Medical History / Comment(s): Patient has one daughter with no major medical problems. Son(s) Family Medical History: No Reported History Additional Family Medical History / Comment(s): Patient has one son with no major medical problems. Medications and Allergies Home Medications Medication Instructions Recorded Confirmed Type Famotidine [Pepcid] 20 mg PO DAILY tab 04/09/18 02/11/19 Rx Carbidopa-Levodopa 25-100 mg 1 tab PO QID 10/29/18 02/11/19 History [Sinemet 25-100 mg] Cholecalciferol [Vitamin D3 (25 1,000 unit PO HS 10/29/18 02/11/19 History Mcg = 1000 Iu)] Midodrine [ProAmatine] 5 mg PO BID 10/29/18 02/11/19 History Atorvastatin [Lipitor] 40 mg PO HS #0 tab 11/07/18 02/11/19 Rx Hydrocodone/Acetaminophen [Calvert 1 tab PO BID PRN 01/05/19 02/11/19 History 5-325] Multivitamins, Thera [Multivitamin 1 tab PO DAILY 01/05/19 02/11/19 History (formulary)] traMADol HCl [Ultram] 50 mg PO TID PRN 01/05/19 02/11/19 History Acetaminophen Tab [Tylenol Tab] 650 mg PO Q6H PRN 02/11/19 02/11/19 History Aspirin 81 mg PO HS 02/11/19 02/11/19 History Mirtazapine 7.5 mg PO HS 02/11/19 02/11/19 History Sennosides-Docusate Sodium 2 tab PO HS 02/11/19 02/11/19 History [Senokot-S] Allergies Allergy/AdvReac Type Severity Reaction Status Date / Time No Known Allergies Allergy Verified 02/11/19 09:34 Physical Exam Vitals: Vital Signs Temp Pulse Resp BP Pulse Ox 02/12/19 14:00 90 16 153/79 96 02/12/19 13:00 90 16 153/79 96 02/12/19 12:00 97.9 F 81 22 113/64 94 L 02/12/19 11:00 70 20 103/53 95 02/12/19 10:00 77 16 146/71 97 02/12/19 09:00 80 17 146/71 95 02/12/19 08:00 97.8 F 83 18 148/85 96 02/12/19 07:00 68 16 127/73 94 L 02/12/19 06:00 76 16 138/71 97 02/12/19 05:30 81 17 150/72 96 02/12/19 05:00 77 15 141/86 96 02/12/19 04:30 85 18 136/66 97 02/12/19 04:00 97.4 F L 82 15 135/64 95 02/12/19 03:30 79 21 135/75 95 02/12/19 03:00 76 13 127/64 94 L 02/12/19 02:30 74 16 118/61 95 02/12/19 02:00 72 15 112/59 94 L 02/12/19 01:30 70 17 121/60 96 02/12/19 01:00 73 13 116/59 96 02/12/19 00:33 72 15 116/59 95 02/12/19 00:30 67 16 107/61 95 02/12/19 00:00 97.8 F 70 19 112/56 95 02/11/19 23:30 65 18 117/56 93 L 02/11/19 23:00 68 18 110/51 95 02/11/19 22:30 73 22 94/54 95 02/11/19 22:00 77 18 115/62 92 L 02/11/19 21:30 73 22 109/72 97 02/11/19 21:00 64 14 104/67 95 02/11/19 20:30 65 17 108/75 95 02/11/19 20:00 97.9 F 68 16 104/57 95 02/11/19 19:30 68 25 H 116/52 95 02/11/19 19:00 71 23 155/71 96 02/11/19 18:30 84 13 118/58 97 02/11/19 18:00 66 15 130/62 98 02/11/19 17:30 62 15 115/54 95 02/11/19 17:00 67 17 103/58 90 L 02/11/19 16:30 68 20 97/51 97 02/11/19 16:00 70 22 110/43 94 L 02/11/19 15:30 75 21 117/89 97 Intake and Output 02/12/19 02/12/19 02/12/19 06:59 14:59 22:59 Intake Total 260 Output Total 0 250 Balance 0 10 Intake: Oral 260 Output: Urine 0 250 Other: Voiding Method Incontinent Incontinent # Voids 1 Weight 58.4 kg GENERAL EXAM: 78-year-old frail looking white female, comfortable in chair, does not appear to be in any acute distress, follows simple commands, able to squeeze hands on command, moves all 4 extremities, answering most questions appropriately, comfortable in no apparent distress. HEAD: Normocephalic/atraumatic. EYES: Normal reaction of pupils, equal size. Conjunctiva pink, sclera white. NOSE: Clear with pink turbinates. THROAT: No erythema or exudates. NECK: No masses, no JVD, no thyroid enlargement, no adenopathy. CHEST: No chest wall deformity. Symmetrical expansion. LUNGS: Equal air entry with no crackles, wheeze, rhonchi or dullness. CVS: Regular rate and rhythm, normal S1 and S2, no gallops, no murmurs, no rubs ABDOMEN: Soft, nontender. No hepatosplenomegaly, normal bowel sounds, no guarding or rigidity. EXTREMITIES: No clubbing, no edema, no cyanosis, 2+ pulses and upper and lower extremities. MUSCULOSKELETAL: Muscle strength and tone normal. SPINE: No scoliosis or deformity SKIN: No rashes CENTRAL NERVOUS SYSTEM: Awake and alert. left-sided weakness of hand surgical sales representative process, but patient is able to move all 4 extremities. Results 02/12/19 04:36 02/12/19 04:36 Lipids 02/12/19 Range/Units 04:36 Triglycerides 83 (<150) mg/dL Cholesterol 90 (<200) mg/dL HDL Cholesterol 40 (40-60) mg/dL CBC 02/12/19 Range/Units 04:36 WBC 5.6 (3.8-10.6) k/uL RBC 4.00 (3.80-5.40) m/uL Hgb 12.2 (11.4-16.0) gm/dL Hct 36.9 (34.0-46.0) % Plt Count 183 (150-450) k/uL Comprehensive Metabolic Panel 02/12/19 Range/Units 04:36 Sodium 141 (137-145) mmol/L Potassium 3.3 L (3.5-5.1) mmol/L Chloride 108 H (98-107) mmol/L Carbon Dioxide 26 (22-30) mmol/L BUN 15 (7-17) mg/dL Creatinine 0.69 (0.52-1.04) mg/dL Glucose 84 (74-99) mg/dL Calcium 9.7 (8.4-10.2) mg/dL Current Medications Generic Name Dose Route Start Last Admin Trade Name Freq PRN Reason Stop Dose Admin Acetaminophen 650 mg 02/11/19 14:14 02/12/19 10:49 Tylenol Tab PO 650 mg Q6H PRN Administration Pain Atorvastatin Calcium 10 mg 02/12/19 21:00 Lipitor PO HS KIRT Carbidopa/Levodopa 1 each 02/11/19 18:00 02/12/19 12:42 Sinemet 25-100 PO 1 each QID KIRT Administration Clopidogrel Bisulfate 75 mg 02/13/19 09:00 Plavix PO DAILY KIRT Famotidine 20 mg 02/12/19 09:00 02/12/19 09:02 Pepcid PO 20 mg DAILY KIRT Administration Miscellaneous Information 1 each 02/11/19 09:37 Alteplase Per Pharmacy Stroke MISCELLANE DIRECTED PRN Stroke Multivitamins 1 each 02/12/19 09:00 02/12/19 09:01 Theragran PO 1 each DAILY KIRT Administration Senna/Docusate Sodium 2 each 02/11/19 21:00 02/11/19 21:12 Senokot-S PO 2 each HS KIRT Administration Tramadol HCl 25 mg 02/11/19 21:00 02/12/19 09:01 Ultram PO 25 mg BID KIRT Administration Intake and Output 02/12/19 02/12/19 02/12/19 06:59 14:59 22:59 Intake Total 260 Output Total 0 250 Balance 0 10 Intake: Oral 260 Output: Urine 0 250 Other: Voiding Method Incontinent Incontinent # Voids 1 Weight 58.4 kg 02/12/19 04:36 02/12/19 04:36 EKG Interpretations (text) EKG shows a normal sinus rhythm with no acute changes. Assessment and Plan Plan: Assessment: #1. Acute right distal MCA ischemic CVA status post TPA infusion. Patient had presented to the emergency department per EMS within an hour and a half of symptom onset. initial symptoms included left-sided weakness, aphasia and lethargy subsequently after the initiation of TPA patient's neurologic symptoms had improved, she is moving all 4 extremities although the left-sided surgical sales representative weakness persist #2. recent history of ischemic infarct involving the left parietal region in October 2018 #3. advanced history of Parkinson's disease #4. recent history of fall with a femoral neck fracture, is post right hip hemiarthroplasty #5. History of recurrent UTIs with ESBL producing organisms #6. former smoker, currently in remission #7. osteoarthritis #8. Chronic back pain, spinal stenosis, peripheral neuropathy #9. gait dysfunction #10. Poor baseline functional status, resides at an assisted living facility, needs extensive assistance with all ADLs, most recently since her previous episode of pneumonia, stroke and right hip fracture patient has been experiencing declining functional status even further Plan An echocardiogram with Doppler study had been requested but patient refused to have it done this morning. I did have a long discussion with the patient, we will reattempt to perform the echo in the morning, she does not want to have the procedure done today. I did also discuss possible MARI, explaining the procedure to the patient, once the daughter and son arrives we will go into that with more great detail but at this time she does not 1 have any procedures performed. It does appear that the patient is answering my questions appropriately today. We will continue to monitor for any atrial fibrillation. Further recommendations to follow. DNP note has been reviewed, I agree with a documented findings and plan of care. Patient was seen and examined.
--- NOTE | 2019-02-12 17:07 | P.PN ---
Progress Note - Text Progress Note Date: 02/12/19 SUBJECTIVE/INTERVAL EVENTS: No acute overnight events. Patient asking for pain medication for her back pain. Son and daughter at bedside. Patient refusing MRI as she's terribly scared of it. Discussed with son and daughter extensively about how management could change with MRI as there could be evidence of cardioembolic pattern of stroke. Also discussed with them about whether they'd like to place patient on a stronger blood thinning medication, which could increase risk of bleeding, especially if she were to fall. During this eval, patient stated that "if i were to be a different person today, i would rather ." patient is DRN and DNI. Family and patient would just like to get CT Head. PHYSICAL EXAMINATION: VITAL SIGNS: T 97.8 HR 83 RR 18 BP 148/85 O2 sat 96% on RA GEN.: NAD, pleasant and cooperative HEENT: NCAT, sclera without icterus NECK: Supple SKIN AND EXTREMITIES: Warm to touch, no edema NEURO: MENTAL STATUS: Patient alert and oriented to self, place, time. Unable to name the current president. Speech fluent, able to name and repeat, following most simple commands. No right and left disorientation, possibly some L-sided neglect. CRANIAL NERVES II THROUGH XII: II: Pupils are equal and reactive to light symmetrically. No afferent pupillary defect. Visual conti are intact. III, IV, : No ptosis. Extraocular movements full. No nystagmus. V: Facial sensation intact from V1-3. VII. No clear facial asymmetry. VIII: Hearing intact to finger rub bilaterally. IX, X: Symmetric palate elevation. XI: Shoulder shrug intact. XII: Tongue midline without fasciculation or atrophy. MOTOR: Normal bulk, slightly increased tone. No pronator drift or tremor. Strength is at least antigravity in both UE. Difficulty with moving b/l LE against gravity but patient at baseline is wheelchair-bound and difficulty with leg movements. SENSORY: Intact to light touch in all 4 extremities. REFLEXES: 2+ throughout. Toes are downgoing. COORDINATION/GAIT: Deferred DIAGNOSTIC TESTING: LABORATORY: WBC 7.3 hemoglobin 13.1 platelet 217 sodium 144 potassium 3.6 chloride 105 bicarb 28 BUN 17 creatinine 0.81 glucose 116 AST 18 ALT 9 alk phos 76 troponin <0.012 Total cholesterol 90 LDL 33 HDL 40 TG 83 TSH 1.540 IMAGING: CT head without contrast 02/11/2019: age-related chronic ischemic changes. no abnormality at this time. Per my read, there is hyperdensity in the right MCA, concerning for occlusion CTA head and neck with contrast 02/11/2019: no significant diameter reduction to account for the patient's symptoms in the neck. therapist's abrupt termination distal right MCA segment with poor visualization of the distal MCA branches ASSESSMENT: 78 year-old woman with PMhx of osteoarthritis, Parkinson's disease, chronic back pain, spinal stenosis, peripheral neuropathy, sinus problems, urinary incontinence, who presented to [facility] for AMS and L-sided paralysis, found with occlusion of R MCA, given tPA, which significant improved patient's deficits. Repeat CT Head with no acute bleeding, but patient with old L-sided parieto-occipital infarct along with her recent R MCA occlusion although evidence of stroke not shown on repeat CT Head. Patient and family do not want MRI as patient with difficulty dealing with MRI machine. Pt agrees to repeat TTE tomorrow. Cardiology consulted for monitoring for any atrial arrhythmia as patient with b/l large vessel stroke. RECOMMENDATIONS: 1. Transthoracic echocardiogram cancelled as patient became agitated and didn't want more testing. Will attempt again tomorrow 2. Cardiac monitoring: no obvious atrial arrhythmia 3. BP management SBP <160 4. will start plavix tomorrow morning 48 hrs after tPA administration 5. Atorvastatin 10mg qhs 6. Labs: A1C 7. PT/OT/ST per protocol 8. Neurology will sign off at this time. If TTE or cardiac monitoring concerning for a.fib, patient needs to be placed on anticoagulation, which was discussed with family. Family did not refuse. Please feel free to contact Neurology again if with additional questions or concerns. 9. Patient needs to follow up with neurologist as outpatient with her 1-2 weeks of discharge 10. Discussed ED precautions with family: return to ED if having severe headache, nausea, vomiting, vision deficits, speech difficulty, facial asymmetry, weakness, numbness or tingling.
[2019-02-12] MEDS ORDERED: ASPIRIN 81 MG PO SCH (21:00)
[2019-02-12] MEDS: ATORVASTATIN 10 MG TAB PO SCH (21:36)
[2019-02-12] MEDS: SENNOSIDES-DOCUSATE SODIUM 1 EACH TAB PO SCH (21:36)
[2019-02-13 05:15] LABS: Basophils # (A) 0.1 k/uL (0-0.2); Basophils % (A) 1 %; Eosinophils # (A) 0.1 k/uL (0-0.7); Eosinophils % (A) 2 %; HCT 40.6 % (34.0-46.0); HGB 12.6 gm/dL (11.4-16.0); Lymphocytes # (A) 1.1 k/uL (1.0-4.8); Lymphocytes % (A) 20 %; MCH 29.2 pg (25.0-35.0); MCV 94.2 fL (80.0-100.0); Monocytes # (A) 0.4 k/uL (0-1.0); Monocytes % (A) 7 %; Neutrophils # (A) 3.9 k/uL (1.3-7.7); Neutrophils % (A) 68 %; Platelet Count 217 k/uL (150-450); RBC 4.31 m/uL (3.80-5.40); RDW 14.1 % (11.5-15.5); WBC 5.7 k/uL (3.8-10.6)
[2019-02-13 05:21] LABS: African American GFR (CKD) >90 (>60 ml/min/1.73 sqM); Anion Gap 9 mmol/L; Blood Urea Nitrogen 13 mg/dL (7-17); Calcium 9.8 mg/dL (8.4-10.2); Carbon Dioxide 25 mmol/L (22-30); Chloride 107 mmol/L (98-107); Glucose 80 mg/dL (74-99); Non-African American GFR(CKD) 88 (>60 ml/min/1.73 sqM); Potassium 3.3 mmol/L (3.5-5.1); Sodium 141 mmol/L (137-145)
[2019-02-13] MEDS ORDERED: Potassium Replacement Protocol 1 EACH MISC MISCELLANE PRN (05:35)
[2019-02-13] MEDS: POTASSIUM CHLORIDE 10 MEQ in WATER FOR INJECTION 1 100ML.BAG IVPB SCH ×4 (05:55→10:12)
[2019-02-13] MEDS: CLOPIDOGREL 75 MG TAB PO SCH (08:30)
[2019-02-13] MEDS: FAMOTIDINE 20 MG TAB PO SCH (08:30)
[2019-02-13] MEDS: MULTIVITAMINS, THERA 1 EACH TAB PO SCH (08:30)
[2019-02-13] MEDS: CARBIDOPA-LEVODOPA 25-100 MG 1 EACH TAB PO SCH ×4 (08:31→20:14)
[2019-02-13] MEDS: traMADol 50 MG TAB PO SCH ×2 (08:31→20:14)
--- NOTE | 2019-02-13 08:57 | P.PN ---
Subjective Progress Note Date: 02/13/19 Principal diagnosis: Acute right MCA CVA, left-sided weakness, aphasia this is a 78-year-old patient of Dr. De Leon, with past medical history of advanced Parkinson's disease, recent hospitalization in October for pneumonia, and patient had mental status changes and was worked up for CVA, with CT angios of the brain showing acute/subacute ischemic infarct in the left parietal region. During the same hospitalization patient suffered a fall, and sustained a right femoral neck fracture with subsequent right hip hemiarthroplasty by Dr. Lopez. After discharge patient tomorrow and for rehabilitation and was subsequently discharged to assisted living at [facility]. patient has been having trouble ambulating, she usually gets around in the wheelchair and requires extensive assistance with ADLs. Her baseline mentation according to the son has been waxing and waning, and so has been her speech sometimes it is more slurred than others. She has been having increased hallucinations and memory impairments. This morning on 02/11/2019 patient was noted to have incre ased lethargy, and left-sided paralysis patient could not speak, and according to the son the onset from the time of symptoms began was on a half until arrival to the emergency department per EMS. CT angios of the brain found a right distal MCA occlusion, and patient underwent thrombolytic therapy with TPA and with permission of her son. 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 Her pupils are equal and reactive. She passed bedside swallow evaluation. admission lab work has been reviewed, CBC was unremarkable, electrolytes and renal profile was normal, LFTs, troponins were negative. Patient is resting comfortably in the intensive care unit, she is having neurologic checks every 2 hours, neurological evaluation is pending, and the possibility of MRI of the brain tomorrow. On 02/12/2019 patient seen in follow-up in intensive care unit, she is somnolent, but opens eyes to voice, follows commands, she is oriented to place and the month, but not the year. Denies any acute distress, no acute issues overnight, patient is moving all 4 extremities, very slight left-sided package lift operator weakness, speech is more clear today. Vital signs are stable, sinus rhythm on the monitor with a rate of 87, blood pressure is 124/66, patient is on room air, pulse ox is 96%, denies any shortness of breath, no signs of any distress. No acute issues overnight, patient has been evaluated by speech therapy, she passed the bedside swallow evaluation, and will likely need assistance and supervision with meals in view of her generalized weakness and lethargy. MRI of the brain is pending for today. Today's labs have been reviewed, and CBC is unremarkable, electrolytes are within normal limits with the exception of potassium which is at 3.3 and this was replaced per protocol. 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 She is in sinus mechanism on the monitor, hemodynamically stable, her pulse ox is 97%, she is afebrile, no acute events overnight, she has refused transfer esophageal echocardiogram and MRI of the brain. Repeat CT of the brain on 02/12/2019 showed no acute intracranial hemorrhage or midline shift, there was moderate diffuse cerebral atrophy over bilateral frontal and temporal lobes, and old left-sided infarct previously seen on previous CTs of brain. Patient is tolerating oral intake, her appetite is improving, today's labs have been reviewed, CBC is unremarkable, potassium is 3.3 this pain supplemented per protocol, the rest of the electrolytes and renal profile are within normal limits. Objective - Vital Signs Vital signs: Vital Signs Temp 98.6 F 02/13/19 08:00 Pulse 92 02/13/19 08:00 Resp 16 02/13/19 08:00 BP 116/81 02/13/19 08:00 Pulse Ox 97 02/13/19 08:00 Intake & Output 02/12/19 02/13/19 02/13/19 18:59 06:59 18:59 Intake Total 460 0 100 Output Total 250 150 Balance 210 -150 100 Weight 58.7 kg Intake: Intake, IV Titration 100 Amount Potassium Chloride 10 meq 100 In Water For Injection 1 100ml.bag @ 100 mls/hr IVPB Q1HR [facility] Rx#: [id number] Oral 460 0 Output: Urine 250 150 Other: Voiding Method Incontinent Incontinent # Bowel Movements 1 - Exam GENERAL EXAM: Awake, pleasant, 78-year-old frail looking white female, comfortably in bed, does not appear to be in any acute distress, follows commands, able to squeeze hands on command, moves all 4 extremities, opens eyes to examination, comfortable in no apparent distress. HEAD: Normocephalic/atraumatic. EYES: Normal reaction of pupils, equal size, 4 mm in diameter. Conjunctiva pink, sclera white. NOSE: Clear with pink turbinates. THROAT: No erythema or exudates. NECK: No masses, no JVD, no thyroid enlargement, no adenopathy. CHEST: No chest wall deformity. Symmetrical expansion. LUNGS: Equal air entry with no crackles, wheeze, rhonchi or dullness. CVS: Regular rate and rhythm, normal S1 and S2, no gallops, no murmurs, no rubs ABDOMEN: Soft, nontender. No hepatosplenomegaly, normal bowel sounds, no guarding or rigidity. EXTREMITIES: No clubbing, no edema, no cyanosis, 2+ pulses and upper and lower extremities. MUSCULOSKELETAL: Muscle strength and tone normal. SPINE: No scoliosis or deformity SKIN: No rashes CENTRAL NERVOUS SYSTEM: Awake and alert, conversant, answering questions appropriately. Motor strength equal bilaterally, the patient is moving all 4 extremities, and left sided weakness resolved - Labs CBC & Chem 7: 02/13/19 04:19 02/13/19 04:19 Labs: Abnormal Lab Results - Last 24 Hours (Table) 02/13/19 Range/Units 04:19 Potassium 3.3 L (3.5-5.1) mmol/L Assessment and Plan Plan: Assessment: #1. Acute right distal MCA ischemic CVA status post TPA infusion. Patient had presented to the emergency department per EMS within an hour and a half of symptom onset. initial symptoms included left-sided weakness, aphasia and lethargy subsequently after the initiation of TPA patient's neurologic symptoms had improved, she is moving all 4 extremities although the left-sided package lift operator weakness persist #2. recent history of ischemic infarct involving the left parietal region in October 2018 #3. advanced history of Parkinson's disease #4. recent history of fall with a femoral neck fracture, is post right hip hemiarthroplasty #5. History of recurrent UTIs with ESBL producing organisms #6. former smoker, currently in remission #7. osteoarthritis #8. Chronic back pain, spinal stenosis, peripheral neuropathy #9. gait dysfunction #10. Poor baseline functional status, resides at an assisted living facility, needs extensive assistance with all ADLs, most recently since her previous episode of pneumonia, stroke and right hip fracture patient has been experienc ing declining functional status even further Plan: Neurologically patient seems to be at her baseline, neurological deficits with left-sided weakness seems to have resolved, no speech difficulties, she is much more awake and conversant on today's exam, she is tolerating oral intake, she is without any specific complaints, no shortness of breath, vital signs are stable, hemodynamically stable, no acute issues overnight, repeat brain CT has been noted. Patient has refused transesophageal echocardiogram and MRI of the brain, but clinically seems to be recovering from her right distal MCA stroke. Patient is stable to go out of the intensive care unit today to selective care unit. I performed a history & physical examination of the patient and discussed their management with my nurse practitioner, Nurys Sands. I reviewed the nurse practitioner's note and agree with the documented findings and plan of care. Lung sounds are positive for diminished breath sounds. The findings and the impression was discussed with the patient. I attest to the documentation by the nurse practitioner. Time with Patient: Less than 30
[2019-02-13] MEDS: ACETAMINOPHEN TAB 325 MG TAB PO PRN (10:13)
--- NOTE | 2019-02-13 12:42 | PN ---
PROGRESS NOTE This patient came with a stroke and received tPA. Patient has a significant parkinsonism. Patient does not want any extensive investigations to be done. Patient currently is getting a Plavix and she remains in normal sinus rhythm. There is no definite previous history of atrial fibrillation. Patient's echocardiogram reveals overall normal left ventricular systolic function. Blood pressure is 116/81 mmHg. First and second heart sounds are normal. Lungs are clinically clear to auscultation and percussion. Abdomen is negative. We will continue the patient currently on Plavix once a day. If patient is agreeable, we would recommend to have a 30 day event monitor as an outpatient to rule out any paroxysmal episodes of atrial fibrillation. MMODL / IJN: [id number] /
--- NOTE | 2019-02-13 13:29 | P.PN ---
Subjective Progress Note Date: 02/13/19 This is an 78-year-old female patient of Dr De Leon with a previous medical history significant for advanced Parkinson disease with significant spondylosis of the lumbar spine along with significant neuropathy both lower extremities, history of recurrent UTI, Generalized anxiety disorder. She had a recent hospitalization in October at which time she presented with acute mental status changes thought initially to be related to pneumonia but on subsequent CAT scan patient was found to have an acute/subacute ischemic infarct in the left parietal region.during the hospitalization, patient also had a fall and sustained a right femoral neck fracture for which she underwent a right hip hemiarthroplasty with Dr. Lopez. Patient was stabilized and discharged to [facility] where she completed subacute rehab. Patient resides at [facility]. patient's son Hollis and daughter Jayna are at the bedside. They give history the patient has had Parkinson's for 17 years but is noticed that lately she has had increased hallucinations and memory trouble. Patient needs assistance to a wheelchair. She occasionally uses a walker but unable to go very far. No tremors of been noted. When asked patient states that she is here to get a test done. Patient was noted by staff to have altered mental status and was sided paralysis. EMS was called the patient was brought into [facility] emergency center for evaluation. CAT scan found a right distal MCA CVA. Patient underwent TPA is now to be admitted to the ICU. Chest x-ray shows chronic findings. Consult in place with neurology and project manager process development. 02/12: Patient is seen today in the intensive care unit. Patient is awake and alert. She is able to follow all commands. Mechanic Driver on her left arm is much stronger and able to lift her left leg. Her speech is clear although full comprehension is not noted. She does know that she is in the hospital but this is January,. She was able to recall her date including the year. She knows that Pres. Vaughn is in office. She is noted to have less neglect on the left side today. She does verbalize that she did not like being at [facility] when therapy was discussed. the patient wasn't [place] following her last admission.she has been evaluated by speech therapy and passed bedside swallow and her home medications were resumed yesterday. PT and OT will be evaluating her today. Dr. Posadas has evaluated the patient with recommendations for repeat CAT scan or MRI of the brain today. Dr. Posadas has recommended holding aspirin for now, continue atorvastatin. potassium is 3.3 and has been replaced. triglycerides 83, cholesterol 90, LDL 33, HDL 40, TSH 1.540. patient has been afebrile, heart rate 70, blood pressure 103/53, pulse ox 95% on room air. senior benefits specialist has been a sinus rhythm. 02/13 and patient examined bedside is more awake alert and is able to answer questions appropriately. Patient has been refusing MRI repeat CAT scan was negative for ischemic or hemorrhagic stroke. Did show old infarct in the parieto-occipital region and severe central cerebral atrophy in the frontal parietal region bilaterally. On evaluation today patient is able to mobilize her left upper extremity better but still have difficulty moving her left lower extremity. TTEpending for todayto rule out cardioembolic source. Cardiology consulted for possible event monitor on discharge. PTOT consulted patienthas multiple staff members at home that can take care of patient for 24 hours. ROS Review Of Systems: Constitutional: No fever, no chills, no night sweats. reports weakness, fatigue or lethargy. EENT: No headache. no loss of vision. No loss of Hearing, no dizziness. No nasal drainage or congestion. No epistaxis. No sore throat. Lungs: No shortness of breath, cough, no sputum production. No wheezing. Cardiovascular: reports chest tenderness, no lower extremity edema. No palpitations. No paroxysmal nocturnal dyspnea. No orthopnea. No lightheadedne ss or dizziness. No syncopal episodes. Abdominal: No abdominal pain. No nausea, vomiting. No diarrhea. No constipation. No bloody or tarry stools.. No loss of appetite. Genitourinary: No urinary retention. Musculoskeletal: No myalgias. reports muscle weakness, reports gait dysfunction. Integumentary: No wounds, no lesions. No rash or pruritus. No unusual bruising. Neurologic: No aphasia. reports facial droop. reports change in mentatio- improving. No head injury. No headache. weakness in the left leg Psychiatric: No depression. No anxiety. Endocrine: No abnormal blood sugars. No weight change. No excessive sweating or thirst. No cold intolerance. Objective - Vital Signs Vital signs: Vital Signs Temp 98.8 F 02/13/19 12:00 Pulse 96 02/13/19 12:00 Resp 20 02/13/19 12:00 BP 116/68 02/13/19 12:00 Pulse Ox 97 02/13/19 12:00 Intake & Output 02/12/19 02/13/19 02/13/19 18:59 06:59 18:59 Intake Total 460 0 600 Output Total 250 150 Balance 210 -150 600 Weight 58.7 kg 58.7 kg Intake: Intake, IV Titration 400 Amount Potassium Chloride 10 meq 400 In Water For Injection 1 100ml.bag @ 100 mls/hr IVPB Q1HR [facility] Rx#: [id number] Oral 460 0 200 Output: Urine 250 150 Other: Voiding Method Incontinent Incontinent Incontinent # Bowel Movements 1 1 - Exam - Constitutional General appearance: no distress, thin - EENT Eyes: anicteric sclerae, EOMI, PERRLA, no ptosis, no scleral icterus, normal appearance ENT: hard of hearing, NA/AT, normal oropharynx, no thrush Ears: bilateral: normal - Neck Neck: no lymphadenopathy, normal ROM, no rigidity, no stridor, no thyromegaly Carotids: bilateral: upstroke normal Thyroid: bilateral: normal size - Respiratory Respiratory: bilateral: diminished, negative: dullness, rales, rhonchi, wheezing, prolonged expiration - Cardiovascular Rhythm: regular Heart sounds: normal: S1, S2 Abnormal Heart Sounds: systolic murmur, no S3 Gallop, no S4 Gallop - Gastrointestinal General gastrointestinal: soft, no splenomegaly, no tenderness, no umbilical hernia, no ventral hernia - Integumentary Integumentary: decreased turgor, normal - Neurologic Neurologic: left facial droop - Musculoskeletal Musculoskeletal: no gait normal, generalized weaknessleft lower extremity weaker than the right decreased sensation on the left lower extremity - Psychiatric Psychiatric: Alert, O x's to person and place, able to follow commands, left- sided neglect improved from yesterday, slight droop on the left face. - Labs CBC & Chem 7: 02/13/19 04:19 02/13/19 04:19 Labs: Abnormal Lab Results - Last 24 Hours (Table) 02/13/19 Range/Units 04:19 Potassium 3.3 L (3.5-5.1) mmol/L Assessment and Plan Plan: 1. 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 Patient admitted to the intensive care unit. Consult with neurology. PT, OT, speech therapy. Repeat CAT scan or MRI of the brain today.TTE ordered. Telemetry negative for any arrhythmias. Plan to start patient on Plavix and aspirin 2. History of ischemic infarct left parietal region in October 2018. 3. Hypotension history. Midodrine will be placed on hold for now as patient is hypertensive. 4. Spondylosis of the lumbar spine. Continue patient on [place]. 5. GERD. Continue Pepcid 20 mg orally once every day. 6. Advanced Parkinson disease. Continue with Sinemet 25/100 mg one tablet orally 4 times every day. 7. DVT prophylaxis. SCDs and OTTO hose. 8. GI prophylaxis. Continue Pepcid. CODE STATUS: No code. Discharge plan: possible discharge home with 24-hour care
[2019-02-13] MEDS: ATORVASTATIN 10 MG TAB PO SCH (20:14)
[2019-02-13] MEDS: SENNOSIDES-DOCUSATE SODIUM 1 EACH TAB PO SCH (20:14)
[2019-02-14 04:58] LABS: HCT 36.7 % (34.0-46.0); HGB 12.3 gm/dL (11.4-16.0); MCHC 33.7 g/dL (31.0-37.0); MCV 92.2 fL (80.0-100.0); Mean Platelet Volume 9.3; Platelet Count 193 k/uL (150-450); RBC 3.97 m/uL (3.80-5.40); WBC 5.7 k/uL (3.8-10.6)
[2019-02-14 05:09] LABS: African American GFR (CKD) >90 (>60 ml/min/1.73 sqM); Anion Gap 8 mmol/L; Blood Urea Nitrogen 8 mg/dL (7-17); Calcium 9.6 mg/dL (8.4-10.2); Carbon Dioxide 26 mmol/L (22-30); Chloride 108 mmol/L (98-107); Glucose 96 mg/dL (74-99); Non-African American GFR(CKD) 84 (>60 ml/min/1.73 sqM); Potassium 3.5 mmol/L (3.5-5.1); Sodium 142 mmol/L (137-145)
[2019-02-14] MEDS: FAMOTIDINE 20 MG TAB PO SCH (08:26)
[2019-02-14] MEDS: CLOPIDOGREL 75 MG TAB PO SCH (08:26)
[2019-02-14] MEDS: MULTIVITAMINS, THERA 1 EACH TAB PO SCH (08:27)
[2019-02-14] MEDS: CARBIDOPA-LEVODOPA 25-100 MG 1 EACH TAB PO SCH ×4 (08:50→20:11)
[2019-02-14] MEDS: POTASSIUM CHLORIDE ER 20 MEQ TAB.ER PO SCH ×2 (08:50→08:52)
[2019-02-14] MEDS: traMADol 50 MG TAB PO SCH ×2 (08:51→22:00)
--- NOTE | 2019-02-14 10:30 | P.PN ---
Subjective Progress Note Date: 02/14/19 Principal diagnosis: Acute right MCA CVA, left-sided weakness, aphasia this is a 78-year-old patient of Dr. De Leon, with past medical history of advanced Parkinson's disease, recent hospitalization in October for pneumonia, and patient had mental status changes and was worked up for CVA, with CT angios of the brain showing acute/subacute ischemic infarct in the left parietal region. During the same hospitalization patient suffered a fall, and sustained a right femoral neck fracture with subsequent right hip hemiarthroplasty by Dr. Lpoez. After discharge patient tomorrow and for rehabilitation and was subsequently discharged to assisted living at [facility]. patient has been having trouble ambulating, she usually gets around in the wheelchair and requires extensive assistance with ADLs. Her baseline mentation according to the son has been waxing and waning, and so has been her speech sometimes it is more slurred than others. She has been having increased hallucinations and memory impairments. This morning on 02/11/2019 patient was noted to have incre ased lethargy, and left-sided paralysis patient could not speak, and according to the son the onset from the time of symptoms began was on a half until arrival to the emergency department per EMS. CT angios of the brain found a right distal MCA occlusion, and patient underwent thrombolytic therapy with TPA and with permission of her son. 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 Her pupils are equal and reactive. She passed bedside swallow evaluation. admission lab work has been reviewed, CBC was unremarkable, electrolytes and renal profile was normal, LFTs, troponins were negative. Patient is resting comfortably in the intensive care unit, she is having neurologic checks every 2 hours, neurological evaluation is pending, and the possibility of MRI of the brain tomorrow. On 02/12/2019 patient seen in follow-up in intensive care unit, she is somnolent, but opens eyes to voice, follows commands, she is oriented to place and the month, but not the year. Denies any acute distress, no acute issues overnight, patient is moving all 4 extremities, very slight left-sided coating machine feeder weakness, speech is more clear today. Vital signs are stable, sinus rhythm on the monitor with a rate of 87, blood pressure is 124/66, patient is on room air, pulse ox is 96%, denies any shortness of breath, no signs of any distress. No acute issues overnight, patient has been evaluated by speech therapy, she passed the bedside swallow evaluation, and will likely need assistance and supervision with meals in view of her generalized weakness and lethargy. MRI of the brain is pending for today. Today's labs have been reviewed, and CBC is unremarkable, electrolytes are within normal limits with the exception of potassium which is at 3.3 and this was replaced per protocol. On 02/13/2019 patient seen in follow-up in intensive care unit, she is much more awake today, conversant, she denies any acute distress, she is oriented to place and month, her neurological deficits she presented with syncope have completely resolved, she is moving all 4 extremities, mitigation supervisor are equal, strength is equal bilaterally, no facial asymmetry, no speech deficits. She is in sinus mechanism on the monitor, hemodynamically stable, her pulse ox is 97%, she is afebrile, no acute events overnight, she has refused transfer esophageal echocardiogram and MRI of the brain. Repeat CT of the brain on 02/12/2019 showed no acute intracranial hemorrhage or midline shift, there was moderate diffuse cerebral atrophy over bilateral frontal and temporal lobes, and old left-sided infarct previously seen on previous CTs of brain. Patient is tolerating oral intake, her appetite is improving, today's labs have been reviewed, CBC is unremarkable, potassium is 3.3 this pain supplemented per protocol, the rest of the electrolytes and renal profile are within normal limits. On 02/14/2019 patient seen in follow-up in the intensive care unit, doing very well, she was up in the chair today, she fed herself breakfast, no specific complaints, neurologically patient seems to be intact, other than some slight w eakness in the left lower extremity, mitigation supervisor are equal, no facial asymmetry or weakness, lungs is clear, patient is alert and oriented to person and place, denies any shortness of breath, denies any chest pain. Room air pulse ox is 95%, no blood pressure issues, afebrile, today's labs have been reviewed, and are unremarkable, CBC is within normal limits, electrolytes are within normal limits, potassium is 2.5, chloride is 108, renal profile is within normal limits, IV fluids have been hep-locked, no arrhythmias on the monitor Objective - Vital Signs Vital signs: Vital Signs Temp 97.8 F 02/14/19 08:00 Pulse 94 02/14/19 10:00 Resp 16 02/14/19 10:00 BP 120/77 02/14/19 10:00 Pulse Ox 94 L 02/14/19 06:00 Intake & Output 02/13/19 02/14/19 02/14/19 18:59 06:59 18:59 Intake Total 700 100 Output Total 300 450 Balance 400 -450 100 Weight 58.7 kg 58.1 kg Intake: Intake, IV Titration 400 Amount Potassium Chloride 10 meq 400 In Water For Injection 1 100ml.bag @ 100 mls/hr IVPB Q1HR [facility] Rx#: [id number] Oral 300 100 Output: Urine 300 450 Other: Voiding Method Incontinent Incontinent # Voids 1 # Bowel Movements 1 1 - Exam GENERAL EXAM: Awake, pleasant, 78-year-old frail looking white female, comfortably in bed, does not appear to be in any acute distress, follows commands, able to squeeze hands on command, moves all 4 extremities, opens eyes to examination, comfortable in no apparent distress. HEAD: Normocephalic/atraumatic. EYES: Normal reaction of pupils, equal size, 4 mm in diameter. Conjunctiva pink, sclera white. NOSE: Clear with pink turbinates. THROAT: No erythema or exudates. NECK: No masses, no JVD, no thyroid enlargement, no adenopathy. CHEST: No chest wall deformity. Symmetrical expansion. LUNGS: Equal air entry with no crackles, wheeze, rhonchi or dullness. CVS: Regular rate and rhythm, normal S1 and S2, no gallops, no murmurs, no rubs ABDOMEN: Soft, nontender. No hepatosplenomegaly, normal bowel sounds, no guarding or rigidity. EXTREMITIES: No clubbing, no edema, no cyanosis, 2+ pulses and upper and lower extremities. MUSCULOSKELETAL: Muscle strength and tone normal. SPINE: No scoliosis or deformity SKIN: No rashes CENTRAL NERVOUS SYSTEM: Awake and alert, conversant, answering questions appropriately. Motor strength equal bilaterally, the patient is moving all 4 extremities, and left sided weakness resolved - Labs CBC & Chem 7: 02/14/19 04:30 02/14/19 04:30 Labs: Abnormal Lab Results - Last 24 Hours (Table) 02/14/19 Range/Units 04:30 Chloride 108 H (98-107) mmol/L Assessment and Plan Plan: Assessment: #1. Acute right distal MCA ischemic CVA status post TPA infusion. Patient had presented to the emergency department per EMS within an hour and a half of symptom onset. initial symptoms included left-sided weakness, aphasia and lethargy subsequently after the initiation of TPA patient's neurologic symptoms had improved, she is moving all 4 extremities although the left-sided coating machine feeder wea kness persist #2. recent history of ischemic infarct involving the left parietal region in October 2018 #3. advanced history of Parkinson's disease #4. recent history of fall with a femoral neck fracture, is post right hip hemiarthroplasty #5. History of recurrent UTIs with ESBL producing organisms #6. former smoker, currently in remission #7. osteoarthritis #8. Chronic back pain, spinal stenosis, peripheral neuropathy #9. gait dysfunction #10. Poor baseline functional status, resides at an assisted living facility, needs extensive assistance with all ADLs, most recently since her previous episode of pneumonia, stroke and right hip fracture patient has been experiencing declining functional status even further Plan: Patient is doing well, and all 4 extremities, slight residual weakness in the left lower extremity, mitigation supervisor are equal, no facial asymmetry, speech is clear, no swallowing difficulties, vital signs are stable, no acute events overnight, patient is stable to go out of intensive care unit today to the regular medical surgical floor. I performed a history & physical examination of the patient and discussed their management with my nurse practitioner, Nurys Sands. I reviewed the nurse practitioner's note and agree with the documented findings and plan of care. Lung sounds are positive for diminished breath sounds. The findings and the impression was discussed with the patient. I attest to the documentation by the nurse practitioner. Time with Patient: Less than 30
--- NOTE | 2019-02-14 12:09 | CT ---
EXAMINATION TYPE: CT brain wo con DATE OF EXAM: 02/14/2019 HISTORY: possible CVA CT DLP: 1055.4 mGycm. Automated Exposure Control for Dose Reduction was Utilized. TECHNIQUE: CT scan of the head is performed without contrast. COMPARISON: CT brain from 2 days ago. FINDINGS: There is no acute intracranial hemorrhage or midline shift identified. There is diffuse v entricular and sulcal prominence consistent with diffuse cerebral atrophy. Findings most prominent ov er the bilateral frontal and temporal lobes. There is low-attenuation in the periventricular white m atter consistent with chronic small vessel ischemic change redemonstrated. Vague area of low attenuat ion right parietal posterior watershed region measures 27 not as well-seen on prior. The globes are i ntact and the visualized sinuses are clear. IMPRESSION: No acute intracranial hemorrhage or midline shift. There is moderate diffuse age-relate d cerebral atrophy most prominent over bilateral frontal and temporal lobes and moderate chronic smal l vessel ischemic change redemonstrated. Cannot exclude developing or new acute/subacute infarct rig ht parietal region posterior watershed level.
[2019-02-14] MEDS ORDERED: SODIUM CHLORIDE 0.9% 1,000 ML in EMPTY BAG 1 BAG IV ONE (12:30)
--- NOTE | 2019-02-14 13:00 | ECHOF ---
Referral Reason:recent rt stroke MEASUREMENTS -------- HEIGHT: 170.2 cm WEIGHT: 58.1 kg BP: 129/87 IVSd: 1.6 cm (0.6 - 1.1) LVIDd: 2.9 cm (3.9 - 5.3) LVPWd: 1.5 cm (0.6 - 1.1) IVSs: 2.0 cm LVIDs: 2.1 cm LVPWs: 1.7 cm Ao Diam: 2.9 cm (2.0 - 3.7) AV Cusp: 1.4 cm (1.5 - 2.6) FINDINGS -------- Sinus rhythm. This was a technically difficult study with suboptimal views. Limited Study There is moderate concentric left ventricular hypertrophy. Overall left ventricular systolic functi on is low-normal with, an EF between 50 - 55 %. Mid anteroseptal LV wall motion is hypokinetic. Apical septum LV wall motion is hypokinetic. The RV was not well visualized. 5.0mg of Lumason was utilized for enhancement of images The aortic valve was not well visualized. The mitral valve was not well visualized. The tricuspid valve was not well visualized. There is no pericardial effusion. CONCLUSIONS -------- 1. Sinus rhythm. 2. This was a technically difficult study with suboptimal views. 3. Limited Study 4. There is moderate concentric left ventricular hypertrophy. 5. Overall left ventricular systolic function is low-normal with, an EF between 50 - 55 %. 6. Mid anteroseptal LV wall motion is hypokinetic. 7. Apical septum LV wall motion is hypokinetic. 8. The RV was not well visualized. 9. 5.0mg of Lumason was utilized for enhancement of images 10. The aortic valve was not well visualized. 11. The mitral valve was not well visualized. 12. The tricuspid valve was not well visualized. 13. There is no pericardial effusion. WINCHMAN/CRANE OPERATOR: Pavithra Somers RDCS
--- NOTE | 2019-02-14 13:01 | CT ---
EXAMINATION TYPE: CT angio head neck DATE OF EXAM: 02/14/2019 HISTORY: CVA, code stroke. Acute onset weakness. COMPARISON: CTA head and neck [address] DLP: 324.7 mGycm. Automated Exposure Control for Dose Reduction was Utilized. TECHNIQUE: CTA scan of the head and neck are performed with IV Contrast, patient injected with 65 mL of Isovue M200, axial images are obtained, coronal and sagittal reformatted images are reviewed. Thr ee-D reconstructed images are created on an independent workstation and reviewed. FINDINGS: Carotid/Vascular Structures: Normal three-vessel origin from aortic arch redemonstrated. Right common carotid artery shows normal origin from right brachiocephalic artery. No significant plaque or steno sis right common or internal carotid artery including a level of carotid bulb. Mild calcified plaque supraclinoid segment incidentally redemonstrated. Patent external carotid artery without significant plaque or stenosis. No significant plaque or stenosis left common or internal carotid artery or external carotid artery i ncluding a level of carotid bulb. Incidental mild peripheral calcified plaque in supraclinoid segment redemonstrated. Dominant left vertebral artery. Vertebral arteries are patent to basilar junction. Patent bilateral p osterior communicating arteries. No new significant focal stenosis or aneurysmal change. Images of the anterior circulation show no significant new focal stenosis or aneurysmal change. Paten t anterior communicating artery is not well seen. Other: There is suspicious right thyroid hypodense nodule redemonstrated with local mass effect measu ring 4.2 x 3.5 x 3.5 cm craniocaudal dimension axial image 21 and coronal image 16 that warrants foll ow-up if not known. Scleral calcification both globes is redemonstrated. IMPRESSION: No new significant stenosis and common or internal carotid arteries or [place]. No significant change from prior. Suspicious right thyroid nodule measuring over 4 cm warrants follo w-up if this is not known finding to rule out neoplasm.
--- NOTE | 2019-02-14 16:13 | P.PN ---
Subjective Progress Note Date: 02/14/19 This is an 78-year-old female patient of Dr De Leon with a previous medical history significant for advanced Parkinson disease with significant spondylosis of the lumbar spine along with significant neuropathy both lower extremities, history of recurrent UTI, Generalized anxiety disorder. She had a recent hospitalization in October at which time she presented with acute mental status changes thought initially to be related to pneumonia but on subsequent CAT scan patient was found to have an acute/subacute ischemic infarct in the left parietal region.during the hospitalization, patient also had a fall and sustained a right femoral neck fracture for which she underwent a right hip hemiarthroplasty with Dr. Lopez. Patient was stabilized and discharged to [facility] where she completed subacute rehab. Patient resides at [facility]. patient's son Hollis and daughter Jayna are at the bedside. They give history the patient has had Parkinson's for 17 years but is noticed that lately she has had increased hallucinations and memory trouble. Patient needs assistance to a wheelchair. She occasionally uses a walker but unable to go very far. No tremors of been noted. When asked patient states that she is here to get a test done. Patient was noted by staff to have altered mental status and was sided paralysis. EMS was called the patient was brought into [facility] emergency center for evaluation. CAT scan found a right distal MCA CVA. Patient underwent TPA is now to be admitted to the ICU. Chest x-ray shows chronic findings. Consult in place with neurology and evaluator transfer students. 02/12: Patient is seen today in the intensive care unit. Patient is awake and alert. She is able to follow all commands. Photographic Enlarger Operator on her left arm is much stronger and able to lift her left leg. Her speech is clear although full comprehension is not noted. She does know that she is in the hospital but this is January,. She was able to recall her date including the year. She knows that Pres. Vaughn is in office. She is noted to have less neglect on the left side today. She does verbalize that she did not like being at [facility] when therapy was discussed. the patient wasn't [place] following her last admission.she has been evaluated by speech therapy and passed bedside swallow and her home medications were resumed yesterday. PT and OT will be evaluating her today. Dr. Posadas has evaluated the patient with recommendations for repeat CAT scan or MRI of the brain today. Dr. Posadas has recommended holding aspirin for now, continue atorvastatin. potassium is 3.3 and has been replaced. triglycerides 83, cholesterol 90, LDL 33, HDL 40, TSH 1.540. patient has been afebrile, heart rate 70, blood pressure 103/53, pulse ox 95% on room air. manager monitoring has been a sinus rhythm. 02/13 and patient examined bedside is more awake alert and is able to answer questions appropriately. Patient has been refusing MRI repeat CAT scan was negative for ischemic or hemorrhagic stroke. Did show old infarct in the parieto-occipital region and severe central cerebral atrophy in the frontal parietal region bilaterally. On evaluation today patient is able to mobilize her left upper extremity better but still have difficulty moving her left lower extremity. TTEpending for todayto rule out cardioembolic source. Cardiology consulted for possible event monitor on discharge. PTOT consulted patienthas multiple staff members at home that can take care of patient for 24 hours. 02/14 patient examined at bedside. Patient is found to be confused answering questions but has difficulty remembering the conversation. Code stroke was called this morning as patient was noticed to be more confused with dysarthric speech. CT head with CTA was done that was negative for any acute stroke or occlusion. Patient has been started on aspirin and Plavix. Discussed in detail with patient who wants to and does not want any further testing or PT. Son Pb was called and expresses concerns of patient's quality of life. Patient states she does not want any further testing. Will put consult for hospice to see if patient qualifies with plan to discharge home tomorrow ROS Review Of Systems: Constitutional: No fever, no chills, no night sweats. reports weakness, fatigue or lethargy. EENT: No headache. no loss of vision. No loss of Hearing, no dizziness. No nasal drainage or congestion. No epistaxis. No sore throat. Lungs: No shortness of breath, cough, no sputum production. No wheezing. Cardiovascular: reports chest tenderness, no lower extremity edema. No palpitations. No paroxysmal nocturnal dyspnea. No orthopnea. No lightheadedness or dizziness. No syncopal episodes. Abdominal: No abdominal pain. No nausea, vomiting. No diarrhea. No constipation. No bloody or tarry stools.. No loss of appetite. Genitourinary: No urinary retention. Musculoskeletal: No myalgias. reports muscle weakness, reports gait dysfunction. Integumentary: No wounds, no lesions. No rash or pruritus. No unusual bruising. Neurologic:Positive for dysarthria. reports facial droop. worsening mental status No head injury. No headache. weakness in the left leg Psychiatric: No depression. No anxiety. Endocrine: No abnormal blood sugars. No weight change. No excessive sweating or thirst. No cold intolerance. Objective - Vital Signs Vital signs: Vital Signs Temp 97.9 F 02/14/19 12:00 Pulse 96 02/14/19 12:00 Resp 14 02/14/19 12:00 BP 158/96 02/14/19 12:00 Pulse Ox 94 L 02/14/19 06:00 Intake & Output 02/13/19 02/14/19 02/14/19 18:59 06:59 18:59 Intake Total 700 100 Output Total 300 450 Balance 400 -450 100 Weight 58.7 kg 58.1 kg Intake: Intake, IV Titration 400 Amount Potassium Chloride 10 meq 400 In Water For Injection 1 100ml.bag @ 100 mls/hr IVPB Q1HR [facility] Rx#: [id number] Oral 300 100 Output: Urine 300 450 Other: Voiding Method Incontinent Incontinent Incontinent # Voids 1 # Bowel Movements 1 1 - Exam - Constitutional General appearance: no distress, thin - EENT Eyes: anicteric sclerae, EOMI, PERRLA, no ptosis, no scleral icterus, normal appearance ENT: hard of hearing, NA/AT, normal oropharynx, no thrush Ears: bilateral: normal - Neck Neck: no lymphadenopathy, normal ROM, no rigidity, no stridor, no thyromegaly Carotids: bilateral: upstroke normal Thyroid: bilateral: normal size - Respiratory Respiratory: bilateral: diminished, negative: dullness, rales, rhonchi, wheezing, prolonged expiration - Cardiovascular Rhythm: regular Heart sounds: normal: S1, S2 Abnormal Heart Sounds: systolic murmur, no S3 Gallop, no S4 Gallop - Gastrointestinal General gastrointestinal: soft, no splenomegaly, no tenderness, no umbilical hernia, no ventral hernia - Integumentary Integumentary: decreased turgor, normal - Neurologic Neurologic: left facial droop,dysarthric speech answering questions appropriately in the middle. Does have left lower extremity weakness - Musculoskeletal Musculoskeletal: no gait normal, generalized weaknessleft lower extremity weaker than the right decreased sensation on the left lower extremity - Psychiatric Psychiatric: Alert, O x's to person and place, able to follow commands, left- sided neglect improved from yesterday, slight droop on the left face. - Labs CBC & Chem 7: 02/14/19 04:30 02/14/19 04:30 Labs: Abnormal Lab Results - Last 24 Hours (Table) 02/14/19 Range/Units 04:30 Chloride 108 H (98-107) mmol/L Assessment and Plan Plan: 1. 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 Patient admitted to the intensive care unit. continue aspirin and Plavix repeat CAT scan was negative for any Worsening of stroke or hemorrhage. Patient refused MRI ordered MARI transthoracic echo was negative for any blood clot telemetry so far hasn't been negative for any arrhythmias patient's refused event monitor. He is not participating with physical therapy and has expressed the need to 2. History of ischemic infarct left parietal region in October 2018. 3. Hypotension history. Midodrine will be placed on hold for now as patient is hypertensive. 4. Spondylosis of the lumbar spine. Continue patient on [place]. 5. GERD. Continue Pepcid 20 mg orally once every day. 6. Advanced Parkinson disease. Continue with Sinemet 25/100 mg one tablet orally 4 times every day. 7. DVT prophylaxis. SCDs and OTTO hose. 8. GI prophylaxis. Continue Pepcid. 9 chronic debility patient is noted to be more confused and weak. She also has expressed her wishes to let go and not get further testing or imaging. she does not want to go to subacute rehabAccording to the son, patient is not getting any better since the last stroke and has intermittent lapse of memory and has ad vanced dementia. Hospice consulted for betterquality of life CODE STATUS: No code. Discharge plan: possible discharge to hospice
[2019-02-14] MEDS: ACETAMINOPHEN TAB 325 MG TAB PO PRN (17:43)
[2019-02-14] MEDS: ATORVASTATIN 10 MG TAB PO SCH (20:11)
[2019-02-14] MEDS: SENNOSIDES-DOCUSATE SODIUM 1 EACH TAB PO SCH (20:11)
[2019-02-15 04:46] LABS: HCT 36.3 % (34.0-46.0); HGB 11.8 gm/dL (11.4-16.0); MCH 30.3 pg (25.0-35.0); MCHC 32.6 g/dL (31.0-37.0); MCV 93.2 fL (80.0-100.0); Mean Platelet Volume 9.1; Platelet Count 178 k/uL (150-450); RDW 14.1 % (11.5-15.5); WBC 6.1 k/uL (3.8-10.6)
[2019-02-15 04:57] LABS: African American GFR (CKD) >90 (>60 ml/min/1.73 sqM); Anion Gap 5 mmol/L; Blood Urea Nitrogen 8 mg/dL (7-17); Calcium 9.4 mg/dL (8.4-10.2); Carbon Dioxide 27 mmol/L (22-30); Chloride 109 mmol/L (98-107); Glucose 86 mg/dL (74-99); Non-African American GFR(CKD) 87 (>60 ml/min/1.73 sqM); Potassium 3.5 mmol/L (3.5-5.1); Sodium 141 mmol/L (137-145)
[2019-02-15] MEDS: POTASSIUM CHLORIDE ER 20 MEQ TAB.ER PO SCH ×2 (06:43→08:14)
[2019-02-15] MEDS: CARBIDOPA-LEVODOPA 25-100 MG 1 EACH TAB PO SCH ×2 (08:14→13:57)
[2019-02-15] MEDS: FAMOTIDINE 20 MG TAB PO SCH (08:14)
[2019-02-15] MEDS: MULTIVITAMINS, THERA 1 EACH TAB PO SCH (08:14)
[2019-02-15] MEDS: CLOPIDOGREL 75 MG TAB PO SCH (08:14)
[2019-02-15 09:39] VITALS: BP 123/70; PULSE 74; RESP 16; TEMP 98.6
--- NOTE | 2019-02-15 10:12 | P.PN ---
Subjective Progress Note Date: 02/15/19 Principal diagnosis: Acute right MCA CVA, left-sided weakness, aphasia this is a 78-year-old patient of Dr. De Leon, with past medical history of advanced Parkinson's disease, recent hospitalization in October for pneumonia, and patient had mental status changes and was worked up for CVA, with CT angios of the brain showing acute/subacute ischemic infarct in the left parietal region. During the same hospitalization patient suffered a fall, and sustained a right femoral neck fracture with subsequent right hip hemiarthroplasty by Dr. Lopez. After discharge patient tomorrow and for rehabilitation and was subsequently discharged to assisted living at [facility]. patient has been having trouble ambulating, she usually gets around in the wheelchair and requires extensive assistance with ADLs. Her baseline mentation according to the son has been waxing and waning, and so has been her speech sometimes it is more slurred than others. She has been having increased hallucinations and memory impairments. This morning on 02/11/2019 patient was noted to have incre ased lethargy, and left-sided paralysis patient could not speak, and according to the son the onset from the time of symptoms began was on a half until arrival to the emergency department per EMS. CT angios of the brain found a right distal MCA occlusion, and patient underwent thrombolytic therapy with TPA and with permission of her son. 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 Her pupils are equal and reactive. She passed bedside swallow evaluation. admission lab work has been reviewed, CBC was unremarkable, electrolytes and renal profile was normal, LFTs, troponins were negative. Patient is resting comfortably in the intensive care unit, she is having neurologic checks every 2 hours, neurological evaluation is pending, and the possibility of MRI of the brain tomorrow. On 02/12/2019 patient seen in follow-up in intensive care unit, she is somnolent, but opens eyes to voice, follows commands, she is oriented to place and the month, but not the year. 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 Vital signs are stable, sinus rhythm on the monitor with a rate of 87, blood pressure is 124/66, patient is on room air, pulse ox is 96%, denies any shortness of breath, no signs of any distress. No acute issues overnight, patient has been evaluated by speech therapy, she passed the bedside swallow evaluation, and will likely need assistance and supervision with meals in view of her generalized weakness and lethargy. MRI of the brain is pending for today. Today's labs have been reviewed, and CBC is unremarkable, electrolytes are within normal limits with the exception of potassium which is at 3.3 and this was replaced per protocol. On 02/13/2019 patient seen in follow-up in intensive care unit, she is much more awake today, conversant, she denies any acute distress, she is oriented to place and month, her neurological deficits she presented with syncope have completely resolved, she is moving all 4 extremities, twister hand are equal, strength is equal bilaterally, no facial asymmetry, no speech deficits. She is in sinus mechanism on the monitor, hemodynamically stable, her pulse ox is 97%, she is afebrile, no acute events overnight, she has refused transfer esophageal echocardiogram and MRI of the brain. Repeat CT of the brain on 02/12/2019 showed no acute intracranial hemorrhage or midline shift, there was moderate diffuse cerebral atrophy over bilateral frontal and temporal lobes, and old left-sided infarct previously seen on previous CTs of brain. Patient is tolerating oral intake, her appetite is improving, today's labs have been reviewed, CBC is unremarkable, potassium is 3.3 this pain supplemented per protocol, the rest of the electrolytes and renal profile are within normal limits. On 02/14/2019 patient seen in follow-up in the intensive care unit, doing very well, she was up in the chair today, she fed herself breakfast, no specific complaints, neurologically patient seems to be intact, other than some slight w eakness in the left lower extremity, twister hand are equal, no facial asymmetry or weakness, lungs is clear, patient is alert and oriented to person and place, denies any shortness of breath, denies any chest pain. Room air pulse ox is 95%, no blood pressure issues, afebrile, today's labs have been reviewed, and are unremarkable, CBC is within normal limits, electrolytes are within normal limits, potassium is 2.5, chloride is 108, renal profile is within normal limits, IV fluids have been hep-locked, no arrhythmias on the monitor. On 02/15/2019 patient seen in follow-up in intensive care unit. Yesterday midmorning patient had mental status changes, and difficulty speaking," stroke was again reactivated, neurologic evaluation was difficult as the patient was refusing to follow some of the commands, seemed CT brain angiogram was completed showing no signs of acute stroke or occlusion, patient was started on aspirin and Plavix. She is not a candidate for any further thrombolytic therapy. 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 Patient's family wants to proceed with palliative care consultation and hospice consultation is pending. Vital signs remain stable overnight, patient is on room air. Sinus mechanism, pulse ox is 95%, pressure is stable, today's labs have been reviewed, CBC is unremarkable, electrolytes and renal profile are within normal limits. Objective - Vital Signs Vital signs: Vital Signs Temp 98.6 F 02/15/19 08:00 Pulse 74 02/15/19 08:00 Resp 16 02/15/19 08:00 BP 123/70 02/15/19 08:00 Pulse Ox 95 02/15/19 08:00 Intake & Output 02/14/19 02/15/19 02/15/19 18:59 06:59 18:59 Intake Total 430 Balance 430 Weight 58.1 kg Intake: Intake, IV Titration 330 Amount Sodium Chloride 0.9% 1, 330 000 ml In Empty Bag 1 bag @ 1 ML/KG/HR 58.1 mls/hr IV .[id number] ONE Rx#: [id number] Oral 100 Other: Voiding Method Incontinent Incontinent # Voids 1 1 # Bowel Movements 1 - Exam GENERAL EXAM: Awake, pleasant, 78-year-old frail looking white female, comfortably in bed, does not appear to be in any acute distress, follows commands, able to squeeze hands on command, moves all 4 extremities, opens eyes to examination, comfortable in no apparent distress. HEAD: Normocephalic/atraumatic. EYES: Normal reaction of pupils, equal size, 4 mm in diameter. Conjunctiva pink, sclera white. NOSE: Clear with pink turbinates. THROAT: No erythema or exudates. NECK: No masses, no JVD, no thyroid enlargement, no adenopathy. CHEST: No chest wall deformity. Symmetrical expansion. LUNGS: Equal air entry with no crackles, wheeze, rhonchi or dullness. CVS: Regular rate and rhythm, normal S1 and S2, no gallops, no murmurs, no rubs ABDOMEN: Soft, nontender. No hepatosplenomegaly, normal bowel sounds, no guarding or rigidity. EXTREMITIES: No clubbing, no edema, no cyanosis, 2+ pulses and upper and lower extremities. MUSCULOSKELETAL: Muscle strength and tone normal. SPINE: No scoliosis or deformity SKIN: No rashes CENTRAL NERVOUS SYSTEM: Awake and alert, conversant, answering questions appropriately. Motor strength equal bilaterally, the patient is moving all 4 extremities, and left sided weakness resolved - Labs CBC & Chem 7: 02/15/19 04:31 02/15/19 04:31 Labs: Abnormal Lab Results - Last 24 Hours (Table) 02/15/19 Range/Units 04:31 Chloride 109 H (98-107) mmol/L Assessment and Plan Plan: Assessment: #1. Acute right distal MCA ischemic CVA status post TPA infusion. Patient had presented to the emergency department per EMS within an hour and a half of symptom onset. initial symptoms included left-sided weakness, aphasia and lethargy, subsequently resolved after the initiation of TPA patient's neurologic symptoms had improved, she is moving all 4 extremities. On 02/14/2019 patient had another episode of mental status changes, with lethargy, confusion and dysarthria, repeat CT brain angiogram showed no acute no significant stenosis in common internal carotid arteries with [place]. Patient had recovered, continues with medical treatment, symptoms have resolved, patient's neurologic status is due to baseline this morning. 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 #2. recent history of ischemic infarct involving the left parietal region in October 2018 #3. advanced history of Parkinson's disease #4. recent history of fall with a femoral neck fracture, is post right hip hemiarthroplasty #5. History of recurrent UTIs with ESBL producing organisms #6. former smoker, currently in remission #7. osteoarthritis #8. Chronic back pain, spinal stenosis, peripheral neuropathy #9. gait dysfunction #10. 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 She is being medically treated, she is on aspirin and Plavix, she is not a candidate for any other thrombolytic therapy, CODE STATUS is DO NOT RESUSCITATE, and she is requesting to go home today, and patient's family would like to proceed with palliative care and hospice consult I performed a history & physical examination of the patient and discussed their management with my nurse practitioner, Nurys Sands. I reviewed the nurse practitioner's note and agree with the documented findings and plan of care. Lung sounds are positive for diminished breath sounds. The findings and the impression was discussed with the patient. I attest to the documentation by the nurse practitioner. Time with Patient: Less than 30
[2019-02-15] MEDS: ACETAMINOPHEN TAB 325 MG TAB PO PRN (10:41)
[2019-02-15] MEDS: traMADol 50 MG TAB PO SCH (10:45)
--- NOTE | 2019-02-15 12:57 | P.PN ---
Progress Note - Text Progress Note Date: 02/15/19 SUBJECTIVE/INTERVAL EVENTS: There was a stroke code yesterday morning for patient being less responsive. All imaging negative. Patient returned to baseline shortly. Family at bedside. States patient will be going home with hospice. Asked son about whether or not family would consider starting patient on anticoagulation knowing the risk of bleeding if patient were to fall. Son says if patient needs to be on it, she needs to be on it but not unnecessarily. PHYSICAL EXAMINATION: VITAL SIGNS: T 98.6 HR 74 RR 16 BP 123/70 O2 sat 95% on RA GEN.: NAD, pleasant and cooperative HEENT: NCAT, sclera without icterus NECK: Supple SKIN AND EXTREMITIES: Warm to touch, no edema NEURO: MENTAL STATUS: Patient alert and oriented to self, place, time. Speech fluent, able to name and repeat, following most simple commands. No right and left disorientation, possibly some L-sided neglect. CRANIAL NERVES II THROUGH XII: II: Pupils are equal and reactive to light symmetrically. No afferent pupillary defect. Visual conti are intact. III, IV, : No ptosis. Extraocular movements full. No nystagmus. V: Facial sensation intact from V1-3. VII. No clear facial asymmetry. VIII: Hearing intact to finger rub bilaterally. IX, X: Symmetric palate elevation. XI: Shoulder shrug intact. XII: Tongue midline without fasciculation or atrophy. MOTOR: Normal bulk, slightly increased tone. No pronator drift or tremor. Strength is at least antigravity in both UE. Difficulty with moving b/l LE against gravity but patient at baseline is wheelchair-bound and difficulty with leg movements. SENSORY: Intact to light touch in all 4 extremities. REFLEXES: 2+ throughout. Toes are downgoing. COORDINATION/GAIT: Deferred DIAGNOSTIC TESTING: LABORATORY: WBC 7.3 hemoglobin 13.1 platelet 217 sodium 144 potassium 3.6 chloride 105 bicarb 28 BUN 17 creatinine 0.81 glucose 116 AST 18 ALT 9 alk phos 76 troponin <0.012 A1C 4.9 Total cholesterol 90 LDL 33 HDL 40 TG 83 TSH 1.540 IMAGING: CT head without contrast 02/11/2019: age-related chronic ischemic changes. no abnormality at this time. Per my read, there is hyperdensity in the right MCA, concerning for occlusion CTA head and neck with contrast 02/11/2019: no significant diameter reduction to account for the patient's symptoms in the neck. therapist's abrupt termination distal right MCA segment with poor visualization of the distal MCA branches TTE 02/13/19: Limited study. suboptimal views. SR. EF 50-55%. mid anteroseptal LV wall and apical septum LV wall motion is hypokinetic. Difficult to visualize valves. Cardiac monitoring: no obvious atrial arrhythmia ASSESSMENT: 78 year-old woman with PMhx of osteoarthritis, Parkinson's disease, chronic back pain, spinal stenosis, peripheral neuropathy, sinus problems, urinary incontinence, who presented to [facility] for AMS and L-sided paralysis, found with occlusion of R MCA, given tPA, which significant improved patient's deficits. Repeat CT Head with no acute bleeding, but patient with old L-sided parieto-occipital infarct along with her recent R MCA occlusion although evidence of stroke not shown on repeat CT Head. Patient and family do not want MRI as patient with difficulty dealing with MRI machine. Pt agrees to repeat TTE tomorrow. Cardiology consulted for monitoring for any atrial arrhythmia as patient with b/l large vessel stroke. RECOMMENDATIONS: 1. c/w plavix 75mg qday 2. Atorvastatin 10mg qhs 3. Cardiology consult for long-term monitoring for a.fib detection. As patient going home with hospice and starting patient on anticoagulation with high risk for this patient, want to make sure patient with a.fib before starting anticoagulation. 4. Patient needs to follow up with neurologist as outpatient with her 1-2 weeks of discharge 5. Discussed ED precautions with family: return to ED if having severe headache, nausea, vomiting, vision deficits, speech difficulty, facial asymmetry, weakness, numbness or tingling.
--- NOTE | 2019-02-15 14:45 | P.DS ---
Providers Date of admission: 02/11/19 10:31 Attending physician: Suma Juarez MD Consults: 02/11/19 10:32 Consult Physician Routine Consulting Provider: Wilber Posadas Consult Reason/Comments: CVA Do you want consulting provider notified?: Yes 02/11/19 10:44 Consult Physician Routine Consulting Provider: Myla Brenner Consult Reason/Comments: Stroke with TPA Do you want consulting provider notified?: Yes 02/11/19 12:28 Consult Physician Routine Consulting Provider: Karissa Posadas Consult Reason/Comments: CVA post tPA Do you want consulting provider notified?: Already Contacted 02/12/19 14:25 Consult Physician Routine Consulting Provider: Delicia Frankel Consult Reason/Comments: rt sided stroke Do you want consulting provider notified?: Yes Primary care physician: Kwasi De Leon [facility] Course: This is an 78-year-old female patient of Dr De Leon with a previous medical history significant for advanced Parkinson disease with significant spondylosis of the lumbar spine along with significant neuropathy both lower extremities, history of recurrent UTI, Generalized anxiety disorder. She had a recent hospitalization in October at which time she presented with acute mental status changes thought initially to be related to pneumonia but on subsequent CAT scan patient was found to have an acute/subacute ischemic infarct in the left parietal region.during the hospitalization, patient also had a fall and sustained a right femoral neck fracture for which she underwent a right hip hemiarthroplasty with Dr. Lopez. Patient was stabilized and discharged to [facility] where she completed subacute rehab. Patient resides at [facility]. patient's son Hollis and daughter Jayna are at the bedside. They give history the patient has had Parkinson's for 17 years but is noticed that lately she has had increased hallucinations and memory trouble. Patient needs assistance to a wheelchair. She occasionally uses a walker but unable to go very far. No tremors of been noted. When asked patient states that she is here to get a test done. Patient was noted by staff to have altered mental status and was sided paralysis. EMS was called the patient was brought into [facility] emergency center for evaluation. CAT scan found a right distal MCA CVA. Patient underwent TPA is now to be admitted to the ICU. Chest x-ray shows chronic findings. Consult in place with neurology and measurement specialist. 02/12: Patient is seen today in the intensive care unit. Patient is awake and alert. She is able to follow all commands. Medical Imaging Tech on her left arm is much stro nger and able to lift her left leg. Her speech is clear although full comprehension is not noted. She does know that she is in the hospital but this is January,. She was able to recall her date including the year. She knows that Pres. Vaughn is in office. She is noted to have less neglect on the left side today. She does verbalize that she did not like being at [facility] when therapy was discussed. the patient wasn't [place] following her last admission.she has been evaluated by speech therapy and passed bedside swallow and her home medications were resumed yesterday. PT and OT will be evaluating her today. Dr. Posadas has evaluated the patient with recommendations for repeat CAT scan or MRI of the brain today. Dr. Posadas has recommended holding aspirin for now, continue atorvastatin. potassium is 3.3 and has been replaced. triglycerides 83, cholesterol 90, LDL 33, HDL 40, TSH 1.540. patient has been afebrile, heart rate 70, blood pressure 103/53, pulse ox 95% on room air. C ardiac monitor has been a sinus rhythm. 02/13 and patient examined bedside is more awake alert and is able to answer questions appropriately. Patient has been refusing MRI repeat CAT scan was negative for ischemic or hemorrhagic stroke. Did show old infarct in the parieto-occipital region and severe central cerebral atrophy in the frontal parietal region bilaterally. On evaluation today patient is able to mobilize her left upper extremity better but still have difficulty moving her left lower extremity. TTEpending for todayto rule out cardioembolic source. Cardiology consulted for possible event monitor on discharge. PTOT consulted patienthas multiple staff members at home that can take care of patient for 24 hours. 02/14 patient examined at bedside. Patient is found to be confused answering questions but has difficulty remembering the conversation. Code stroke was called this morning as patient was noticed to be more confused with dysarthric speech. CT head with CTA was done that was negative for any acute stroke or occlusion. Patient has been started on aspirin and Plavix. Discussed in detail with patient who wants to and does not want any further testing or PT. Son Pb was called and expresses concerns of patient's quality of life. Patient states she does not want any further testing. Will put consult for hospice to see if patient qualifies with plan to discharge home tomorrow 02/15 patient examined at bedside. She is answering appropriately today but still has some weakness in the left lower extremity but patient is moving her extremities better than yesterday. Detailed discussion with the son at bedside was done since patient wants to go home and doesn't want any further testing including MRI or event monitor patient will be discharged to [facility] with extra help. Detailed discussion was made with the son yesterday as well as today explaining the fact that despite being on medication patient continues to have repeated stroke. Since patient does not want MARI and no atrial arrhythmia was noted on the telemetry for the past few days despite patient having repeated stroke there is no benefit of being on anticoagulation without the use of the event monitor. Family has decided to switch patient to hospice at home. Patient will go home with hospice today discharge diagnosis 1. Right distal MCA ischemic CVA status post TPA 2. History of ischemic infarct left parietal region in October 2018. 3. Hypotension 4. Spondylosis of the lumbar spine. 5. GERD. 6. Advanced Parkinson disease. 7 Acute on chronic debility disposition home with hospice Plan - Discharge Summary Discharge Rx Participant: No New Discharge Prescriptions: New Clopidogrel [Plavix] 75 mg PO DAILY #30 tab Continue Famotidine [Pepcid] 20 mg PO DAILY tab Midodrine [ProAmatine] 5 mg PO BID Cholecalciferol [Vitamin D3 (25 Mcg = 1000 Iu)] 1,000 unit PO HS Carbidopa-Levodopa 25-100 mg [Sinemet 25-100 mg] 1 tab PO QID Atorvastatin [Lipitor] 40 mg PO HS #0 tab traMADol HCl [Ultram] 50 mg PO TID PRN PRN Reason: Pain Multivitamins, Thera [Multivitamin (formulary)] 1 tab PO DAILY Acetaminophen Tab [Tylenol] 650 mg PO Q6H PRN PRN Reason: Pain Sennosides-Docusate Sodium [Senokot-S] 2 tab PO HS Aspirin 81 mg PO HS Discontinued Hydrocodone/Acetaminophen [[place] 5-325] 1 tab PO BID PRN PRN Reason: Pain Mirtazapine 7.5 mg PO HS Discharge Medication List Famotidine [Pepcid] 20 mg PO DAILY tab 04/09/18 [Rx] Carbidopa-Levodopa 25-100 mg [Sinemet 25-100 mg] 1 tab PO QID 10/29/18 [History] Cholecalciferol [Vitamin D3 (25 Mcg = 1000 Iu)] 1,000 unit PO HS 10/29/18 [History] Midodrine [ProAmatine] 5 mg PO BID 10/29/18 [History] Atorvastatin [Lipitor] 40 mg PO HS #0 tab 11/07/18 [Rx] Multivitamins, Thera [Multivitamin (formulary)] 1 tab PO DAILY 01/05/19 [History] traMADol HCl [Ultram] 50 mg PO TID PRN 01/05/19 [History] Acetaminophen Tab [Tylenol] 650 mg PO Q6H PRN 02/11/19 [History] Aspirin 81 mg PO HS 02/11/19 [History] Sennosides-Docusate Sodium [Senokot-S] 2 tab PO HS 02/11/19 [History] Clopidogrel [Plavix] 75 mg PO DAILY #30 tab 02/14/19 [Rx] Follow up Appointment(s)/Referral(s): Kwasi De Leon MD [Primary Care Provider] - 1-2 days [facility], [NON-STAFF] - 1-2 Days Discharge Disposition: HOME WITH HOSPICE
== END 2019-02-15 14:22 | disposition hospice, home (50) | DRG 62 ==
LOC: EC 09:10 → 2SICU 10:31
PROVIDERS: ADMIT Internal Medicine; ATTEND Internal Medicine
DX: I63.511 Cerebral infarction due to unspecified occlusion or stenosis of right middle cerebral artery (principal); G81.94 Hemiplegia, unspecified affecting left nondominant side; R47.01 Aphasia; G20 Parkinson's disease; R29.717 NIHSS score 17; F41.1 Generalized anxiety disorder; R29.810 Facial weakness; G62.9 Polyneuropathy, unspecified; Z66 Do not resuscitate; Z51.5 Encounter for palliative care; G89.29 Other chronic pain; K21.9 Gastro-esophageal reflux disease without esophagitis; M19.90 Unspecified osteoarthritis, unspecified site; M47.816 Spondylosis without myelopathy or radiculopathy, lumbar region; M48.00 Spinal stenosis, site unspecified; R32 Unspecified urinary incontinence; R26.2 Difficulty in walking, not elsewhere classified; Z79.82 Long term (current) use of aspirin; Z79.899 Other long term (current) drug therapy; Z90.710 Acquired absence of both cervix and uterus; Z87.440 Personal history of urinary (tract) infections; Z86.73 Personal history of transient ischemic attack (TIA), and cerebral infarction without residual deficits; Z87.891 Personal history of nicotine dependence; Z87.01 Personal history of pneumonia (recurrent); Z80.3 Family history of malignant neoplasm of breast; Z81.1 Family history of alcohol abuse and dependence; Z82.49 Family history of ischemic heart disease and other diseases of the circulatory system; Z83.3 Family history of diabetes mellitus
CPT/HCPCS: 36415; 37195; 70450; 70496; 70498; 71045; 80048; 80053; 80061; 82550; 82553; 83036; 84443; 84484; 85025; 85027; 85610; 85730; 93005; 93308; 96360; 99291